=== PATIENT | female | born 1930 | race African-American/Black ===

== ENCOUNTER 2018-05-16 16:21 | Inpatient (IN) | payer OTHER ==
[2018-05-16] MEDS ORDERED: SODIUM CHLORIDE 0.9% 500 ML INFUS.BAG IV ONE (17:45)
--- NOTE | 2018-05-16 18:20 | PDOC ---
History of Present Illness - General History Source: Patient - History of Present Illness Initial Comments: 05/16/18 17:41 88YOF with h/o dementia, HTN, DM, back pain, and urinary retention with multiple prior UTI and hydronephrosis, who p/w worsening weakness (unable to walk and was previously able to), and multiple falls, all ongoing for months prior to presentation today. The patient herself is a poor historian and is accompanied by her daughter who provides some history but does not live with the patient. The daughter notes that the patient has not complained of any discomfort, but has smelled strongly of urine and had worsening confusion and malaise and poor appetite. The daughter also notes several falls recently, with the most recent about a week and a half ago. The patient herself states that she fell earlier today, but this is not corroborated by family. <Maral Ruvalcaba - Last Filed: 05/16/18 17:41> <Kecia Negron - Last Filed: 05/16/18 19:27> - General Chief Complaint: Weakness Stated Complaint: BOTH LEG WEAKNESS Time Seen by Provider: 05/16/18 17:23 Past History - Past Medical History Anemia: No Asthma: No Cancer: No Cardiac Disorders: No CVA: No COPD: No CHF: No Dementia: No Diabetes: Yes GI Disorders: No Disorders: No HTN: Yes Hypercholesterolemia: No Liver Disease: No Seizures: No Thyroid Disease: No - Surgical History Abdominal Surgery: No Appendectomy: No Cardiac Surgery: No Cholecystectomy: Yes Lung Surgery: No Neurologic Surgery: No Orthopedic Surgery: No - Suicide/Smoking/Psychosocial Hx Smoking Status: No Smoking History: Former smoker Have you smoked in the past 12 months: No Number of Cigarettes Smoked Daily: 0 If you are a former smoker, when did you quit?: 30 YRS AGO Information on smoking cessation initiated: No Hx Alcohol Use: No Drug/Substance Use Hx: No Substance Use Type: None Hx Substance Use Treatment: No <Maral Ruvalcaba - Last Filed: 05/16/18 17:41> <Kecia Negron - Last Filed: 05/16/18 19:27> - Past Medical History Allergies/Adverse Reactions: Allergies Allergy/AdvReac Type Severity Reaction Status Date / Time No Known Allergies Allergy Verified 05/16/18 16:29 Home Medications: Ambulatory Orders Sitagliptin Phos/Metformin HCl [Janumet 50-500 mg Tablet] 1 each PO DAILY Aspirin [ASA -] 81 mg PO DAILY 1 Days tab 12/23/11 Metoprolol Succinate [Toprol XL -] 50 mg PO BID #0 tablet 12/23/11 Amlodipine Bes/Olmesartan Med [Lisa 10-40 mg Tablet] 1 each PO DAILY 10/08/13 Review of Systems - Review of Systems Able to Perform ROS?: No (dementia) <Maral Ruvalcaba - Last Filed: 05/16/18 17:41> *Physical Exam - Vital Signs Last Vital Signs Temp Pulse Resp BP Pulse Ox 97.4 F L 75 14 100/51 L 94 L 05/16/18 16:26 05/16/18 16:26 05/16/18 16:26 05/16/18 16:26 05/16/18 16:26 - Physical Exam Comments: 05/16/18 18:41 GENERAL: pleasant elderly female in no distress, confused, calm, no distress, accompanied by daughter, smells strongly of urine HEENT: PERRLA, EOMI, moist mucous membranes NECK/BACK: no spinal stepoff or deformity, no hematoma, neck supple CARDIOVASCULAR: regular rate/rhythm, normal S1S2, no MGR, capillary refill <2 seconds, extremities wwp, no edema LUNGS/RESPIRATORY: nononlabored respirations, lungs CTAB GI/ABDOMEN: symmetric [id number], normoactive BS, soft, no midline pulsatile masses, no organomegaly : normal external appearance, no lesions, no swelling, non-malodorous EXTREMITIES: no muscle atrophy, no acute deformity, no edema SKIN: warm and dry, no pallor, no jaundice, no rash, no bruising, no skin breakdown, no cuts NEUROLOGICAL: Not alert or oriented, CN II-XII grossly intact, no obvious facial droop, CNII-XII intact, BUE with 5/5 strength proximally and distally, BLE with 3/5 strength, stance and gait not tested <Maral Ruvalcaba - Last Filed: 05/16/18 17:41> - Vital Signs Last Vital Signs Temp Pulse Resp BP Pulse Ox 97.4 F L 75 14 100/51 L 94 L 05/16/18 16:26 05/16/18 16:26 05/16/18 16:26 05/16/18 16:26 05/16/18 16:26 <Kecia Negron - Last Filed: 05/16/18 19:27> ED Treatment Course - LABORATORY CBC & Chemistry Diagram: 05/16/18 17:54 05/16/18 17:54 - ADDITIONAL ORDERS Additional order review: Laboratory Results 05/16/18 05/16/18 17:54 17:54 Sodium 137 Potassium 6.1 H* Chloride 108 H Carbon Dioxide 19 L Anion Gap 9 BUN 42 H Creatinine 1.5 H Creat Clearance w eGFR 32.70 Random Glucose 100 Calcium 12.4 H Phosphorus 3.2 Magnesium 2.4 Total Bilirubin 0.4 AST 31 ALT 21 Alkaline Phosphatase 76 Creatine Kinase 77 Troponin I < 0.02 Total Protein 7.5 Albumin 2.6 L Urine Color Dk yellow Urine Appearance Turbid Urine pH 8.5 H Ur Specific [place] 1.016 Urine Protein 3+ H Urine Glucose (UA) Negative Urine Ketones Negative Urine Blood Trace Urine Nitrite Negative Urine Bilirubin Negative Urine Urobilinogen 0.2 Ur Leukocyte Esterase 4+ H Urine WBC (Auto) 5,547.0 Urine RBC (Auto) 5.2 Urine Casts (Auto) None seen U Epithel Cells (Auto) 136.7 Urine Bacteria (Auto) 628.1 05/16/18 17:54 RBC 3.88 MCV 81.3 MCHC 32.4 RDW 14.6 MPV 7.6 D Neutrophils % 75.5 Lymphocytes % 12.5 Monocytes % 10.2 Eosinophils % 0.8 Basophils % 1.0 - Medications Given in the ED: ED Medications Discontinued Medications Generic Name Dose Route Start Last Admin Trade Name Freq PRN Reason Stop Dose Admin Sodium Chloride 500 ml 05/16/18 17:45 05/16/18 18:48 Normal Saline - IV 05/16/18 17:46 500 ml ONCE ONE Administration <Kecia Negron - Last Filed: 05/16/18 19:27> Medical Decision Making - Medical Decision Making 05/16/18 17:43 Pt p/w fatigue and generalized weakness. Initial Vital Signs Temp Pulse Resp BP Pulse Ox 97.4 F L 75 14 100/51 L 94 L 05/16/18 16:26 05/16/18 16:26 05/16/18 16:26 05/16/18 16:26 05/16/18 16:26 Exam: As noted in Physical Exam section. DDX IBNLT: anemia (e.g. from GIB, menorrhagia, other blood loss), endocrine ( hypothyroidism, hyperparathyroidism), Parkinsons disease, CVA, cancer ([place] DIRECT [employer]SE CONSULT[employer] neoplasm), medications/drugs (any sedative e.g. EtOH or withdrawal from a stimulant, methyldopa, clonidine, beta blockers, Haldol, prochlorperaine, metocloperamide, long-term steroid use, IFN-alpha), psychiatric (depression, dysthymia, bipolar disorder, adjustment disorder with depressed mood, premenstrual dysphoric disorder). W/U ordered: Labs as below EKG CXR TX ordered: IVF EKG: Reviewed; results as noted in ECG Review section. Labs: 05/16/18 18:46 <Maral Ruvalcaba - Last Filed: 05/16/18 17:41> *DC/Admit/Observation/Transfer <Maral Ruvalcaba - Last Filed: 05/16/18 17:41> - Discharge Dispostion Decision to Admit order: Yes <Kecia Negron - Last Filed: 05/16/18 19:27> Diagnosis at time of Disposition: Urinary tract infection, Hyperkalemia - Discharge Dispostion Condition at time of disposition: Guarded
[2018-05-16 18:28] LABS: EOS % 0.8 % (0-4.5); HEMATOCRIT 31.6 % (32.4-45.2); HEMOGLOBIN 10.3 GM/dL (10.7-15.3); LYMPH % 12.5 % (8-40); MCH 26.4 pg (25.7-33.7); MCHC 32.4 g/dl (32.0-36.0); MEAN CELL VOLUME 81.3 fl (80-96); MEAN PLT VOLUME 7.6 fl (7.5-11.1); MONO % 10.2 % (3.8-10.2); NEUT % 75.5 % (42.8-82.8); PLATELET COUNT 405 K/MM3 (134-434); RBC 3.88 M/mm3 (3.60-5.2); RDW 14.6 % (11.6-15.6)
--- NOTE | 2018-05-16 18:38 | PDOC ---
Attending Attestation - Resident Resident Name: Maral Ruvalcaba - ED Attending Attestation I have performed the following: I have examined & evaluated the patient, The case was reviewed & discussed with the resident, I agree w/resident's findings & plan - HPI HPI: 05/16/18 19:31 88YOF with a PMH of dementia, HTN, DM, back pain, prior UTIs and hydronephrosis who presents s/p unwitnessed fall today. As per daughter at bedside, patient has had multiple falls over the past week and a half. Daughter has also noticed increased confusion for the past month. Daughter notes the patient had melena yesterday. Patient has also had poor appetite, weakness, and has not been ambulating with her walker. The patient is complaining of mild abdominal pain and knee pain. Patient is unable to provide further history. An aid and nurse come to the patients home, and son her also lives with her. Allergies: NKA 05/16/18 21:57 - Physicial Exam PE: 05/16/18 19:03 NAD, alert and awake, mildly disoriented. PERRL, EOMI, dry membranes, nl conjunctiva, anicteric; neck supple. lungs clear, RRR, abdomen soft mildly diffuse abdominal tenderness, no cvat and no rebound/guarding. PHILIPPE x4, no focal neuro deficits. No peripheral edema. normal color for ethnicity, WWP. 05/16/18 21:57 - Medical Decision Making 05/16/18 18:39 I, Kecia Negron MD, attest that this document has been prepared under my direction and personally reviewed by me in its entirety. I further attest, that it accurately reflects all work, treatment, procedures and medical decision -making performed by me. See HPI for details Vital signs reviewed, wnl. SpO2 94%. no fever. Prior notes reviewed, including admissions, discharges and consultations. laboratory results and imaging reviewed, basic labs and lytes wnl, notable for mild leukocytosis of 14K. Cr 1.5, previous more normal and at the peak. K elevated, with some EKG changes, meds given and recheck +malodorous urine UA_+UTI, f/u cultures EKG normal sinus rhythm at 74 bpm, no interval abnormalities, narrow QRS, ST segments and morphology normal. Nonspecific T wave abnormalities with Tented T waves in precordials ED course: IV ceftriaxone for suspected clinical UTI hyper K treatment with calcium, dextrose, insulin, duonebs 10mg albuterol and IVF. Admit for AMS workup 2/2 acute UTI, hyperK . Discussed results and management plan with pt and family member at bedside, agree with impression and plan 05/16/18 21:58 Heart Score/ECG Review #1 ECG reviewed & interpreted by me at: 19:00 General ECG Interpretation: Sinus Rhythm, Normal Rate, Normal Intervals 05/16/18 19:08 EKG normal sinus rhythm at 74 bpm, no interval abnormalities, narrow QRS, ST segments and morphology normal. Nonspecific T wave abnormalities with Tented T waves in precordials
[2018-05-16] MEDS ORDERED: CEFTRIAXONE 1,000 MG in DEXTROSE 5%-WATER - 50 ML IVPB ONE (19:00)
[2018-05-16 19:04] LABS: ALBUMIN 2.6 g/dl (3.4-5.0); ALK PHOS 76 U/L (45-117); ANION GAP 9 MMOL/L (8-16); BILIRUBIN,TOTAL 0.4 mg/dL (0.2-1); BLOOD UREA NITROGEN 42 mg/dL (7-18); CALCIUM 12.4 mg/dL (8.5-10.1); CHLORIDE 108 mmol/L (98-107); CO2 19 mmol/L (21-32); CREATININE 1.5 mg/dL (0.55-1.3); GLUCOSE,RANDOM 100 mg/dL (74-106); MAGNESIUM 2.4 mg/dL (1.8-2.4); PHOSPHOROUS 3.2 mg/dL (2.5-4.9); SGOT/AST 31 U/L (15-37); SGPT/ALT 21 U/L (13-61); SODIUM 137 mmol/L (136-145); TOT PROT 7.5 g/dl (6.4-8.2)
[2018-05-16] MEDS ORDERED: CEFTRIAXONE 1 GM/50 ML BAG ONE (19:05)
[2018-05-16 19:06] LABS: POTASSIUM 6.1 mmol/L (3.5-5.1)
[2018-05-16 19:14] LABS: URINE APPEARANCE TURBID; URINE COLOR DK YELLOW
[2018-05-16 19:15] LABS: PH,URINE 8.5 (5.0-8.0); URINE BILIRUBIN NEGATIVE (NEGATIVE); URINE GLUCOSE (UA) NEGATIVE (NEGATIVE); URINE KETONE NEGATIVE (NEGATIVE)
[2018-05-16 19:16] LABS: URINE LEUK ESTERASE 4+ (NEGATIVE); URINE NITRITE NEGATIVE (NEGATIVE); URINE UROBILINOGEN 0.2 mg/dL (0.2-1.0)
[2018-05-16 19:22] LABS: URINE PROTEIN 3+ (NEGATIVE); URINE RBC 5.2 /hpf (0-4)
[2018-05-16 19:23] LABS: EPI CELLS 136.7 /HPF (0-5)
[2018-05-16 19:24] LABS: URINE BACTERIA 628.1 /hpf (NEGATIVE)
[2018-05-16 19:25] LABS: URINE CASTS NONE SEEN /hpf (0-8)
[2018-05-16] MEDS ORDERED: CALCIUM GLUCONATE 10% - 1,000 MG/10 ML VIAL IVPB ONE (19:25)
[2018-05-16] MEDS ORDERED: FUROSEMIDE 40 MG/4 ML INJECTABLE VIAL IVPUSH ONE (19:25)
[2018-05-16] MEDS ORDERED: INSULIN REGULAR HUMAN 100 UNITS/ML *VIAL IVPUSH ONE (19:26)
[2018-05-16] MEDS ORDERED: DEXTROSE 50%-WATER - 25 GM/50 ML VIAL IVPUSH ONE (19:26)
[2018-05-16] MEDS ORDERED: DEXTROSE 50%-WATER - 25 GM/50 ML VIAL ONE (19:33)
[2018-05-16] MEDS ORDERED: ALBUTEROL SO4 2.5/IPRATROPIUM 0.5 INH SOL 3 ML VIAL.NEB. NEB ONE (19:33)
[2018-05-16] MEDS ORDERED: CALCIUM GLUCONATE 10% - 1,000 MG/10 ML VIAL ONE (19:33)
[2018-05-16] MEDS ORDERED: FUROSEMIDE 40 MG/4 ML INJECTABLE VIAL ONE (19:34)
[2018-05-16] MEDS ORDERED: INSULIN REGULAR HUMAN 100 UNITS/ML *VIAL ONE (19:35)
[2018-05-16] MEDS: ALBUTEROL SO4 2.5/IPRATROPIUM 0.5 INH SOL 3 ML VIAL.NEB. NEB SCH ×4 (19:50→20:29)
--- NOTE | 2018-05-16 20:15 | PDOC ---
*Physical Exam - Vital Signs Last Vital Signs Temp Pulse Resp BP Pulse Ox 97.4 F L 75 14 100/51 L 94 L 05/16/18 16:26 05/16/18 16:26 05/16/18 16:26 05/16/18 16:26 05/16/18 16:26 ED Treatment Course - LABORATORY CBC & Chemistry Diagram: 05/16/18 17:54 05/16/18 17:54 - ADDITIONAL ORDERS Additional order review: Laboratory Results 05/16/18 05/16/18 05/16/18 19:05 17:54 17:54 Sodium 137 Potassium 6.1 H* Chloride 108 H Carbon Dioxide 19 L Anion Gap 9 BUN 42 H Creatinine 1.5 H Creat Clearance w eGFR 32.70 Random Glucose 100 Calcium 12.4 H Phosphorus 3.2 Magnesium 2.4 Total Bilirubin 0.4 AST 31 ALT 21 Alkaline Phosphatase 76 Creatine Kinase 77 Troponin I < 0.02 Total Protein 7.5 Albumin 2.6 L Urine Color Dk yellow Urine Appearance Turbid Urine pH 8.5 H Ur Specific [place] 1.016 Urine Protein 3+ H Urine Glucose (UA) Negative Urine Ketones Negative Urine Blood Trace Urine Nitrite Negative Urine Bilirubin Negative Urine Urobilinogen 0.2 Ur Leukocyte Esterase 4+ H Urine WBC (Auto) 5,547.0 Urine RBC (Auto) 5.2 Urine Casts (Auto) None seen U Epithel Cells (Auto) 136.7 Urine Bacteria (Auto) 628.1 Stool Occult Blood Negative 05/16/18 17:54 RBC 3.88 MCV 81.3 MCHC 32.4 RDW 14.6 MPV 7.6 D Neutrophils % 75.5 Lymphocytes % 12.5 Monocytes % 10.2 Eosinophils % 0.8 Basophils % 1.0 - Medications Given in the ED: ED Medications Discontinued Medications Generic Name Dose Route Start Last Admin Trade Name Freq PRN Reason Stop Dose Admin Calcium Gluconate 1,000 mg 05/16/18 19:25 05/16/18 19:57 Calcium Gluconate 10% - IVPB 05/16/18 19:26 1,000 mg ONCE ONE Administration Dextrose 25 gm 05/16/18 19:26 05/16/18 19:57 D50w (Vial) - IVPUSH 05/16/18 19:27 25 gm NOW ONE Administration Furosemide 40 mg 05/16/18 19:25 05/16/18 19:57 Lasix Injection - IVPUSH 05/16/18 19:26 40 mg ONCE ONE Administration Ceftriaxone Sodium 1,000 mg/ 50 mls @ 100 mls/hr 05/16/18 19:00 05/16/18 19: 07 Dextrose IVPB 05/16/18 19:29 100 mls/hr ONCE ONE Administration Insulin Human Regular 10 units 05/16/18 19:26 05/16/18 19:57 Novolin R Vial *For Ivpush Or Iv Drip Only* IVPUSH 05/16/18 19:27 10 units ONCE ONE Administration Sodium Chloride 500 ml 05/16/18 17:45 05/16/18 18:48 Normal Saline - IV 05/16/18 17:46 500 ml ONCE ONE Administration Medical Decision Making - Medical Decision Making 05/16/18 20:[address] Thompson for hyperkalemia, BRITT and UTI. *DC/Admit/Observation/Transfer Diagnosis at time of Disposition: Urinary tract infection, Hyperkalemia - Discharge Dispostion Condition at time of disposition: Guarded Decision to Admit order: Yes - Referrals - Patient Instructions - Post Discharge Activity
--- NOTE | 2018-05-16 20:24 | HP ---
Admitting History and Physical - Primary Care Physician PCP: Jose Thompson - Admission History of Present Illness: 88YOF with a PMH of dementia, HTN, DM, back pain, prior UTIs and hydronephrosis who presents s/p unwitnessed fall today. As per daughter at bedside, patient has had multiple falls over the past week and a half. Daughter has also noticed increased confusion for the past month. Daughter notes the patient had melena yesterday. Patient has also had poor appetite, weakness, and has not been ambulating with her walker. The patient is complaining of mild abdominal pain and knee pain. Patient is unable to provide further history. An aid and nurse come to the patients home, and son her also lives with her. - Past Medical History Cardiovascular: Yes: HTN Endocrine: Yes: Diabetes Mellitus - Smoking History Smoking history: Former smoker Have you smoked in the past 12 months: No Aproximately how many cigarettes per day: 0 If you are a former smoker, when did you quit?: 30 YRS AGO - Alcohol/Substance Use Hx Alcohol Use: No Home Medications - Allergies Allergies/Adverse Reactions: Allergies Allergy/AdvReac Type Severity Reaction Status Date / Time No Known Allergies Allergy Verified 05/16/18 16:29 - Home Medications Home Medications: Ambulatory Orders Sitagliptin Phos/Metformin HCl [Janumet 50-500 mg Tablet] 1 each PO DAILY Aspirin [ASA -] 81 mg PO DAILY 1 Days tab 12/23/11 Metoprolol Succinate [Toprol XL -] 50 mg PO BID #0 tablet 12/23/11 Amlodipine Bes/Olmesartan Med [Lisa 10-40 mg Tablet] 1 each PO DAILY 10/08/13 Physical Examination Vital Signs: Vital Signs Temperature 97.4 F L 05/16/18 16:26 Pulse Rate 75 05/16/18 16:26 Respiratory Rate 14 05/16/18 16:26 Blood Pressure 100/51 L 05/16/18 16:26 O2 Sat by Pulse Oximetry (%) 94 L 05/16/18 16:26 Constitutional: Yes: No Distress HENT: Yes: Atraumatic Neck: Yes: Supple Cardiovascular: Yes: Regular Rate and Rhythm Respiratory: Yes: CTA Bilaterally Gastrointestinal: Yes: Normal Bowel Sounds Extremities: Yes: WNL Edema: No Neurological: Yes: Alert, Oriented Labs: CBC, BMP 05/16/18 17:54 05/16/18 17:54 Imaging - Results X-ray: Report Reviewed Problem List - Problems (1) BRITT (acute kidney injury) Assessment/Plan: ON IVF MONITOR Code(s): N17.9 - ACUTE KIDNEY FAILURE, UNSPECIFIED (2) Hyperkalemia Assessment/Plan: RESOLVED Code(s): E87.5 - HYPERKALEMIA (3) Urinary tract infection Assessment/Plan: ON ABX PER ID CXS SENT Code(s): N39.0 - URINARY TRACT INFECTION, SITE NOT SPECIFIED (4) Dementia Code(s): F03.90 - UNSPECIFIED DEMENTIA WITHOUT BEHAVIORAL DISTURBANCE Qualifiers: Dementia type: unspecified type Dementia behavioral disturbance: without behavioral disturbance Qualified Code(s): F03.90 - Unspecified dementia without behavioral disturbance (5) Diabetes mellitus Assessment/Plan: ON PO MEDS BGMS Code(s): E11.9 - TYPE 2 DIABETES MELLITUS WITHOUT COMPLICATIONS Qualifiers: Diabetes mellitus type: type 2 Diabetes mellitus long-term insulin use: without water pump installer use (6) Fall Assessment/Plan: PT EVAL Code(s): W19.XXXA - UNSPECIFIED FALL, INITIAL ENCOUNTER Qualifiers: Encounter type: subsequent encounter Qualified Code(s): W19.XXXD - Unspecified fall, subsequent encounter (7) HTN (hypertension) Assessment/Plan: ON MEDS STABLE Code(s): I10 - ESSENTIAL (PRIMARY) HYPERTENSION Qualifiers: Hypertension type: essential hypertension Qualified Code(s): I10 - Essential (primary) hypertension Assessment/Plan Laboratory Tests 05/16/18 05/16/18 05/16/18 17:54 17:54 17:54 WBC 14.0 H RBC 3.88 Hgb 10.3 L Hct 31.6 L MCV 81.3 MCH 26.4 MCHC 32.4 RDW 14.6 Plt Count 405 D MPV 7.6 D Absolute Neuts (auto) 10.6 H Neutrophils % 75.5 Lymphocytes % 12.5 Monocytes % 10.2 Eosinophils % 0.8 Basophils % 1.0 Nucleated RBC % 0 Sodium 137 Potassium 6.1 H* Chloride 108 H Carbon Dioxide 19 L Anion Gap 9 BUN 42 H Creatinine 1.5 H Creat Clearance w eGFR 32.70 Random Glucose 100 Calcium 12.4 H Phosphorus 3.2 Magnesium 2.4 Total Bilirubin 0.4 AST 31 ALT 21 Alkaline Phosphatase 76 Creatine Kinase 77 Troponin I < 0.02 Total Protein 7.5 Albumin 2.6 L Urine Color Dk yellow Urine Appearance Turbid Urine pH 8.5 H Ur Specific [place] 1.016 Urine Protein 3+ H Urine Glucose (UA) Negative Urine Ketones Negative Urine Blood Trace Urine Nitrite Negative Urine Bilirubin Negative Urine Urobilinogen 0.2 Ur Leukocyte Esterase 4+ H Urine WBC (Auto) 5,547.0 Urine RBC (Auto) 5.2 Urine Casts (Auto) None seen U Epithel Cells (Auto) 136.7 Urine Bacteria (Auto) 628.1 Stool Occult Blood 05/16/18 19:05 WBC RBC Hgb Hct MCV MCH MCHC RDW Plt Count MPV Absolute Neuts (auto) Neutrophils % Lymphocytes % Monocytes % Eosinophils % Basophils % Nucleated RBC % Sodium Potassium Chloride Carbon Dioxide Anion Gap BUN Creatinine Creat Clearance w eGFR Random Glucose Calcium Phosphorus Magnesium Total Bilirubin AST ALT Alkaline Phosphatase Creatine Kinase Troponin I Total Protein Albumin Urine Color Urine Appearance Urine pH Ur Specific [place] Urine Protein Urine Glucose (UA) Urine Ketones Urine Blood Urine Nitrite Urine Bilirubin Urine Urobilinogen Ur Leukocyte Esterase Urine WBC (Auto) Urine RBC (Auto) Urine Casts (Auto) U Epithel Cells (Auto) Urine Bacteria (Auto) Stool Occult Blood Negative Laboratory Tests 05/16/18 05/16/18 05/16/18 17:54 17:54 17:54 WBC 14.0 H RBC 3.88 Hgb 10.3 L Hct 31.6 L MCV 81.3 MCH 26.4 MCHC 32.4 RDW 14.6 Plt Count 405 D MPV 7.6 D Absolute Neuts (auto) 10.6 H Neutrophils % 75.5 Lymphocytes % 12.5 Monocytes % 10.2 Eosinophils % 0.8 Basophils % 1.0 Nucleated RBC % 0 Sodium 137 Potassium 6.1 H* Chloride 108 H Carbon Dioxide 19 L Anion Gap 9 BUN 42 H Creatinine 1.5 H Creat Clearance w eGFR 32.70 POC Glucometer Random Glucose 100 Calcium 12.4 H Phosphorus 3.2 Magnesium 2.4 Total Bilirubin 0.4 AST 31 ALT 21 Alkaline Phosphatase 76 Creatine Kinase 77 Troponin I < 0.02 Total Protein 7.5 Albumin 2.6 L Prealbumin TSH Urine Color Dk yellow Urine Appearance Turbid Urine pH 8.5 H Ur Specific [place] 1.016 Urine Protein 3+ H Urine Glucose (UA) Negative Urine Ketones Negative Urine Blood Trace Urine Nitrite Negative Urine Bilirubin Negative Urine Urobilinogen 0.2 Ur Leukocyte Esterase 4+ H Urine WBC (Auto) 5,547.0 Urine RBC (Auto) 5.2 Urine Casts (Auto) None seen U Epithel Cells (Auto) 136.7 Urine Bacteria (Auto) 628.1 Ur Random Sodium Ur Random Potassium Ur Random Chloride Urine Creatinine Stool Occult Blood 05/16/18 05/16/18 05/17/18 19:05 21:20 04:48 WBC RBC Hgb Hct MCV MCH MCHC RDW Plt Count MPV Absolute Neuts (auto) Neutrophils % Lymphocytes % Monocytes % Eosinophils % Basophils % Nucleated RBC % Sodium 139 Potassium 4.1 Chloride 110 H Carbon Dioxide 18 L Anion Gap 11 BUN 41 H Creatinine 1.4 H Creat Clearance w eGFR 35.41 POC Glucometer 147 Random Glucose 132 H Calcium 12.9 H Phosphorus Magnesium Total Bilirubin 0.3 AST 26 ALT 19 Alkaline Phosphatase 73 Creatine Kinase 38 Troponin I < 0.02 Total Protein 6.9 Albumin 2.4 L Prealbumin TSH Urine Color Urine Appearance Urine pH Ur Specific [place] Urine Protein Urine Glucose (UA) Urine Ketones Urine Blood Urine Nitrite Urine Bilirubin Urine Urobilinogen Ur Leukocyte Esterase Urine WBC (Auto) Urine RBC (Auto) Urine Casts (Auto) U Epithel Cells (Auto) Urine Bacteria (Auto) Ur Random Sodium Ur Random Potassium Ur Random Chloride Urine Creatinine Stool Occult Blood Negative 05/17/18 05/18/18 05/18/18 15:00 05:30 05:30 WBC 12.8 H RBC 3.64 Hgb 9.6 L Hct 29.4 L MCV 80.9 MCH 26.5 MCHC 32.8 RDW 14.8 Plt Count 379 MPV 8.3 Absolute Neuts (auto) 9.4 H Neutrophils % 73.6 Lymphocytes % 13.7 Monocytes % 10.9 H Eosinophils % 1.1 Basophils % 0.7 Nucleated RBC % 0 Sodium 137 Potassium 4.8 Chloride 109 H Carbon Dioxide 22 Anion Gap 5 L BUN 43 H Creatinine 1.2 Creat Clearance w eGFR 42.30 POC Glucometer Random Glucose 103 Calcium 13.0 H Phosphorus 2.7 Magnesium 2.5 H Total Bilirubin 0.4 AST 23 ALT 21 Alkaline Phosphatase 72 Creatine Kinase 27 Troponin I < 0.02 Total Protein 7.1 Albumin 2.4 L Prealbumin 9.7 L TSH 0.24 L Urine Color Urine Appearance Urine pH Ur Specific [place] Urine Protein Urine Glucose (UA) Urine Ketones Urine Blood Urine Nitrite Urine Bilirubin Urine Urobilinogen Ur Leukocyte Esterase Urine WBC (Auto) Urine RBC (Auto) Urine Casts (Auto) U Epithel Cells (Auto) Urine Bacteria (Auto) Ur Random Sodium Ur Random Potassium Ur Random Chloride Urine Creatinine Stool Occult Blood 05/18/18 05/18/18 05/18/18 07:00 14:19 14:19 WBC RBC Hgb Hct MCV MCH MCHC RDW Plt Count MPV Absolute Neuts (auto) Neutrophils % Lymphocytes % Monocytes % Eosinophils % Basophils % Nucleated RBC % Sodium Potassium Chloride Carbon Dioxide Anion Gap BUN Creatinine Creat Clearance w eGFR POC Glucometer 102 Random Glucose Calcium Phosphorus Magnesium Total Bilirubin AST ALT Alkaline Phosphatase Creatine Kinase Troponin I Total Protein Albumin Prealbumin TSH Urine Color Urine Appearance Urine pH Ur Specific [place] Urine Protein Urine Glucose (UA) Urine Ketones Urine Blood Urine Nitrite Urine Bilirubin Urine Urobilinogen Ur Leukocyte Esterase Urine WBC (Auto) Urine RBC (Auto) Urine Casts (Auto) U Epithel Cells (Auto) Urine Bacteria (Auto) Ur Random Sodium Cancelled Ur Random Potassium Cancelled Ur Random Chloride Cancelled Urine Creatinine Cancelled Stool Occult Blood 05/18/18 14:19 WBC RBC Hgb Hct MCV MCH MCHC RDW Plt Count MPV Absolute Neuts (auto) Neutrophils % Lymphocytes % Monocytes % Eosinophils % Basophils % Nucleated RBC % Sodium Potassium Chloride Carbon Dioxide Anion Gap BUN Creatinine Creat Clearance w eGFR POC Glucometer Random Glucose Calcium Phosphorus Magnesium Total Bilirubin AST ALT Alkaline Phosphatase Creatine Kinase Troponin I Total Protein Albumin Prealbumin TSH Urine Color Urine Appearance Urine pH Ur Specific [place] Urine Protein Urine Glucose (UA) Urine Ketones Urine Blood Urine Nitrite Urine Bilirubin Urine Urobilinogen Ur Leukocyte Esterase Urine WBC (Auto) Urine RBC (Auto) Urine Casts (Auto) U Epithel Cells (Auto) Urine Bacteria (Auto) Ur Random Sodium 61 Ur Random Potassium Ur Random Chloride 84 L Urine Creatinine < 13.0 L Stool Occult Blood Active Medications Generic Name Dose Route Start Last Admin Trade Name Freq PRN Reason Stop Dose Admin Amlodipine Besylate 10 mg 05/17/18 10:00 05/18/18 10:16 Norvasc - PO 10 mg DAILY MARIAJOSE Administration Aspirin 81 mg 05/17/18 10:00 05/18/18 10:16 Asa - PO 81 mg DAILY MARIAJOSE Administration Furosemide 20 mg 05/18/18 20:00 Lasix - PO 05/18/18 20:01 ONCE ONE Heparin Sodium (Porcine) 5,000 unit 05/16/18 22:00 05/18/18 10:16 Heparin - SQ 5,000 unit BID MARIAJOSE Administration Sodium Chloride 1,000 mls @ 125 mls/hr 05/18/18 12:39 Normal Saline - IV ASDIR MARIAJOSE Ceftriaxone Sodium 1 gm/ 50 mls @ 100 mls/hr 05/18/18 14:15 Dextrose IVPB DAILY [facility] Protocol Metformin HCl 500 mg 05/17/18 07:00 05/18/18 07:01 Glucophage - PO 500 mg ACBK MARIAJOSE Administration Metoprolol Succinate 50 mg 05/16/18 22:00 05/18/18 10:16 Toprol Xl - PO 50 mg BID MARIAJOSE Administration Sitagliptin Phosphate 50 mg 05/17/18 07:00 05/18/18 07:01 Januvia - PO 50 mg DAILY@0700 MARIAJOSE Administration
[2018-05-16] MEDS ORDERED: ACETAMINOPHEN 1000 MG/100 ML VIAL (NON FORMULARY) IVPB ONE (21:12)
[2018-05-16] MEDS ORDERED: ACETAMINOPHEN INJECTION 100 ML IVPB ONE (21:20)
[2018-05-16 22:02] LABS: ALBUMIN 2.4 g/dl (3.4-5.0); ALK PHOS 73 U/L (45-117); ANION GAP 11 MMOL/L (8-16); BILIRUBIN,TOTAL 0.3 mg/dL (0.2-1); BLOOD UREA NITROGEN 41 mg/dL (7-18); CALCIUM 12.9 mg/dL (8.5-10.1); CHLORIDE 110 mmol/L (98-107); CO2 18 mmol/L (21-32); CREATININE 1.4 mg/dL (0.55-1.3); GLUCOSE,RANDOM 132 mg/dL (74-106); POTASSIUM 4.1 mmol/L (3.5-5.1); SGOT/AST 26 U/L (15-37); SGPT/ALT 19 U/L (13-61); SODIUM 139 mmol/L (136-145); TOT PROT 6.9 g/dl (6.4-8.2)
[2018-05-16] MEDS: HEPARIN NA (PORCINE) 5,000 UNITS/ML 1ML VIAL SQ SCH (22:41)
[2018-05-17] MEDS: sitaGLIPtin PHOSPHATE 50 MG TABLET PO SCH (06:43)
[2018-05-17] MEDS: metFORMIN HCL 500 MG TABLET (FP) PO SCH (06:43)
--- NOTE | 2018-05-17 09:20 | EKG ---
Test Reason : Blood Pressure : / mmHG Vent. Rate : 074 BPM Atrial Rate : 074 BPM P-R Int : 200 ms QRS Dur : 092 ms QT Int : 344 ms P-R-T Axes : 039 -32 005 degrees QTc Int : 381 ms NORMAL SINUS RHYTHM LEFT AXIS DEVIATION POSSIBLE ANTERIOR INFARCT (CITED ON OR BEFORE 13-OCT-2013) ABNORMAL ECG WHEN COMPARED WITH ECG OF 13-OCT-2013 14:27, T WAVE VARIATION Confirmed by TIFF OVALLE, LEONID ([id number]) on 05/17/2018 9:20:23 AM Referred By: Confirmed By:LEONID MATTHEW MD
[2018-05-17] MEDS: ASPIRIN 81 MG CHEWABLE TABLETS PO SCH (09:58)
[2018-05-17] MEDS: amLODIPine BESYLATE 10 MG TABLET (FP) PO SCH (09:59)
[2018-05-17] MEDS: VALSARTAN 160 MG TABLET (UD) PO SCH (09:59)
[2018-05-17] MEDS: HEPARIN NA (PORCINE) 5,000 UNITS/ML 1ML VIAL SQ SCH ×2 (09:59→22:23)
[2018-05-17] MEDS ORDERED: PATIENT'S OWN MEDICATION (NON-FORMULARY) (Amlodipine Bes/Olmesartan Med [Azor 10-40 Mg Tab PO SCH (10:00)
[2018-05-17] MEDS ORDERED: PATIENT'S OWN MEDICATION (NON-FORMULARY) (Sitagliptin Phos/Metformin Hcl [Janumet 50-500 M PO SCH (10:00)
--- NOTE | 2018-05-17 10:02 | CONSULT ---
Consultation: CONSULT REQUEST: Nephrology HISTORY OF PRESENT ILLNESS: Patient is an 88 yo F with a PMHx of Dementia, HTN, DM, urinary retention with multiple prior UTI and hydronephrosis, presented to the ED after an unwitnessed fall. Patient said she's been having worsening weakness over the past few weeks with multiple falls. She says her legs feel weak and she feels they give up on her when she walks. She usually walks with a walker but has not been ambulating much since her weakness began. She also reports decreased appetite with poor PO intake and confusion since she started falling a few weeks ago. She denies urinary symptoms, head trauma, LOC, nausea, vomiting, chills, sob, diarrhea, abdominal pain. In 2013, patient was admitted for a UTI and was found to have B/L hydronephrosis. She was found to have obstructive uropathy and responded well to catheterization based on resolution of most of the hydronephrosis. PMHx: Dementia, HTN, DM, back pain, prior UTIs and hydronephrosis PSx: n/a Allergies: none REVIEW OF SYSTEMS: CONSTITUTIONAL: malaise, loss of appetite, generalized weakness Absent: fever, chills, diaphoresis, weight change HEENT: Absent: ear pain, eye pain, visual changes CARDIOVASCULAR: Absent: chest pain, syncope, palpitations, irregular heart rate, lightheadedness , peripheral edema RESPIRATORY: Absent: cough, shortness of breath, dyspnea with exertion, orthopnea, wheezing, stridor, hemoptysis GASTROINTESTINAL: Absent: abdominal pain, abdominal distension, nausea, vomiting, diarrhea, constipation, melena, hematochezia GENITOURINARY: Absent: dysuria, frequency, urgency, hesitancy, hematuria, genital pain NEUROLOGIC: Absent: headache, focal weakness or paresthesias, dizziness, unsteady gait, seizure, mental status changes, bladder or bowel incontinence PHYSICAL EXAMINATION Vital Signs - 24 hr 05/16/18 05/16/18 05/16/18 16:26 20:24 21:00 Temperature 97.4 F L 98.1 F Pulse Rate 75 Pulse Rate [ 97 H 99 H Right Apical] Respiratory 14 20 20 Rate Blood Pressure 100/51 L Blood Pressure 163/49 L 138/61 [Left] O2 Sat by Pulse 94 L 88 L 93 L Oximetry (%) 03/05/17/18 05/17/18 22:42 06:59 09:59 Temperature 97.8 F 97.3 F L Pulse Rate Pulse Rate [ 100 H 73 88 Right Apical] Respiratory 20 16 Rate Blood Pressure Blood Pressure 131/63 135/64 146/67 [Left] O2 Sat by Pulse 94 L 93 L 98 Oximetry (%) GENERAL: a/o x 3, comfortable in bed HEAD: Normal with no signs of trauma. EYES: cataracts, , sclera anicteric, conjunctiva clear. EARS, NOSE, THROAT: oropharynx clear without exudates. dry mucous membranes NECK: supple without lymphadenopathy, JVD, or masses. LUNGS: Breath sounds equal, clear to auscultation bilaterally. No wheezes, and no crackles. HEART: RRR, no MGR appreciated ABDOMEN: Soft, non-distended, suprapubic tenderness. no CVA tenderness LOWER EXTREMITIES: 2+ pulses, No peripheral edema. NEUROLOGICAL: Cranial nerves II-XII intact. Normal speech. Laboratory Results - last 24 hr 05/16/18 05/16/18 05/16/18 17:54 17:54 17:54 WBC 14.0 H RBC 3.88 Hgb 10.3 L Hct 31.6 L MCV 81.3 MCH 26.4 MCHC 32.4 RDW 14.6 Plt Count 405 D MPV 7.6 D Absolute Neuts (auto) 10.6 H Neutrophils % 75.5 Lymphocytes % 12.5 Monocytes % 10.2 Eosinophils % 0.8 Basophils % 1.0 Nucleated RBC % 0 Sodium 137 Potassium 6.1 H* Chloride 108 H Carbon Dioxide 19 L Anion Gap 9 BUN 42 H Creatinine 1.5 H Creat Clearance w eGFR 32.70 POC Glucometer Random Glucose 100 Calcium 12.4 H Phosphorus 3.2 Magnesium 2.4 Total Bilirubin 0.4 AST 31 ALT 21 Alkaline Phosphatase 76 Creatine Kinase 77 Troponin I < 0.02 Total Protein 7.5 Albumin 2.6 L Urine Color Dk yellow Urine Appearance Turbid Urine pH 8.5 H Ur Specific [place] 1.016 Urine Protein 3+ H Urine Glucose (UA) Negative Urine Ketones Negative Urine Blood Trace Urine Nitrite Negative Urine Bilirubin Negative Urine Urobilinogen 0.2 Ur Leukocyte Esterase 4+ H Urine WBC (Auto) 5,547.0 Urine RBC (Auto) 5.2 Urine Casts (Auto) None seen U Epithel Cells (Auto) 136.7 Urine Bacteria (Auto) 628.1 Stool Occult Blood 05/16/18 05/16/18 05/17/18 19:05 21:20 04:48 WBC RBC Hgb Hct MCV MCH MCHC RDW Plt Count MPV Absolute Neuts (auto) Neutrophils % Lymphocytes % Monocytes % Eosinophils % Basophils % Nucleated RBC % Sodium 139 Potassium 4.1 Chloride 110 H Carbon Dioxide 18 L Anion Gap 11 BUN 41 H Creatinine 1.4 H Creat Clearance w eGFR 35.41 POC Glucometer 147 Random Glucose 132 H Calcium 12.9 H Phosphorus Magnesium Total Bilirubin 0.3 AST 26 ALT 19 Alkaline Phosphatase 73 Creatine Kinase 38 Troponin I < 0.02 Total Protein 6.9 Albumin 2.4 L Urine Color Urine Appearance Urine pH Ur Specific [place] Urine Protein Urine Glucose (UA) Urine Ketones Urine Blood Urine Nitrite Urine Bilirubin Urine Urobilinogen Ur Leukocyte Esterase Urine WBC (Auto) Urine RBC (Auto) Urine Casts (Auto) U Epithel Cells (Auto) Urine Bacteria (Auto) Stool Occult Blood Negative Active Medications Generic Name Dose Route Start Last Admin Trade Name Freq PRN Reason Stop Dose Admin Amlodipine Besylate 10 mg 05/17/18 10:00 05/17/18 09:59 Norvasc - PO 10 mg DAILY MARIAJOSE Administration Aspirin 81 mg 05/17/18 10:00 05/17/18 09:58 Asa - PO 81 mg DAILY MARIAJOSE Administration Heparin Sodium (Porcine) 5,000 unit 05/16/18 22:00 05/17/18 09:59 Heparin - SQ 5,000 unit BID MARIAJOSE Administration Metformin HCl 500 mg 05/17/18 07:00 05/17/18 06:43 Glucophage - PO 500 mg ACBK MARIAJOSE Administration Metoprolol Succinate 50 mg 05/16/18 22:00 05/17/18 09:59 Toprol Xl - PO 50 mg BID MARIAJOSE Administration Sitagliptin Phosphate 50 mg 05/17/18 07:00 05/17/18 06:43 Januvia - PO 50 mg DAILY@0700 MARIAJOSE Administration Valsartan 320 mg 05/17/18 10:00 05/17/18 09:59 Diovan - PO 320 mg DAILY MARIAJOSE Administration ASSESSMENT/PLAN: 88 yo F with a PMHx of Dementia, HTN, DM, urinary retention with multiple prior UTI and hydronephrosis, presented to the ED after an unwitnessed fall. #UTI #BRITT #Hyperkalemia #Leukocytosis #Hypercalcemia #HTN #DM #Dementia -IV abx -will order Renal U/S to rule out obstruction -Monitor BMP, follow calcium levels -Will order IV fluids NS @75 ml/hour for dehydration and elevated calcium levels. -PTH level ordered -Will check AM mag, phos -avoid nephrotoxins Dispo: We will continue to follow the patient. Thank you for this consultative opportunity. Visit type - Emergency Visit Emergency Visit: Yes ED Registration Date: 05/16/18 Care time: The patient presented to the Emergency Department on the above date and was hospitalized for further evaluation of their emergent condition. - New Patient This patient is new to me today: Yes Date on this admission: 05/17/18 - Critical Care Critical Care patient: No
--- NOTE | 2018-05-17 10:48 | CON.CARD ---
Consult Consult Specialty:: Cardiology Referred by:: Dr. Thompson Reason for Consultation:: Cardiac evaluation - History of Present Illness Chief Complaint: Fall History of Present Illness: Patient is an 88 year old female with underlying history of organic brain/ dementia, DM and history of UTIs and hydronephrosis who presents with unwitnessed fall. She has had multiple falls in the past. She has been having increased confusion and also reported melena. She has poor appetite, generalized weakness and difficulty with ambulation. Currently, she denies chest pain, SOB or palpitations. Denies paroxysmal nocturnal dyspnea or orthopnea. Sse complains of mild abdominal pain and knee pain. No fever or chills. Denies headache or lightheadedness. 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 Cardio/Vascular: Yes: HTN Endocrine: Yes: Diabetes Mellitus - Alcohol/Substance Use Hx Alcohol Use: No - Smoking History Smoking history: Former smoker Have you smoked in the past 12 months: No Aproximately how many cigarettes per day: 0 If you are a former smoker, when did you quit?: 30 YRS AGO Home Medications - Allergies Allergies/Adverse Reactions: Allergies Allergy/AdvReac Type Severity Reaction Status Date / Time No Known Allergies Allergy Verified 05/16/18 16:29 - Home Medications Home Medications: Ambulatory Orders Sitagliptin Phos/Metformin HCl [Janumet 50-500 mg Tablet] 1 each PO DAILY Aspirin [ASA -] 81 mg PO DAILY 1 Days tab 12/23/11 Metoprolol Succinate [Toprol XL -] 50 mg PO BID #0 tablet 12/23/11 Amlodipine Bes/Olmesartan Med [Lisa 10-40 mg Tablet] 1 each PO DAILY 10/08/13 Family Disease History - Family Disease History Family History: Unable to Obtain Review of Systems - Review of Systems Constitutional: denies: Chills, Fever Cardiovascular: denies: Chest Pain, Palpitations, Shortness of Breath Respiratory: denies: Cough, Hemoptysis, Orthopnea, PND, SOB, SOB on Exertion Gastrointestinal: reports: Melena. denies: Abdominal Pain, Constipation, Diarrhea, Nausea, Rectal Bleeding, Vomiting Musculoskeletal: reports: Joint Pain Neurological: denies: Dizziness, Headache, Seizure, Syncope Vital Signs: Vital Signs Temperature 97.3 F L 05/17/18 09:59 Pulse Rate 88 05/17/18 09:59 Respiratory Rate 16 05/17/18 09:59 Blood Pressure 146/67 05/17/18 09:59 O2 Sat by Pulse Oximetry (%) 98 05/17/18 09:59 Neck: Yes: Supple Respiratory: Yes: Diminished Gastrointestinal: Yes: Normal Bowel Sounds, Soft. No: Tenderness Cardiovascular: Yes: Regular Rate and Rhythm JVD: No PMI: Non-Displaced Heart Sounds: Yes: S1, S2. No: Gallop Murmur: Yes: Systolic Murmur, Grade 1 Edema: No - Other Data Labs, Other Data: CBC, BMP 05/16/18 17:54 05/16/18 21:20 Troponin, BNP 05/16/18 05/16/18 17:54 21:20 Troponin I < 0.02 < 0.02 Laboratory Results - last 24 hr 05/16/18 05/16/18 05/16/18 17:54 17:54 17:54 WBC 14.0 H RBC 3.88 Hgb 10.3 L Hct 31.6 L MCV 81.3 MCH 26.4 MCHC 32.4 RDW 14.6 Plt Count 405 D MPV 7.6 D Absolute Neuts (auto) 10.6 H Neutrophils % 75.5 Lymphocytes % 12.5 Monocytes % 10.2 Eosinophils % 0.8 Basophils % 1.0 Nucleated RBC % 0 Sodium 137 Potassium 6.1 H* Chloride 108 H Carbon Dioxide 19 L Anion Gap 9 BUN 42 H Creatinine 1.5 H Creat Clearance w eGFR 32.70 POC Glucometer Random Glucose 100 Calcium 12.4 H Phosphorus 3.2 Magnesium 2.4 Total Bilirubin 0.4 AST 31 ALT 21 Alkaline Phosphatase 76 Creatine Kinase 77 Troponin I < 0.02 Total Protein 7.5 Albumin 2.6 L Urine Color Dk yellow Urine Appearance Turbid Urine pH 8.5 H Ur Specific [place] 1.016 Urine Protein 3+ H Urine Glucose (UA) Negative Urine Ketones Negative Urine Blood Trace Urine Nitrite Negative Urine Bilirubin Negative Urine Urobilinogen 0.2 Ur Leukocyte Esterase 4+ H Urine WBC (Auto) 5,547.0 Urine RBC (Auto) 5.2 Urine Casts (Auto) None seen U Epithel Cells (Auto) 136.7 Urine Bacteria (Auto) 628.1 Stool Occult Blood 05/16/18 05/16/18 05/17/18 19:05 21:20 04:48 WBC RBC Hgb Hct MCV MCH MCHC RDW Plt Count MPV Absolute Neuts (auto) Neutrophils % Lymphocytes % Monocytes % Eosinophils % Basophils % Nucleated RBC % Sodium 139 Potassium 4.1 Chloride 110 H Carbon Dioxide 18 L Anion Gap 11 BUN 41 H Creatinine 1.4 H Creat Clearance w eGFR 35.41 POC Glucometer 147 Random Glucose 132 H Calcium 12.9 H Phosphorus Magnesium Total Bilirubin 0.3 AST 26 ALT 19 Alkaline Phosphatase 73 Creatine Kinase 38 Troponin I < 0.02 Total Protein 6.9 Albumin 2.4 L Urine Color Urine Appearance Urine pH Ur Specific [place] Urine Protein Urine Glucose (UA) Urine Ketones Urine Blood Urine Nitrite Urine Bilirubin Urine Urobilinogen Ur Leukocyte Esterase Urine WBC (Auto) Urine RBC (Auto) Urine Casts (Auto) U Epithel Cells (Auto) Urine Bacteria (Auto) Stool Occult Blood Negative NSR, possible anterior infarct Imaging - Results Chest X-ray: Report Reviewed (Atelectasis) EKG: Report Reviewed Problem List - Problems (1) Diabetes mellitus Code(s): E11.9 - TYPE 2 DIABETES MELLITUS WITHOUT COMPLICATIONS (2) HTN (hypertension) Code(s): I10 - ESSENTIAL (PRIMARY) HYPERTENSION Qualifiers: Hypertension type: essential hypertension Qualified Code(s): I10 - Essential (primary) hypertension (3) Hyperkalemia Code(s): E87.5 - HYPERKALEMIA (4) Urinary tract infection Code(s): N39.0 - URINARY TRACT INFECTION, SITE NOT SPECIFIED (5) Hydronephrosis Code(s): N13.30 - UNSPECIFIED HYDRONEPHROSIS Assessment/Plan 1. Post fall no LOC 2. Organic brain syndrome/dementia 3. HTN 4. DM 5. UTIs PLAN: 1. Continue Metoprolol ER 50 mg BID, Valsartan 320 mg QD and Amlodipine 10 mg QD 2. ASA 81 mg QD 3. DM management 4. Echocardiography to assess LV/RV and valvuar function 5. Fall precaution 6. DVT prophylaxis Further plans are to follow Perez Richey MD
[2018-05-17] MEDS: SODIUM CHLORIDE 1,000 ML IV SCH (12:20)
--- NOTE | 2018-05-17 13:22 | PN ---
Teaching Attending Note Name of Resident: Max Dewey (Nephrology) ATTENDING PHYSICIAN STATEMENT I saw and evaluated the patient. I reviewed the resident's note and discussed the case with the resident. I agree with the resident's findings and plan as documented. Nephrology Pt is an 88 year old female with pmhx of dementia, HTN, DM and urinary retention who presents to the ER with fall. She was found to be in acute renal failure and found to be hyperkalemic. She is unable to give much history. SHe is awake. She denies shortness of breath. pmhx Dementia, HTN, DM, urinary retention nkda family hx non contrib soc hx denies Current Medications Generic Name Dose Route Start Last Admin Trade Name Freq PRN Reason Stop Dose Admin Amlodipine Besylate 10 mg 05/17/18 10:00 05/17/18 09:59 Norvasc - PO 10 mg DAILY MARIAJOSE Administration Aspirin 81 mg 05/17/18 10:00 05/17/18 09:58 Asa - PO 81 mg DAILY MARIAJOSE Administration Heparin Sodium (Porcine) 5,000 unit 05/16/18 22:00 05/17/18 09:59 Heparin - SQ 5,000 unit BID MARIAJOSE Administration Sodium Chloride 1,000 mls @ 75 mls/hr 05/17/18 12:15 Normal Saline - IV ASDIR MARIAJOSE Metformin HCl 500 mg 05/17/18 07:00 05/17/18 06:43 Glucophage - PO 500 mg ACBK MARIAJOSE Administration Metoprolol Succinate 50 mg 05/16/18 22:00 05/17/18 09:59 Toprol Xl - PO 50 mg BID MARIAJOSE Administration Sitagliptin Phosphate 50 mg 05/17/18 07:00 05/17/18 06:43 Januvia - PO 50 mg DAILY@0700 MARIAJOSE Administration Valsartan 320 mg 05/17/18 10:00 05/17/18 09:59 Diovan - PO 320 mg DAILY MARIAJOSE Administration Laboratory Tests 05/16/18 05/16/18 05/16/18 17:54 17:54 21:20 Potassium 6.1 H* 4.1 Creatinine 1.5 H 1.4 H Calcium 12.4 H 12.9 H Albumin 2.6 L 2.4 L Urine Protein 3+ H Urine Blood Trace Ur Leukocyte Esterase 4+ H Last Vital Signs Temp Pulse Resp BP Pulse Ox 97.3 F L 88 16 146/67 98 03/26/19 09:59 05/17/18 09:59 05/17/18 09:59 05/17/18 09:59 05/17/18 09:59 Microbiology cxr reviewed report cardio s1s2 reg pulm clear GI soft ext neg edema neuro confusion Impression 1. BRITT 2. hyperkalemia 3. uti 4. dementia 5. htn 6. DM 7. hypercalcemia Plan - potassium improved with medical management - start fluids - check renal ultrasound - send urine lytes - abx for UTI - stop diovan until she has stable potassium - increase dose of metoprolol if bp is elevated - check pth level to assess hypercalcemia
--- NOTE | 2018-05-17 16:08 | CON.ID ---
Consult Consult Specialty:: infectious diseases Referred by:: Reason for Consultation:: sepsis,uti - History of Present Illness Chief Complaint: falls History of Present Illness: 88YOF with a PMH of dementia, HTN, DM, back pain, prior UTIs and hydronephrosis who presents s/p unwitnessed fall today. As per daughter at bedside, patient has had multiple falls over the past week and a half. Daughter has also noticed increased confusion for the past month. Daughter notes the patient had melena yesterday. Patient has also had poor appetite, weakness, and has not been ambulating with her walker. The patient is complaining of mild abdominal pain and knee pain. Patient is unable to provide further history. An aid and nurse come to the patients home, and son her also lives with her. 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 Cardio/Vascular: Yes: HTN Endocrine: Yes: Diabetes Mellitus - Alcohol/Substance Use Hx Alcohol Use: No - Smoking History Smoking history: Former smoker Have you smoked in the past 12 months: No Aproximately how many cigarettes per day: 0 If you are a former smoker, when did you quit?: 30 YRS AGO Home Medications - Allergies Allergies/Adverse Reactions: Allergies Allergy/AdvReac Type Severity Reaction Status Date / Time No Known Allergies Allergy Verified 05/16/18 16:29 - Home Medications Home Medications: Ambulatory Orders RX: Sitagliptin Phos/Metformin HCl [Janumet 50-500 mg Tablet] 1 each PO DAILY RX: Aspirin [ASA -] 81 mg PO DAILY 1 Days tab 12/23/11 RX: Metoprolol Succinate [Toprol XL -] 50 mg PO BID #0 tablet 12/23/11 RX: Amlodipine Besylate [Norvasc -] 10 mg PO DAILY #30 tablet 05/30/18 Review of Systems - Review of Systems Constitutional: reports: No Symptoms Eyes: reports: No Symptoms HENT: reports: No Symptoms Neck: reports: No Symptoms Cardiovascular: reports: No Symptoms Respiratory: reports: No Symptoms Gastrointestinal: reports: No Symptoms Genitourinary: reports: No Symptoms Musculoskeletal: reports: No Symptoms Integumentary: reports: No Symptoms Neurological: reports: No Symptoms Endocrine: reports: No Symptoms Hematology/Lymphatic: reports: No Symptoms Psychiatric: reports: No Symptoms Physical Exam Vital Signs: Vital Signs Temperature 97.3 F L 05/17/18 09:59 Pulse Rate 88 05/17/18 09:59 Respiratory Rate 16 05/17/18 09:59 Blood Pressure 146/67 05/17/18 09:59 O2 Sat by Pulse Oximetry (%) 98 05/17/18 09:59 Constitutional: Yes: No Distress, Calm Cardiovascular: Yes: Regular Rate and Rhythm Respiratory: Yes: Regular, CTA Bilaterally Gastrointestinal: Yes: Normal Bowel Sounds, Soft Musculoskeletal: Yes: WNL Extremities: Yes: WNL Neurological: Yes: Alert Psychiatric: Yes: Alert Labs: CBC, BMP 05/16/18 17:54 05/16/18 21:20 Imaging - Results Chest X-ray: Report Reviewed, Image Reviewed Cat Scan: Report Reviewed, Image Reviewed Assessment/Plan Problem List - Problems (1) BRITT (acute kidney injury) Code(s): N17.9 - ACUTE KIDNEY FAILURE, UNSPECIFIED (2) Dementia Code(s): F03.90 - UNSPECIFIED DEMENTIA WITHOUT BEHAVIORAL DISTURBANCE Qualifiers: Dementia type: unspecified type Dementia behavioral disturbance: without behavioral disturbance Qualified Code(s): F03.90 - Unspecified dementia without behavioral disturbance (3) Diabetes mellitus Code(s): E11.9 - TYPE 2 DIABETES MELLITUS WITHOUT COMPLICATIONS Qualifiers: Diabetes mellitus type: type 2 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 use (4) Fall Code(s): W19.XXXA - UNSPECIFIED FALL, INITIAL ENCOUNTER Qualifiers: Encounter type: subsequent encounter Qualified Code(s): W19.XXXD - Unspecified fall, subsequent encounter (5) HTN (hypertension) Code(s): I10 - ESSENTIAL (PRIMARY) HYPERTENSION Qualifiers: Hypertension type: essential hypertension Qualified Code(s): I10 - Essential (primary) hypertension (6) Hypercalcemia Code(s): E83.52 - HYPERCALCEMIA (7) Urinary tract infection Code(s): N39.0 - URINARY TRACT INFECTION, SITE NOT SPECIFIED (8) Acute urinary retention Code(s): R33.8 - OTHER RETENTION OF URINE (9) Hydronephrosis Code(s): N13.30 - UNSPECIFIED HYDRONEPHROSIS Assessment/Plan 1. BRITT 2. hyperkalemia 3. uti 4. dementia 5. htn 6. DM 7. hypercalcemia all cx reports noted urine dirty foleys in plan will start abx await for all cx onco on case and nephro rest as per the team
--- NOTE | 2018-05-17 16:23 | ECHO ---
Name: INOCENCIA MINOROTHY Exam:Adult Echocardiogram Study Date: 05/17/2018 01:26 PM Age: 88 yrs Reason For Study: HTN Height: 67 in Weight: 150 lb BSA: 1.8 m2 MMode/2D Measurements & Calculations IVSd: 0.88 cm Ao root diam: 3.0 cm LVIDd: 4.5 cm LA dimension: 3.8 cm LVIDs: 3.1 cm LVPWd: 0.91 cm EDV(Teich): 94.4 ml LVOT diam: 2.3 cm ESV(Teich): 39.3 ml TAPSE: 2.7 cm Doppler Measurements & Calculations MV E max terrance: 43.9 cm/sec Ao V2 max: 208.7 cm/sec MV A max terrance: 73.1 cm/sec Ao max P.4 mmHg MV E/A: 0.60 Ao V2 mean: 141.4 cm/sec MV dec time: 0.20 sec Ao mean P.2 mmHg Ao V2 VTI: 39.3 cm ALEXIA(I,D): 1.3 cm2 AI P1/2t: 503.6 msec ALEXIA(V,D): 1.5 cm2 AI max terrance: 303.4 cm/sec LV V1 max P.4 mmHg AI max P.8 mmHg LV V1 mean P.1 mmHg AI dec slope: 176.4 cm/sec2 LV V1 max: 76.8 cm/sec LV V1 mean: 47.2 cm/sec LV V1 VTI: 12.5 cm SV(LVOT): 52.2 ml TR max terrance: 307.4 cm/sec TR max P.0 mmHg Med Peak E' Terrance: 5.3 cm/sec Med E/e': 8.3 Lat Peak E' Terrance: 5.7 cm/sec Lat E/e': 7.7 Left Ventricle The left ventricular size, thickness and function are normal. Ejection Fraction = 65%. E/A reversal c onsistent with but not diagnostic of poor LV compliance. Right Ventricle The right ventricle is normal in size and function. Atria Borderline left atrial enlargement. Right atrial size is normal. Mitral Valve There is moderate mitral annular calcification. There is trace mitral regurgitation. Tricuspid Valve The tricuspid valve is not well visualized, but is grossly normal. There is mild tricuspid regurgitat ion. There is moderate pulmonary hypertension. Right ventricular systolic pressure is elevated at 54 mmhg. Assuming the RA pressure is 10 mmHg. Aortic Valve There is moderate aortic sclerosis.;. Moderate valvular aortic stenosis. The calculated aortic valve area using the continuity equation is 1.3 cm2. Peak gradient is 17.4 mmHg and mean gradient is 9.2 mmHg. M ild aortic regurgitation. Pulmonic Valve The pulmonic valve is not well visualized. Great Vessels The aortic root is normal size. Pericardium/Pleura There is no pericardial effusion. Interpretation Summary The left ventricular size, thickness and function are normal. Ejection Fraction = 65%. The right ventricle is normal in size and function. Borderline left atrial enlargement. Right atrial size is normal. There is moderate aortic sclerosis. Moderate valvular aortic stenosis. The calculated aortic valve ar ea using the continuity equation is 1.3 cm2. Peak gradient is 17.4 mmHg and mean gradient is 9.2 mmHg. Mild ao rtic regurgitation. There is moderate mitral annular calcification. There is trace mitral regurgitation. E/A reversal consistent with but not diagnostic of poor LV compliance There is moderate pulmonary hypertension. Right ventricular systolic pressure is elevated at 54 mmhg. Assuming the RA pressure is 10 mmHg MD Liliya Ramos 05/17/2018 04:23 PM
--- NOTE | 2018-05-17 18:32 | PN ---
Progress Note, Physician - Current Medication List Current Medications: Active Medications Amlodipine Besylate (Norvasc -) 10 mg PO DAILY [facility] Last Admin: 05/17/18 09:59 Dose: 10 mg Aspirin (Asa -) 81 mg PO DAILY [facility] Last Admin: 05/17/18 09:58 Dose: 81 mg Heparin Sodium (Porcine) (Heparin -) 5,000 unit SQ BID [facility] Last Admin: 05/17/18 09:59 Dose: 5,000 unit Sodium Chloride (Normal Saline -) 1,000 mls @ 75 mls/hr IV ASDIR [facility] Last Admin: 05/17/18 12:20 Dose: 75 mls/hr Piperacillin Sod/Tazobactam (Sod 2.25 gm/ Dextrose) 50 mls @ 100 mls/hr IVPB Q8H-IV [facility]; Protocol Metformin HCl (Glucophage -) 500 mg PO ACBK [facility] Last Admin: 05/17/18 06:43 Dose: 500 mg Metoprolol Succinate (Toprol Xl -) 50 mg PO BID [facility] Last Admin: 05/17/18 09:59 Dose: 50 mg Sitagliptin Phosphate (Januvia -) 50 mg PO DAILY@0700 [facility] Last Admin: 05/17/18 06:43 Dose: 50 mg Valsartan (Diovan -) 320 mg PO DAILY [facility] Last Admin: 05/17/18 09:59 Dose: 320 mg - Objective Vital Signs: Vital Signs Temperature 97.3 F L 05/17/18 09:59 Pulse Rate 88 05/17/18 09:59 Respiratory Rate 16 05/17/18 09:59 Blood Pressure 146/67 05/17/18 09:59 O2 Sat by Pulse Oximetry (%) 98 05/17/18 09:59 Constitutional: Yes: No Distress HENT: Yes: Atraumatic Neck: Yes: Supple Cardiovascular: Yes: Regular Rate and Rhythm Respiratory: Yes: CTA Bilaterally Gastrointestinal: Yes: Normal Bowel Sounds Extremities: Yes: WNL Edema: No Peripheral Pulses WNL: Yes Neurological: Yes: Alert, Oriented Labs: CBC, BMP 05/16/18 17:54 05/16/18 21:20 Problem List - Problems (1) BRITT (acute kidney injury) Assessment/Plan: ON IVF MONITOR Code(s): N17.9 - ACUTE KIDNEY FAILURE, UNSPECIFIED (2) Hyperkalemia Assessment/Plan: RESOLVED Code(s): E87.5 - HYPERKALEMIA (3) Urinary tract infection Assessment/Plan: ON ABX PER ID CXS SENT Code(s): N39.0 - URINARY TRACT INFECTION, SITE NOT SPECIFIED (4) Dementia Code(s): F03.90 - UNSPECIFIED DEMENTIA WITHOUT BEHAVIORAL DISTURBANCE Qualifiers: Dementia type: unspecified type Dementia behavioral disturbance: without behavioral disturbance Qualified Code(s): F03.90 - Unspecified dementia without behavioral disturbance (5) Diabetes mellitus Assessment/Plan: ON PO MEDS BGMS Code(s): E11.9 - TYPE 2 DIABETES MELLITUS WITHOUT COMPLICATIONS Qualifiers: Diabetes mellitus type: type 2 Diabetes mellitus snf insulin use: without snf use (6) HTN (hypertension) Assessment/Plan: ON MEDS STABLE Code(s): I10 - ESSENTIAL (PRIMARY) HYPERTENSION Qualifiers: Hypertension type: essential hypertension Qualified Code(s): I10 - Essential (primary) hypertension
[2018-05-17] MEDS ORDERED: PIPERACILLIN/TAZOB 2.25 GM 2.25 GM/50 ML BAG IVPB ONE (20:05)
[2018-05-17] MEDS: PIPERACILLIN/TAZOB 2.25 GM 2.25 GM in DEXTROSE 5%-WATER - 50 ML IVPB SCH (20:43)
[2018-05-17] MEDS ORDERED: HEPARIN NA (PORCINE) 5,000 UNITS/ML 1ML VIAL ONE (21:18)
[2018-05-18] MEDS ORDERED: INSULIN (NOVOLOG) ASPART 100 UNITS/ML 10ML VIAL ONE (00:43)
[2018-05-18 01:58] VITALS: BMI 24.3
[2018-05-18] MEDS ORDERED: PIPERACILLIN/TAZOBACTAM 2.25 GM VIAL IVPB ONE ×2 (02:32→10:17)
[2018-05-18] MEDS ORDERED: DEXTROSE 5%-WATER - 50 ML IVPB ONE ×3 (02:32→15:38)
[2018-05-18] MEDS: SODIUM CHLORIDE 1,000 ML IV SCH ×2 (02:48→17:45)
[2018-05-18] MEDS: PIPERACILLIN/TAZOB 2.25 GM 2.25 GM in DEXTROSE 5%-WATER - 50 ML IVPB SCH ×2 (02:51→10:18)
[2018-05-18 06:56] LABS: BASO % 0.7 % (0-2.0); EOS % 1.1 % (0-4.5); HEMATOCRIT 29.4 % (32.4-45.2); HEMOGLOBIN 9.6 GM/dL (10.7-15.3); LYMPH % 13.7 % (8-40); MCH 26.5 pg (25.7-33.7); MCHC 32.8 g/dl (32.0-36.0); MEAN CELL VOLUME 80.9 fl (80-96); MEAN PLT VOLUME 8.3 fl (7.5-11.1); MONO % 10.9 % (3.8-10.2); NEUT % 73.6 % (42.8-82.8); PLATELET COUNT 379 K/MM3 (134-434); RBC 3.64 M/mm3 (3.60-5.2); RDW 14.8 % (11.6-15.6); WHITE BLOOD COUNT 12.8 K/mm3 (4.0-10.0)
[2018-05-18] MEDS: metFORMIN HCL 500 MG TABLET (FP) PO SCH (07:01)
[2018-05-18] MEDS: sitaGLIPtin PHOSPHATE 50 MG TABLET PO SCH (07:01)
[2018-05-18 07:12] LABS: ALBUMIN 2.4 g/dl (3.4-5.0); ALK PHOS 72 U/L (45-117); ANION GAP 5 MMOL/L (8-16); BILIRUBIN,TOTAL 0.4 mg/dL (0.2-1); BLOOD UREA NITROGEN 43 mg/dL (7-18); CHLORIDE 109 mmol/L (98-107); CO2 22 mmol/L (21-32); CREATININE 1.2 mg/dL (0.55-1.3); GLUCOSE,RANDOM 103 mg/dL (74-106); MAGNESIUM 2.5 mg/dL (1.8-2.4); PHOSPHOROUS 2.7 mg/dL (2.5-4.9); POTASSIUM 4.8 mmol/L (3.5-5.1); SGOT/AST 23 U/L (15-37); SGPT/ALT 21 U/L (13-61); SODIUM 137 mmol/L (136-145); TOT PROT 7.1 g/dl (6.4-8.2)
--- NOTE | 2018-05-18 09:40 | PN ---
Progress Note, Physician History of Present Illness: No complaints, chronic dementia and poor historian. - Current Medication List Current Medications: Active Medications Amlodipine Besylate (Norvasc -) 10 mg PO DAILY [facility] Last Admin: 05/17/18 09:59 Dose: 10 mg Aspirin (Asa -) 81 mg PO DAILY [facility] Last Admin: 05/17/18 09:58 Dose: 81 mg Heparin Sodium (Porcine) (Heparin -) 5,000 unit SQ BID [facility] Last Admin: 05/17/18 22:23 Dose: 5,000 unit Sodium Chloride (Normal Saline -) 1,000 mls @ 75 mls/hr IV ASDIR [facility] Last Admin: 05/18/18 02:48 Dose: 75 mls/hr Piperacillin Sod/Tazobactam (Sod 2.25 gm/ Dextrose) 50 mls @ 100 mls/hr IVPB Q8H-IV [facility]; Protocol Last Admin: 05/18/18 02:51 Dose: 100 mls/hr Metformin HCl (Glucophage -) 500 mg PO ACBK [facility] Last Admin: 05/18/18 07:01 Dose: 500 mg Metoprolol Succinate (Toprol Xl -) 50 mg PO BID [facility] Last Admin: 05/17/18 22:23 Dose: 50 mg Sitagliptin Phosphate (Januvia -) 50 mg PO DAILY@0700 [facility] Last Admin: 05/18/18 07:01 Dose: 50 mg Valsartan (Diovan -) 320 mg PO DAILY [facility] Last Admin: 05/17/18 09:59 Dose: 320 mg - Objective Vital Signs: Vital Signs Temperature 97.9 F 05/18/18 07:00 Pulse Rate 69 05/18/18 07:00 Respiratory Rate 20 05/18/18 07:00 Blood Pressure 146/68 05/18/18 07:00 O2 Sat by Pulse Oximetry (%) 91 L 05/18/18 01:59 Constitutional: Yes: No Distress, Calm, Thin Neck: Yes: Supple Cardiovascular: Yes: Regular Rate and Rhythm Respiratory: Yes: Regular, CTA Bilaterally Gastrointestinal: Yes: Normal Bowel Sounds, Soft Edema: No Labs: CBC, BMP 05/18/18 05:30 05/18/18 05:30 - ....Imaging EKG: Report Reviewed (Tele: No sig pauses) Problem List - Problems (1) Fall Code(s): W19.XXXA - UNSPECIFIED FALL, INITIAL ENCOUNTER Qualifiers: Encounter type: subsequent encounter Qualified Code(s): W19.XXXD - Unspecified fall, subsequent encounter (2) BRITT (acute kidney injury) Code(s): N17.9 - ACUTE KIDNEY FAILURE, UNSPECIFIED (3) Diabetes mellitus Code(s): E11.9 - TYPE 2 DIABETES MELLITUS WITHOUT COMPLICATIONS Qualifiers: Diabetes mellitus type: type 2 Diabetes mellitus long term acute care registered nurse insulin use: without assisted use (4) HTN (hypertension) Code(s): I10 - ESSENTIAL (PRIMARY) HYPERTENSION Qualifiers: Hypertension type: essential hypertension Qualified Code(s): I10 - Essential (primary) hypertension (5) Hyperkalemia Code(s): E87.5 - HYPERKALEMIA (6) Urinary tract infection Code(s): N39.0 - URINARY TRACT INFECTION, SITE NOT SPECIFIED (7) Dementia Code(s): F03.90 - UNSPECIFIED DEMENTIA WITHOUT BEHAVIORAL DISTURBANCE Qualifiers: Dementia type: unspecified type Dementia behavioral disturbance: without behavioral disturbance Qualified Code(s): F03.90 - Unspecified dementia without behavioral disturbance Assessment/Plan 05/17/2018 Echo: Normal LV and RV size and fxn LVEF 65% borderline LAE, mild MG 9.2 mmHg, mod pulm HTN RVSP 54 mmHg 1. Post fall no LOC 2. Organic brain syndrome/dementia 3. HTN 4. DM 5. UTIs 6. BRITT with hyperkalemia resolving PLAN: 1. Continue Metoprolol ER 50 mg BID, Valsartan 320 mg QD, Amlodipine 10 mg QD, and ASA 81 mg QD 2. DM management 3. Fall precaution 4. DVT prophylaxis 5. D/c planning, complete empiric abx course
[2018-05-18] MEDS: HEPARIN NA (PORCINE) 5,000 UNITS/ML 1ML VIAL SQ SCH ×2 (10:16→22:11)
[2018-05-18] MEDS: amLODIPine BESYLATE 10 MG TABLET (FP) PO SCH (10:16)
[2018-05-18] MEDS: ASPIRIN 81 MG CHEWABLE TABLETS PO SCH (10:16)
[2018-05-18] MEDS: VALSARTAN 160 MG TABLET (UD) PO SCH (10:16)
--- NOTE | 2018-05-18 12:37 | PN ---
Progress Note, Physician History of Present Illness: Pt seen and examined at bedside. She is drowsy today. - Current Medication List Current Medications: Active Medications Amlodipine Besylate (Norvasc -) 10 mg PO DAILY [facility] Last Admin: 05/18/18 10:16 Dose: 10 mg Aspirin (Asa -) 81 mg PO DAILY [facility] Last Admin: 05/18/18 10:16 Dose: 81 mg Heparin Sodium (Porcine) (Heparin -) 5,000 unit SQ BID [facility] Last Admin: 05/18/18 10:16 Dose: 5,000 unit Sodium Chloride (Normal Saline -) 1,000 mls @ 75 mls/hr IV ASDIR [facility] Last Admin: 05/18/18 02:48 Dose: 75 mls/hr Piperacillin Sod/Tazobactam (Sod 2.25 gm/ Dextrose) 50 mls @ 100 mls/hr IVPB Q8H-IV [facility]; Protocol Last Admin: 05/18/18 10:18 Dose: 100 mls/hr Metformin HCl (Glucophage -) 500 mg PO ACBK [facility] Last Admin: 05/18/18 07:01 Dose: 500 mg Metoprolol Succinate (Toprol Xl -) 50 mg PO BID [facility] Last Admin: 05/18/18 10:16 Dose: 50 mg Sitagliptin Phosphate (Januvia -) 50 mg PO DAILY@0700 [facility] Last Admin: 05/18/18 07:01 Dose: 50 mg Valsartan (Diovan -) 320 mg PO DAILY [facility] Last Admin: 05/18/18 10:16 Dose: 320 mg - Objective Vital Signs: Vital Signs Temperature 98.3 F 05/18/18 10:14 Pulse Rate 65 05/18/18 10:14 Respiratory Rate 16 05/18/18 10:14 Blood Pressure 141/61 05/18/18 10:14 O2 Sat by Pulse Oximetry (%) 92 L 05/18/18 09:00 Constitutional: Yes: Calm Eyes: Yes: Conjunctiva Clear HENT: Yes: Atraumatic Cardiovascular: Yes: S1, S2 Respiratory: Yes: CTA Bilaterally Gastrointestinal: Yes: Soft Genitourinary: Yes: Incontinence Musculoskeletal: Yes: Muscle Weakness Edema: No Integumentary: Yes: WNL Neurological: Yes: Lethargy Labs: CBC, BMP 05/18/18 05:30 05/18/18 05:30 - ....Imaging Ultrasound: Report Reviewed Assessment/Plan Current Medications Generic Name Dose Route Start Last Admin Trade Name Alisha PRN Reason Stop Dose Admin Amlodipine Besylate 10 mg 05/17/18 10:00 05/18/18 10:16 Norvasc - PO 10 mg DAILY [facility] Administration Aspirin 81 mg 05/17/18 10:00 05/18/18 10:16 Asa - PO 81 mg DAILY [facility] Administration Heparin Sodium (Porcine) 5,000 unit 05/16/18 22:00 05/18/18 10:16 Heparin - SQ 5,000 unit BID [facility] Administration Sodium Chloride 1,000 mls @ 75 mls/hr 05/17/18 12:15 05/18/18 02:48 Normal Saline - IV 75 mls/hr ASDIR [facility] Administration Piperacillin Sod/Tazobactam 50 mls @ 100 mls/hr 05/17/18 18:00 05/18/18 10:18 Sod 2.25 gm/ Dextrose IVPB 100 mls/hr Q8H-IV [facility] Administration Protocol Metformin HCl 500 mg 05/17/18 07:00 05/18/18 07:01 Glucophage - PO 500 mg ACBK [facility] Administration Metoprolol Succinate 50 mg 05/16/18 22:00 05/18/18 10:16 Toprol Xl - PO 50 mg BID [facility] Administration Sitagliptin Phosphate 50 mg 05/17/18 07:00 05/18/18 07:01 Januvia - PO 50 mg DAILY@0700 [facility] Administration Valsartan 320 mg 05/17/18 10:00 05/18/18 10:16 Diovan - PO 320 mg DAILY [facility] Administration Impression 1. BRITT 2. hyperkalemia 3. uti 4. dementia 5. htn 6. DM 7. hypercalcemia 8. hydronephrosis left 9. bladder mass Plan - pace new - increase fluids - monitor calcium - will give calcitonin - lasix later today - urology and oncology evals - abx for UTI - stop diovan until she has stable potassium - increase dose of metoprolol if bp is elevated - check pth
[2018-05-18] MEDS ORDERED: SODIUM CHLORIDE 500 ML IV STA (12:42)
[2018-05-18] MEDS ORDERED: CALCITONIN - SALMON SYNTHETIC 400 UNIT/2 ML VIAL SQ ONE (12:45)
--- NOTE | 2018-05-18 13:43 | CONSULT ---
Consultation: HEMATOLOGY/ONCOLOGY CONSULTATION REQUESTING PROVIDER: Dr. Goff CONSULT REQUEST: We have been asked to medically evaluate this patient for hypercalcemia HISTORY OF PRESENT ILLNESS: 88 year old female with a hx of dementia, hypertension, diabetes mellitus, multiple UTIs and hydronephrosis was brought in for unwitnessed fall earlier today. Patient's daughter initially not able to be reached, and history was obtained from prior notes. Per record, patient had increasing confusion for 1 month, poor appetite, weakness, and not ambulating well. In the hospital patient is lethargic, nonverbal and unable to answer my questions. We are consulted for evaluation of hypercalcemia. Per patient's chart, on previous admission in 2013, calcium was listed as within normal range (9.8) with a low albumin (2.8), and a corrected calcium of 10.3. It is possible that patient's calcium level was high for several years before current presentation. Patient was treated for hyperkalemia, which resolved, and currently has a calcium of 13.0. Would like to speak to daughter to obtain the following information: Smoking history Occupational history and environmental exposures Cancer history Family history of cancer or bleeding Alcohol and Drug use Colonoscopy and mammogram history History of fractures REVIEW OF SYSTEMS: Unable to assess due to mental status PHYSICAL EXAMINATION Vital Signs - 24 hr 05/17/18 05/17/18 05/18/18 19:40 21:00 01:48 Temperature 97.7 F 97.9 F 98 F Pulse Rate 75 71 Pulse Rate [ 86 Right Apical] Respiratory 16 20 20 Rate Blood Pressure 119/60 144/66 Blood Pressure 120/63 [Left] O2 Sat by Pulse 98 92 L Oximetry (%) 05/18/18 05/18/18 05/18/18 01:59 07:00 09:00 Temperature 97.9 F Pulse Rate 69 Pulse Rate [ Right Apical] Respiratory 20 20 16 Rate Blood Pressure 146/68 Blood Pressure [Left] O2 Sat by Pulse 91 L 92 L Oximetry (%) 05/18/18 10:14 Temperature 98.3 F Pulse Rate 65 Pulse Rate [ Right Apical] Respiratory 16 Rate Blood Pressure 141/61 Blood Pressure [Left] O2 Sat by Pulse Oximetry (%) GENERAL: A&Ox0, no acute distress, small mass 1x1cm noted on left side of forehead EYES: PERRLA, Pupils large, ENT: Dry mucus membranes NECK: No JVD, no lymphadenopathy palpated LUNGS: CTA, no wheezes HEART: RRR, slight systolic murmur auscultated ABDOMEN: Soft, BS present MUSCULOSKELETAL: No CVA Tenderness EXTREMITIES: 2+ pulses, no edema. NEUROLOGICAL: Unable to assess due to mental status Laboratory Results - last 24 hr 05/17/18 05/18/18 05/18/18 15:00 05:30 05:30 WBC 12.8 H RBC 3.64 Hgb 9.6 L Hct 29.4 L MCV 80.9 MCH 26.5 MCHC 32.8 RDW 14.8 Plt Count 379 MPV 8.3 Absolute Neuts (auto) 9.4 H Neutrophils % 73.6 Lymphocytes % 13.7 Monocytes % 10.9 H Eosinophils % 1.1 Basophils % 0.7 Nucleated RBC % 0 Sodium 137 Potassium 4.8 Chloride 109 H Carbon Dioxide 22 Anion Gap 5 L BUN 43 H Creatinine 1.2 Creat Clearance w eGFR 42.30 POC Glucometer Random Glucose 103 Calcium 13.0 H Phosphorus 2.7 Magnesium 2.5 H Total Bilirubin 0.4 AST 23 ALT 21 Alkaline Phosphatase 72 Creatine Kinase 27 Troponin I < 0.02 Total Protein 7.1 Albumin 2.4 L 05/18/18 07:00 WBC RBC Hgb Hct MCV MCH MCHC RDW Plt Count MPV Absolute Neuts (auto) Neutrophils % Lymphocytes % Monocytes % Eosinophils % Basophils % Nucleated RBC % Sodium Potassium Chloride Carbon Dioxide Anion Gap BUN Creatinine Creat Clearance w eGFR POC Glucometer 102 Random Glucose Calcium Phosphorus Magnesium Total Bilirubin AST ALT Alkaline Phosphatase Creatine Kinase Troponin I Total Protein Albumin Active Medications Generic Name Dose Route Start Last Admin Trade Name Alisha PRN Reason Stop Dose Admin Amlodipine Besylate 10 mg 05/17/18 10:00 05/18/18 10:16 Norvasc - PO 10 mg DAILY [facility] Administration Aspirin 81 mg 05/17/18 10:00 05/18/18 10:16 Asa - PO 81 mg DAILY [facility] Administration Furosemide 20 mg 05/18/18 20:00 Lasix - PO 05/18/18 20:01 ONCE ONE Heparin Sodium (Porcine) 5,000 unit 05/16/18 22:00 05/18/18 10:16 Heparin - SQ 5,000 unit BID [facility] Administration Piperacillin Sod/Tazobactam 50 mls @ 100 mls/hr 05/17/18 18:00 05/18/18 10:18 Sod 2.25 gm/ Dextrose IVPB 100 mls/hr Q8H-IV [facility] Administration Protocol Sodium Chloride 1,000 mls @ 125 mls/hr 05/18/18 12:39 Normal Saline - IV ASDIR [facility] Metformin HCl 500 mg 05/17/18 07:00 05/18/18 07:01 Glucophage - PO 500 mg ACBK [facility] Administration Metoprolol Succinate 50 mg 05/16/18 22:00 05/18/18 10:16 Toprol Xl - PO 50 mg BID [facility] Administration Sitagliptin Phosphate 50 mg 05/17/18 07:00 05/18/18 07:01 Januvia - PO 50 mg DAILY@0700 [facility] Administration CBC WBC 12.8 K/mm3 (4.0-10.0) H 05/18/18 05:30 RBC 3.64 M/mm3 (3.60-5.2) 05/18/18 05:30 Hgb 9.6 GM/dL (10.7-15.3) L 05/18/18 05:30 Hct 29.4 % (32.4-45.2) L 05/18/18 05:30 MCV 80.9 fl (80-96) 05/18/18 05:30 MCH 26.5 pg (25.7-33.7) 05/18/18 05:30 MCHC 32.8 g/dl (32.0-36.0) 05/18/18 05:30 RDW 14.8 % (11.6-15.6) 05/18/18 05:30 Plt Count 379 K/MM3 (134-434) 05/18/18 05:30 MPV 8.3 fl (7.5-11.1) 05/18/18 05:30 Absolute Neuts (auto) 9.4 K/mm3 (1.5-8.0) H 05/18/18 05:30 Neutrophils % 73.6 % (42.8-82.8) 05/18/18 05:30 Lymphocytes % 13.7 % (8-40) 05/18/18 05:30 Monocytes % 10.9 % (3.8-10.2) H 05/18/18 05:30 Eosinophils % 1.1 % (0-4.5) 05/18/18 05:30 Basophils % 0.7 % (0-2.0) 05/18/18 05:30 Nucleated RBC % 0 % (0-0) 05/18/18 05:30 ASSESSMENT/PLAN: 88 year old female with a hx of dementia, hypertension, diabetes mellitus, multiple UTIs and hydronephrosis was brought in for unwitnessed fall earlier today and admitted for altered mental status with hyperkalemia and hypercalcemia #Hypercalcemia: appears as though patient was hypercalcemic in the past, with a corrected calcium of 10.3 back in 2013. calcium is currently 13.0 and 14.3 corrected. Patient has poor renal function. 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: hypercalemia, anemia, and renal impairment) with a mild reversal of albumin/total protein ratio -ordered TSH and prealbumin -may need to get PTHrp level and vitamin D as outpatient if PTH level is found to be low/normal in this patient -ordered CT abdomen/pelvis to assess lesions in kidney, bladder, and to look at bony abnormalities or lytic lesions -ordered CT chest to assess for any lung nodules/masses or bony lesions -will order calcitonin 400sq BID -will order zolendronic acid 3mg #Bladder wall thickening and L renal pelvis lesion: found on ultrasound -CT appears to have masses in abdomen/pelvis in kidneys and bladder and pulmonary nodules, will await official read #Normocytic, normochromic Anemia: could be related to iron deficiency, iron- restricted erythropoesis (chronic disease), renal dysfunction, myeloma, vitamin deficiencies -will get reticulocyte count, iron studies, vitamin studies, spep, upep #Altered Mental Status: could be a result of electrolyte abnormalities vs urinary tract infection -hyperkalemia resolved -continue to treat calcium and monitor levels -treat UTI with abx #Hyperkalemia: resolved #Urinary Tract Infection: on abx Dispo: We will continue to follow the patient. Thank you for this consultative opportunity. Juwan Couch, PGY2 Case Discussed with Dr. Robertson Visit type - Emergency Visit Emergency Visit: No - New Patient This patient is new to me today: Yes Date on this admission: 05/19/18 - Critical Care Critical Care patient: No
--- NOTE | 2018-05-18 14:02 | PN ---
Progress Note, Physician History of Present Illness: patient looks better in and out patient with confusion urine dirty - Current Medication List Current Medications: Active Medications Amlodipine Besylate (Norvasc -) 10 mg PO DAILY [facility] Last Admin: 05/18/18 10:16 Dose: 10 mg Aspirin (Asa -) 81 mg PO DAILY [facility] Last Admin: 05/18/18 10:16 Dose: 81 mg Furosemide (Lasix -) 20 mg PO ONCE ONE Stop: 05/18/18 20:01 Heparin Sodium (Porcine) (Heparin -) 5,000 unit SQ BID [facility] Last Admin: 05/18/18 10:16 Dose: 5,000 unit Piperacillin Sod/Tazobactam (Sod 2.25 gm/ Dextrose) 50 mls @ 100 mls/hr IVPB Q8H-IV [facility]; Protocol Last Admin: 05/18/18 10:18 Dose: 100 mls/hr Sodium Chloride (Normal Saline -) 1,000 mls @ 125 mls/hr IV ASDIR [facility] Metformin HCl (Glucophage -) 500 mg PO ACBK [facility] Last Admin: 05/18/18 07:01 Dose: 500 mg Metoprolol Succinate (Toprol Xl -) 50 mg PO BID [facility] Last Admin: 05/18/18 10:16 Dose: 50 mg Sitagliptin Phosphate (Januvia -) 50 mg PO DAILY@0700 [facility] Last Admin: 05/18/18 07:01 Dose: 50 mg - Objective Vital Signs: Vital Signs Temperature 98.3 F 05/18/18 10:14 Pulse Rate 65 05/18/18 10:14 Respiratory Rate 16 05/18/18 10:14 Blood Pressure 141/61 05/18/18 10:14 O2 Sat by Pulse Oximetry (%) 92 L 05/18/18 09:00 Constitutional: Yes: No Distress, Calm Neck: Yes: Supple Cardiovascular: Yes: S1, S2 Respiratory: Yes: Regular, CTA Bilaterally Gastrointestinal: Yes: Normal Bowel Sounds, Soft Genitourinary: Yes: Kaur Present Musculoskeletal: Yes: WNL Extremities: Yes: WNL Neurological: Yes: Alert, Other Psychiatric: Yes: Other Labs: CBC, BMP 05/18/18 05:30 05/18/18 05:30 Assessment/Plan 1. BRITT 2. hyperkalemia 3. uti 4. dementia 5. htn 6. DM 7. hypercalcemia all cx reports noted urine dirty foleys in plan will continue abx for now will change to ceftriaxone onco on case and nephro rest as per the team
[2018-05-18 14:39] LABS: PREALBUMIN 9.7 mg/dl (20-40)
[2018-05-18 14:58] LABS: URINE CREATININE < 13.0 mg/dL (20-275)
[2018-05-18] MEDS ORDERED: cefTRIAXone SODIUM 1 GM VIAL ONE (15:38)
--- NOTE | 2018-05-18 15:43 | PN ---
Progress Note, Physician History of Present Illness: doing well - Current Medication List Current Medications: Active Medications Amlodipine Besylate (Norvasc -) 10 mg PO DAILY [facility] Last Admin: 05/18/18 10:16 Dose: 10 mg Aspirin (Asa -) 81 mg PO DAILY [facility] Last Admin: 05/18/18 10:16 Dose: 81 mg Furosemide (Lasix -) 20 mg PO ONCE ONE Stop: 05/18/18 20:01 Heparin Sodium (Porcine) (Heparin -) 5,000 unit SQ BID [facility] Last Admin: 05/18/18 10:16 Dose: 5,000 unit Sodium Chloride (Normal Saline -) 1,000 mls @ 125 mls/hr IV [facility]IR [facility] Ceftriaxone Sodium 1 gm/ (Dextrose) 50 mls @ 100 mls/hr IVPB DAILY [facility]; Protocol Metformin HCl (Glucophage -) 500 mg PO ACBK [facility] Last Admin: 05/18/18 07:01 Dose: 500 mg Metoprolol Succinate (Toprol Xl -) 50 mg PO BID [facility] Last Admin: 05/18/18 10:16 Dose: 50 mg Sitagliptin Phosphate (Januvia -) 50 mg PO DAILY@0700 [facility] Last Admin: 05/18/18 07:01 Dose: 50 mg - Objective Vital Signs: Vital Signs Temperature 97.3 F L 05/18/18 14:00 Pulse Rate 64 05/18/18 14:00 Respiratory Rate 20 05/18/18 14:00 Blood Pressure 124/55 L 05/18/18 14:00 O2 Sat by Pulse Oximetry (%) 92 L 05/18/18 09:00 Constitutional: Yes: No Distress HENT: Yes: Atraumatic Neck: Yes: Supple Cardiovascular: Yes: Regular Rate and Rhythm Respiratory: Yes: CTA Bilaterally Gastrointestinal: Yes: Normal Bowel Sounds Edema: No Peripheral Pulses WNL: Yes Neurological: Yes: Alert Labs: CBC, BMP 05/18/18 05:30 05/18/18 05:30 Problem List - Problems (1) BRITT (acute kidney injury) Assessment/Plan: wnl today on ivf...dc? Code(s): N17.9 - ACUTE KIDNEY FAILURE, UNSPECIFIED (2) Hyperkalemia Assessment/Plan: RESOLVED Code(s): E87.5 - HYPERKALEMIA (3) Urinary tract infection Assessment/Plan: ON ABX PER ID CXS noted Code(s): N39.0 - URINARY TRACT INFECTION, SITE NOT SPECIFIED (4) Dementia Code(s): F03.90 - UNSPECIFIED DEMENTIA WITHOUT BEHAVIORAL DISTURBANCE Qualifiers: Dementia type: unspecified type Dementia behavioral disturbance: without behavioral disturbance Qualified Code(s): F03.90 - Unspecified dementia without behavioral disturbance (5) Diabetes mellitus Assessment/Plan: ON PO MEDS BGMS Code(s): E11.9 - TYPE 2 DIABETES MELLITUS WITHOUT COMPLICATIONS Qualifiers: Diabetes mellitus type: type 2 Diabetes mellitus custodial insulin use: without termite treater use (6) Fall Assessment/Plan: PT EVAL Code(s): W19.XXXA - UNSPECIFIED FALL, INITIAL ENCOUNTER Qualifiers: Encounter type: subsequent encounter Qualified Code(s): W19.XXXD - Unspecified fall, subsequent encounter (7) HTN (hypertension) Assessment/Plan: ON MEDS STABLE Code(s): I10 - ESSENTIAL (PRIMARY) HYPERTENSION Qualifiers: Hypertension type: essential hypertension Qualified Code(s): I10 - Essential (primary) hypertension
[2018-05-18] MEDS: CEFTRIAXONE 1 GM in DEXTROSE 5%-WATER - 50 ML IVPB SCH (17:39)
[2018-05-18] MEDS ORDERED: ZOLEDRONIC ACID 3 MG in SODIUM CHLORIDE 100 ML IVPB ONE (19:15)
--- NOTE | 2018-05-18 19:33 | PN ---
Teaching Attending Note Name of Resident: Juwan Couch ATTENDING PHYSICIAN STATEMENT I saw and evaluated the patient. I reviewed the resident's note and discussed the case with the resident. I agree with the resident's findings and plan as documented. SUBJECTIVE: Patient seen and examined 88 year old presents with hyperkalemia and hypercalcemia with corrected calcium greater than 14. Low dose fluids at 125 cc /hr in view of age. Begun on calcitonin and ordered bisphosphonate. Has reverseA/G ratio and will screen for dysproteinemia in setting of renal disease, anemia, and hypercalcemia. Has abnormal CT which was present in 2013 with right supra renal mass, left renal pelvic mass and thickened wall bladder. This does raise spectre of malignancy as possible etiologic. Will await official radiology assessment, await improvement of calcium with zolendronic acid . Based upon review will decide upon further work up. Calcitonin has been ordered for next 48 hrs until zometa effect . Has UTI which will require Rx as well. Abnormal Lab Results 05/18/18 05/18/18 05/18/18 05:30 05:30 14:19 WBC 12.8 H Hgb 9.6 L Hct 29.4 L Absolute Neuts (auto) 9.4 H Monocytes % 10.9 H Chloride 109 H Anion Gap 5 L BUN 43 H Calcium 13.0 H Magnesium 2.5 H Albumin 2.4 L Prealbumin 9.7 L TSH 0.24 L Ur Random Chloride 84 L Urine Creatinine < 13.0 L Current Medications Generic Name Dose Route Start Last Admin Trade Name Freq PRN Reason Stop Dose Admin Amlodipine Besylate 10 mg 05/17/18 10:00 05/18/18 10:16 Norvasc - PO 10 mg DAILY MARIAJOSE Administration Aspirin 81 mg 05/17/18 10:00 05/18/18 10:16 Asa - PO 81 mg DAILY MARIAJOSE Administration Calcitonin 400 unit 05/18/18 22:00 Miacalcin Injection - SQ BID MARIAJOSE Furosemide 20 mg 05/18/18 20:00 Lasix - PO 05/18/18 20:01 ONCE ONE Heparin Sodium (Porcine) 5,000 unit 05/16/18 22:00 05/18/18 10:16 Heparin - SQ 5,000 unit BID MARIAJOSE Administration Sodium Chloride 1,000 mls @ 125 mls/hr 05/18/18 12:39 05/18/18 17:45 Normal Saline - IV 125 mls/hr ASDIR MARIAJOSE Administration Ceftriaxone Sodium 1 gm/ 50 mls @ 100 mls/hr 05/18/18 14:15 05/18/18 17:39 Dextrose IVPB 100 mls/hr DAILY MARIAJOSE Administration Protocol Zoledronic Acid 3 mg/ Sodium 103.75 mls @ 207.5 mls/hr 05/18/18 19:15 Chloride IVPB 05/18/18 19:44 ONCE ONE Metformin HCl 500 mg 05/17/18 07:00 05/18/18 07:01 Glucophage - PO 500 mg ACBK MARIAJOSE Administration Metoprolol Succinate 50 mg 05/16/18 22:00 05/18/18 10:16 Toprol Xl - PO 50 mg BID MARIAJOSE Administration Sitagliptin Phosphate 50 mg 05/17/18 07:00 05/18/18 07:01 Januvia - PO 50 mg DAILY@0700 MARIAJOSE Administration Last Vital Signs Temp Pulse Resp BP Pulse Ox 97.3 F L 64 20 124/55 L 92 L 05/18/18 14:00 05/18/18 14:00 05/18/18 14:00 05/18/18 14:00 05/18/18 09:00 HEENT: JAIRO, EOM Intact Oropharynx: No thrush, No mucositis Neck: Supple Nodes: Without adenopathy Breasts: Without masses Cor: RSR, No murmurs, No gallops Lungs: Clear to P&A Abd: Soft, Normal bowel sounds, No organomegaly Ext:No significant edema Skin: No rashes, Integument intact CBC, BMP 05/18/18 05:30 05/18/18 05:30 Impression: Hypercalcemia Hyperkalemia Anemia BRITT Right supra renal mass Left renal pevic mass Thickened bladder wall. Plan: Calcitonin, fluids, zometa. Monitor Ca++, Phos, Mg++ Rx UTI Review imaging and decide re management for tissue Urine for FISH and Cytology. OBJECTIVE: ASSESSMENT AND PLAN:
[2018-05-18] MEDS ORDERED: FUROSEMIDE 20 MG TABLET (FP) PO ONE (20:00)
[2018-05-18] MEDS: ACETAMINOPHEN 325 MG TABLET (FP) PO PRN (22:11)
[2018-05-18] MEDS: CALCITONIN - SALMON SYNTHETIC 400 UNIT/2 ML VIAL SQ SCH (22:11)
[2018-05-19 07:29] LABS: ALBUMIN 2.1 g/dl (3.4-5.0); ALK PHOS 65 U/L (45-117); ANION GAP 5 MMOL/L (8-16); BILIRUBIN,TOTAL 0.3 mg/dL (0.2-1); BLOOD UREA NITROGEN 31 mg/dL (7-18); CALCIUM 11.2 mg/dL (8.5-10.1); CHLORIDE 114 mmol/L (98-107); CO2 20 mmol/L (21-32); CREATININE 0.9 mg/dL (0.55-1.3); GLUCOSE,RANDOM 97 mg/dL (74-106); POTASSIUM 4.4 mmol/L (3.5-5.1); SGOT/AST 13 U/L (15-37); SGPT/ALT 17 U/L (13-61); SODIUM 140 mmol/L (136-145); TOT PROT 6.4 g/dl (6.4-8.2)
[2018-05-19 07:34] LABS: MAGNESIUM 1.8 mg/dL (1.8-2.4); PHOSPHOROUS 2.4 mg/dL (2.5-4.9)
[2018-05-19] MEDS ORDERED: DEXTROSE 5%-WATER - 50 ML IVPB ONE (08:05)
[2018-05-19] MEDS ORDERED: cefTRIAXone SODIUM 1 GM VIAL ONE (08:05)
[2018-05-19] MEDS: CEFTRIAXONE 1 GM in DEXTROSE 5%-WATER - 50 ML IVPB SCH (10:22)
[2018-05-19] MEDS: metFORMIN HCL 500 MG TABLET (FP) PO SCH (10:22)
[2018-05-19] MEDS: ASPIRIN 81 MG CHEWABLE TABLETS PO SCH (10:22)
[2018-05-19] MEDS: sitaGLIPtin PHOSPHATE 50 MG TABLET PO SCH (10:22)
[2018-05-19] MEDS: amLODIPine BESYLATE 10 MG TABLET (FP) PO SCH (10:22)
--- NOTE | 2018-05-19 10:25 | PN ---
Physical Exam: SUBJECTIVE: Patient seen and examined at bedside. Patient is awake and oriented and is now able to answer questions. OBJECTIVE: Vital Signs Period Temp Pulse Resp BP Sys/Swift Pulse Ox Last 24 Hr 97.3 F-98.3 F 63-70 20-20 118-126/45-58 96-96 GENERAL: A&Ox3, no acute distress EYES: PERRLA, within no ENT: Dry mucus membranes NECK: No JVD, no lymphadenopathy palpated LUNGS: CTA, no wheezes HEART: RRR, slight systolic murmur auscultated ABDOMEN: Soft, BS present MUSCULOSKELETAL: No CVA Tenderness EXTREMITIES: 2+ pulses, no edema. Laboratory Results - last 24 hr 05/18/18 05/18/18 05/18/18 05:30 12:00 14:19 Retic Count Sodium 137 Potassium 4.8 Chloride 109 H Carbon Dioxide 22 Anion Gap 5 L BUN 43 H Creatinine 1.2 Creat Clearance w eGFR 42.30 POC Glucometer Random Glucose 103 Calcium 13.0 H Phosphorus 2.7 Magnesium 2.5 H Ferritin Total Bilirubin 0.4 AST 23 ALT 21 Alkaline Phosphatase 72 Total Protein 7.1 Albumin 2.4 L Prealbumin 9.7 L Vitamin B12 Serum Folate TSH 0.24 L Free T4 1.24 Ur Random Sodium Cancelled Ur Random Potassium Cancelled Ur Random Chloride Cancelled Urine Creatinine 05/18/18 05/18/18 05/19/18 14:19 14:19 05:30 Retic Count Sodium 140 Potassium 4.4 Chloride 114 H Carbon Dioxide 20 L Anion Gap 5 L BUN 31 H Creatinine 0.9 Creat Clearance w eGFR 58.95 POC Glucometer Random Glucose 97 Calcium 11.2 H Phosphorus Magnesium Ferritin Total Bilirubin 0.3 AST 13 L ALT 17 Alkaline Phosphatase 65 Total Protein 6.4 Albumin 2.1 L Prealbumin Vitamin B12 Serum Folate 7 TSH Free T4 Ur Random Sodium 61 Ur Random Potassium 27.8 Ur Random Chloride 84 L Urine Creatinine Cancelled < 13.0 L 05/19/18 05/19/18 05/19/18 05:30 05:30 06:43 Retic Count 1.52 H Sodium Potassium Chloride Carbon Dioxide Anion Gap BUN Creatinine Creat Clearance w eGFR POC Glucometer 103 Random Glucose Calcium Phosphorus 2.4 L Magnesium 1.8 Ferritin 267.8 Total Bilirubin AST ALT Alkaline Phosphatase Total Protein Albumin Prealbumin Vitamin B12 433 Serum Folate TSH Free T4 Ur Random Sodium Ur Random Potassium Ur Random Chloride Urine Creatinine Active Medications Generic Name Dose Route Start Last Admin Trade Name Freq PRN Reason Stop Dose Admin Acetaminophen 650 mg 05/18/18 21:50 05/18/18 22:11 Tylenol - PO 650 mg Q6H PRN Administration PAIN SCALE 1-5 Amlodipine Besylate 10 mg 05/17/18 10:00 05/18/18 10:16 Norvasc - PO 10 mg DAILY MARIAJOSE Administration Aspirin 81 mg 05/17/18 10:00 05/18/18 10:16 Asa - PO 81 mg DAILY MARIAJOSE Administration Calcitonin 400 unit 05/18/18 22:00 05/18/18 22:11 Miacalcin Injection - SQ 05/20/18 21:59 400 unit BID MARIAJOSE Administration Heparin Sodium (Porcine) 5,000 unit 05/16/18 22:00 05/18/18 22:11 Heparin - SQ 5,000 unit BID MARIAJOSE Administration Sodium Chloride 1,000 mls @ 125 mls/hr 05/18/18 12:39 05/18/18 17:45 Normal Saline - IV 125 mls/hr ASDIR MARIAJSOE Administration Ceftriaxone Sodium 1 gm/ 50 mls @ 100 mls/hr 05/18/18 14:15 05/18/18 17:39 Dextrose IVPB 100 mls/hr DAILY MARIAJOSE Administration Protocol Metformin HCl 500 mg 05/17/18 07:00 05/18/18 07:01 Glucophage - PO 500 mg ACBK MARIAJOSE Administration Metoprolol Succinate 50 mg 05/16/18 22:00 05/18/18 22:11 Toprol Xl - PO 50 mg BID MARIAJOSE Administration Sitagliptin Phosphate 50 mg 05/17/18 07:00 05/18/18 07:01 Januvia - PO 50 mg DAILY@[address] Chest/ABD/PELVIS: Bibasal atelectatic changes and minimal bilateral pleural effusions suggestive of. Multiple pleural -based and intraparenchymal nodular densities measuring up to 1 cm. Correlate clinically to rule out a neoplastic process. Small to moderate pericardial effusion. No gross enlarged mediastinal or hilar lymph nodes are identified. Dense consolidation of the coronary arteries are present. Status post cholecystectomy. Mild dilatation of the central intrahepatic bile ducts without gross dilatation of the common bile duct. Likely right renal cyst. Moderate to marked left renal hydronephrosis and dilatation of the left ureter down to the ureterovesical junction level without gross evidence of an obstructing stone. Further evaluation with renal ultrasound is needed. There is a complex masslike density in the left adnexa measuring 4.8 x 3.3 cm that is inseparable from the left lateral urinary bladder wall that appears to be significantly thickened and there is mild stranding of the surrounding mesentery. Correlation with pelvis ultrasound or MRI of the pelvis is needed to evaluate for a pelvic mass. Kaur catheter within a partially distended urinary bladder with suggestion of diffuse thickening of its wall, in particular, there is significant thickening of its left lateral wall. Intraluminal air, likely iatrogenic. Hyperdensities are present within its lumen that may represent prior contrast administration. Prominent vessels versus borderline left lateral pelvic lymph nodes are present , evaluation of which is limited due to lack of intravenous contrast administration. ASSESSMENT/PLAN: 88 year old female with a hx of dementia, hypertension, diabetes mellitus, multiple UTIs and hydronephrosis was brought in for unwitnessed fall earlier today and admitted for altered mental status with hyperkalemia and hypercalcemia #Hypercalcemia: improved today -f/u PTH level -f/u SPEP/UPEP for assessment of myeloma -may need to get PTHrp level and vitamin D as outpatient if PTH level is found to be low/normal in this patient -decreased calcitonin dose -CT noted as above, will likely need tissue biopsy #Bladder wall thickening and L renal pelvis lesion: found on ultrasound -CT appears to have masses in abdomen/pelvis in kidneys and bladder and pulmonary nodules #Normocytic, normochromic Anemia: could be related to iron deficiency, iron- restricted erythropoesis (chronic disease), renal dysfunction, myeloma, vitamin deficiencies -will get reticulocyte count, iron studies, vitamin studies, spep, upep #Altered Mental Status: could be a result of electrolyte abnormalities vs urinary tract infection -hyperkalemia resolved -continue to treat calcium and monitor levels -treat UTI with abx #Hyperkalemia: resolved #Urinary Tract Infection: on abx Dispo: We will continue to follow the patient. Thank you for this consultative opportunity. Juwan Couch, PGY2 Case Discussed with Dr. Robertson Visit type - Emergency Visit Emergency Visit: No - New Patient This patient is new to me today: No - Critical Care Critical Care patient: No
[2018-05-19] MEDS: HEPARIN NA (PORCINE) 5,000 UNITS/ML 1ML VIAL SQ SCH ×2 (10:29→22:31)
--- NOTE | 2018-05-19 10:30 | PN ---
Progress Note, Physician History of Present Illness: No complaints, chronic dementia and poor historian. - Current Medication List Current Medications: Active Medications Acetaminophen (Tylenol -) 650 mg PO Q6H PRN PRN Reason: PAIN SCALE 1-5 Last Admin: 05/18/18 22:11 Dose: 650 mg Amlodipine Besylate (Norvasc -) 10 mg PO DAILY [facility] Last Admin: 05/19/18 10:22 Dose: 10 mg Aspirin (Asa -) 81 mg PO DAILY [facility] Last Admin: 05/19/18 10:22 Dose: 81 mg Calcitonin (Miacalcin Injection -) 400 unit SQ BID [facility] Stop: 05/20/18 21:59 Last Admin: 05/18/18 22:11 Dose: 400 unit Heparin Sodium (Porcine) (Heparin -) 5,000 unit SQ BID [facility] Last Admin: 05/19/18 10:29 Dose: 5,000 unit Sodium Chloride (Normal Saline -) 1,000 mls @ 125 mls/hr IV ASDIR [facility] Last Admin: 05/18/18 17:45 Dose: 125 mls/hr Ceftriaxone Sodium 1 gm/ (Dextrose) 50 mls @ 100 mls/hr IVPB DAILY [facility]; Protocol Last Admin: 05/19/18 10:22 Dose: 100 mls/hr Metformin HCl (Glucophage -) 500 mg PO ACBK [facility] Last Admin: 05/19/18 10:22 Dose: 500 mg Metoprolol Succinate (Toprol Xl -) 50 mg PO BID [facility] Last Admin: 05/19/18 10:22 Dose: 50 mg Sitagliptin Phosphate (Januvia -) 50 mg PO DAILY@0700 [facility] Last Admin: 05/19/18 10:22 Dose: 50 mg - Objective Vital Signs: Vital Signs Temperature 98.3 F 05/19/18 09:00 Pulse Rate 69 05/19/18 09:00 Respiratory Rate 20 05/19/18 09:00 Blood Pressure 126/58 L 05/19/18 09:00 O2 Sat by Pulse Oximetry (%) 96 05/19/18 09:00 Constitutional: Yes: No Distress, Calm, Thin Neck: Yes: Supple Cardiovascular: Yes: Regular Rate and Rhythm Respiratory: Yes: Regular, Diminished, On Nasal O2 Gastrointestinal: Yes: Normal Bowel Sounds, Soft Edema: No Labs: CBC, BMP 05/18/18 05:30 05/19/18 05:30 - ....Imaging EKG: Report Reviewed (Tele: NSR occ PVC) Problem List - Problems (1) Fall Code(s): W19.XXXA - UNSPECIFIED FALL, INITIAL ENCOUNTER Qualifiers: Encounter type: subsequent encounter Qualified Code(s): W19.XXXD - Unspecified fall, subsequent encounter (2) BRITT (acute kidney injury) Code(s): N17.9 - ACUTE KIDNEY FAILURE, UNSPECIFIED (3) Diabetes mellitus Code(s): E11.9 - TYPE 2 DIABETES MELLITUS WITHOUT COMPLICATIONS Qualifiers: Diabetes mellitus type: type 2 Diabetes mellitus [employer] 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 (4) HTN (hypertension) Code(s): I10 - ESSENTIAL (PRIMARY) HYPERTENSION Qualifiers: Hypertension type: essential hypertension Qualified Code(s): I10 - Essential (primary) hypertension (5) Hyperkalemia Code(s): E87.5 - HYPERKALEMIA (6) Urinary tract infection Code(s): N39.0 - URINARY TRACT INFECTION, SITE NOT SPECIFIED (7) Dementia Code(s): F03.90 - UNSPECIFIED DEMENTIA WITHOUT BEHAVIORAL DISTURBANCE Qualifiers: Dementia type: unspecified type Dementia behavioral disturbance: without behavioral disturbance Qualified Code(s): F03.90 - Unspecified dementia without behavioral disturbance (8) Hypercalcemia Code(s): E83.52 - HYPERCALCEMIA Assessment/Plan 05/17/2018 Echo: Normal LV and RV size and fxn LVEF 65% borderline LAE, mild MG 9.2 mmHg, mod pulm HTN RVSP 54 mmHg 1. Post fall no LOC 2. Organic brain syndrome/dementia 3. HTN 4. DM 5. UTI 6. BRITT with hyperkalemia resolving 7. Hypercalcemia 8. Anemia 9. Left renal pelvic masses, bladder mass PLAN: 1. Continue Metoprolol ER 50 mg BID, Amlodipine 10 mg QD, and ASA 81 mg QD. Valsartan held for hyperkalemia 2. DM management 3. Fall precaution 4. DVT prophylaxis 5. Calcitonin, fluids and Lasix, zometa with monitor calcium, complete empiric abx course for UTI 6. F/u abd and pelvic and chest CT results
[2018-05-19] MEDS: CALCITONIN - SALMON SYNTHETIC 400 UNIT/2 ML VIAL SQ SCH ×3 (12:07→22:32)
[2018-05-19] MEDS: SODIUM CHLORIDE 1,000 ML IV SCH (12:08)
--- NOTE | 2018-05-19 14:22 | PN ---
Progress Note, Physician History of Present Illness: Pt seen and examined at bedside. She is much more awake and alert today. - Current Medication List Current Medications: Active Medications Acetaminophen (Tylenol -) 650 mg PO Q6H PRN PRN Reason: PAIN SCALE 1-5 Last Admin: 05/18/18 22:11 Dose: 650 mg Amlodipine Besylate (Norvasc -) 10 mg PO DAILY [facility] Last Admin: 05/19/18 10:22 Dose: 10 mg Aspirin (Asa -) 81 mg PO DAILY [facility] Last Admin: 05/19/18 10:22 Dose: 81 mg Calcitonin (Miacalcin Injection -) 280 unit SQ BID [facility] Stop: 05/20/18 21:59 Heparin Sodium (Porcine) (Heparin -) 5,000 unit SQ BID [facility] Last Admin: 05/19/18 10:29 Dose: 5,000 unit Sodium Chloride (Normal Saline -) 1,000 mls @ 125 mls/hr IV ASDIR [facility] Last Admin: 05/19/18 12:08 Dose: Not Given Ceftriaxone Sodium 1 gm/ (Dextrose) 50 mls @ 100 mls/hr IVPB DAILY [facility]; Protocol Last Admin: 05/19/18 10:22 Dose: 100 mls/hr Metformin HCl (Glucophage -) 500 mg PO ACBK [facility] Last Admin: 05/19/18 10:22 Dose: 500 mg Metoprolol Succinate (Toprol Xl -) 50 mg PO BID [facility] Last Admin: 05/19/18 10:22 Dose: 50 mg Sitagliptin Phosphate (Januvia -) 50 mg PO DAILY@0700 [facility] Last Admin: 05/19/18 10:22 Dose: 50 mg - Objective Vital Signs: Vital Signs Temperature 98.3 F 05/19/18 09:00 Pulse Rate 69 05/19/18 09:00 Respiratory Rate 20 05/19/18 09:00 Blood Pressure 126/58 L 05/19/18 09:00 O2 Sat by Pulse Oximetry (%) 96 05/19/18 09:00 Constitutional: Yes: Calm Eyes: Yes: Conjunctiva Clear HENT: Yes: Atraumatic Cardiovascular: Yes: S1, S2 Respiratory: Yes: CTA Bilaterally Gastrointestinal: Yes: Soft Genitourinary: Yes: WNL Musculoskeletal: Yes: WNL Edema: No Neurological: Yes: Oriented Psychiatric: Yes: Oriented Labs: CBC, BMP 05/18/18 05:30 05/19/18 05:30 Assessment/Plan Current Medications Generic Name Dose Route Start Last Admin Trade Name Alisha PRN Reason Stop Dose Admin Acetaminophen 650 mg 05/18/18 21:50 05/18/18 22:11 Tylenol - PO 650 mg Q6H PRN Administration PAIN SCALE 1-5 Amlodipine Besylate 10 mg 05/17/18 10:00 05/19/18 10:22 Norvasc - PO 10 mg DAILY MARIAJOSE Administration Aspirin 81 mg 05/17/18 10:00 05/19/18 10:22 Asa - PO 81 mg DAILY MARIAJOSE Administration Calcitonin 280 unit 05/19/18 12:54 Miacalcin Injection - SQ 05/20/18 21:59 BID [facility] Heparin Sodium (Porcine) 5,000 unit 05/16/18 22:00 05/19/18 10:29 Heparin - SQ 5,000 unit BID MARIAJOSE Administration Sodium Chloride 1,000 mls @ 125 mls/hr 05/18/18 12:39 05/19/18 12:08 Normal Saline - IV Not Given ASDIR [facility] Ceftriaxone Sodium 1 gm/ 50 mls @ 100 mls/hr 05/18/18 14:15 05/19/18 10:22 Dextrose IVPB 100 mls/hr DAILY MARIAJOSE Administration Protocol Metformin HCl 500 mg 05/17/18 07:00 05/19/18 10:22 Glucophage - PO 500 mg ACBK MARIAJOSE Administration Metoprolol Succinate 50 mg 05/16/18 22:00 05/19/18 10:22 Toprol Xl - PO 50 mg BID MARIAJOSE Administration Sitagliptin Phosphate 50 mg 05/17/18 07:00 05/19/18 10:22 Januvia - PO 50 mg DAILY@0700 MARIAJOSE Administration Impression 1. BRITT 2. hyperkalemia 3. uti 4. dementia 5. htn 6. DM 7. hypercalcemia 8. hydronephrosis left 9. bladder mass Plan - renal function improving - calcium improving - cont saline - will give a dose of lasix - monitor volume status - urology eval - abx for UTI - check pth
[2018-05-19] MEDS ORDERED: FUROSEMIDE 20 MG TABLET (FP) PO ONE (14:24)
--- NOTE | 2018-05-19 16:17 | PN ---
Progress Note, Physician History of Present Illness: awake and alert says she is better - Current Medication List Current Medications: Active Medications Acetaminophen (Tylenol -) 650 mg PO Q6H PRN PRN Reason: PAIN SCALE 1-5 Last Admin: 05/18/18 22:11 Dose: 650 mg Amlodipine Besylate (Norvasc -) 10 mg PO DAILY [facility] Last Admin: 05/19/18 10:22 Dose: 10 mg Aspirin (Asa -) 81 mg PO DAILY [facility] Last Admin: 05/19/18 10:22 Dose: 81 mg Calcitonin (Miacalcin Injection -) 280 unit SQ BID [facility] Stop: 05/20/18 10:01 Last Admin: 05/19/18 14:52 Dose: Not Given Heparin Sodium (Porcine) (Heparin -) 5,000 unit SQ BID [facility] Last Admin: 05/19/18 10:29 Dose: 5,000 unit Sodium Chloride (Normal Saline -) 1,000 mls @ 125 mls/hr IV ASDIR [facility] Last Admin: 05/19/18 12:08 Dose: Not Given Ceftriaxone Sodium 1 gm/ (Dextrose) 50 mls @ 100 mls/hr IVPB DAILY [facility]; Protocol Last Admin: 05/19/18 10:22 Dose: 100 mls/hr Metformin HCl (Glucophage -) 500 mg PO ACBK [facility] Last Admin: 05/19/18 10:22 Dose: 500 mg Metoprolol Succinate (Toprol Xl -) 50 mg PO BID [facility] Last Admin: 05/19/18 10:22 Dose: 50 mg Sitagliptin Phosphate (Januvia -) 50 mg PO DAILY@0700 [facility] Last Admin: 05/19/18 10:22 Dose: 50 mg - Objective Vital Signs: Vital Signs Temperature 98.7 F 05/19/18 14:00 Pulse Rate 73 05/19/18 14:00 Respiratory Rate 20 05/19/18 14:00 Blood Pressure 141/63 05/19/18 14:00 O2 Sat by Pulse Oximetry (%) 96 05/19/18 09:00 Constitutional: Yes: No Distress, Calm Cardiovascular: Yes: Regular Rate and Rhythm Respiratory: Yes: Regular, CTA Bilaterally Gastrointestinal: Yes: Normal Bowel Sounds, Soft Musculoskeletal: Yes: WNL Extremities: Yes: WNL Neurological: Yes: Alert Labs: CBC, BMP 05/18/18 05:30 03/28/19 05:30 Assessment/Plan 1. BRITT 2. hyperkalemia 3. uti 4. dementia 5. htn 6. DM 7. hypercalcemia plan continue abx rest as per the team
--- NOTE | 2018-05-19 17:07 | PN ---
Progress Note, Physician History of Present Illness: doing well - Current Medication List Current Medications: Active Medications Acetaminophen (Tylenol -) 650 mg PO Q6H PRN PRN Reason: PAIN SCALE 1-5 Last Admin: 05/18/18 22:11 Dose: 650 mg Amlodipine Besylate (Norvasc -) 10 mg PO DAILY [facility] Last Admin: 05/19/18 10:22 Dose: 10 mg Aspirin (Asa -) 81 mg PO DAILY [facility] Last Admin: 05/19/18 10:22 Dose: 81 mg Calcitonin (Miacalcin Injection -) 280 unit SQ BID [facility] Stop: 05/20/18 10:01 Last Admin: 05/19/18 14:52 Dose: Not Given Heparin Sodium (Porcine) (Heparin -) 5,000 unit SQ BID [facility] Last Admin: 05/19/18 10:29 Dose: 5,000 unit Sodium Chloride (Normal Saline -) 1,000 mls @ 125 mls/hr IV ASDIR [facility] Last Admin: 05/19/18 12:08 Dose: Not Given Ceftriaxone Sodium 1 gm/ (Dextrose) 50 mls @ 100 mls/hr IVPB DAILY [facility]; Protocol Last Admin: 05/19/18 10:22 Dose: 100 mls/hr Metformin HCl (Glucophage -) 500 mg PO ACBK [facility] Last Admin: 05/19/18 10:22 Dose: 500 mg Metoprolol Succinate (Toprol Xl -) 50 mg PO BID [facility] Last Admin: 05/19/18 10:22 Dose: 50 mg Sitagliptin Phosphate (Januvia -) 50 mg PO DAILY@0700 [facility] Last Admin: 05/19/18 10:22 Dose: 50 mg - Objective Vital Signs: Vital Signs Temperature 98.7 F 05/19/18 14:00 Pulse Rate 73 05/19/18 14:00 Respiratory Rate 20 05/19/18 14:00 Blood Pressure 141/63 05/19/18 14:00 O2 Sat by Pulse Oximetry (%) 96 05/19/18 09:00 HENT: Yes: WNL Neck: Yes: Supple Respiratory: Yes: CTA Bilaterally Gastrointestinal: Yes: Normal Bowel Sounds Extremities: Yes: WNL Edema: No Peripheral Pulses WNL: Yes Neurological: Yes: Alert, Oriented Labs: CBC, BMP 05/18/18 05:30 05/19/18 05:30 Problem List - Problems (1) BRITT (acute kidney injury) Assessment/Plan: wnl today on ivf...dc? Code(s): N17.9 - ACUTE KIDNEY FAILURE, UNSPECIFIED (2) Hyperkalemia Assessment/Plan: RESOLVED Code(s): E87.5 - HYPERKALEMIA (3) Urinary tract infection Assessment/Plan: ON ABX PER ID CXS noted Code(s): N39.0 - URINARY TRACT INFECTION, SITE NOT SPECIFIED (4) Dementia Code(s): F03.90 - UNSPECIFIED DEMENTIA WITHOUT BEHAVIORAL DISTURBANCE Qualifiers: Dementia type: unspecified type Dementia behavioral disturbance: without behavioral disturbance Qualified Code(s): F03.90 - Unspecified dementia without behavioral disturbance (5) Diabetes mellitus Assessment/Plan: ON PO MEDS BGMS Code(s): E11.9 - TYPE 2 DIABETES MELLITUS WITHOUT COMPLICATIONS Qualifiers: Diabetes mellitus type: type 2 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
--- NOTE | 2018-05-19 17:10 | DS ---
Physical Examination Vital Signs: Vital Signs Temperature 98.7 F 05/19/18 14:00 Pulse Rate 73 05/19/18 14:00 Respiratory Rate 20 05/19/18 14:00 Blood Pressure 141/63 05/19/18 14:00 O2 Sat by Pulse Oximetry (%) 96 05/19/18 09:00 Labs: CBC, BMP 05/18/18 05:30 05/19/18 05:30 Discharge Summary Reason For Visit: UTI/HYDRONEPHROSIS/HYPERKALEMIA Current Active Problems BRITT (acute kidney injury) (Acute) Dementia (Acute) Diabetes mellitus (Acute) Fall (Acute) HTN (hypertension) (Acute) Hypercalcemia (Acute) Hyperkalemia (Acute) Urinary tract infection (Acute) Condition: Guarded - Instructions Referrals: Jose Thompson MD [Staff Physician] - Chong Hernandez MD [Staff Physician] - - Home Medications Comprehensive Discharge Medication List: Ambulatory Orders Sitagliptin Phos/Metformin HCl [Janumet 50-500 mg Tablet] 1 each PO DAILY Aspirin [ASA -] 81 mg PO DAILY 1 Days tab 12/23/11 Metoprolol Succinate [Toprol XL -] 50 mg PO BID #0 tablet 12/23/11 Amlodipine Bes/Olmesartan Med [Lisa 10-40 mg Tablet] 1 each PO DAILY 10/08/13 ma home completed abx course
[2018-05-19] MEDS ORDERED: PT OWN MED DRAWER 7, Y5N ONE (21:28)
[2018-05-19] MEDS: ACETAMINOPHEN 325 MG TABLET (FP) PO PRN (22:32)
--- NOTE | 2018-05-19 23:40 | PN ---
Progress Note (short form) - Note Progress Note: Patient seen and examined Feels Ok AFVSS Cor: RSR, No murmurs, No gallops Lungs: Clear to P&A Abd: Soft, Normal bowel sounds, No organomegaly Ext:No significant edema Labs/Meds reviewed A/P 88 year old presents with hyperkalemia and hypercalcemia with corrected calcium greater than 14. Low dose fluids at 125 cc /hr in view of age. s/p bisphosphonates Has abnormal CT with right supra renal mass, left renal pelvic mass and thickened wall bladder. will need discussion with family about ? invasiveness of w/u ? CT guided biopsy will request palliative care consult
[2018-05-20 04:15] LABS: SERUM IRON SATURATION 15 % (15-55); TOTAL IRON BINDING CAPACITY 156 ug/dL (250-450); UIBC 133 ug/dL (118-369)
[2018-05-20 06:28] LABS: HEMOGLOBIN 8.6 GM/dL (10.7-15.3); MCH 25.5 pg (25.7-33.7); MCHC 31.7 g/dl (32.0-36.0); MEAN CELL VOLUME 80.3 fl (80-96); MEAN PLT VOLUME 7.9 fl (7.5-11.1); PLATELET COUNT 274 K/MM3 (134-434); RBC 3.36 M/mm3 (3.60-5.2); RDW 14.7 % (11.6-15.6); WHITE BLOOD COUNT 7.7 K/mm3 (4.0-10.0)
[2018-05-20] MEDS: sitaGLIPtin PHOSPHATE 50 MG TABLET PO SCH (06:29)
[2018-05-20] MEDS: metFORMIN HCL 500 MG TABLET (FP) PO SCH (06:29)
[2018-05-20 06:53] LABS: INR 1.21 (0.83-1.09); PROTHROMBIN TIME (PATIENT) 14.3 SEC (9.7-13.0)
[2018-05-20 06:56] LABS: ACTIVATED PTT 27.2 SECONDS (25.2-36.5)
[2018-05-20 06:58] LABS: ALK PHOS 61 U/L (45-117); BILIRUBIN,TOTAL 0.4 mg/dL (0.2-1); SGOT/AST 15 U/L (15-37); SGPT/ALT 14 U/L (13-61); TOT PROT 6.2 g/dl (6.4-8.2)
[2018-05-20 09:13] LABS: ANION GAP 7 MMOL/L (8-16); BLOOD UREA NITROGEN 17 mg/dL (7-18); CALCIUM 10.2 mg/dL (8.5-10.1); CHLORIDE 111 mmol/L (98-107); CO2 21 mmol/L (21-32); CREATININE 0.7 mg/dL (0.55-1.3); GLUCOSE,RANDOM 110 mg/dL (74-106); POTASSIUM 3.9 mmol/L (3.5-5.1); SODIUM 139 mmol/L (136-145)
--- NOTE | 2018-05-20 10:06 | PN ---
Progress Note, Physician History of Present Illness: No complaints, chronic dementia and poor historian, resting. - Current Medication List Current Medications: Active Medications Acetaminophen (Tylenol -) 650 mg PO Q6H PRN PRN Reason: PAIN SCALE 1-5 Last Admin: 05/19/18 22:32 Dose: 650 mg Amlodipine Besylate (Norvasc -) 10 mg PO DAILY [facility] Last Admin: 05/19/18 10:22 Dose: 10 mg Aspirin (Asa -) 81 mg PO DAILY [facility] Last Admin: 05/19/18 10:22 Dose: 81 mg Heparin Sodium (Porcine) (Heparin -) 5,000 unit SQ BID [facility] Last Admin: 05/19/18 22:31 Dose: 5,000 unit Sodium Chloride (Normal Saline -) 1,000 mls @ 125 mls/hr IV ASDIR [facility] Last Admin: 05/19/18 12:08 Dose: Not Given Ceftriaxone Sodium 1 gm/ (Dextrose) 50 mls @ 100 mls/hr IVPB DAILY [facility]; Protocol Last Admin: 05/19/18 10:22 Dose: 100 mls/hr Metformin HCl (Glucophage -) 500 mg PO ACBK [facility] Last Admin: 05/20/18 06:29 Dose: 500 mg Metoprolol Succinate (Toprol Xl -) 50 mg PO BID [facility] Last Admin: 05/19/18 22:32 Dose: 50 mg Potassium Phos/Sodium Phos (Phos-Nak Packet -) 1 packet PO BID [facility] Stop: 05/22/18 22:01 Sitagliptin Phosphate (Januvia -) 50 mg PO DAILY@0700 [facility] Last Admin: 05/20/18 06:29 Dose: 50 mg - Objective Vital Signs: Vital Signs Temperature 98.2 F 05/20/18 09:00 Pulse Rate 68 05/20/18 09:00 Respiratory Rate 20 05/20/18 09:00 Blood Pressure 142/77 05/20/18 09:00 O2 Sat by Pulse Oximetry (%) 94 L 05/20/18 09:00 Constitutional: Yes: No Distress, Calm, Thin Neck: Yes: Supple Cardiovascular: Yes: Regular Rate and Rhythm Respiratory: Yes: Regular, Diminished Gastrointestinal: Yes: Soft, Hypoactive Bowel Sounds Edema: No Labs: CBC, BMP 05/20/18 05:30 05/20/18 05:30 INR, PTT INR 1.21 (0.83-1.09) H 05/20/18 05:30 - ....Imaging EKG: Report Reviewed (Tele: NSR occ PVC) Problem List - Problems (1) Fall Code(s): W19.XXXA - UNSPECIFIED FALL, INITIAL ENCOUNTER Qualifiers: Encounter type: subsequent encounter Qualified Code(s): W19.XXXD - Unspecified fall, subsequent encounter (2) BRITT (acute kidney injury) Code(s): N17.9 - ACUTE KIDNEY FAILURE, UNSPECIFIED (3) Diabetes mellitus Code(s): E11.9 - TYPE 2 DIABETES MELLITUS WITHOUT COMPLICATIONS Qualifiers: Diabetes mellitus type: type 2 Diabetes mellitus termite treater insulin use: without termite treater use (4) HTN (hypertension) Code(s): I10 - ESSENTIAL (PRIMARY) HYPERTENSION Qualifiers: Hypertension type: essential hypertension Qualified Code(s): I10 - Essential (primary) hypertension (5) Hyperkalemia Code(s): E87.5 - HYPERKALEMIA (6) Urinary tract infection Code(s): N39.0 - URINARY TRACT INFECTION, SITE NOT SPECIFIED (7) Dementia Code(s): F03.90 - UNSPECIFIED DEMENTIA WITHOUT BEHAVIORAL DISTURBANCE Qualifiers: Dementia type: unspecified type Dementia behavioral disturbance: without behavioral disturbance Qualified Code(s): F03.90 - Unspecified dementia without behavioral disturbance (8) Hypercalcemia Code(s): E83.52 - HYPERCALCEMIA Assessment/Plan 05/17/2018 Echo: Normal LV and RV size and fxn LVEF 65% borderline LAE, mild MG 9.2 mmHg, mod pulm HTN RVSP 54 mmHg 1. Post fall no LOC 2. Organic brain syndrome/dementia 3. HTN 4. DM 5. UTI 6. BRITT with hyperkalemia resolving 7. Hypercalcemia 8. Anemia 9. Left adnexal mass, bladder mass PLAN: 1. Continue Metoprolol ER 50 mg BID, Amlodipine 10 mg QD, and ASA 81 mg QD. Valsartan held for hyperkalemia 2. DM management 3. Fall precaution 4. DVT prophylaxis 5. Calcitonin, fluids and Lasix, zometa with monitor calcium, complete empiric abx course for UTI 6. Abd and pelvic and chest CT shows left adnexal masses and pleural based masses suggestive of mets->GOC to be addressed 7. D/c telemetry
[2018-05-20] MEDS ORDERED: cefTRIAXone SODIUM 1 GM VIAL ONE (10:14)
[2018-05-20] MEDS ORDERED: DEXTROSE 5%-WATER - 50 ML IVPB ONE (10:15)
[2018-05-20] MEDS: CEFTRIAXONE 1 GM in DEXTROSE 5%-WATER - 50 ML IVPB SCH (11:03)
[2018-05-20] MEDS: ASPIRIN 81 MG CHEWABLE TABLETS PO SCH (11:03)
[2018-05-20] MEDS: amLODIPine BESYLATE 10 MG TABLET (FP) PO SCH (11:03)
[2018-05-20] MEDS: NAPH,MB-DB/K PH,MBDB POWDER PACKET PO SCH ×2 (11:03→22:15)
[2018-05-20] MEDS: HEPARIN NA (PORCINE) 5,000 UNITS/ML 1ML VIAL SQ SCH ×2 (11:04→22:15)
[2018-05-20 11:22] LABS: ANISOCYTOSIS 1+; MACROCYTOSIS 0; OVALOCYTE 1+; PLATELET ESTIMATE NORMAL
--- NOTE | 2018-05-20 13:22 | PN ---
Progress Note, Physician History of Present Illness: patient spiked fever last night currently stable weak - Current Medication List Current Medications: Active Medications Acetaminophen (Tylenol -) 650 mg PO Q6H PRN PRN Reason: PAIN SCALE 1-5 Last Admin: 05/19/18 22:32 Dose: 650 mg Amlodipine Besylate (Norvasc -) 10 mg PO DAILY [facility] Last Admin: 05/20/18 11:03 Dose: 10 mg Aspirin (Asa -) 81 mg PO DAILY [facility] Last Admin: 05/20/18 11:03 Dose: 81 mg Heparin Sodium (Porcine) (Heparin -) 5,000 unit SQ BID [facility] Last Admin: 05/20/18 11:04 Dose: 5,000 unit Sodium Chloride (Normal Saline -) 1,000 mls @ 125 mls/hr IV ASDIR [facility] Last Admin: 05/19/18 12:08 Dose: Not Given Ceftriaxone Sodium 1 gm/ (Dextrose) 50 mls @ 100 mls/hr IVPB DAILY [facility]; Protocol Last Admin: 05/20/18 11:03 Dose: 100 mls/hr Metformin HCl (Glucophage -) 500 mg PO ACBK [facility] Last Admin: 05/20/18 06:29 Dose: 500 mg Metoprolol Succinate (Toprol Xl -) 50 mg PO BID [facility] Last Admin: 05/20/18 11:03 Dose: 50 mg Potassium Phos/Sodium Phos (Phos-Nak Packet -) 1 packet PO BID [facility] Stop: 05/22/18 22:01 Last Admin: 05/20/18 11:03 Dose: 1 packet Sitagliptin Phosphate (Januvia -) 50 mg PO DAILY@0700 [facility] Last Admin: 05/20/18 06:29 Dose: 50 mg - Objective Vital Signs: Vital Signs Temperature 98.2 F 05/20/18 09:00 Pulse Rate 68 05/20/18 09:00 Respiratory Rate 20 05/20/18 09:00 Blood Pressure 142/77 05/20/18 09:00 O2 Sat by Pulse Oximetry (%) 94 L 05/20/18 09:00 Constitutional: Yes: No Distress, Calm Cardiovascular: Yes: Regular Rate and Rhythm Respiratory: Yes: Regular, CTA Bilaterally Gastrointestinal: Yes: Normal Bowel Sounds, Soft Musculoskeletal: Yes: WNL Extremities: Yes: WNL Neurological: Yes: Alert, Other Labs: CBC, BMP 05/20/18 05:30 05/20/18 05:30 INR, PTT INR 1.21 (0.83-1.09) H 05/20/18 05:30 Assessment/Plan 1. BRITT 2. hyperkalemia 3. uti 4. dementia 5. htn 6. DM 7. hypercalcemia plan continue abx for now if afebrile for 24 hours can stop the abx watch for fevers rest as per the team
[2018-05-20] MEDS: SODIUM CHLORIDE 1,000 ML IV SCH (14:01)
[2018-05-20] MEDS: CALCITONIN - SALMON SYNTHETIC 400 UNIT/2 ML VIAL SQ SCH (14:01)
--- NOTE | 2018-05-20 14:42 | PN ---
Physical Exam: SUBJECTIVE: Patient seen and examined at bedside. No change from yesterday. Denies any acute complaints. OBJECTIVE: Vital Signs Period Temp Pulse Resp BP Sys/Siwft Pulse Ox Last 24 Hr 98.0 F-101.2 F 68-82 20-20 135-142/56-87 94-94 GENERAL: A&Ox3, no acute distress EYES: PERRLA, within no ENT: Dry mucus membranes NECK: No JVD, no lymphadenopathy palpated LUNGS: CTA, no wheezes HEART: RRR, slight systolic murmur auscultated ABDOMEN: Soft, BS present MUSCULOSKELETAL: No CVA Tenderness EXTREMITIES: 2+ pulses, no edema. Laboratory Results - last 24 hr 05/18/18 05/19/18 05/19/18 05:30 05:30 17:37 WBC RBC Hgb Hct MCV MCH MCHC RDW Plt Count MPV Absolute Neuts (auto) Neutrophils % Neutrophils % (Manual) Band Neutrophils % Lymphocytes % Lymphocytes % (Manual) Monocytes % (Manual) Eosinophils % (Manual) Basophils % (Manual) Myelocytes % (Man) Promyelocytes % (Man) Blast Cells % (Manual) Nucleated RBC % Metamyelocytes Hypochromia Platelet Estimate Polychromasia Poikilocytosis Anisocytosis Microcytosis Macrocytosis Ovalocytes Schistocytes PT with INR INR PTT (Actin FS) Sodium Potassium Chloride Carbon Dioxide Anion Gap BUN Creatinine Creat Clearance w eGFR POC Glucometer 100 Random Glucose Calcium Iron 23 L TIBC 156 L Iron Saturation 15 Total Bilirubin AST ALT Alkaline Phosphatase Total Protein Albumin PTH Intact 40 05/20/18 05/20/18 05/20/18 05:30 05:30 05:30 WBC 7.7 RBC 3.36 L Hgb 8.6 L Hct 27.0 L MCV 80.3 MCH 25.5 L MCHC 31.7 L RDW 14.7 Plt Count 274 D MPV 7.9 Absolute Neuts (auto) 4.0 Neutrophils % No Result Required. Neutrophils % (Manual) 85.1 H Band Neutrophils % 1.0 Lymphocytes % No Result Required. Lymphocytes % (Manual) 5.0 L Monocytes % (Manual) 9 Eosinophils % (Manual) 0.0 Basophils % (Manual) 0.0 Myelocytes % (Man) 0 Promyelocytes % (Man) 0 Blast Cells % (Manual) 0 Nucleated RBC % 0 Metamyelocytes 0 Hypochromia 0 Platelet Estimate Normal Polychromasia 0 Poikilocytosis 1+ Anisocytosis 1+ Microcytosis 1+ Macrocytosis 0 Ovalocytes 1+ Schistocytes 1+ PT with INR 14.30 H INR 1.21 H PTT (Actin FS) 27.2 Sodium 139 Potassium 3.9 Chloride 111 H Carbon Dioxide 21 Anion Gap 7 L BUN 17 Creatinine 0.7 Creat Clearance w eGFR 78.79 POC Glucometer Random Glucose 110 H Calcium 10.2 H Iron TIBC Iron Saturation Total Bilirubin 0.4 AST 15 ALT 14 Alkaline Phosphatase 61 Total Protein 6.2 L Albumin 2.0 L PTH Intact 05/20/18 06:26 WBC RBC Hgb Hct MCV MCH MCHC RDW Plt Count MPV Absolute Neuts (auto) Neutrophils % Neutrophils % (Manual) Band Neutrophils % Lymphocytes % Lymphocytes % (Manual) Monocytes % (Manual) Eosinophils % (Manual) Basophils % (Manual) Myelocytes % (Man) Promyelocytes % (Man) Blast Cells % (Manual) Nucleated RBC % Metamyelocytes Hypochromia Platelet Estimate Polychromasia Poikilocytosis Anisocytosis Microcytosis Macrocytosis Ovalocytes Schistocytes PT with INR INR PTT (Actin FS) Sodium Potassium Chloride Carbon Dioxide Anion Gap BUN Creatinine Creat Clearance w eGFR POC Glucometer 111 Random Glucose Calcium Iron TIBC Iron Saturation Total Bilirubin AST ALT Alkaline Phosphatase Total Protein Albumin PTH Intact Active Medications Generic Name Dose Route Start Last Admin Trade Name Freq PRN Reason Stop Dose Admin Acetaminophen 650 mg 05/18/18 21:50 05/19/18 22:32 Tylenol - PO 650 mg Q6H PRN Administration PAIN SCALE 1-5 Amlodipine Besylate 10 mg 05/17/18 10:00 05/20/18 11:03 Norvasc - PO 10 mg DAILY [facility] Administration Aspirin 81 mg 05/17/18 10:00 05/20/18 11:03 Asa - PO 81 mg DAILY [facility] Administration Heparin Sodium (Porcine) 5,000 unit 05/16/18 22:00 05/20/18 11:04 Heparin - SQ 5,000 unit BID [facility] Administration Sodium Chloride 1,000 mls @ 125 mls/hr 05/18/18 12:39 05/20/18 14:01 Normal Saline - IV 125 mls/hr ASDIR [facility] Administration Ceftriaxone Sodium 1 gm/ 50 mls @ 100 mls/hr 05/18/18 14:15 05/20/18 11:03 Dextrose IVPB 100 mls/hr DAILY [facility] Administration Protocol Metformin HCl 500 mg 05/17/18 07:00 05/20/18 06:29 Glucophage - PO 500 mg ACBK [facility] Administration Metoprolol Succinate 50 mg 05/16/18 22:00 05/20/18 11:03 Toprol Xl - PO 50 mg BID [facility] Administration Potassium Phos/Sodium Phos 1 packet 05/20/18 10:30 05/20/18 11:03 Phos-Nak Packet - PO 05/22/18 22:01 1 packet BID [facility] Administration Sitagliptin Phosphate 50 mg 05/17/18 07:00 05/20/18 06:29 Januvia - PO 50 mg DAILY@[address] [facility] [address] Chest/ABD/PELVIS: Bibasal atelectatic changes and minimal bilateral pleural effusions suggestive of. Multiple pleural -based and intraparenchymal nodular densities measuring up to 1 cm. Correlate clinically to rule out a neoplastic process. Small to moderate pericardial effusion. No gross enlarged mediastinal or hilar lymph nodes are identified. Dense consolidation of the coronary arteries are present. Status post cholecystectomy. Mild dilatation of the central intrahepatic bile ducts without gross dilatation of the common bile duct. Likely right renal cyst. Moderate to marked left renal hydronephrosis and dilatation of the left ureter down to the ureterovesical junction level without gross evidence of an obstructing stone. Further evaluation with renal ultrasound is needed. There is a complex masslike density in the left adnexa measuring 4.8 x 3.3 cm that is inseparable from the left lateral urinary bladder wall that appears to be significantly thickened and there is mild stranding of the surrounding mesentery. Correlation with pelvis ultrasound or MRI of the pelvis is needed to evaluate for a pelvic mass. Kaur catheter within a partially distended urinary bladder with suggestion of diffuse thickening of its wall, in particular, there is significant thickening of its left lateral wall. Intraluminal air, likely iatrogenic. Hyperdensities are present within its lumen that may represent prior contrast administration. Prominent vessels versus borderline left lateral pelvic lymph nodes are present , evaluation of which is limited due to lack of intravenous contrast administration. ASSESSMENT/PLAN: 88 year old female with a hx of dementia, hypertension, diabetes mellitus, multiple UTIs and hydronephrosis was brought in for unwitnessed fall earlier today and admitted for altered mental status with hyperkalemia and hypercalcemia #Hypercalcemia: improved more today ~10 -f/u PTH level -f/u SPEP/UPEP for assessment of myeloma -CT noted as above, will likely need tissue biopsy, urology consulted #Bladder wall thickening and L renal pelvis lesion: found on ultrasound and CT -CT appears to have masses in abdomen/pelvis in kidneys and bladder and pulmonary nodules -Urology consulted #Normocytic, normochromic Anemia: could be related to iron deficiency, iron- restricted erythropoesis (chronic disease), renal dysfunction, myeloma, vitamin deficiencies #Hyperkalemia: resolved Dispo: We will continue to follow the patient. Thank you for this consultative opportunity. Juwan Couch, PGY2 Case Discussed with Dr. Holley Visit type - Emergency Visit Emergency Visit: No - New Patient This patient is new to me today: No - Critical Care Critical Care patient: No
[2018-05-20] MEDS ORDERED: FUROSEMIDE 40 MG TABLET (FP) PO ONE (15:04)
--- NOTE | 2018-05-20 15:04 | PN ---
Progress Note, Physician History of Present Illness: Pt seen and examined at bedside. She is awake and appears comfortable. She denies shortness of breath. - Current Medication List Current Medications: Active Medications Acetaminophen (Tylenol -) 650 mg PO Q6H PRN PRN Reason: PAIN SCALE 1-5 Last Admin: 05/19/18 22:32 Dose: 650 mg Amlodipine Besylate (Norvasc -) 10 mg PO DAILY [facility] Last Admin: 05/20/18 11:03 Dose: 10 mg Aspirin (Asa -) 81 mg PO DAILY [facility] Last Admin: 05/20/18 11:03 Dose: 81 mg Heparin Sodium (Porcine) (Heparin -) 5,000 unit SQ BID [facility] Last Admin: 05/20/18 11:04 Dose: 5,000 unit Sodium Chloride (Normal Saline -) 1,000 mls @ 125 mls/hr IV ASDIR [facility] Last Admin: 05/20/18 14:01 Dose: 125 mls/hr Ceftriaxone Sodium 1 gm/ (Dextrose) 50 mls @ 100 mls/hr IVPB DAILY [facility]; Protocol Last Admin: 05/20/18 11:03 Dose: 100 mls/hr Metformin HCl (Glucophage -) 500 mg PO ACBK [facility] Last Admin: 05/20/18 06:29 Dose: 500 mg Metoprolol Succinate (Toprol Xl -) 50 mg PO BID [facility] Last Admin: 05/20/18 11:03 Dose: 50 mg Potassium Phos/Sodium Phos (Phos-Nak Packet -) 1 packet PO BID [facility] Stop: 05/22/18 22:01 Last Admin: 05/20/18 11:03 Dose: 1 packet Sitagliptin Phosphate (Januvia -) 50 mg PO DAILY@0700 [facility] Last Admin: 05/20/18 06:29 Dose: 50 mg - Objective Vital Signs: Vital Signs Temperature 98.2 F 05/20/18 09:00 Pulse Rate 68 05/20/18 09:00 Respiratory Rate 20 05/20/18 09:00 Blood Pressure 142/77 05/20/18 09:00 O2 Sat by Pulse Oximetry (%) 94 L 05/20/18 09:00 Constitutional: Yes: Calm Eyes: Yes: Conjunctiva Clear Cardiovascular: Yes: S1, S2 Respiratory: Yes: CTA Bilaterally Gastrointestinal: Yes: Soft Genitourinary: Yes: WNL Musculoskeletal: Yes: WNL Edema: No Neurological: Yes: Confusion Labs: CBC, BMP 05/20/18 05:30 05/20/18 05:30 INR, PTT INR 1.21 (0.83-1.09) H 05/20/18 05:30 Assessment/Plan Current Medications Generic Name Dose Route Start Last Admin Trade Name Freq PRN Reason Stop Dose Admin Acetaminophen 650 mg 05/18/18 21:50 05/19/18 22:32 Tylenol - PO 650 mg Q6H PRN Administration PAIN SCALE 1-5 Amlodipine Besylate 10 mg 05/17/18 10:00 05/20/18 11:03 Norvasc - PO 10 mg DAILY [facility] Administration Aspirin 81 mg 05/17/18 10:00 05/20/18 11:03 Asa - PO 81 mg DAILY [facility] Administration Heparin Sodium (Porcine) 5,000 unit 05/16/18 22:00 05/20/18 11:04 Heparin - SQ 5,000 unit BID [facility] Administration Sodium Chloride 1,000 mls @ 125 mls/hr 05/18/18 12:39 05/20/18 14:01 Normal Saline - IV 125 mls/hr ASDIR [facility] Administration Ceftriaxone Sodium 1 gm/ 50 mls @ 100 mls/hr 05/18/18 14:15 05/20/18 11:03 Dextrose IVPB 100 mls/hr DAILY [facility] Administration Protocol Metformin HCl 500 mg 05/17/18 07:00 05/20/18 06:29 Glucophage - PO 500 mg ACBK [facility] Administration Metoprolol Succinate 50 mg 05/16/18 22:00 05/20/18 11:03 Toprol Xl - PO 50 mg BID [facility] Administration Potassium Phos/Sodium Phos 1 packet 05/20/18 10:30 05/20/18 11:03 Phos-Nak Packet - PO 05/22/18 22:01 1 packet BID [facility] Administration Sitagliptin Phosphate 50 mg 05/17/18 07:00 05/20/18 06:29 Januvia - PO 50 mg DAILY@0700 [facility] Administration Laboratory Tests 05/18/18 05:30 PTH Intact 40 Impression 1. BRITT 2. hyperkalemia 3. uti 4. dementia 5. htn 6. DM 7. hypercalcemia 8. hydronephrosis left 9. bladder mass Plan - calcium improving - cont fluids - cont lasix - workup in progress - urology eval - abx for UTI
--- NOTE | 2018-05-20 19:34 | PN ---
Progress Note, Physician History of Present Illness: doing well - Current Medication List Current Medications: Active Medications Acetaminophen (Tylenol -) 650 mg PO Q6H PRN PRN Reason: PAIN SCALE 1-5 Last Admin: 05/19/18 22:32 Dose: 650 mg Amlodipine Besylate (Norvasc -) 10 mg PO DAILY [facility] Last Admin: 05/20/18 11:03 Dose: 10 mg Aspirin (Asa -) 81 mg PO DAILY [facility] Last Admin: 05/20/18 11:03 Dose: 81 mg Heparin Sodium (Porcine) (Heparin -) 5,000 unit SQ BID [facility] Last Admin: 05/20/18 11:04 Dose: 5,000 unit Sodium Chloride (Normal Saline -) 1,000 mls @ 125 mls/hr IV ASDIR [facility] Last Admin: 05/20/18 14:01 Dose: 125 mls/hr Ceftriaxone Sodium 1 gm/ (Dextrose) 50 mls @ 100 mls/hr IVPB DAILY [facility]; Protocol Last Admin: 05/20/18 11:03 Dose: 100 mls/hr Metformin HCl (Glucophage -) 500 mg PO ACBK [facility] Last Admin: 05/20/18 06:29 Dose: 500 mg Metoprolol Succinate (Toprol Xl -) 50 mg PO BID [facility] Last Admin: 05/20/18 11:03 Dose: 50 mg Potassium Phos/Sodium Phos (Phos-Nak Packet -) 1 packet PO BID [facility] Stop: 05/22/18 22:01 Last Admin: 05/20/18 11:03 Dose: 1 packet Sitagliptin Phosphate (Januvia -) 50 mg PO DAILY@0700 [facility] Last Admin: 05/20/18 06:29 Dose: 50 mg - Objective Vital Signs: Vital Signs Temperature 97.7 F 05/20/18 18:30 Pulse Rate 63 05/20/18 18:30 Respiratory Rate 20 05/20/18 18:30 Blood Pressure 131/62 05/20/18 18:30 O2 Sat by Pulse Oximetry (%) 92 L 05/20/18 18:30 Constitutional: Yes: Calm HENT: Yes: Atraumatic Neck: Yes: Supple Cardiovascular: Yes: Regular Rate and Rhythm Respiratory: Yes: CTA Bilaterally Gastrointestinal: Yes: Normal Bowel Sounds Extremities: Yes: WNL Edema: No Peripheral Pulses WNL: Yes Neurological: Yes: Alert Labs: CBC, BMP 05/20/18 05:30 05/20/18 05:30 INR, PTT INR 1.21 (0.83-1.09) H 05/20/18 05:30 Problem List - Problems (1) BRITT (acute kidney injury) Assessment/Plan: wnl today on ivf...dc? Code(s): N17.9 - ACUTE KIDNEY FAILURE, UNSPECIFIED (2) Hyperkalemia Assessment/Plan: RESOLVED Code(s): E87.5 - HYPERKALEMIA (3) Urinary tract infection Assessment/Plan: ON ABX PER ID CXS noted Code(s): N39.0 - URINARY TRACT INFECTION, SITE NOT SPECIFIED (4) Dementia Assessment/Plan: stable Code(s): F03.90 - UNSPECIFIED DEMENTIA WITHOUT BEHAVIORAL DISTURBANCE Qualifiers: Dementia type: unspecified type Dementia behavioral disturbance: without behavioral disturbance Qualified Code(s): F03.90 - Unspecified dementia without behavioral disturbance (5) Diabetes mellitus Code(s): E11.9 - TYPE 2 DIABETES MELLITUS WITHOUT COMPLICATIONS Qualifiers: Diabetes mellitus type: type 2 Diabetes mellitus terminal carman insulin use: without senior care use (6) Fall Code(s): W19.XXXA - UNSPECIFIED FALL, INITIAL ENCOUNTER Qualifiers: Encounter type: subsequent encounter Qualified Code(s): W19.XXXD - Unspecified fall, subsequent encounter (7) HTN (hypertension) Code(s): I10 - ESSENTIAL (PRIMARY) HYPERTENSION Qualifiers: Hypertension type: essential hypertension Qualified Code(s): I10 - Essential (primary) hypertension Assessment/Plan d/w dr mars about ct findings she will call a family meeting
--- NOTE | 2018-05-20 19:44 | PN ---
Progress Note (short form) - Note Progress Note: Patient seen and examined oriented in person/place AFVSS Cor: RSR, No murmurs, No gallops Lungs: Clear to P&A Abd: Soft, Normal bowel sounds, No organomegaly Ext:No significant edema Labs/Meds reviewed A/P 88 year old presents with hyperkalemia and hypercalcemia with corrected calcium greater than 14. Low dose fluids at 125 cc /hr in view of age. s/p bisphosphonates Has abnormal CT with right supra renal mass, left renal pelvic mass and thickened wall bladder. will need discussion with family about ? invasiveness of w/u ? CT guided biopsy will request palliative care consult
[2018-05-20] MEDS ORDERED: PT OWN MED DRAWER 7, Y5N ONE (21:13)
[2018-05-21] MEDS: metFORMIN HCL 500 MG TABLET (FP) PO SCH (06:06)
[2018-05-21] MEDS: sitaGLIPtin PHOSPHATE 50 MG TABLET PO SCH (06:06)
[2018-05-21 08:13] LABS: ALK PHOS 58 U/L (45-117); ANION GAP 6 MMOL/L (8-16); BILIRUBIN,TOTAL 0.2 mg/dL (0.2-1); BLOOD UREA NITROGEN 15 mg/dL (7-18); CALCIUM 9.5 mg/dL (8.5-10.1); CHLORIDE 112 mmol/L (98-107); CO2 21 mmol/L (21-32); CREATININE 0.7 mg/dL (0.55-1.3); GLUCOSE,RANDOM 103 mg/dL (74-106); POTASSIUM 4.1 mmol/L (3.5-5.1); SGOT/AST 14 U/L (15-37); SGPT/ALT 14 U/L (13-61); SODIUM 139 mmol/L (136-145)
[2018-05-21] MEDS ORDERED: cefTRIAXone SODIUM 1 GM VIAL ONE (09:15)
[2018-05-21] MEDS ORDERED: DEXTROSE 5%-WATER - 50 ML IVPB ONE (09:15)
[2018-05-21] MEDS: NAPH,MB-DB/K PH,MBDB POWDER PACKET PO SCH ×2 (09:21→21:31)
[2018-05-21] MEDS: amLODIPine BESYLATE 10 MG TABLET (FP) PO SCH (09:21)
[2018-05-21] MEDS: HEPARIN NA (PORCINE) 5,000 UNITS/ML 1ML VIAL SQ SCH ×2 (09:21→21:31)
[2018-05-21] MEDS: ASPIRIN 81 MG CHEWABLE TABLETS PO SCH (09:21)
[2018-05-21] MEDS: CEFTRIAXONE 1 GM in DEXTROSE 5%-WATER - 50 ML IVPB SCH (09:21)
[2018-05-21] MEDS: ACETAMINOPHEN 325 MG TABLET (FP) PO PRN ×2 (11:49→19:45)
--- NOTE | 2018-05-21 14:31 | PN ---
Progress Note, Physician History of Present Illness: No complaints, chronic dementia and poor historian, resting. - Current Medication List Current Medications: Active Medications Acetaminophen (Tylenol -) 650 mg PO Q6H PRN PRN Reason: PAIN SCALE 1-5 Last Admin: 05/21/18 11:49 Dose: 650 mg Amlodipine Besylate (Norvasc -) 10 mg PO DAILY [facility] Last Admin: 05/21/18 09:21 Dose: 10 mg Aspirin (Asa -) 81 mg PO DAILY [facility] Last Admin: 05/21/18 09:21 Dose: 81 mg Heparin Sodium (Porcine) (Heparin -) 5,000 unit SQ BID [facility] Last Admin: 05/21/18 09:21 Dose: 5,000 unit Ceftriaxone Sodium 1 gm/ (Dextrose) 50 mls @ 100 mls/hr IVPB DAILY [facility]; Protocol Last Admin: 05/21/18 09:21 Dose: 100 mls/hr Metformin HCl (Glucophage -) 500 mg PO ACBK [facility] Last Admin: 05/21/18 06:06 Dose: 500 mg Metoprolol Succinate (Toprol Xl -) 50 mg PO BID [facility] Last Admin: 05/21/18 09:21 Dose: 50 mg Potassium Phos/Sodium Phos (Phos-Nak Packet -) 1 packet PO BID [facility] Stop: 05/22/18 22:01 Last Admin: 05/21/18 09:21 Dose: 1 packet Sitagliptin Phosphate (Januvia -) 50 mg PO DAILY@0700 [facility] Last Admin: 05/21/18 06:06 Dose: 50 mg - Objective Vital Signs: Vital Signs Temperature 98.2 F 05/21/18 09:19 Pulse Rate 63 05/21/18 09:19 Respiratory Rate 20 05/21/18 09:19 Blood Pressure 134/58 L 05/21/18 09:19 O2 Sat by Pulse Oximetry (%) 97 05/20/18 21:00 Constitutional: Yes: No Distress, Calm Neck: Yes: Supple Cardiovascular: Yes: Regular Rate and Rhythm Respiratory: Yes: Regular, Diminished Gastrointestinal: Yes: Normal Bowel Sounds, Soft Edema: No Labs: CBC, BMP 05/20/18 05:30 05/21/18 07:00 INR, PTT INR 1.21 (0.83-1.09) H 05/20/18 05:30 Problem List - Problems (1) Diabetes mellitus Code(s): E11.9 - TYPE 2 DIABETES MELLITUS WITHOUT COMPLICATIONS Qualifiers: Diabetes mellitus type: type 2 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: without shelter use (2) HTN (hypertension) Code(s): I10 - ESSENTIAL (PRIMARY) HYPERTENSION Qualifiers: Hypertension type: essential hypertension Qualified Code(s): I10 - Essential (primary) hypertension (3) Urinary tract infection Code(s): N39.0 - URINARY TRACT INFECTION, SITE NOT SPECIFIED (4) Dementia Code(s): F03.90 - UNSPECIFIED DEMENTIA WITHOUT BEHAVIORAL DISTURBANCE Qualifiers: Dementia type: unspecified type Dementia behavioral disturbance: without behavioral disturbance Qualified Code(s): F03.90 - Unspecified dementia without behavioral disturbance (5) Hypercalcemia Code(s): E83.52 - HYPERCALCEMIA Assessment/Plan 05/17/2018 Echo: Normal LV and RV size and fxn LVEF 65% borderline LAE, mild MG 9.2 mmHg, mod pulm HTN RVSP 54 mmHg 1. Post fall no LOC 2. Organic brain syndrome/dementia 3. HTN 4. DM 5. UTI 6. BRITT with hyperkalemia and left hydro resolving 7. Hypercalcemia 8. Anemia 9. Left adnexal mass, bladder mass PLAN: 1. Continue Metoprolol ER 50 mg BID, Amlodipine 10 mg QD, and ASA 81 mg QD. Valsartan held for hyperkalemia 2. DM management 3. Fall precaution 4. DVT prophylaxis 5. Calcitonin, fluids and Lasix, zometa with monitor calcium, complete empiric abx course for UTI 6. Abd and pelvic and chest CT shows left adnexal masses and pleural based masses suggestive of mets->GOC to be addressed
--- NOTE | 2018-05-21 17:55 | PN ---
Progress Note, Physician History of Present Illness: Pt seen and examined. Notes/imaging/lab results reviewed. Pt with recent fevers restarted on antibiotics, today 99F. Pt comfortable. Does have some suprapubic discomfort, new catheter in place. No other specific complaints. - Current Medication List Current Medications: Active Medications Acetaminophen (Tylenol -) 650 mg PO Q6H PRN PRN Reason: PAIN SCALE 1-5 Last Admin: 05/21/18 11:49 Dose: 650 mg Amlodipine Besylate (Norvasc -) 10 mg PO DAILY [facility] Last Admin: 05/21/18 09:21 Dose: 10 mg Aspirin (Asa -) 81 mg PO DAILY [facility] Last Admin: 05/21/18 09:21 Dose: 81 mg Heparin Sodium (Porcine) (Heparin -) 5,000 unit SQ BID [facility] Last Admin: 05/21/18 09:21 Dose: 5,000 unit Ceftriaxone Sodium 1 gm/ (Dextrose) 50 mls @ 100 mls/hr IVPB DAILY [facility]; Protocol Last Admin: 05/21/18 09:21 Dose: 100 mls/hr Metformin HCl (Glucophage -) 500 mg PO ACBK [facility] Last Admin: 05/21/18 06:06 Dose: 500 mg Metoprolol Succinate (Toprol Xl -) 50 mg PO BID [facility] Last Admin: 05/21/18 09:21 Dose: 50 mg Potassium Phos/Sodium Phos (Phos-Nak Packet -) 1 packet PO BID [facility] Stop: 05/22/18 22:01 Last Admin: 05/21/18 09:21 Dose: 1 packet Sitagliptin Phosphate (Januvia -) 50 mg PO DAILY@0700 [facility] Last Admin: 05/21/18 06:06 Dose: 50 mg - Objective Vital Signs: Vital Signs Temperature 98.2 F 05/21/18 09:19 Pulse Rate 63 05/21/18 09:19 Respiratory Rate 20 05/21/18 09:19 Blood Pressure 134/58 L 05/21/18 09:19 O2 Sat by Pulse Oximetry (%) 95 05/21/18 10:00 Constitutional: Yes: No Distress, Calm Cardiovascular: Yes: Regular Rate and Rhythm Gastrointestinal: Yes: Normal Bowel Sounds, Soft Genitourinary: Yes: New Present Extremities: Yes: WNL Integumentary: Yes: WNL Neurological: Yes: Alert Labs: CBC, BMP 05/20/18 05:30 05/21/18 07:00 INR, PTT INR 1.21 (0.83-1.09) H 05/20/18 05:30 Microbiology 05/16/18 17:54 Urine - Urine - Catheterized Urine Culture - Final Streptococcus Viridans - ....Imaging Cat Scan: Report Reviewed Problem List - Problems (1) BRITT (acute kidney injury) Code(s): N17.9 - ACUTE KIDNEY FAILURE, UNSPECIFIED (2) Dementia Code(s): F03.90 - UNSPECIFIED DEMENTIA WITHOUT BEHAVIORAL DISTURBANCE Qualifiers: Dementia type: unspecified type Dementia behavioral disturbance: without behavioral disturbance Qualified Code(s): F03.90 - Unspecified dementia without behavioral disturbance (3) Diabetes mellitus Code(s): E11.9 - TYPE 2 DIABETES MELLITUS WITHOUT COMPLICATIONS Qualifiers: Diabetes mellitus type: type 2 Diabetes mellitus usp insulin use: without emt intermediate use (4) Fall Code(s): W19.XXXA - UNSPECIFIED FALL, INITIAL ENCOUNTER Qualifiers: Encounter type: subsequent encounter Qualified Code(s): W19.XXXD - Unspecified fall, subsequent encounter (5) HTN (hypertension) Code(s): I10 - ESSENTIAL (PRIMARY) HYPERTENSION Qualifiers: Hypertension type: essential hypertension Qualified Code(s): I10 - Essential (primary) hypertension (6) Hypercalcemia Code(s): E83.52 - HYPERCALCEMIA (7) Urinary tract infection Code(s): N39.0 - URINARY TRACT INFECTION, SITE NOT SPECIFIED (8) Acute urinary retention Code(s): R33.8 - OTHER RETENTION OF URINE (9) Hydronephrosis Code(s): N13.30 - UNSPECIFIED HYDRONEPHROSIS Assessment/Plan Fever UTI Lt hydronephrosis s/p new dementia DM hypercalcemia Renal pelvic mass/supra renal mass -- continue Ceftriaxone -- monitor temp trend, wbc now normal -- Oncology following Pt currently alert, without distress
[2018-05-21] MEDS ORDERED: PT OWN MED DRAWER 7, Y5N ONE (21:19)
--- NOTE | 2018-05-21 21:55 | PN ---
Progress Note, Physician History of Present Illness: No new complaints - Current Medication List Current Medications: Active Medications Acetaminophen (Tylenol -) 650 mg PO Q6H PRN PRN Reason: PAIN SCALE 1-5 Last Admin: 05/21/18 19:45 Dose: 650 mg Amlodipine Besylate (Norvasc -) 10 mg PO DAILY [facility] Last Admin: 05/21/18 09:21 Dose: 10 mg Aspirin (Asa -) 81 mg PO DAILY [facility] Last Admin: 05/21/18 09:21 Dose: 81 mg Heparin Sodium (Porcine) (Heparin -) 5,000 unit SQ BID [facility] Last Admin: 05/21/18 21:31 Dose: 5,000 unit Ceftriaxone Sodium 1 gm/ (Dextrose) 50 mls @ 100 mls/hr IVPB DAILY [facility]; Protocol Last Admin: 05/21/18 09:21 Dose: 100 mls/hr Metformin HCl (Glucophage -) 500 mg PO ACBK [facility] Last Admin: 05/21/18 06:06 Dose: 500 mg Metoprolol Succinate (Toprol Xl -) 50 mg PO BID [facility] Last Admin: 05/21/18 21:31 Dose: 50 mg Potassium Phos/Sodium Phos (Phos-Nak Packet -) 1 packet PO BID [facility] Stop: 05/22/18 22:01 Last Admin: 05/21/18 21:31 Dose: 1 packet Sitagliptin Phosphate (Januvia -) 50 mg PO DAILY@0700 [facility] Last Admin: 05/21/18 06:06 Dose: 50 mg - Objective Vital Signs: Vital Signs Temperature 97.7 F 05/21/18 18:00 Pulse Rate 60 05/21/18 18:00 Respiratory Rate 20 05/21/18 18:00 Blood Pressure 130/57 L 05/21/18 18:00 O2 Sat by Pulse Oximetry (%) 95 05/21/18 10:00 Neck: Yes: WNL, Supple Cardiovascular: Yes: WNL, Regular Rate and Rhythm Respiratory: Yes: WNL, Regular, CTA Bilaterally Gastrointestinal: Yes: WNL, Normal Bowel Sounds, Soft Labs: CBC, BMP 05/20/18 05:30 05/21/18 07:00 INR, PTT INR 1.21 (0.83-1.09) H 05/20/18 05:30 Problem List - Problems (1) Urinary tract infection Assessment/Plan: Cont IV ceftriaxone Urine culture (+) for strept viridans Code(s): N39.0 - URINARY TRACT INFECTION, SITE NOT SPECIFIED (2) BRITT (acute kidney injury) Assessment/Plan: Pt w/ hydronephrosis Uro consult Creatinine is normal Code(s): N17.9 - ACUTE KIDNEY FAILURE, UNSPECIFIED (3) Dementia Code(s): F03.90 - UNSPECIFIED DEMENTIA WITHOUT BEHAVIORAL DISTURBANCE Qualifiers: Dementia type: unspecified type Dementia behavioral disturbance: without behavioral disturbance Qualified Code(s): F03.90 - Unspecified dementia without behavioral disturbance (4) Diabetes mellitus Assessment/Plan: Cont metformin/januvia Code(s): E11.9 - TYPE 2 DIABETES MELLITUS WITHOUT COMPLICATIONS Qualifiers: Diabetes mellitus type: type 2 Diabetes mellitus senior living insulin use: without terminal clerk use (5) HTN (hypertension) Assessment/Plan: BP stable Cont norvasc/metoprolol/asa Code(s): I10 - ESSENTIAL (PRIMARY) HYPERTENSION Qualifiers: Hypertension type: essential hypertension Qualified Code(s): I10 - Essential (primary) hypertension
[2018-05-22] MEDS: sitaGLIPtin PHOSPHATE 50 MG TABLET PO SCH (06:41)
[2018-05-22] MEDS: metFORMIN HCL 500 MG TABLET (FP) PO SCH (06:41)
[2018-05-22] MEDS: ACETAMINOPHEN 325 MG TABLET (FP) PO PRN ×3 (07:57→21:51)
[2018-05-22] MEDS ORDERED: cefTRIAXone SODIUM 1 GM VIAL ONE (10:12)
[2018-05-22] MEDS ORDERED: DEXTROSE 5%-WATER - 50 ML IVPB ONE (10:13)
[2018-05-22] MEDS: amLODIPine BESYLATE 10 MG TABLET (FP) PO SCH (10:14)
[2018-05-22] MEDS: ASPIRIN 81 MG CHEWABLE TABLETS PO SCH (10:14)
[2018-05-22] MEDS: NAPH,MB-DB/K PH,MBDB POWDER PACKET PO SCH ×2 (10:15→21:51)
[2018-05-22] MEDS: CEFTRIAXONE 1 GM in DEXTROSE 5%-WATER - 50 ML IVPB SCH ×3 (10:15→14:23)
[2018-05-22] MEDS: HEPARIN NA (PORCINE) 5,000 UNITS/ML 1ML VIAL SQ SCH ×2 (10:15→21:51)
--- NOTE | 2018-05-22 10:21 | PN ---
Progress Note (short form) - Note Progress Note: RENAL pt is awake and alert has been having urine output despite absence of new has pain in left knee Last Vital Signs Temp Pulse Resp BP Pulse Ox 98.2 F 62 20 139/52 L 95 05/22/18 07:06 05/22/18 10:08 05/22/18 10:08 05/22/18 10:08 05/21/18 21:00 lungs clear cvs s1s2 rr abd soft ext no edema neuro a+ox3 CBC, BMP 05/20/18 05:30 05/21/18 07:00 Current Medications Generic Name Dose Route Start Last Admin Trade Name Freq PRN Reason Stop Dose Admin Acetaminophen 650 mg 05/18/18 21:50 05/22/18 07:57 Tylenol - PO 650 mg Q6H PRN Administration PAIN SCALE 1-5 Amlodipine Besylate 10 mg 05/17/18 10:00 05/22/18 10:14 Norvasc - PO 10 mg DAILY [facility] Administration Aspirin 81 mg 05/17/18 10:00 05/22/18 10:14 Asa - PO 81 mg DAILY [facility]JOSE Administration Heparin Sodium (Porcine) 5,000 unit 05/16/18 22:00 05/22/18 10:15 Heparin - SQ 5,000 unit BID [facility]JOSE Administration Ceftriaxone Sodium 1 gm/ 50 mls @ 100 mls/hr 05/18/18 14:15 05/22/18 10:15 Dextrose IVPB 100 mls/hr DAILY [facility]JOSE Administration Protocol Metformin HCl 500 mg 05/17/18 07:00 05/22/18 06:41 Glucophage - PO 500 mg ACBK [facility] Administration Metoprolol Succinate 50 mg 05/16/18 22:00 05/22/18 10:14 Toprol Xl - PO 50 mg BID [facility] Administration Potassium Phos/Sodium Phos 1 packet 05/20/18 10:30 05/22/18 10:15 Phos-Nak Packet - PO 05/22/18 22:01 1 packet BID [facility] Administration Sitagliptin Phosphate 50 mg 05/17/18 07:00 05/22/18 06:41 Januvia - PO 50 mg DAILY@0700 [facility] Administration Impression 1. BRITT 2. hyperkalemia 3. uti 4. dementia 5. htn 6. DM 7. hypercalcemia 8. hydronephrosis left 9. bladder mass Plan would keep on fluids urology eval bone scan to eval for mets doubt need for new now since she is making urine since yesterday despite not having new MV
--- NOTE | 2018-05-22 14:36 | PN ---
Progress Note, Physician History of Present Illness: Pt is now afebrile. Denies any new complaints. Urinating without new catheter. - Current Medication List Current Medications: Active Medications Acetaminophen (Tylenol -) 650 mg PO Q6H PRN PRN Reason: PAIN SCALE 1-5 Last Admin: 05/22/18 07:57 Dose: 650 mg Amlodipine Besylate (Norvasc -) 10 mg PO DAILY [facility] Last Admin: 05/22/18 10:14 Dose: 10 mg Aspirin (Asa -) 81 mg PO DAILY [facility] Last Admin: 05/22/18 10:14 Dose: 81 mg Heparin Sodium (Porcine) (Heparin -) 5,000 unit SQ BID [facility] Last Admin: 05/22/18 10:15 Dose: 5,000 unit Ceftriaxone Sodium 1 gm/ (Dextrose) 50 mls @ 100 mls/hr IVPB DAILY [facility]; Protocol Last Admin: 05/22/18 14:23 Dose: 100 mls/hr Metformin HCl (Glucophage -) 500 mg PO ACBK [facility] Last Admin: 05/22/18 06:41 Dose: 500 mg Metoprolol Succinate (Toprol Xl -) 50 mg PO BID [facility] Last Admin: 05/22/18 10:14 Dose: 50 mg Potassium Phos/Sodium Phos (Phos-Nak Packet -) 1 packet PO BID [facility] Stop: 05/22/18 22:01 Last Admin: 05/22/18 10:15 Dose: 1 packet Sitagliptin Phosphate (Januvia -) 50 mg PO DAILY@0700 [facility] Last Admin: 05/22/18 06:41 Dose: 50 mg - Objective Vital Signs: Vital Signs Temperature 98.2 F 05/22/18 11:04 Pulse Rate 62 05/22/18 10:08 Respiratory Rate 20 05/22/18 10:08 Blood Pressure 139/52 L 05/22/18 10:08 O2 Sat by Pulse Oximetry (%) 95 05/21/18 21:00 Constitutional: Yes: No Distress, Calm Cardiovascular: Yes: Regular Rate and Rhythm Respiratory: Yes: Regular Gastrointestinal: Yes: Normal Bowel Sounds, Soft Genitourinary: Yes: WNL Extremities: Yes: WNL Integumentary: Yes: WNL Neurological: Yes: Alert Labs: CBC, BMP 05/20/18 05:30 05/21/18 07:00 INR, PTT INR 1.21 (0.83-1.09) H 05/20/18 05:30 Problem List - Problems (1) BRITT (acute kidney injury) Code(s): N17.9 - ACUTE KIDNEY FAILURE, UNSPECIFIED (2) Dementia Code(s): F03.90 - UNSPECIFIED DEMENTIA WITHOUT BEHAVIORAL DISTURBANCE Qualifiers: Dementia type: unspecified type Dementia behavioral disturbance: without behavioral disturbance Qualified Code(s): F03.90 - Unspecified dementia without behavioral disturbance (3) Diabetes mellitus Code(s): E11.9 - TYPE 2 DIABETES MELLITUS WITHOUT COMPLICATIONS Qualifiers: Diabetes mellitus type: type 2 Diabetes mellitus long term care administrator insulin use: without long term care administrator use (4) Fall Code(s): W19.XXXA - UNSPECIFIED FALL, INITIAL ENCOUNTER Qualifiers: Encounter type: subsequent encounter Qualified Code(s): W19.XXXD - Unspecified fall, subsequent encounter (5) HTN (hypertension) Code(s): I10 - ESSENTIAL (PRIMARY) HYPERTENSION Qualifiers: Hypertension type: essential hypertension Qualified Code(s): I10 - Essential (primary) hypertension (6) Hypercalcemia Code(s): E83.52 - HYPERCALCEMIA (7) Urinary tract infection Code(s): N39.0 - URINARY TRACT INFECTION, SITE NOT SPECIFIED (8) Acute urinary retention Code(s): R33.8 - OTHER RETENTION OF URINE (9) Hydronephrosis Code(s): N13.30 - UNSPECIFIED HYDRONEPHROSIS Assessment/Plan Fever UTI Lt hydronephrosis s/p new dementia DM hypercalcemia Renal pelvic mass/supra renal mass -- continue Ceftriaxone -- afebrile today, vitals stable -- Urology evaluation pending -- Oncology following
--- NOTE | 2018-05-22 22:43 | PN ---
Progress Note, Physician History of Present Illness: No new complaints - Current Medication List Current Medications: Active Medications Acetaminophen (Tylenol -) 650 mg PO Q6H PRN PRN Reason: PAIN SCALE 1-5 Last Admin: 05/22/18 21:51 Dose: 650 mg Amlodipine Besylate (Norvasc -) 10 mg PO DAILY [facility] Last Admin: 05/22/18 10:14 Dose: 10 mg Aspirin (Asa -) 81 mg PO DAILY [facility] Last Admin: 05/22/18 10:14 Dose: 81 mg Heparin Sodium (Porcine) (Heparin -) 5,000 unit SQ BID [facility] Last Admin: 05/22/18 21:51 Dose: 5,000 unit Ceftriaxone Sodium 1 gm/ (Dextrose) 50 mls @ 100 mls/hr IVPB DAILY [facility]; Protocol Last Admin: 05/22/18 14:23 Dose: 100 mls/hr Metformin HCl (Glucophage -) 500 mg PO ACBK [facility] Last Admin: 05/22/18 06:41 Dose: 500 mg Metoprolol Succinate (Toprol Xl -) 50 mg PO BID [facility] Last Admin: 05/22/18 21:51 Dose: 50 mg Sitagliptin Phosphate (Januvia -) 50 mg PO DAILY@0700 [facility] Last Admin: 05/22/18 06:41 Dose: 50 mg - Objective Vital Signs: Vital Signs Temperature 97.0 F L 05/22/18 18:00 Pulse Rate 61 05/22/18 18:00 Respiratory Rate 20 05/22/18 18:00 Blood Pressure 138/58 L 05/22/18 18:00 O2 Sat by Pulse Oximetry (%) 96 05/22/18 10:00 HENT: Yes: WNL Neck: Yes: WNL, Supple Cardiovascular: Yes: WNL, Regular Rate and Rhythm Respiratory: Yes: WNL, Regular, CTA Bilaterally Gastrointestinal: Yes: WNL, Normal Bowel Sounds, Soft Labs: CBC, BMP 05/20/18 05:30 05/21/18 07:00 INR, PTT INR 1.21 (0.83-1.09) H 05/20/18 05:30 Problem List - Problems (1) Urinary tract infection Assessment/Plan: Cont IV ceftriaxone Urine culture (+) for strept viridans Code(s): N39.0 - URINARY TRACT INFECTION, SITE NOT SPECIFIED (2) BRITT (acute kidney injury) Assessment/Plan: Kaur cath removed Will need to monitor urine output Pt w/ hydronephrosis Uro consult Creatinine is normal Code(s): N17.9 - ACUTE KIDNEY FAILURE, UNSPECIFIED (3) Diabetes mellitus Assessment/Plan: Cont metformin/januvia Code(s): E11.9 - TYPE 2 DIABETES MELLITUS WITHOUT COMPLICATIONS Qualifiers: Diabetes mellitus type: type 2 Diabetes mellitus nursing home insulin use: without nursing home use (4) HTN (hypertension) Assessment/Plan: BP stable Cont norvasc/metoprolol/asa Code(s): I10 - ESSENTIAL (PRIMARY) HYPERTENSION Qualifiers: Hypertension type: essential hypertension Qualified Code(s): I10 - Essential (primary) hypertension (5) Dementia Code(s): F03.90 - UNSPECIFIED DEMENTIA WITHOUT BEHAVIORAL DISTURBANCE Qualifiers: Dementia type: unspecified type Dementia behavioral disturbance: without behavioral disturbance Qualified Code(s): F03.90 - Unspecified dementia without behavioral disturbance
[2018-05-23] MEDS: ACETAMINOPHEN 325 MG TABLET (FP) PO PRN ×2 (06:12→14:05)
[2018-05-23] MEDS: metFORMIN HCL 500 MG TABLET (FP) PO SCH (06:13)
[2018-05-23] MEDS: sitaGLIPtin PHOSPHATE 50 MG TABLET PO SCH (06:13)
[2018-05-23] MEDS ORDERED: DEXTROSE 5%-WATER - 50 ML IVPB ONE (10:11)
[2018-05-23] MEDS ORDERED: cefTRIAXone SODIUM 1 GM VIAL ONE (10:11)
[2018-05-23] MEDS: amLODIPine BESYLATE 10 MG TABLET (FP) PO SCH (10:16)
[2018-05-23] MEDS: ASPIRIN 81 MG CHEWABLE TABLETS PO SCH (10:16)
[2018-05-23] MEDS: CEFTRIAXONE 1 GM in DEXTROSE 5%-WATER - 50 ML IVPB SCH (10:17)
[2018-05-23] MEDS: HEPARIN NA (PORCINE) 5,000 UNITS/ML 1ML VIAL SQ SCH (10:17)
--- NOTE | 2018-05-23 11:40 | PN ---
Progress Note, Physician History of Present Illness: No complaints, chronic dementia and poor historian, resting. - Current Medication List Current Medications: Active Medications Acetaminophen (Tylenol -) 650 mg PO Q6H PRN PRN Reason: PAIN SCALE 1-5 Last Admin: 05/23/18 06:12 Dose: 650 mg Amlodipine Besylate (Norvasc -) 10 mg PO DAILY [facility] Last Admin: 05/23/18 10:16 Dose: 10 mg Aspirin (Asa -) 81 mg PO DAILY [facility] Last Admin: 05/23/18 10:16 Dose: 81 mg Heparin Sodium (Porcine) (Heparin -) 5,000 unit SQ BID [facility] Last Admin: 05/23/18 10:17 Dose: 5,000 unit Ceftriaxone Sodium 1 gm/ (Dextrose) 50 mls @ 100 mls/hr IVPB DAILY [facility]; Protocol Last Admin: 05/23/18 10:17 Dose: 100 mls/hr Metformin HCl (Glucophage -) 500 mg PO ACBK [facility] Last Admin: 05/23/18 06:13 Dose: 500 mg Metoprolol Succinate (Toprol Xl -) 50 mg PO BID [facility] Last Admin: 05/23/18 10:16 Dose: 50 mg Sitagliptin Phosphate (Januvia -) 50 mg PO DAILY@0700 [facility] Last Admin: 05/23/18 06:13 Dose: 50 mg - Objective Vital Signs: Vital Signs Temperature 98.0 F 05/23/18 09:00 Pulse Rate 65 05/23/18 09:00 Respiratory Rate 18 05/23/18 09:00 Blood Pressure 126/57 L 05/23/18 09:00 O2 Sat by Pulse Oximetry (%) 94 L 05/22/18 21:00 Constitutional: Yes: No Distress, Calm, Thin Neck: Yes: Supple Cardiovascular: Yes: Regular Rate and Rhythm Respiratory: Yes: Regular, Diminished Gastrointestinal: Yes: Normal Bowel Sounds, Soft Edema: No Labs: CBC, BMP 05/20/18 05:30 05/21/18 07:00 INR, PTT INR 1.21 (0.83-1.09) H 05/20/18 05:30 Problem List - Problems (1) Diabetes mellitus Code(s): E11.9 - TYPE 2 DIABETES MELLITUS WITHOUT COMPLICATIONS Qualifiers: Diabetes mellitus type: type 2 Diabetes mellitus senior living insulin use: without senior living use (2) HTN (hypertension) Code(s): I10 - ESSENTIAL (PRIMARY) HYPERTENSION Qualifiers: Hypertension type: essential hypertension Qualified Code(s): I10 - Essential (primary) hypertension (3) Urinary tract infection Code(s): N39.0 - URINARY TRACT INFECTION, SITE NOT SPECIFIED (4) Dementia Code(s): F03.90 - UNSPECIFIED DEMENTIA WITHOUT BEHAVIORAL DISTURBANCE Qualifiers: Dementia type: unspecified type Dementia behavioral disturbance: without behavioral disturbance Qualified Code(s): F03.90 - Unspecified dementia without behavioral disturbance (5) Hypercalcemia Code(s): E83.52 - HYPERCALCEMIA Assessment/Plan 05/17/2018 Echo: Normal LV and RV size and fxn LVEF 65% borderline LAE, mild MG 9.2 mmHg, mod pulm HTN RVSP 54 mmHg 1. Post fall no LOC 2. Organic brain syndrome/dementia 3. HTN 4. DM 5. UTI 6. BRITT with hyperkalemia and left hydro resolving 7. Hypercalcemia 8. Anemia 9. Left adnexal mass, bladder mass PLAN: 1. Continue Metoprolol ER 50 mg BID, Amlodipine 10 mg QD, and ASA 81 mg QD. Valsartan held for hyperkalemia 2. DM management 3. Fall precaution 4. DVT prophylaxis 5. Calcitonin, fluids and Lasix, zometa with monitor calcium, complete empiric abx course for UTI 6. Abd and pelvic and chest CT shows left adnexal masses and pleural based masses suggestive of mets->GOC to be addressed 7. Bone scan to eval for mets
--- NOTE | 2018-05-23 13:36 | PN ---
Progress Note, Physician History of Present Illness: Pt seen and examined at bedside. She is awake and appears comfortable. She denies shortness of breath. - Current Medication List Current Medications: Active Medications Acetaminophen (Tylenol -) 650 mg PO Q6H PRN PRN Reason: PAIN SCALE 1-5 Last Admin: 05/23/18 06:12 Dose: 650 mg Amlodipine Besylate (Norvasc -) 10 mg PO DAILY [facility] Last Admin: 05/23/18 10:16 Dose: 10 mg Aspirin (Asa -) 81 mg PO DAILY [facility] Last Admin: 05/23/18 10:16 Dose: 81 mg Heparin Sodium (Porcine) (Heparin -) 5,000 unit SQ BID [facility] Last Admin: 05/23/18 10:17 Dose: 5,000 unit Ceftriaxone Sodium 1 gm/ (Dextrose) 50 mls @ 100 mls/hr IVPB DAILY [facility]; Protocol Last Admin: 05/23/18 10:17 Dose: 100 mls/hr Metformin HCl (Glucophage -) 500 mg PO ACBK [facility] Last Admin: 05/23/18 06:13 Dose: 500 mg Metoprolol Succinate (Toprol Xl -) 50 mg PO BID [facility] Last Admin: 05/23/18 10:16 Dose: 50 mg Sitagliptin Phosphate (Januvia -) 50 mg PO DAILY@0700 [facility] Last Admin: 05/23/18 06:13 Dose: 50 mg - Objective Vital Signs: Vital Signs Temperature 98.0 F 05/23/18 09:00 Pulse Rate 65 05/23/18 09:00 Respiratory Rate 18 05/23/18 09:00 Blood Pressure 126/57 L 05/23/18 09:00 O2 Sat by Pulse Oximetry (%) 94 L 05/22/18 21:00 Constitutional: Yes: Calm Eyes: Yes: Conjunctiva Clear HENT: Yes: Atraumatic Cardiovascular: Yes: S1, S2 Respiratory: Yes: CTA Bilaterally Gastrointestinal: Yes: Soft Musculoskeletal: Yes: WNL Extremities: Yes: WNL Edema: No Neurological: Yes: Confusion Psychiatric: Yes: Oriented Labs: CBC, BMP 05/20/18 05:30 05/21/18 07:00 INR, PTT INR 1.21 (0.83-1.09) H 05/20/18 05:30 Problem List - Problems (1) BRITT (acute kidney injury) Code(s): N17.9 - ACUTE KIDNEY FAILURE, UNSPECIFIED (2) Hypercalcemia Code(s): E83.52 - HYPERCALCEMIA Assessment/Plan Current Medications Generic Name Dose Route Start Last Admin Trade Name Alisha PRN Reason Stop Dose Admin Acetaminophen 650 mg 05/18/18 21:50 05/23/18 06:12 Tylenol - PO 650 mg Q6H PRN Administration PAIN SCALE 1-5 Amlodipine Besylate 10 mg 05/17/18 10:00 05/23/18 10:16 Norvasc - PO 10 mg DAILY [facility] Administration Aspirin 81 mg 05/17/18 10:00 05/23/18 10:16 Asa - PO 81 mg DAILY [facility] Administration Heparin Sodium (Porcine) 5,000 unit 05/16/18 22:00 05/23/18 10:17 Heparin - SQ 5,000 unit BID [facility] Administration Ceftriaxone Sodium 1 gm/ 50 mls @ 100 mls/hr 05/18/18 14:15 05/23/18 10:17 Dextrose IVPB 100 mls/hr DAILY [facility] Administration Protocol Metformin HCl 500 mg 05/17/18 07:00 05/23/18 06:13 Glucophage - PO 500 mg ACBK [facility] Administration Metoprolol Succinate 50 mg 05/16/18 22:00 05/23/18 10:16 Toprol Xl - PO 50 mg BID [facility] Administration Sitagliptin Phosphate 50 mg 05/17/18 07:00 05/23/18 06:13 Januvia - PO 50 mg DAILY@0700 [facility] Administration Impression 1. BRITT 2. hyperkalemia 3. uti 4. dementia 5. htn 6. DM 7. hypercalcemia 8. hydronephrosis left 9. bladder mass Plan - renal function stable - calcium improving - oncology eval appreciated - family meeting for GOC - workup in progress - urology eval - abx for UTI
--- NOTE | 2018-05-23 13:45 | PN ---
Progress Note, Physician History of Present Illness: stable no new issues looks much better - Current Medication List Current Medications: Active Medications Acetaminophen (Tylenol -) 650 mg PO Q6H PRN PRN Reason: PAIN SCALE 1-5 Last Admin: 05/23/18 06:12 Dose: 650 mg Amlodipine Besylate (Norvasc -) 10 mg PO DAILY [facility] Last Admin: 05/23/18 10:16 Dose: 10 mg Aspirin (Asa -) 81 mg PO DAILY [facility] Last Admin: 05/23/18 10:16 Dose: 81 mg Heparin Sodium (Porcine) (Heparin -) 5,000 unit SQ BID [facility] Last Admin: 05/23/18 10:17 Dose: 5,000 unit Metformin HCl (Glucophage -) 500 mg PO ACBK [facility] Last Admin: 05/23/18 06:13 Dose: 500 mg Metoprolol Succinate (Toprol Xl -) 50 mg PO BID [facility] Last Admin: 05/23/18 10:16 Dose: 50 mg Sitagliptin Phosphate (Januvia -) 50 mg PO DAILY@0700 [facility] Last Admin: 05/23/18 06:13 Dose: 50 mg - Objective Vital Signs: Vital Signs Temperature 98.0 F 05/23/18 09:00 Pulse Rate 65 05/23/18 09:00 Respiratory Rate 18 05/23/18 09:00 Blood Pressure 126/57 L 05/23/18 09:00 O2 Sat by Pulse Oximetry (%) 94 L 05/22/18 21:00 Constitutional: Yes: No Distress, Calm Cardiovascular: Yes: Regular Rate and Rhythm Respiratory: Yes: Regular, CTA Bilaterally Gastrointestinal: Yes: Normal Bowel Sounds, Soft Musculoskeletal: Yes: WNL Extremities: Yes: Other Neurological: Yes: Alert, Oriented Psychiatric: Yes: Alert, Oriented Labs: CBC, BMP 05/20/18 05:30 05/21/18 07:00 INR, PTT INR 1.21 (0.83-1.09) H 05/20/18 05:30 Assessment/Plan Problem List - Problems (1) BRITT (acute kidney injury) Code(s): N17.9 - ACUTE KIDNEY FAILURE, UNSPECIFIED (2) Dementia Code(s): F03.90 - UNSPECIFIED DEMENTIA WITHOUT BEHAVIORAL DISTURBANCE Qualifiers: Dementia type: unspecified type Dementia behavioral disturbance: without behavioral disturbance Qualified Code(s): F03.90 - Unspecified dementia without behavioral disturbance (3) Diabetes mellitus Code(s): E11.9 - TYPE 2 DIABETES MELLITUS WITHOUT COMPLICATIONS Qualifiers: Diabetes mellitus type: type 2 Diabetes mellitus signal apprentice insulin use: without signal apprentice use (4) Fall Code(s): W19.XXXA - UNSPECIFIED FALL, INITIAL ENCOUNTER Qualifiers: Encounter type: subsequent encounter Qualified Code(s): W19.XXXD - Unspecified fall, subsequent encounter (5) HTN (hypertension) Code(s): I10 - ESSENTIAL (PRIMARY) HYPERTENSION Qualifiers: Hypertension type: essential hypertension Qualified Code(s): I10 - Essential (primary) hypertension (6) Hypercalcemia Code(s): E83.52 - HYPERCALCEMIA (7) Urinary tract infection Code(s): N39.0 - URINARY TRACT INFECTION, SITE NOT SPECIFIED (8) Acute urinary retention Code(s): R33.8 - OTHER RETENTION OF URINE (9) Hydronephrosis Code(s): N13.30 - UNSPECIFIED HYDRONEPHROSIS Assessment/Plan Fever UTI Lt hydronephrosis s/p new dementia DM hypercalcemia Renal pelvic mass/supra renal mass will stop abx monitor without abx urology eval rest as per the team
--- NOTE | 2018-05-23 16:27 | PN ---
Physical Exam: SUBJECTIVE: Patient seen and examined at bedside. No acute distress, no change from yesterday. Spoke to family, they wish to pursue the tumor in bladder aggressively. OBJECTIVE: Vital Signs Period Temp Pulse Resp BP Sys/Swift Pulse Ox Last 24 Hr 97.0 F-98.2 F 60-66 18-20 126-150/57-64 94 GENERAL: A&Ox3, no acute distress EYES: PERRLA, within no ENT: Dry mucus membranes NECK: No JVD, no lymphadenopathy palpated LUNGS: CTA, no wheezes HEART: RRR, slight systolic murmur auscultated ABDOMEN: Soft, BS present MUSCULOSKELETAL: No CVA Tenderness EXTREMITIES: 2+ pulses, no edema. Laboratory Results - last 24 hr 05/19/18 05/22/18 05/23/18 05:30 17:33 05:44 POC Glucometer 92 102 IgG No Result Required. IgA No Result Required. IgM No Result Required. Active Medications Generic Name Dose Route Start Last Admin Trade Name Freq PRN Reason Stop Dose Admin Acetaminophen 650 mg 05/18/18 21:50 05/23/18 14:05 Tylenol - PO 650 mg Q6H PRN Administration PAIN SCALE 1-5 Amlodipine Besylate 10 mg 05/17/18 10:00 05/23/18 10:16 Norvasc - PO 10 mg DAILY [facility] Administration Aspirin 81 mg 05/17/18 10:00 05/23/18 10:16 Asa - PO 81 mg DAILY [facility] Administration Heparin Sodium (Porcine) 5,000 unit 05/16/18 22:00 05/23/18 10:17 Heparin - SQ 5,000 unit BID [facility] Administration Metformin HCl 500 mg 05/17/18 07:00 05/23/18 06:13 Glucophage - PO 500 mg ACBK [facility] Administration Metoprolol Succinate 50 mg 05/16/18 22:00 05/23/18 10:16 Toprol Xl - PO 50 mg BID [facility] Administration Sitagliptin Phosphate 50 mg 05/17/18 07:00 05/23/18 06:13 Januvia - PO 50 mg DAILY@[address] Chest/ABD/PELVIS: Bibasal atelectatic changes and minimal bilateral pleural effusions suggestive of. Multiple pleural -based and intraparenchymal nodular densities measuring up to 1 cm. Correlate clinically to rule out a neoplastic process. Small to moderate pericardial effusion. No gross enlarged mediastinal or hilar lymph nodes are identified. Dense consolidation of the coronary arteries are present. Status post cholecystectomy. Mild dilatation of the central intrahepatic bile ducts without gross dilatation of the common bile duct. Likely right renal cyst. Moderate to marked left renal hydronephrosis and dilatation of the left ureter down to the ureterovesical junction level without gross evidence of an obstructing stone. Further evaluation with renal ultrasound is needed. There is a complex masslike density in the left adnexa measuring 4.8 x 3.3 cm that is inseparable from the left lateral urinary bladder wall that appears to be significantly thickened and there is mild stranding of the surrounding mesentery. Correlation with pelvis ultrasound or MRI of the pelvis is needed to evaluate for a pelvic mass. Kaur catheter within a partially distended urinary bladder with suggestion of diffuse thickening of its wall, in particular, there is significant thickening of its left lateral wall. Intraluminal air, likely iatrogenic. Hyperdensities are present within its lumen that may represent prior contrast administration. Prominent vessels versus borderline left lateral pelvic lymph nodes are present , evaluation of which is limited due to lack of intravenous contrast administration. ASSESSMENT/PLAN: 88 year old female with a hx of dementia, hypertension, diabetes mellitus, multiple UTIs and hydronephrosis was brought in for unwitnessed fall earlier today and admitted for altered mental status with hyperkalemia and hypercalcemia #Hypercalcemia: improved #Bladder wall thickening and L renal pelvis lesion: found on ultrasound and CT -CT appears to have masses in abdomen/pelvis in kidneys and bladder and pulmonary nodules -Urology consulted, d/w Dr. Mckeon, will come evaluate patient #Normocytic, normochromic Anemia: could be related to iron deficiency, iron- restricted erythropoesis (chronic disease), renal dysfunction, myeloma, vitamin deficiencies #Hyperkalemia: resolved Dispo: We will continue to follow the patient. Thank you for this consultative opportunity. Juwan Couch, PGY2 Case Discussed with Dr. Holley Visit type - Emergency Visit Emergency Visit: No - New Patient This patient is new to me today: No - Critical Care Critical Care patient: No
--- NOTE | 2018-05-23 18:40 | CONS ---
DATE OF CONSULTATION: 05/23/2018 I was called earlier today to see this 88-year-old who presented with hypercalcemia. During the course of her workup, she was noted to have on CAT scan a dilated left renal pelvis as well as a dilated left ureter to the level of the ureterovesical junction. The bladder itself was described as being thick walled on the left side, although there is no discrete mass noted. In addition, the CAT scan reported a cystic-like structure adjacent to the bladder on the left side. Upon reviewing the CT, it is difficult to say whether or not we are looking at a diverticulum, possibly a hutch diverticulum with the ureter entering into the hutch diverticulum or whether or not there is in fact a true bladder mass present. The patient denies any hematuria. Denies difficulty voiding in the past and denies any problems with her bladder in the past. On examination, patient is obese. There is a right upper quadrant scar from a prior gallbladder surgery. There were no palpable masses present in the abdomen. No CVA tenderness was elicited. Overall to rule out any definitive mass, patient will require cystoscopy and possibly placement of a left ureteral stent, if possible. I tried contacting the daughters, neither of which was home or available to answer the phone and I will try again tomorrow. I will make the patient n.p.o. in hopes of getting her on the schedule tomorrow and proceed from there. MD MORRO FRANCOIS/[id number]
--- NOTE | 2018-05-23 19:15 | PN ---
Progress Note, Physician History of Present Illness: doing well - Current Medication List Current Medications: Active Medications Acetaminophen (Tylenol -) 650 mg PO Q6H PRN PRN Reason: PAIN SCALE 1-5 Last Admin: 05/23/18 14:05 Dose: 650 mg Amlodipine Besylate (Norvasc -) 10 mg PO DAILY [facility] Last Admin: 05/23/18 10:16 Dose: 10 mg Aspirin (Asa -) 81 mg PO DAILY [facility] Last Admin: 05/23/18 10:16 Dose: 81 mg Heparin Sodium (Porcine) (Heparin -) 5,000 unit SQ BID [facility] Stop: 05/24/18 04:00 Last Admin: 05/23/18 10:17 Dose: 5,000 unit Metformin HCl (Glucophage -) 500 mg PO ACBK [facility] Last Admin: 05/23/18 06:13 Dose: 500 mg Metoprolol Succinate (Toprol Xl -) 50 mg PO BID [facility] Last Admin: 05/23/18 10:16 Dose: 50 mg Sitagliptin Phosphate (Januvia -) 50 mg PO DAILY@0700 [facility] Last Admin: 05/23/18 06:13 Dose: 50 mg - Objective Vital Signs: Vital Signs Temperature 97.6 F 05/23/18 15:10 Pulse Rate 66 05/23/18 15:10 Respiratory Rate 18 05/23/18 15:10 Blood Pressure 145/63 05/23/18 15:10 O2 Sat by Pulse Oximetry (%) 94 L 05/23/18 09:00 Constitutional: Yes: No Distress HENT: Yes: Atraumatic Neck: Yes: Supple Cardiovascular: Yes: Regular Rate and Rhythm Respiratory: Yes: CTA Bilaterally Gastrointestinal: Yes: Normal Bowel Sounds Extremities: Yes: WNL Edema: No Peripheral Pulses WNL: Yes Neurological: Yes: Alert, Oriented Labs: CBC, BMP 05/20/18 05:30 05/21/18 07:00 INR, PTT INR 1.21 (0.83-1.09) H 05/20/18 05:30 Problem List - Problems (1) BRITT (acute kidney injury) Assessment/Plan: wnl renal on board Code(s): N17.9 - ACUTE KIDNEY FAILURE, UNSPECIFIED (2) Hyperkalemia Assessment/Plan: RESOLVED Code(s): E87.5 - HYPERKALEMIA (3) Urinary tract infection Assessment/Plan: off of abx now Code(s): N39.0 - URINARY TRACT INFECTION, SITE NOT SPECIFIED (4) Dementia Assessment/Plan: stable Code(s): F03.90 - UNSPECIFIED DEMENTIA WITHOUT BEHAVIORAL DISTURBANCE Qualifiers: Dementia type: unspecified type Dementia behavioral disturbance: without behavioral disturbance Qualified Code(s): F03.90 - Unspecified dementia without behavioral disturbance (5) Diabetes mellitus Assessment/Plan: ON PO MEDS BGMS Code(s): E11.9 - TYPE 2 DIABETES MELLITUS WITHOUT COMPLICATIONS Qualifiers: Diabetes mellitus type: type 2 Diabetes mellitus jail insulin use: without jail use (6) Fall Code(s): W19.XXXA - UNSPECIFIED FALL, INITIAL ENCOUNTER Qualifiers: Encounter type: subsequent encounter Qualified Code(s): W19.XXXD - Unspecified fall, subsequent encounter (7) HTN (hypertension) Assessment/Plan: ON MEDS STABLE Code(s): I10 - ESSENTIAL (PRIMARY) HYPERTENSION Qualifiers: Hypertension type: essential hypertension Qualified Code(s): I10 - Essential (primary) hypertension (8) Hypercalcemia Assessment/Plan: ca normal now Code(s): E83.52 - HYPERCALCEMIA (9) Acute urinary retention Code(s): R33.8 - OTHER RETENTION OF URINE (10) Hydronephrosis Code(s): N13.30 - UNSPECIFIED HYDRONEPHROSIS Assessment/Plan d/w dr mars she will talk to urology for biopsy of renal pelvis mass
--- NOTE | 2018-05-23 23:01 | PN ---
Progress Note (short form) - Note Progress Note: Patient seen and examined oriented in person/place Last Vital Signs Temp Pulse Resp BP Pulse Ox 98.3 F 65 18 137/61 94 L 05/23/18 18:05 05/23/18 18:05 05/23/18 18:05 05/23/18 18:05 05/23/18 09:00 Cor: RSR, No murmurs, No gallops Lungs: Clear to P&A Abd: Soft, Normal bowel sounds, No organomegaly Ext:No significant edema Labs/Meds reviewed A/P 88 year old presents with hyperkalemia and hypercalcemia with corrected calcium greater than 14. s/p bisphosphonates Has abnormal CT with right supra renal mass, left renal pelvic mass and thickened wall bladder. mental status/hypercalcemia much improved discussed with patient and daughter. urology consult discussed with ir will need prophylactic antibiotics prior to urologic procedures --strp. viridans uti / discussed with id team
[2018-05-24] MEDS: sitaGLIPtin PHOSPHATE 50 MG TABLET PO SCH (06:42)
[2018-05-24] MEDS: metFORMIN HCL 500 MG TABLET (FP) PO SCH ×2 (06:42→17:42)
[2018-05-24 07:45] LABS: HEMATOCRIT 27.7 % (32.4-45.2); HEMOGLOBIN 8.9 GM/dL (10.7-15.3); MCH 25.9 pg (25.7-33.7); MCHC 32.2 g/dl (32.0-36.0); MEAN CELL VOLUME 80.4 fl (80-96); MEAN PLT VOLUME 8.4 fl (7.5-11.1); PLATELET COUNT 295 K/MM3 (134-434); RBC 3.45 M/mm3 (3.60-5.2); RDW 14.9 % (11.6-15.6); WHITE BLOOD COUNT 7.8 K/mm3 (4.0-10.0)
[2018-05-24 08:02] LABS: INR 1.06 (0.83-1.09); PROTHROMBIN TIME (PATIENT) 12.5 SEC (9.7-13.0)
[2018-05-24 08:04] LABS: ACTIVATED PTT 25.7 SECONDS (25.2-36.5)
[2018-05-24] MEDS ORDERED: cefTRIAXone SODIUM 1 GM VIAL ONE (10:22)
[2018-05-24] MEDS ORDERED: DEXTROSE 5%-WATER - 50 ML IVPB ONE (10:22)
[2018-05-24] MEDS: CEFTRIAXONE 1 GM in DEXTROSE 5%-WATER - 50 ML IVPB SCH (10:29)
[2018-05-24] MEDS: ASPIRIN 81 MG CHEWABLE TABLETS PO SCH ×2 (10:30→15:40)
[2018-05-24] MEDS: ACETAMINOPHEN 325 MG TABLET (FP) PO PRN (10:30)
[2018-05-24] MEDS: amLODIPine BESYLATE 10 MG TABLET (FP) PO SCH (10:32)
--- NOTE | 2018-05-24 12:53 | PN ---
Progress Note, Physician History of Present Illness: stable patient doing well awaiting for surgery - Current Medication List Current Medications: Active Medications Acetaminophen (Tylenol -) 650 mg PO Q6H PRN PRN Reason: PAIN SCALE 1-5 Last Admin: 05/24/18 10:30 Dose: 650 mg Amlodipine Besylate (Norvasc -) 10 mg PO DAILY [facility] Last Admin: 05/24/18 10:32 Dose: 10 mg Aspirin (Asa -) 81 mg PO DAILY [facility] Last Admin: 05/24/18 10:30 Dose: Not Given Ceftriaxone Sodium 1 gm/ (Dextrose) 50 mls @ 100 mls/hr IVPB DAILY [facility]; Protocol Last Admin: 05/24/18 10:29 Dose: 100 mls/hr Metformin HCl (Glucophage -) 500 mg PO ACBK [facility] Last Admin: 05/24/18 06:42 Dose: Not Given Metoprolol Succinate (Toprol Xl -) 50 mg PO BID [facility] Last Admin: 05/24/18 10:33 Dose: 50 mg Sitagliptin Phosphate (Januvia -) 50 mg PO DAILY@0700 [facility] Last Admin: 05/24/18 06:42 Dose: Not Given - Objective Vital Signs: Vital Signs Temperature 98.6 F 05/24/18 06:00 Pulse Rate 63 05/24/18 10:25 Respiratory Rate 18 05/24/18 10:25 Blood Pressure 154/74 05/24/18 10:25 O2 Sat by Pulse Oximetry (%) 95 05/23/18 21:00 Constitutional: Yes: No Distress, Calm Cardiovascular: Yes: Regular Rate and Rhythm Respiratory: Yes: Regular, CTA Bilaterally Gastrointestinal: Yes: Normal Bowel Sounds, Soft Musculoskeletal: Yes: WNL Extremities: Yes: WNL Neurological: Yes: Alert, Oriented Psychiatric: Yes: Alert, Oriented Labs: CBC, BMP 05/24/18 06:30 05/21/18 07:00 INR, PTT INR 1.06 (0.83-1.09) 05/24/18 06:30 Assessment/Plan Problem List - Problems (1) BRITT (acute kidney injury) Code(s): N17.9 - ACUTE KIDNEY FAILURE, UNSPECIFIED (2) Dementia Code(s): F03.90 - UNSPECIFIED DEMENTIA WITHOUT BEHAVIORAL DISTURBANCE Qualifiers: Dementia type: unspecified type Dementia behavioral disturbance: without behavioral disturbance Qualified Code(s): F03.90 - Unspecified dementia without behavioral disturbance (3) Diabetes mellitus Code(s): E11.9 - TYPE 2 DIABETES MELLITUS WITHOUT COMPLICATIONS Qualifiers: Diabetes mellitus type: type 2 Diabetes mellitus middle or intermediate school principal insulin use: without middle or intermediate school principal use (4) Fall Code(s): W19.XXXA - UNSPECIFIED FALL, INITIAL ENCOUNTER Qualifiers: Encounter type: subsequent encounter Qualified Code(s): W19.XXXD - Unspecified fall, subsequent encounter (5) HTN (hypertension) Code(s): I10 - ESSENTIAL (PRIMARY) HYPERTENSION Qualifiers: Hypertension type: essential hypertension Qualified Code(s): I10 - Essential (primary) hypertension (6) Hypercalcemia Code(s): E83.52 - HYPERCALCEMIA (7) Urinary tract infection Code(s): N39.0 - URINARY TRACT INFECTION, SITE NOT SPECIFIED (8) Acute urinary retention Code(s): R33.8 - OTHER RETENTION OF URINE (9) Hydronephrosis Code(s): N13.30 - UNSPECIFIED HYDRONEPHROSIS Assessment/Plan Fever UTI Lt hydronephrosis s/p new dementia DM hypercalcemia Renal pelvic mass/supra renal mass continue abx post procedure can stop abx rest as per the team stable
--- NOTE | 2018-05-24 13:45 | PN ---
Progress Note, Physician History of Present Illness: Pt seen and examined at bedside. She is awake and appears comfortable. She is oriented to person and place. - Current Medication List Current Medications: Active Medications Acetaminophen (Tylenol -) 650 mg PO Q6H PRN PRN Reason: PAIN SCALE 1-5 Last Admin: 05/24/18 10:30 Dose: 650 mg Amlodipine Besylate (Norvasc -) 10 mg PO DAILY [facility] Last Admin: 05/24/18 10:32 Dose: 10 mg Aspirin (Asa -) 81 mg PO DAILY [facility] Last Admin: 05/24/18 10:30 Dose: Not Given Ceftriaxone Sodium 1 gm/ (Dextrose) 50 mls @ 100 mls/hr IVPB DAILY [facility]; Protocol Last Admin: 05/24/18 10:29 Dose: 100 mls/hr Metformin HCl (Glucophage -) 500 mg PO ACBK [facility] Last Admin: 05/24/18 06:42 Dose: Not Given Metoprolol Succinate (Toprol Xl -) 50 mg PO BID [facility] Last Admin: 05/24/18 10:33 Dose: 50 mg Sitagliptin Phosphate (Januvia -) 50 mg PO DAILY@0700 [facility] Last Admin: 05/24/18 06:42 Dose: Not Given - Objective Vital Signs: Vital Signs Temperature 98.6 F 05/24/18 06:00 Pulse Rate 63 05/24/18 10:25 Respiratory Rate 18 05/24/18 10:25 Blood Pressure 154/74 05/24/18 10:25 O2 Sat by Pulse Oximetry (%) 95 05/23/18 21:00 Constitutional: Yes: Calm Eyes: Yes: Conjunctiva Clear HENT: Yes: Atraumatic Neck: Yes: Supple Cardiovascular: Yes: S1, S2 Respiratory: Yes: CTA Bilaterally Gastrointestinal: Yes: Soft Genitourinary: Yes: WNL Musculoskeletal: Yes: WNL Edema: No Neurological: Yes: Alert Labs: CBC, BMP 05/24/18 06:30 05/21/18 07:00 INR, PTT INR 1.06 (0.83-1.09) 05/24/18 06:30 Problem List - Problems (1) BRITT (acute kidney injury) Code(s): N17.9 - ACUTE KIDNEY FAILURE, UNSPECIFIED (2) Hypercalcemia Code(s): E83.52 - HYPERCALCEMIA Assessment/Plan Current Medications Generic Name Dose Route Start Last Admin Trade Name Alisha PRN Reason Stop Dose Admin Acetaminophen 650 mg 05/18/18 21:50 05/24/18 10:30 Tylenol - PO 650 mg Q6H PRN Administration PAIN SCALE 1-5 Amlodipine Besylate 10 mg 05/17/18 10:00 05/24/18 10:32 Norvasc - PO 10 mg DAILY [facility] Administration Aspirin 81 mg 05/17/18 10:00 05/24/18 10:30 Asa - PO Not Given DAILY [facility] Ceftriaxone Sodium 1 gm/ 50 mls @ 100 mls/hr 05/24/18 10:00 05/24/18 10:29 Dextrose IVPB 100 mls/hr DAILY [facility] Administration Protocol Metformin HCl 500 mg 05/17/18 07:00 05/24/18 06:42 Glucophage - PO Not Given ACBK [facility] Metoprolol Succinate 50 mg 05/16/18 22:00 05/24/18 10:33 Toprol Xl - PO 50 mg BID [facility] Administration Sitagliptin Phosphate 50 mg 05/17/18 07:00 05/24/18 06:42 Januvia - PO Not Given DAILY@0700 [facility] Impression 1. BRITT 2. hyperkalemia 3. uti 4. dementia 5. htn 6. DM 7. hypercalcemia 8. hydronephrosis left 9. bladder mass Plan - check cmp - renal function has stabilized - urology eval - oncology input appreciated - monitor calcium - workup in progress - abx for UTI
--- NOTE | 2018-05-24 14:08 | PN ---
Physical Exam: SUBJECTIVE: Patient seen and examined at bedside. no change from yesterday. Denies chest pain, SOB, nausea, vomiting, diarrhea, fevers, chills. OBJECTIVE: Vital Signs Period Temp Pulse Resp BP Sys/Swift Pulse Ox Last 24 Hr 97.6 F-98.6 F 58-66 18-20 137-154/60-74 95 GENERAL: A&Ox3, no acute distress EYES: PERRLA, within no ENT: Dry mucus membranes NECK: No JVD, no lymphadenopathy palpated LUNGS: CTA, no wheezes HEART: RRR, slight systolic murmur auscultated ABDOMEN: Soft, BS present MUSCULOSKELETAL: No CVA Tenderness EXTREMITIES: 2+ pulses, no edema. Laboratory Results - last 24 hr 05/23/18 05/24/18 05/24/18 17:38 06:30 06:30 WBC 7.8 RBC 3.45 L Hgb 8.9 L Hct 27.7 L MCV 80.4 MCH 25.9 MCHC 32.2 RDW 14.9 Plt Count 295 MPV 8.4 PT with INR 12.50 INR 1.06 PTT (Actin FS) 25.7 POC Glucometer 114 05/24/18 06:42 WBC RBC Hgb Hct MCV MCH MCHC RDW Plt Count MPV PT with INR INR PTT (Actin FS) POC Glucometer 106 Active Medications Generic Name Dose Route Start Last Admin Trade Name Freq PRN Reason Stop Dose Admin Acetaminophen 650 mg 05/18/18 21:50 05/24/18 10:30 Tylenol - PO 650 mg Q6H PRN Administration PAIN SCALE 1-5 Amlodipine Besylate 10 mg 05/17/18 10:00 05/24/18 10:32 Norvasc - PO 10 mg DAILY MARIAJOSE Administration Aspirin 81 mg 05/17/18 10:00 05/24/18 10:30 Asa - PO Not Given DAILY [facility] Heparin Sodium (Porcine) 5,000 unit 05/24/18 22:00 Heparin - SQ 05/25/18 04:00 BID [facility] Ceftriaxone Sodium 1 gm/ 50 mls @ 100 mls/hr 05/24/18 10:00 05/24/18 10:29 Dextrose IVPB 100 mls/hr DAILY MARIAJOSE Administration Protocol Metformin HCl 500 mg 05/17/18 07:00 05/24/18 06:42 Glucophage - PO Not Given ACBK [facility] Metoprolol Succinate 50 mg 05/16/18 22:00 05/24/18 10:33 Toprol Xl - PO 50 mg BID [facility] Administration Sitagliptin Phosphate 50 mg 05/17/18 07:00 05/24/18 06:42 Januvia - PO Not Given DAILY@0700 [facility] CT Chest/ABD/PELVIS: Bibasal atelectatic changes and minimal bilateral pleural effusions suggestive of. Multiple pleural -based and intraparenchymal nodular densities measuring up to 1 cm. Correlate clinically to rule out a neoplastic process. Small to moderate pericardial effusion. No gross enlarged mediastinal or hilar lymph nodes are identified. Dense consolidation of the coronary arteries are present. Status post cholecystectomy. Mild dilatation of the central intrahepatic bile ducts without gross dilatation of the common bile duct. Likely right renal cyst. Moderate to marked left renal hydronephrosis and dilatation of the left ureter down to the ureterovesical junction level without gross evidence of an obstructing stone. Further evaluation with renal ultrasound is needed. There is a complex masslike density in the left adnexa measuring 4.8 x 3.3 cm that is inseparable from the left lateral urinary bladder wall that appears to be significantly thickened and there is mild stranding of the surrounding mesentery. Correlation with pelvis ultrasound or MRI of the pelvis is needed to evaluate for a pelvic mass. Kaur catheter within a partially distended urinary bladder with suggestion of diffuse thickening of its wall, in particular, there is significant thickening of its left lateral wall. Intraluminal air, likely iatrogenic. Hyperdensities are present within its lumen that may represent prior contrast administration. Prominent vessels versus borderline left lateral pelvic lymph nodes are present , evaluation of which is limited due to lack of intravenous contrast administration. ASSESSMENT/PLAN: 88 year old female with a hx of dementia, hypertension, diabetes mellitus, multiple UTIs and hydronephrosis was brought in for unwitnessed fall earlier today and admitted for altered mental status with hyperkalemia and hypercalcemia #Bladder wall thickening and Bladder lesion: found on ultrasound and CT -CT appears to have masses in abdomen/pelvis in kidneys and bladder and pulmonary nodules -Urology consulted, d/w Dr. Mckeon, scheduled for surgery today 4pm -renal scan with diuretic -NPO -hold heparin in AM Informed by Dr. Mckeon that patient refused procedure and family did not want to supercede the patient, therefore patient will not be getting procedure at this time #Hypercalcemia: improved #Normocytic, normochromic Anemia: could be related to iron deficiency, iron- restricted erythropoesis (chronic disease), renal dysfunction, myeloma, vitamin deficiencies #Hyperkalemia: resolved Dispo: We will continue to follow the patient. Thank you for this consultative opportunity. Juwan Couch, PGY2 Case Discussed with Dr. Robertson Visit type - Emergency Visit Emergency Visit: No - New Patient This patient is new to me today: No - Critical Care Critical Care patient: No
[2018-05-24 15:03] LABS: ALBUMIN 2.3 g/dl (3.4-5.0); ALK PHOS 65 U/L (45-117); ANION GAP 7 MMOL/L (8-16); BILIRUBIN,TOTAL 0.7 mg/dL (0.2-1); BLOOD UREA NITROGEN 9 mg/dL (7-18); CHLORIDE 111 mmol/L (98-107); CO2 23 mmol/L (21-32); CREATININE 0.6 mg/dL (0.55-1.3); GLUCOSE,RANDOM 100 mg/dL (74-106); POTASSIUM 4.1 mmol/L (3.5-5.1); SGOT/AST 16 U/L (15-37); SGPT/ALT 11 U/L (13-61); SODIUM 141 mmol/L (136-145); TOT PROT 6.4 g/dl (6.4-8.2)
--- NOTE | 2018-05-24 18:34 | PN ---
Progress Note, Physician History of Present Illness: doing well - Current Medication List Current Medications: Active Medications Acetaminophen (Tylenol -) 650 mg PO Q6H PRN PRN Reason: PAIN SCALE 1-5 Last Admin: 05/24/18 10:30 Dose: 650 mg Amlodipine Besylate (Norvasc -) 10 mg PO DAILY [facility] Last Admin: 05/24/18 10:32 Dose: 10 mg Aspirin (Asa -) 81 mg PO DAILY [facility] Last Admin: 05/24/18 15:40 Dose: 81 mg Heparin Sodium (Porcine) (Heparin -) 5,000 unit SQ BID [facility] Stop: 05/25/18 04:00 Ceftriaxone Sodium 1 gm/ (Dextrose) 50 mls @ 100 mls/hr IVPB DAILY [facility]; Protocol Last Admin: 05/24/18 10:29 Dose: 100 mls/hr Metformin HCl (Glucophage -) 500 mg PO ACBK [facility] Last Admin: 05/24/18 17:42 Dose: 500 mg Metoprolol Succinate (Toprol Xl -) 50 mg PO BID [facility] Last Admin: 05/24/18 10:33 Dose: 50 mg Sitagliptin Phosphate (Januvia -) 50 mg PO DAILY@0700 [facility] Last Admin: 05/24/18 06:42 Dose: Not Given - Objective Vital Signs: Vital Signs Temperature 98.6 F 05/24/18 17:39 Pulse Rate 69 05/24/18 17:39 Respiratory Rate 20 05/24/18 17:39 Blood Pressure 138/61 05/24/18 17:39 O2 Sat by Pulse Oximetry (%) 95 05/23/18 21:00 Constitutional: Yes: No Distress HENT: Yes: Atraumatic Neck: Yes: Supple Cardiovascular: Yes: Regular Rate and Rhythm Respiratory: Yes: CTA Bilaterally Gastrointestinal: Yes: Normal Bowel Sounds Extremities: Yes: WNL Edema: No Peripheral Pulses WNL: Yes Neurological: Yes: Alert, Oriented Labs: CBC, BMP 05/24/18 06:30 05/24/18 14:15 INR, PTT INR 1.06 (0.83-1.09) 05/24/18 06:30 Problem List - Problems (1) BRITT (acute kidney injury) Assessment/Plan: wnl renal on board Code(s): N17.9 - ACUTE KIDNEY FAILURE, UNSPECIFIED (2) Hyperkalemia Assessment/Plan: RESOLVED Code(s): E87.5 - HYPERKALEMIA (3) Urinary tract infection Assessment/Plan: on abx now Code(s): N39.0 - URINARY TRACT INFECTION, SITE NOT SPECIFIED (4) Dementia Assessment/Plan: stable Code(s): F03.90 - UNSPECIFIED DEMENTIA WITHOUT BEHAVIORAL DISTURBANCE Qualifiers: Dementia type: unspecified type Dementia behavioral disturbance: without behavioral disturbance Qualified Code(s): F03.90 - Unspecified dementia without behavioral disturbance (5) Diabetes mellitus Code(s): E11.9 - TYPE 2 DIABETES MELLITUS WITHOUT COMPLICATIONS Qualifiers: Diabetes mellitus type: type 2 Diabetes mellitus senior care insulin use: without intermodal customer service use (6) Fall Code(s): W19.XXXA - UNSPECIFIED FALL, INITIAL ENCOUNTER Qualifiers: Encounter type: subsequent encounter Qualified Code(s): W19.XXXD - Unspecified fall, subsequent encounter (7) HTN (hypertension) Assessment/Plan: ON MEDS STABLE Code(s): I10 - ESSENTIAL (PRIMARY) HYPERTENSION Qualifiers: Hypertension type: essential hypertension Qualified Code(s): I10 - Essential (primary) hypertension (8) Hypercalcemia Assessment/Plan: ca normal now Code(s): E83.52 - HYPERCALCEMIA (9) Acute urinary retention Code(s): R33.8 - OTHER RETENTION OF URINE (10) Hydronephrosis Code(s): N13.30 - UNSPECIFIED HYDRONEPHROSIS Assessment/Plan d/w dr mars she will talk to urology for biopsy of renal pelvis mass
[2018-05-24] MEDS ORDERED: HEPARIN NA (PORCINE) 5,000 UNITS/ML 1ML VIAL SQ SCH (22:00)
[2018-05-25] MEDS: metFORMIN HCL 500 MG TABLET (FP) PO SCH (06:43)
[2018-05-25] MEDS: sitaGLIPtin PHOSPHATE 50 MG TABLET PO SCH (06:43)
[2018-05-25 07:56] LABS: ALBUMIN 2.2 g/dl (3.4-5.0); ALK PHOS 63 U/L (45-117); ANION GAP 8 MMOL/L (8-16); BILIRUBIN,TOTAL 0.3 mg/dL (0.2-1); BLOOD UREA NITROGEN 13 mg/dL (7-18); CALCIUM 8.9 mg/dL (8.5-10.1); CHLORIDE 111 mmol/L (98-107); CO2 22 mmol/L (21-32); CREATININE 0.8 mg/dL (0.55-1.3); GLUCOSE,RANDOM 111 mg/dL (74-106); POTASSIUM 4.2 mmol/L (3.5-5.1); SGOT/AST 15 U/L (15-37); SGPT/ALT 11 U/L (13-61); SODIUM 141 mmol/L (136-145); TOT PROT 6.1 g/dl (6.4-8.2)
[2018-05-25] MEDS ORDERED: cefTRIAXone SODIUM 1 GM VIAL ONE ×2 (10:45→10:46)
[2018-05-25] MEDS ORDERED: DEXTROSE 5%-WATER - 50 ML IVPB ONE (10:45)
[2018-05-25] MEDS: ASPIRIN 81 MG CHEWABLE TABLETS PO SCH (10:48)
[2018-05-25] MEDS: amLODIPine BESYLATE 10 MG TABLET (FP) PO SCH (10:49)
[2018-05-25] MEDS: CEFTRIAXONE 1 GM in DEXTROSE 5%-WATER - 50 ML IVPB SCH (10:49)
[2018-05-25] MEDS: ACETAMINOPHEN 325 MG TABLET (FP) PO PRN (10:50)
--- NOTE | 2018-05-25 11:18 | PN ---
Progress Note, Physician History of Present Illness: stable no new issues - Current Medication List Current Medications: Active Medications Acetaminophen (Tylenol -) 650 mg PO Q6H PRN PRN Reason: PAIN SCALE 1-5 Last Admin: 05/25/18 10:50 Dose: 650 mg Amlodipine Besylate (Norvasc -) 10 mg PO DAILY [facility] Last Admin: 05/25/18 10:49 Dose: 10 mg Aspirin (Asa -) 81 mg PO DAILY [facility] Last Admin: 05/25/18 10:48 Dose: Not Given Ceftriaxone Sodium 1 gm/ (Dextrose) 50 mls @ 100 mls/hr IVPB DAILY [facility]; Protocol Last Admin: 05/25/18 10:49 Dose: 100 mls/hr Metformin HCl (Glucophage -) 500 mg PO ACBK [facility] Last Admin: 05/25/18 06:43 Dose: Not Given Metoprolol Succinate (Toprol Xl -) 50 mg PO BID [facility] Last Admin: 05/25/18 10:49 Dose: 50 mg Sitagliptin Phosphate (Januvia -) 50 mg PO DAILY@0700 [facility] Last Admin: 05/25/18 06:43 Dose: Not Given - Objective Vital Signs: Vital Signs Temperature 98.8 F 05/25/18 10:40 Pulse Rate 67 05/25/18 10:40 Respiratory Rate 20 05/25/18 10:40 Blood Pressure 151/66 05/25/18 10:40 O2 Sat by Pulse Oximetry (%) 95 05/24/18 21:00 Constitutional: Yes: No Distress, Calm Cardiovascular: Yes: Regular Rate and Rhythm Respiratory: Yes: Regular, CTA Bilaterally Gastrointestinal: Yes: Normal Bowel Sounds, Soft Musculoskeletal: Yes: WNL Extremities: Yes: WNL Neurological: Yes: Alert, Oriented Psychiatric: Yes: Alert, Oriented Labs: CBC, BMP 05/24/18 06:30 05/25/18 06:35 INR, PTT INR 1.06 (0.83-1.09) 05/24/18 06:30 Assessment/Plan Problem List - Problems (1) BRITT (acute kidney injury) Code(s): N17.9 - ACUTE KIDNEY FAILURE, UNSPECIFIED (2) Dementia Code(s): F03.90 - UNSPECIFIED DEMENTIA WITHOUT BEHAVIORAL DISTURBANCE Qualifiers: Dementia type: unspecified type Dementia behavioral disturbance: without behavioral disturbance Qualified Code(s): F03.90 - Unspecified dementia without behavioral disturbance (3) Diabetes mellitus Code(s): E11.9 - TYPE 2 DIABETES MELLITUS WITHOUT COMPLICATIONS Qualifiers: Diabetes mellitus type: type 2 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: without oil heaterman use (4) Fall Code(s): W19.XXXA - UNSPECIFIED FALL, INITIAL ENCOUNTER Qualifiers: Encounter type: subsequent encounter Qualified Code(s): W19.XXXD - Unspecified fall, subsequent encounter (5) HTN (hypertension) Code(s): I10 - ESSENTIAL (PRIMARY) HYPERTENSION Qualifiers: Hypertension type: essential hypertension Qualified Code(s): I10 - Essential (primary) hypertension (6) Hypercalcemia Code(s): E83.52 - HYPERCALCEMIA (7) Urinary tract infection Code(s): N39.0 - URINARY TRACT INFECTION, SITE NOT SPECIFIED (8) Acute urinary retention Code(s): R33.8 - OTHER RETENTION OF URINE (9) Hydronephrosis Code(s): N13.30 - UNSPECIFIED HYDRONEPHROSIS Assessment/Plan Fever UTI Lt hydronephrosis s/p new dementia DM hypercalcemia Renal pelvic mass/supra renal mass continue abx final plan needs to be made
--- NOTE | 2018-05-25 13:28 | PN ---
Progress Note, Physician History of Present Illness: Pt seen and examined at bedside. She is awake and alert. She denies shortness of breath. - Current Medication List Current Medications: Active Medications Acetaminophen (Tylenol -) 650 mg PO Q6H PRN PRN Reason: PAIN SCALE 1-5 Last Admin: 05/25/18 10:50 Dose: 650 mg Amlodipine Besylate (Norvasc -) 10 mg PO DAILY [facility] Last Admin: 05/25/18 10:49 Dose: 10 mg Aspirin (Asa -) 81 mg PO DAILY [facility] Last Admin: 05/25/18 10:48 Dose: Not Given Ceftriaxone Sodium 1 gm/ (Dextrose) 50 mls @ 100 mls/hr IVPB DAILY [facility]; Protocol Last Admin: 05/25/18 10:49 Dose: 100 mls/hr Metformin HCl (Glucophage -) 500 mg PO ACBK [facility] Last Admin: 05/25/18 06:43 Dose: Not Given Metoprolol Succinate (Toprol Xl -) 50 mg PO BID [facility] Last Admin: 05/25/18 10:49 Dose: 50 mg Sitagliptin Phosphate (Januvia -) 50 mg PO DAILY@0700 [facility] Last Admin: 05/25/18 06:43 Dose: Not Given - Objective Vital Signs: Vital Signs Temperature 98.8 F 05/25/18 10:40 Pulse Rate 67 05/25/18 10:40 Respiratory Rate 20 05/25/18 10:40 Blood Pressure 151/66 05/25/18 10:40 O2 Sat by Pulse Oximetry (%) 95 05/24/18 21:00 Constitutional: Yes: Calm Eyes: Yes: Conjunctiva Clear HENT: Yes: Atraumatic Cardiovascular: Yes: S1, S2 Respiratory: Yes: CTA Bilaterally Gastrointestinal: Yes: Soft Genitourinary: Yes: WNL Musculoskeletal: Yes: WNL Edema: No Integumentary: Yes: WNL Neurological: Yes: Confusion Psychiatric: Yes: Oriented Labs: CBC, BMP 05/24/18 06:30 05/25/18 06:35 INR, PTT INR 1.06 (0.83-1.09) 05/24/18 06:30 Problem List - Problems (1) BRITT (acute kidney injury) Code(s): N17.9 - ACUTE KIDNEY FAILURE, UNSPECIFIED (2) Hypercalcemia Code(s): E83.52 - HYPERCALCEMIA Assessment/Plan Current Medications Generic Name Dose Route Start Last Admin Trade Name Alisha PRN Reason Stop Dose Admin Acetaminophen 650 mg 05/18/18 21:50 05/25/18 10:50 Tylenol - PO 650 mg Q6H PRN Administration PAIN SCALE 1-5 Amlodipine Besylate 10 mg 05/17/18 10:00 05/25/18 10:49 Norvasc - PO 10 mg DAILY MARIAJOSE Administration Aspirin 81 mg 05/17/18 10:00 05/25/18 10:48 Asa - PO Not Given DAILY [facility] Ceftriaxone Sodium 1 gm/ 50 mls @ 100 mls/hr 05/24/18 10:00 05/25/18 10:49 Dextrose IVPB 100 mls/hr DAILY [facility] Administration Protocol Metformin HCl 500 mg 05/17/18 07:00 05/25/18 06:43 Glucophage - PO Not Given ACBK [facility] Metoprolol Succinate 50 mg 05/16/18 22:00 05/25/18 10:49 Toprol Xl - PO 50 mg BID [facility] Administration Sitagliptin Phosphate 50 mg 05/17/18 07:00 05/25/18 06:43 Januvia - PO Not Given DAILY@0700 [facility] Impression 1. BRITT 2. hyperkalemia 3. uti 4. dementia 5. htn 6. DM 7. hypercalcemia 8. hydronephrosis left 9. bladder mass Plan - follow up renal scan results - urology follow up - monitor calcium levels - oncology input appreciated - workup in progress - abx for UTI
--- NOTE | 2018-05-25 16:40 | PN ---
Progress Note, Physician History of Present Illness: No complaints, chronic dementia and poor historian, resting. Biopsy declined - Current Medication List Current Medications: Active Medications Acetaminophen (Tylenol -) 650 mg PO Q6H PRN PRN Reason: PAIN SCALE 1-5 Last Admin: 05/25/18 10:50 Dose: 650 mg Amlodipine Besylate (Norvasc -) 10 mg PO DAILY [facility] Last Admin: 05/25/18 10:49 Dose: 10 mg Aspirin (Asa -) 81 mg PO DAILY [facility] Last Admin: 05/25/18 10:48 Dose: Not Given Ceftriaxone Sodium 1 gm/ (Dextrose) 50 mls @ 100 mls/hr IVPB DAILY [facility]; Protocol Last Admin: 05/25/18 10:49 Dose: 100 mls/hr Metformin HCl (Glucophage -) 500 mg PO ACBK [facility] Last Admin: 05/25/18 06:43 Dose: Not Given Metoprolol Succinate (Toprol Xl -) 50 mg PO BID [facility] Last Admin: 05/25/18 10:49 Dose: 50 mg Sitagliptin Phosphate (Januvia -) 50 mg PO DAILY@0700 [facility] Last Admin: 05/25/18 06:43 Dose: Not Given - Objective Vital Signs: Vital Signs Temperature 98.6 F 05/25/18 14:32 Pulse Rate 62 05/25/18 14:32 Respiratory Rate 20 05/25/18 14:32 Blood Pressure 139/55 L 05/25/18 14:32 O2 Sat by Pulse Oximetry (%) 95 05/24/18 21:00 Constitutional: Yes: No Distress, Calm, Thin Neck: Yes: Supple Cardiovascular: Yes: Regular Rate and Rhythm Respiratory: Yes: Regular, Diminished Gastrointestinal: Yes: Normal Bowel Sounds, Soft Edema: No Labs: CBC, BMP 05/24/18 06:30 05/25/18 06:35 INR, PTT INR 1.06 (0.83-1.09) 05/24/18 06:30 - ....Imaging Chest X-ray: Report Reviewed (NAD) Ultrasound: Report Reviewed (Bilateral renal outlet obstruction) Problem List - Problems (1) Diabetes mellitus Code(s): E11.9 - TYPE 2 DIABETES MELLITUS WITHOUT COMPLICATIONS Qualifiers: Diabetes mellitus type: type 2 Diabetes mellitus alf insulin use: without rat exterminator use (2) HTN (hypertension) Code(s): I10 - ESSENTIAL (PRIMARY) HYPERTENSION Qualifiers: Hypertension type: essential hypertension Qualified Code(s): I10 - Essential (primary) hypertension (3) Urinary tract infection Code(s): N39.0 - URINARY TRACT INFECTION, SITE NOT SPECIFIED (4) Dementia Code(s): F03.90 - UNSPECIFIED DEMENTIA WITHOUT BEHAVIORAL DISTURBANCE Qualifiers: Dementia type: unspecified type Dementia behavioral disturbance: without behavioral disturbance Qualified Code(s): F03.90 - Unspecified dementia without behavioral disturbance (5) Hypercalcemia Code(s): E83.52 - HYPERCALCEMIA (6) Adnexal mass Code(s): N94.9 - UNSP COND ASSOC W FEMALE GENITAL ORGANS AND MENSTRUAL CYCLE (7) Hydronephrosis Code(s): N13.30 - UNSPECIFIED HYDRONEPHROSIS Assessment/Plan 05/17/2018 Echo: Normal LV and RV size and fxn LVEF 65% borderline LAE, mild MG 9.2 mmHg, mod pulm HTN RVSP 54 mmHg 1. Post fall no LOC 2. Organic brain syndrome/dementia 3. HTN 4. DM 5. UTI 6. BRITT with hyperkalemia and left hydro resolving 7. Hypercalcemia 8. Anemia 9. Left adnexal mass, bladder mass PLAN: 1. Continue Metoprolol ER 50 mg BID, Amlodipine 10 mg QD, and ASA 81 mg QD. Valsartan held for hyperkalemia 2. DM management 3. Fall precaution 4. DVT prophylaxis 5. Calcitonin, fluids and Lasix, zometa with monitor calcium, complete empiric abx course for UTI 6. Abd and pelvic and chest CT shows left adnexal masses and pleural based masses suggestive of mets->GOC to be addressed 7. Bone scan to eval for mets
--- NOTE | 2018-05-25 17:24 | PN ---
Progress Note, Physician History of Present Illness: doing well - Current Medication List Current Medications: Active Medications Acetaminophen (Tylenol -) 650 mg PO Q6H PRN PRN Reason: PAIN SCALE 1-5 Last Admin: 05/25/18 10:50 Dose: 650 mg Amlodipine Besylate (Norvasc -) 10 mg PO DAILY [facility] Last Admin: 05/25/18 10:49 Dose: 10 mg Aspirin (Asa -) 81 mg PO DAILY [facility] Last Admin: 05/25/18 10:48 Dose: Not Given Ceftriaxone Sodium 1 gm/ (Dextrose) 50 mls @ 100 mls/hr IVPB DAILY [facility]; Protocol Last Admin: 05/25/18 10:49 Dose: 100 mls/hr Metformin HCl (Glucophage -) 500 mg PO ACBK [facility] Last Admin: 05/25/18 06:43 Dose: Not Given Metoprolol Succinate (Toprol Xl -) 50 mg PO BID [facility] Last Admin: 05/25/18 10:49 Dose: 50 mg Sitagliptin Phosphate (Januvia -) 50 mg PO DAILY@0700 [facility] Last Admin: 05/25/18 06:43 Dose: Not Given - Objective Vital Signs: Vital Signs Temperature 98.6 F 05/25/18 14:32 Pulse Rate 62 05/25/18 14:32 Respiratory Rate 20 05/25/18 14:32 Blood Pressure 139/55 L 05/25/18 14:32 O2 Sat by Pulse Oximetry (%) 95 05/24/18 21:00 Constitutional: Yes: No Distress HENT: Yes: Atraumatic Neck: Yes: Supple Cardiovascular: Yes: Regular Rate and Rhythm Respiratory: Yes: CTA Bilaterally Extremities: Yes: WNL Edema: No Peripheral Pulses WNL: Yes Neurological: Yes: Alert, Oriented Labs: CBC, BMP 05/24/18 06:30 05/25/18 06:35 INR, PTT INR 1.06 (0.83-1.09) 05/24/18 06:30 Problem List - Problems (1) BRITT (acute kidney injury) Assessment/Plan: wnl monitor Code(s): N17.9 - ACUTE KIDNEY FAILURE, UNSPECIFIED (2) Hyperkalemia Assessment/Plan: RESOLVED Code(s): E87.5 - HYPERKALEMIA (3) Urinary tract infection Assessment/Plan: ON ABX PER ID CXS noted Code(s): N39.0 - URINARY TRACT INFECTION, SITE NOT SPECIFIED (4) Dementia Assessment/Plan: stable Code(s): F03.90 - UNSPECIFIED DEMENTIA WITHOUT BEHAVIORAL DISTURBANCE Qualifiers: Dementia type: unspecified type Dementia behavioral disturbance: without behavioral disturbance Qualified Code(s): F03.90 - Unspecified dementia without behavioral disturbance (5) Diabetes mellitus Assessment/Plan: ON PO MEDS BGMS Code(s): E11.9 - TYPE 2 DIABETES MELLITUS WITHOUT COMPLICATIONS Qualifiers: Diabetes mellitus type: type 2 Diabetes mellitus skilled nursing insulin use: without skilled nursing use (6) Fall Code(s): W19.XXXA - UNSPECIFIED FALL, INITIAL ENCOUNTER Qualifiers: Encounter type: subsequent encounter Qualified Code(s): W19.XXXD - Unspecified fall, subsequent encounter (7) HTN (hypertension) Code(s): I10 - ESSENTIAL (PRIMARY) HYPERTENSION Qualifiers: Hypertension type: essential hypertension Qualified Code(s): I10 - Essential (primary) hypertension Assessment/Plan called daughter Kylah she requested to call rusty...rusty did not shredder picker phone
[2018-05-26] MEDS: sitaGLIPtin PHOSPHATE 50 MG TABLET PO SCH (06:44)
[2018-05-26] MEDS: metFORMIN HCL 500 MG TABLET (FP) PO SCH (06:44)
[2018-05-26 07:16] LABS: BASO % 0.9 % (0-2.0); HEMATOCRIT 27.3 % (32.4-45.2); HEMOGLOBIN 8.7 GM/dL (10.7-15.3); MCH 25.6 pg (25.7-33.7); MCHC 31.7 g/dl (32.0-36.0); MEAN CELL VOLUME 80.8 fl (80-96); MEAN PLT VOLUME 8.4 fl (7.5-11.1); MONO % 11.7 % (3.8-10.2); NEUT % 67.4 % (42.8-82.8); PLATELET COUNT 284 K/MM3 (134-434); RBC 3.38 M/mm3 (3.60-5.2); RDW 15.2 % (11.6-15.6); WHITE BLOOD COUNT 10.4 K/mm3 (4.0-10.0)
[2018-05-26] MEDS ORDERED: DEXTROSE 5%-WATER - 50 ML IVPB ONE (10:49)
[2018-05-26] MEDS ORDERED: cefTRIAXone SODIUM 1 GM VIAL ONE (10:49)
[2018-05-26] MEDS: ACETAMINOPHEN 325 MG TABLET (FP) PO PRN ×2 (10:58→17:55)
[2018-05-26] MEDS: ASPIRIN 81 MG CHEWABLE TABLETS PO SCH (10:58)
[2018-05-26] MEDS: amLODIPine BESYLATE 10 MG TABLET (FP) PO SCH (10:58)
[2018-05-26] MEDS: CEFTRIAXONE 1 GM in DEXTROSE 5%-WATER - 50 ML IVPB SCH (11:08)
--- NOTE | 2018-05-26 14:06 | PN ---
Progress Note, Physician History of Present Illness: No complaints, chronic dementia and poor historian, resting. Requests urology consult with Dr. Johansen, previous urologist had recommended cystoscopy and left ureteral stent. - Current Medication List Current Medications: Active Medications Acetaminophen (Tylenol -) 650 mg PO Q6H PRN PRN Reason: PAIN SCALE 1-5 Last Admin: 05/26/18 10:58 Dose: 650 mg Amlodipine Besylate (Norvasc -) 10 mg PO DAILY [facility] Last Admin: 05/26/18 10:58 Dose: 10 mg Aspirin (Asa -) 81 mg PO DAILY [facility] Last Admin: 05/26/18 10:58 Dose: 81 mg Ceftriaxone Sodium 1 gm/ (Dextrose) 50 mls @ 100 mls/hr IVPB DAILY [facility]; Protocol Last Admin: 05/26/18 11:08 Dose: Not Given Metformin HCl (Glucophage -) 500 mg PO ACBK [facility] Last Admin: 05/26/18 06:44 Dose: 500 mg Metoprolol Succinate (Toprol Xl -) 50 mg PO BID [facility] Last Admin: 05/26/18 10:58 Dose: 50 mg Sitagliptin Phosphate (Januvia -) 50 mg PO DAILY@0700 [facility] Last Admin: 05/26/18 06:44 Dose: 50 mg - Objective Vital Signs: Vital Signs Temperature 98.4 F 05/26/18 06:00 Pulse Rate 70 05/26/18 10:53 Respiratory Rate 20 05/26/18 10:53 Blood Pressure 151/67 05/26/18 10:53 O2 Sat by Pulse Oximetry (%) 95 05/25/18 21:00 Constitutional: Yes: No Distress, Calm, Thin Neck: Yes: Supple Cardiovascular: Yes: Regular Rate and Rhythm Respiratory: Yes: Regular, Diminished Gastrointestinal: Yes: Normal Bowel Sounds, Soft Edema: No Labs: CBC, BMP 05/26/18 06:30 05/25/18 06:35 INR, PTT INR 1.06 (0.83-1.09) 05/24/18 06:30 Problem List - Problems (1) Diabetes mellitus Code(s): E11.9 - TYPE 2 DIABETES MELLITUS WITHOUT COMPLICATIONS Qualifiers: Diabetes mellitus type: type 2 Diabetes mellitus vial gauger insulin use: without vial gauger use (2) HTN (hypertension) Code(s): I10 - ESSENTIAL (PRIMARY) HYPERTENSION Qualifiers: Hypertension type: essential hypertension Qualified Code(s): I10 - Essential (primary) hypertension (3) Urinary tract infection Code(s): N39.0 - URINARY TRACT INFECTION, SITE NOT SPECIFIED (4) Dementia Code(s): F03.90 - UNSPECIFIED DEMENTIA WITHOUT BEHAVIORAL DISTURBANCE Qualifiers: Dementia type: unspecified type Dementia behavioral disturbance: without behavioral disturbance Qualified Code(s): F03.90 - Unspecified dementia without behavioral disturbance (5) Hypercalcemia Code(s): E83.52 - HYPERCALCEMIA (6) Adnexal mass Code(s): N94.9 - UNSP COND ASSOC W FEMALE GENITAL ORGANS AND MENSTRUAL CYCLE (7) Hydronephrosis Code(s): N13.30 - UNSPECIFIED HYDRONEPHROSIS Assessment/Plan 05/17/2018 Echo: Normal LV and RV size and fxn LVEF 65% borderline LAE, mild MG 9.2 mmHg, mod pulm HTN RVSP 54 mmHg 1. Post fall no LOC 2. Organic brain syndrome/dementia 3. HTN 4. DM 5. UTI 6. BRITT with hyperkalemia and left hydro resolving 7. Hypercalcemia 8. Anemia 9. Left adnexal mass, bladder mass PLAN: 1. Continue Metoprolol ER 50 mg BID, Amlodipine 10 mg QD, and ASA 81 mg QD. Valsartan held for hyperkalemia 2. DM management 3. Fall precaution 4. DVT prophylaxis 5. Calcitonin, fluids and Lasix, zometa with monitor calcium, complete empiric abx course for UTI 6. Abd and pelvic and chest CT shows left adnexal masses and pleural based masses suggestive of mets->GOC to be addressed 7. Urology input
--- NOTE | 2018-05-26 14:25 | PN ---
Progress Note, Physician History of Present Illness: Pt seen and examined at bedside. She is awake and appears comfortable. Her family are at bedside and request that Dr Emeterio Hill see her. - Current Medication List Current Medications: Active Medications Acetaminophen (Tylenol -) 650 mg PO Q6H PRN PRN Reason: PAIN SCALE 1-5 Last Admin: 05/26/18 10:58 Dose: 650 mg Amlodipine Besylate (Norvasc -) 10 mg PO DAILY [facility] Last Admin: 05/26/18 10:58 Dose: 10 mg Aspirin (Asa -) 81 mg PO DAILY [facility] Last Admin: 05/26/18 10:58 Dose: 81 mg Ceftriaxone Sodium 1 gm/ (Dextrose) 50 mls @ 100 mls/hr IVPB DAILY [facility]; Protocol Last Admin: 05/26/18 11:08 Dose: Not Given Metformin HCl (Glucophage -) 500 mg PO ACBK [facility] Last Admin: 05/26/18 06:44 Dose: 500 mg Metoprolol Succinate (Toprol Xl -) 50 mg PO BID [facility] Last Admin: 05/26/18 10:58 Dose: 50 mg Sitagliptin Phosphate (Januvia -) 50 mg PO DAILY@0700 [facility] Last Admin: 05/26/18 06:44 Dose: 50 mg - Objective Vital Signs: Vital Signs Temperature 98.4 F 05/26/18 06:00 Pulse Rate 70 05/26/18 10:53 Respiratory Rate 20 05/26/18 10:53 Blood Pressure 151/67 05/26/18 10:53 O2 Sat by Pulse Oximetry (%) 95 05/25/18 21:00 Constitutional: Yes: Calm Eyes: Yes: Conjunctiva Clear HENT: Yes: Atraumatic Neck: Yes: Supple Cardiovascular: Yes: S1, S2 Respiratory: Yes: CTA Bilaterally Gastrointestinal: Yes: Soft Genitourinary: Yes: WNL Musculoskeletal: Yes: WNL Edema: No Integumentary: Yes: WNL Neurological: Yes: Confusion Labs: CBC, BMP 05/26/18 06:30 05/25/18 06:35 INR, PTT INR 1.06 (0.83-1.09) 05/24/18 06:30 - ....Imaging Other: Report Reviewed Problem List - Problems (1) BRITT (acute kidney injury) Code(s): N17.9 - ACUTE KIDNEY FAILURE, UNSPECIFIED (2) Hypercalcemia Code(s): E83.52 - HYPERCALCEMIA Assessment/Plan Current Medications Generic Name Dose Route Start Last Admin Trade Name Freq PRN Reason Stop Dose Admin Acetaminophen 650 mg 05/18/18 21:50 05/26/18 10:58 Tylenol - PO 650 mg Q6H PRN Administration PAIN SCALE 1-5 Amlodipine Besylate 10 mg 05/17/18 10:00 05/26/18 10:58 Norvasc - PO 10 mg DAILY MARIAJOSE Administration Aspirin 81 mg 05/17/18 10:00 05/26/18 10:58 Asa - PO 81 mg DAILY [facility]IAJOSE Administration Ceftriaxone Sodium 1 gm/ 50 mls @ 100 mls/hr 05/24/18 10:00 05/26/18 11:08 Dextrose IVPB Not Given DAILY [facility] Protocol Metformin HCl 500 mg 05/17/18 07:00 05/26/18 06:44 Glucophage - PO 500 mg ACBK [facility]IAJOSE Administration Metoprolol Succinate 50 mg 05/16/18 22:00 05/26/18 10:58 Toprol Xl - PO 50 mg BID [facility]JOSE Administration Sitagliptin Phosphate 50 mg 05/17/18 07:00 05/26/18 06:44 Januvia - PO 50 mg DAILY@0700 [facility]JOSE Administration Impression 1. BRITT 2. hyperkalemia 3. uti 4. dementia 5. htn 6. DM 7. hypercalcemia 8. hydronephrosis left 9. 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 Plan - renal scan reviewed, urology follow up - family request Dr Emeterio Hill - check bmp - will hold off fluids for now - abx for UTI
--- NOTE | 2018-05-26 15:08 | PN ---
Progress Note, Physician History of Present Illness: doing well no new issues family yesterday did not want the procedure - Current Medication List Current Medications: Active Medications Acetaminophen (Tylenol -) 650 mg PO Q6H PRN PRN Reason: PAIN SCALE 1-5 Last Admin: 05/26/18 10:58 Dose: 650 mg Amlodipine Besylate (Norvasc -) 10 mg PO DAILY [facility] Last Admin: 05/26/18 10:58 Dose: 10 mg Aspirin (Asa -) 81 mg PO DAILY [facility] Last Admin: 05/26/18 10:58 Dose: 81 mg Ceftriaxone Sodium 1 gm/ (Dextrose) 50 mls @ 100 mls/hr IVPB DAILY [facility]; Protocol Last Admin: 05/26/18 11:08 Dose: Not Given Metformin HCl (Glucophage -) 500 mg PO ACBK [facility] Last Admin: 05/26/18 06:44 Dose: 500 mg Metoprolol Succinate (Toprol Xl -) 50 mg PO BID [facility] Last Admin: 05/26/18 10:58 Dose: 50 mg Sitagliptin Phosphate (Januvia -) 50 mg PO DAILY@0700 [facility] Last Admin: 05/26/18 06:44 Dose: 50 mg - Objective Vital Signs: Vital Signs Temperature 97.3 F L 05/26/18 14:24 Pulse Rate 71 05/26/18 14:24 Respiratory Rate 18 05/26/18 14:24 Blood Pressure 118/50 L 05/26/18 14:24 O2 Sat by Pulse Oximetry (%) 95 05/25/18 21:00 Constitutional: Yes: No Distress, Calm Cardiovascular: Yes: S1, S2 Respiratory: Yes: Regular, CTA Bilaterally Gastrointestinal: Yes: Normal Bowel Sounds, Soft Musculoskeletal: Yes: WNL Extremities: Yes: WNL Neurological: Yes: Alert, Oriented Psychiatric: Yes: Alert, Oriented Labs: CBC, BMP 05/26/18 06:30 05/25/18 06:35 INR, PTT INR 1.06 (0.83-1.09) 05/24/18 06:30 Assessment/Plan Problem List - Problems (1) BRITT (acute kidney injury) Code(s): N17.9 - ACUTE KIDNEY FAILURE, UNSPECIFIED (2) Dementia Code(s): F03.90 - UNSPECIFIED DEMENTIA WITHOUT BEHAVIORAL DISTURBANCE Qualifiers: Dementia type: unspecified type Dementia behavioral disturbance: without behavioral disturbance Qualified Code(s): F03.90 - Unspecified dementia without behavioral disturbance (3) Diabetes mellitus Code(s): E11.9 - TYPE 2 DIABETES MELLITUS WITHOUT COMPLICATIONS Qualifiers: Diabetes mellitus type: type 2 Diabetes mellitus termite inspector insulin use: without fdc use (4) Fall Code(s): W19.XXXA - UNSPECIFIED FALL, INITIAL ENCOUNTER Qualifiers: Encounter type: subsequent encounter Qualified Code(s): W19.XXXD - Unspecified fall, subsequent encounter (5) HTN (hypertension) Code(s): I10 - ESSENTIAL (PRIMARY) HYPERTENSION Qualifiers: Hypertension type: essential hypertension Qualified Code(s): I10 - Essential (primary) hypertension (6) Hypercalcemia Code(s): E83.52 - HYPERCALCEMIA (7) Urinary tract infection Code(s): N39.0 - URINARY TRACT INFECTION, SITE NOT SPECIFIED (8) Acute urinary retention Code(s): R33.8 - OTHER RETENTION OF URINE (9) Hydronephrosis Code(s): N13.30 - UNSPECIFIED HYDRONEPHROSIS Assessment/Plan Fever UTI Lt hydronephrosis s/p new dementia DM hypercalcemia Renal pelvic mass/supra renal mass will stop all abx rest continue current mgmt
--- NOTE | 2018-05-26 16:53 | PN ---
Progress Note, Physician History of Present Illness: doing well - Current Medication List Current Medications: Active Medications Acetaminophen (Tylenol -) 650 mg PO Q6H PRN PRN Reason: PAIN SCALE 1-5 Last Admin: 05/26/18 10:58 Dose: 650 mg Amlodipine Besylate (Norvasc -) 10 mg PO DAILY [facility] Last Admin: 05/26/18 10:58 Dose: 10 mg Aspirin (Asa -) 81 mg PO DAILY [facility] Last Admin: 05/26/18 10:58 Dose: 81 mg Metformin HCl (Glucophage -) 500 mg PO ACBK [facility] Last Admin: 05/26/18 06:44 Dose: 500 mg Metoprolol Succinate (Toprol Xl -) 50 mg PO BID [facility] Last Admin: 05/26/18 10:58 Dose: 50 mg Sitagliptin Phosphate (Januvia -) 50 mg PO DAILY@0700 [facility] Last Admin: 05/26/18 06:44 Dose: 50 mg - Objective Vital Signs: Vital Signs Temperature 97.3 F L 05/26/18 14:24 Pulse Rate 71 05/26/18 14:24 Respiratory Rate 18 05/26/18 14:24 Blood Pressure 118/50 L 05/26/18 14:24 O2 Sat by Pulse Oximetry (%) 95 05/25/18 21:00 Constitutional: Yes: No Distress HENT: Yes: Atraumatic Neck: Yes: Supple Cardiovascular: Yes: Regular Rate and Rhythm Respiratory: Yes: CTA Bilaterally Extremities: Yes: WNL Edema: No Peripheral Pulses WNL: Yes Neurological: Yes: Alert Labs: CBC, BMP 05/26/18 06:30 05/25/18 06:35 INR, PTT INR 1.06 (0.83-1.09) 05/24/18 06:30 Problem List - Problems (1) BRITT (acute kidney injury) Assessment/Plan: wnl today on ivf...dc? Code(s): N17.9 - ACUTE KIDNEY FAILURE, UNSPECIFIED (2) Hyperkalemia Assessment/Plan: RESOLVED Code(s): E87.5 - HYPERKALEMIA (3) Urinary tract infection Assessment/Plan: ON ABX PER ID CXS noted Code(s): N39.0 - URINARY TRACT INFECTION, SITE NOT SPECIFIED (4) Dementia Assessment/Plan: stable Code(s): F03.90 - UNSPECIFIED DEMENTIA WITHOUT BEHAVIORAL DISTURBANCE Qualifiers: Dementia type: unspecified type Dementia behavioral disturbance: without behavioral disturbance Qualified Code(s): F03.90 - Unspecified dementia without behavioral disturbance (5) Diabetes mellitus Code(s): E11.9 - TYPE 2 DIABETES MELLITUS WITHOUT COMPLICATIONS Qualifiers: Diabetes mellitus type: type 2 Diabetes mellitus chcf insulin use: without chcf use (6) Fall Code(s): W19.XXXA - UNSPECIFIED FALL, INITIAL ENCOUNTER Qualifiers: Encounter type: subsequent encounter Qualified Code(s): W19.XXXD - Unspecified fall, subsequent encounter (7) HTN (hypertension) Code(s): I10 - ESSENTIAL (PRIMARY) HYPERTENSION Qualifiers: Hypertension type: essential hypertension Qualified Code(s): I10 - Essential (primary) hypertension Assessment/Plan awaiting opinion from other urologist
--- NOTE | 2018-05-26 20:35 | PN ---
Progress Note (short form) - Note Progress Note: Patient seen and examined oriented in person/place AFVSS Cor: RSR, No murmurs, No gallops Lungs: Clear to P&A Abd: Soft, Normal bowel sounds, No organomegaly Ext:No significant edema Labs/Meds reviewed A/P 88 year old presents with hyperkalemia and hypercalcemia with corrected calcium greater than 14. s/p bisphosphonates Has abnormal CT with right supra renal mass, left renal pelvic mass and thickened wall bladder. mental status/hypercalcemia much improved discussed with patient and daughter. urology consult -- 2nd opinion discussed with ir will need prophylactic antibiotics prior to urologic procedures --strp. viridans uti
[2018-05-27] MEDS: metFORMIN HCL 500 MG TABLET (FP) PO SCH (06:03)
[2018-05-27] MEDS: sitaGLIPtin PHOSPHATE 50 MG TABLET PO SCH (06:04)
[2018-05-27 07:57] LABS: ALBUMIN 2.3 g/dl (3.4-5.0); ALK PHOS 61 U/L (45-117); BILIRUBIN,TOTAL 0.3 mg/dL (0.2-1); BLOOD UREA NITROGEN 15 mg/dL (7-18); CALCIUM 9.2 mg/dL (8.5-10.1); CHLORIDE 108 mmol/L (98-107); CO2 25 mmol/L (21-32); CREATININE 0.8 mg/dL (0.55-1.3); GLUCOSE,RANDOM 132 mg/dL (74-106); POTASSIUM 4.4 mmol/L (3.5-5.1); SGOT/AST 13 U/L (15-37); SGPT/ALT 10 U/L (13-61); SODIUM 140 mmol/L (136-145); TOT PROT 6.3 g/dl (6.4-8.2)
[2018-05-27 07:58] LABS: ANION GAP 6 MMOL/L (8-16)
--- NOTE | 2018-05-27 08:38 | CON.GU ---
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 Studies suggest a possible neoplastic process in the bladder. The patient is comfortable and denies nausea, vomiting , fever, chills, or gross hematuria. The patient is off of antibiotics and her white blood count is rising. 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 Cardio/Vascular: Yes: HTN Endocrine: Yes: Diabetes Mellitus - Alcohol/Substance Use Hx Alcohol Use: No - Smoking History Smoking history: Former smoker Have you smoked in the past 12 months: No Aproximately how many cigarettes per day: 0 If you are a former smoker, when did you quit?: 30 YRS AGO Home Medications - Allergies Allergies/Adverse Reactions: Allergies Allergy/AdvReac Type Severity Reaction Status Date / Time No Known Allergies Allergy Verified 05/16/18 16:29 - Home Medications Home Medications: Ambulatory Orders Sitagliptin Phos/Metformin HCl [Janumet 50-500 mg Tablet] 1 each PO DAILY Aspirin [ASA -] 81 mg PO DAILY 1 Days tab 12/23/11 Metoprolol Succinate [Toprol XL -] 50 mg PO BID #0 tablet 12/23/11 Amlodipine Bes/Olmesartan Med [Lisa 10-40 mg Tablet] 1 each PO DAILY 10/08/13 Physical Exam- Vital Signs: Vital Signs Temperature 98.8 F 05/27/18 06:00 Pulse Rate 70 05/27/18 06:00 Respiratory Rate 22 H 05/27/18 06:00 Blood Pressure 135/52 L 05/27/18 06:00 O2 Sat by Pulse Oximetry (%) 96 05/26/18 21:00 Constitutional: Yes: No Distress, Calm Eyes: Yes: WNL, Conjunctiva Clear, EOM Intact HENT: Yes: WNL, Atraumatic, Normocephalic Neck: Yes: WNL, Supple, Trachea Midline Cardiovascular: Yes: WNL, Regular Rate and Rhythm Respiratory: Yes: WNL, Regular Gastrointestinal: Yes: WNL, Normal Bowel Sounds, Soft Renal/: Yes: WNL Kidneys: Yes: WNL Pelvis: Yes: WNL Labs: CBC, BMP 05/26/18 06:30 05/27/18 06:30 Imaging - Results Cat Scan: Report Reviewed Ultrasound: Report Reviewed Assessment/Plan impression s/p uti with left hydronephrosis neoplasm of bladder plan will discuss with Dr. Thompson and patient's family Discussed with Dr. Goff would suggest cystoscopy and retrograde pyelogram with possible stent Patient will need to halt ASA before any procedure involving resection of bladder tumor if this is found 25 minutes devote to case
[2018-05-27] MEDS: ACETAMINOPHEN 325 MG TABLET (FP) PO PRN ×2 (09:27→18:57)
[2018-05-27] MEDS: ASPIRIN 81 MG CHEWABLE TABLETS PO SCH (09:27)
[2018-05-27] MEDS: amLODIPine BESYLATE 10 MG TABLET (FP) PO SCH (09:27)
--- NOTE | 2018-05-27 11:39 | PN ---
Progress Note, Physician History of Present Illness: No complaints, chronic dementia and poor historian, resting. Requests urology consult with Dr. Johansen, previous urologist had recommended cystoscopy and left ureteral stent. - Current Medication List Current Medications: Active Medications Acetaminophen (Tylenol -) 650 mg PO Q6H PRN PRN Reason: PAIN SCALE 1-5 Last Admin: 05/27/18 09:27 Dose: 650 mg Amlodipine Besylate (Norvasc -) 10 mg PO DAILY [facility] Last Admin: 05/27/18 09:27 Dose: 10 mg Aspirin (Asa -) 81 mg PO DAILY [facility] Last Admin: 05/27/18 09:27 Dose: 81 mg Metformin HCl (Glucophage -) 500 mg PO ACBK [facility] Last Admin: 05/27/18 06:03 Dose: 500 mg Metoprolol Succinate (Toprol Xl -) 50 mg PO BID [facility] Last Admin: 05/27/18 09:27 Dose: 50 mg Sitagliptin Phosphate (Januvia -) 50 mg PO DAILY@0700 [facility] Last Admin: 05/27/18 06:04 Dose: 50 mg - Objective Vital Signs: Vital Signs Temperature 98.8 F 05/27/18 06:00 Pulse Rate 70 05/27/18 06:00 Respiratory Rate 22 H 05/27/18 06:00 Blood Pressure 135/52 L 05/27/18 06:00 O2 Sat by Pulse Oximetry (%) 96 05/26/18 21:00 Constitutional: Yes: No Distress, Calm Neck: Yes: Supple Cardiovascular: Yes: Regular Rate and Rhythm Respiratory: Yes: Regular, Diminished, On Nasal O2 Gastrointestinal: Yes: Normal Bowel Sounds, Soft Edema: No Labs: CBC, BMP 05/26/18 06:30 05/27/18 06:30 INR, PTT INR 1.06 (0.83-1.09) 05/24/18 06:30 Problem List - Problems (1) Diabetes mellitus Code(s): E11.9 - TYPE 2 DIABETES MELLITUS WITHOUT COMPLICATIONS Qualifiers: Diabetes mellitus type: type 2 Diabetes mellitus lobsterman insulin use: without fdc use (2) HTN (hypertension) Code(s): I10 - ESSENTIAL (PRIMARY) HYPERTENSION Qualifiers: Hypertension type: essential hypertension Qualified Code(s): I10 - Essential (primary) hypertension (3) Urinary tract infection Code(s): N39.0 - URINARY TRACT INFECTION, SITE NOT SPECIFIED (4) Dementia Code(s): F03.90 - UNSPECIFIED DEMENTIA WITHOUT BEHAVIORAL DISTURBANCE Qualifiers: Dementia type: unspecified type Dementia behavioral disturbance: without behavioral disturbance Qualified Code(s): F03.90 - Unspecified dementia without behavioral disturbance (5) Hypercalcemia Code(s): E83.52 - HYPERCALCEMIA (6) Adnexal mass Code(s): N94.9 - UNSP COND ASSOC W FEMALE GENITAL ORGANS AND MENSTRUAL CYCLE (7) Hydronephrosis Code(s): N13.30 - UNSPECIFIED HYDRONEPHROSIS Assessment/Plan 05/17/2018 Echo: Normal LV and RV size and fxn LVEF 65% borderline LAE, mild MG 9.2 mmHg, mod pulm HTN RVSP 54 mmHg 1. Post fall no LOC 2. Organic brain syndrome/dementia 3. HTN 4. DM 5. UTI 6. BRITT with hyperkalemia and left hydro resolving 7. Hypercalcemia 8. Anemia 9. Left adnexal mass, bladder mass PLAN: 1. Continue Metoprolol ER 50 mg BID, Amlodipine 10 mg QD, and hold ASA 81 mg QD prior to procedure. Valsartan held for hyperkalemia 2. DM management 3. Fall precaution 4. DVT prophylaxis 5. Calcitonin, fluids and Lasix, zometa with monitor calcium, complete empiric abx course for UTI 6. Abd and pelvic and chest CT shows left adnexal masses and pleural based masses suggestive of mets->GOC to be addressed 7. Urology input recommends cystoscopy and retrograde pyelogram with possible stent
--- NOTE | 2018-05-27 12:49 | PN ---
Progress Note, Physician History of Present Illness: doing well - Current Medication List Current Medications: Active Medications Acetaminophen (Tylenol -) 650 mg PO Q6H PRN PRN Reason: PAIN SCALE 1-5 Last Admin: 05/27/18 09:27 Dose: 650 mg Amlodipine Besylate (Norvasc -) 10 mg PO DAILY [facility] Last Admin: 05/27/18 09:27 Dose: 10 mg Metformin HCl (Glucophage -) 500 mg PO ACBK [facility] Last Admin: 05/27/18 06:03 Dose: 500 mg Metoprolol Succinate (Toprol Xl -) 50 mg PO BID [facility] Last Admin: 05/27/18 09:27 Dose: 50 mg Sitagliptin Phosphate (Januvia -) 50 mg PO DAILY@0700 [facility] Last Admin: 05/27/18 06:04 Dose: 50 mg - Objective Vital Signs: Vital Signs Temperature 98.8 F 05/27/18 06:00 Pulse Rate 70 05/27/18 06:00 Respiratory Rate 22 H 05/27/18 06:00 Blood Pressure 135/52 L 05/27/18 06:00 O2 Sat by Pulse Oximetry (%) 96 05/26/18 21:00 Constitutional: Yes: No Distress HENT: Yes: Atraumatic Neck: Yes: Supple Cardiovascular: Yes: Regular Rate and Rhythm Respiratory: Yes: CTA Bilaterally Gastrointestinal: Yes: Normal Bowel Sounds Extremities: Yes: WNL Edema: No Neurological: Yes: Alert, Oriented Labs: CBC, BMP 05/26/18 06:30 05/27/18 06:30 INR, PTT INR 1.06 (0.83-1.09) 05/24/18 06:30 Problem List - Problems (1) BRITT (acute kidney injury) Assessment/Plan: wnl Code(s): N17.9 - ACUTE KIDNEY FAILURE, UNSPECIFIED (2) Hyperkalemia Assessment/Plan: RESOLVED Code(s): E87.5 - HYPERKALEMIA (3) Urinary tract infection Assessment/Plan: ON ABX PER ID CXS noted Code(s): N39.0 - URINARY TRACT INFECTION, SITE NOT SPECIFIED (4) Dementia Assessment/Plan: stable Code(s): F03.90 - UNSPECIFIED DEMENTIA WITHOUT BEHAVIORAL DISTURBANCE Qualifiers: Dementia type: unspecified type Dementia behavioral disturbance: without behavioral disturbance Qualified Code(s): F03.90 - Unspecified dementia without behavioral disturbance (5) Diabetes mellitus Code(s): E11.9 - TYPE 2 DIABETES MELLITUS WITHOUT COMPLICATIONS Qualifiers: Diabetes mellitus type: type 2 Diabetes mellitus 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
--- NOTE | 2018-05-27 14:38 | PN ---
Progress Note, Physician History of Present Illness: stable no new issues - Current Medication List Current Medications: Active Medications Acetaminophen (Tylenol -) 650 mg PO Q6H PRN PRN Reason: PAIN SCALE 1-5 Last Admin: 05/27/18 09:27 Dose: 650 mg Amlodipine Besylate (Norvasc -) 10 mg PO DAILY [facility] Last Admin: 05/27/18 09:27 Dose: 10 mg Metformin HCl (Glucophage -) 500 mg PO ACBK [facility] Last Admin: 05/27/18 06:03 Dose: 500 mg Metoprolol Succinate (Toprol Xl -) 50 mg PO BID [facility] Last Admin: 05/27/18 09:27 Dose: 50 mg Sitagliptin Phosphate (Januvia -) 50 mg PO DAILY@0700 [facility] Last Admin: 05/27/18 06:04 Dose: 50 mg - Objective Vital Signs: Vital Signs Temperature 98.8 F 05/27/18 06:00 Pulse Rate 70 05/27/18 06:00 Respiratory Rate 22 H 05/27/18 06:00 Blood Pressure 135/52 L 05/27/18 06:00 O2 Sat by Pulse Oximetry (%) 96 05/26/18 21:00 Constitutional: Yes: No Distress, Calm Cardiovascular: Yes: Regular Rate and Rhythm Respiratory: Yes: Regular, CTA Bilaterally Gastrointestinal: Yes: Normal Bowel Sounds, Soft Musculoskeletal: Yes: WNL Extremities: Yes: WNL Neurological: Yes: Alert, Oriented Psychiatric: Yes: Alert, Oriented Labs: CBC, BMP 05/26/18 06:30 05/27/18 06:30 INR, PTT INR 1.06 (0.83-1.09) 05/24/18 06:30 Assessment/Plan Problem List - Problems (1) BRITT (acute kidney injury) Code(s): N17.9 - ACUTE KIDNEY FAILURE, UNSPECIFIED (2) Dementia Code(s): F03.90 - UNSPECIFIED DEMENTIA WITHOUT BEHAVIORAL DISTURBANCE Qualifiers: Dementia type: unspecified type Dementia behavioral disturbance: without behavioral disturbance Qualified Code(s): F03.90 - Unspecified dementia without behavioral disturbance (3) Diabetes mellitus Code(s): E11.9 - TYPE 2 DIABETES MELLITUS WITHOUT COMPLICATIONS Qualifiers: Diabetes mellitus type: type 2 Diabetes mellitus data security consultant insulin use: without half-way use (4) Fall Code(s): W19.XXXA - UNSPECIFIED FALL, INITIAL ENCOUNTER Qualifiers: Encounter type: subsequent encounter Qualified Code(s): W19.XXXD - Unspecified fall, subsequent encounter (5) HTN (hypertension) Code(s): I10 - ESSENTIAL (PRIMARY) HYPERTENSION Qualifiers: Hypertension type: essential hypertension Qualified Code(s): I10 - Essential (primary) hypertension (6) Hypercalcemia Code(s): E83.52 - HYPERCALCEMIA (7) Urinary tract infection Code(s): N39.0 - URINARY TRACT INFECTION, SITE NOT SPECIFIED (8) Acute urinary retention Code(s): R33.8 - OTHER RETENTION OF URINE (9) Hydronephrosis Code(s): N13.30 - UNSPECIFIED HYDRONEPHROSIS Assessment/Plan Fever UTI Lt hydronephrosis s/p new dementia DM hypercalcemia Renal pelvic mass/supra renal mass stable off of abx continue current mgmt await for final plan plan is for cystoscopy nwhen not known
[2018-05-27] MEDS ORDERED: PT OWN MED DRAWER 7, Y5N ONE (18:00)
--- NOTE | 2018-05-27 18:56 | PN ---
Progress Note (short form) - Note Progress Note: covering dr hickey Problems 1. BRITT 2. hyperkalemia 3. uti 4. dementia 5. htn 6. DM 7. hypercalcemia 8. hydronephrosis left 9. 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 Current Medications Acetaminophen (Tylenol -) 650 mg PO Q6H PRN PRN Reason: PAIN SCALE 1-5 Last Admin: 05/27/18 09:27 Dose: 650 mg Amlodipine Besylate (Norvasc -) 10 mg PO DAILY [facility] Last Admin: 05/27/18 09:27 Dose: 10 mg Metformin HCl (Glucophage -) 500 mg PO ACBK [facility] Last Admin: 05/27/18 06:03 Dose: 500 mg Metoprolol Succinate (Toprol Xl -) 50 mg PO BID [facility] Last Admin: 05/27/18 09:27 Dose: 50 mg Sitagliptin Phosphate (Januvia -) 50 mg PO DAILY@0700 [facility] Last Admin: 05/27/18 06:04 Dose: 50 mg Last Vital Signs Temp Pulse Resp BP Pulse Ox 98.4 F 69 0 L 129/51 L 96 05/27/18 18:27 05/27/18 18:27 05/27/18 18:27 05/27/18 18:27 05/26/18 21:00 CBC, BMP 05/26/18 06:30 05/27/18 06:30 IMP BRITT resolved hypercalcemia- resolved obstructive uropathy Plan- continue to monitor labs
[2018-05-28] MEDS: sitaGLIPtin PHOSPHATE 50 MG TABLET PO SCH (06:59)
[2018-05-28] MEDS: metFORMIN HCL 500 MG TABLET (FP) PO SCH (06:59)
[2018-05-28 08:01] LABS: ALBUMIN 2.2 g/dl (3.4-5.0); ALK PHOS 58 U/L (45-117); ANION GAP 6 MMOL/L (8-16); BILIRUBIN,TOTAL 0.3 mg/dL (0.2-1); BLOOD UREA NITROGEN 14 mg/dL (7-18); CALCIUM 9.3 mg/dL (8.5-10.1); CHLORIDE 107 mmol/L (98-107); CO2 24 mmol/L (21-32); CREATININE 0.8 mg/dL (0.55-1.3); GLUCOSE,RANDOM 136 mg/dL (74-106); POTASSIUM 4.5 mmol/L (3.5-5.1); SGOT/AST 13 U/L (15-37); SGPT/ALT 10 U/L (13-61); SODIUM 137 mmol/L (136-145); TOT PROT 6.1 g/dl (6.4-8.2)
[2018-05-28] MEDS: amLODIPine BESYLATE 10 MG TABLET (FP) PO SCH (10:32)
--- NOTE | 2018-05-28 11:28 | PN ---
Progress Note, Physician Chief Complaint: Renal F/u Pt in no distress and without any complaints - Current Medication List Current Medications: Active Medications Acetaminophen (Tylenol -) 650 mg PO Q6H PRN PRN Reason: PAIN SCALE 1-5 Last Admin: 05/27/18 18:57 Dose: 650 mg Amlodipine Besylate (Norvasc -) 10 mg PO DAILY [facility] Last Admin: 05/28/18 10:32 Dose: 10 mg Metformin HCl (Glucophage -) 500 mg PO ACBK [facility] Last Admin: 05/28/18 06:59 Dose: 500 mg Metoprolol Succinate (Toprol Xl -) 50 mg PO BID [facility] Last Admin: 05/28/18 10:32 Dose: 50 mg Sitagliptin Phosphate (Januvia -) 50 mg PO DAILY@0700 [facility] Last Admin: 05/28/18 06:59 Dose: 50 mg - Objective Vital Signs: Vital Signs Temperature 99.4 F 05/28/18 06:00 Pulse Rate 75 05/28/18 06:00 Respiratory Rate 20 05/28/18 06:00 Blood Pressure 121/49 L 05/28/18 06:00 O2 Sat by Pulse Oximetry (%) 93 L 05/27/18 21:00 Constitutional: Yes: No Distress Cardiovascular: Yes: S1, S2 Respiratory: Yes: CTA Bilaterally Gastrointestinal: Yes: Normal Bowel Sounds, Soft. No: Tenderness, Rebound Edema: No Labs: CBC, BMP 05/26/18 06:30 05/28/18 06:30 INR, PTT INR 1.06 (0.83-1.09) 05/24/18 06:30 Assessment/Plan Impression 1. S/P BRITT and hyperkalemia 2. Obstructive uropathy with bladder mass [place] and UTI 3. Dementia 4. Htn 5. DM 6. hypercalcemia Plan - Aspirin held - For cystoscopy Dr Miller
[2018-05-28] MEDS: ACETAMINOPHEN 325 MG TABLET (FP) PO PRN ×2 (12:16→18:27)
--- NOTE | 2018-05-28 12:35 | PN ---
Progress Note, Physician History of Present Illness: doing well - Current Medication List Current Medications: Active Medications Acetaminophen (Tylenol -) 650 mg PO Q6H PRN PRN Reason: PAIN SCALE 1-5 Last Admin: 05/28/18 12:16 Dose: 650 mg Amlodipine Besylate (Norvasc -) 10 mg PO DAILY [facility] Last Admin: 05/28/18 10:32 Dose: 10 mg Metformin HCl (Glucophage -) 500 mg PO ACBK [facility] Last Admin: 05/28/18 06:59 Dose: 500 mg Metoprolol Succinate (Toprol Xl -) 50 mg PO BID [facility] Last Admin: 05/28/18 10:32 Dose: 50 mg Sitagliptin Phosphate (Januvia -) 50 mg PO DAILY@0700 [facility] Last Admin: 05/28/18 06:59 Dose: 50 mg - Objective Vital Signs: Vital Signs Temperature 99.4 F 05/28/18 06:00 Pulse Rate 68 05/28/18 10:00 Respiratory Rate 18 05/28/18 10:00 Blood Pressure 132/60 05/28/18 10:00 O2 Sat by Pulse Oximetry (%) 94 L 05/28/18 09:00 Constitutional: Yes: No Distress HENT: Yes: Atraumatic Neck: Yes: Supple Cardiovascular: Yes: Regular Rate and Rhythm Respiratory: Yes: CTA Bilaterally Gastrointestinal: Yes: Normal Bowel Sounds Extremities: Yes: WNL Edema: No Peripheral Pulses WNL: Yes Neurological: Yes: Alert, Oriented Labs: CBC, BMP 05/26/18 06:30 05/28/18 06:30 INR, PTT INR 1.06 (0.83-1.09) 05/24/18 06:30 Problem List - Problems (1) BRITT (acute kidney injury) Assessment/Plan: wnl Code(s): N17.9 - ACUTE KIDNEY FAILURE, UNSPECIFIED (2) Hyperkalemia Assessment/Plan: RESOLVED Code(s): E87.5 - HYPERKALEMIA (3) Urinary tract infection Assessment/Plan: ON ABX PER ID CXS noted Code(s): N39.0 - URINARY TRACT INFECTION, SITE NOT SPECIFIED (4) Dementia Assessment/Plan: stable Code(s): F03.90 - UNSPECIFIED DEMENTIA WITHOUT BEHAVIORAL DISTURBANCE Qualifiers: Dementia type: unspecified type Dementia behavioral disturbance: without behavioral disturbance Qualified Code(s): F03.90 - Unspecified dementia without behavioral disturbance (5) Diabetes mellitus Code(s): E11.9 - TYPE 2 DIABETES MELLITUS WITHOUT COMPLICATIONS Qualifiers: Diabetes mellitus type: type 2 Diabetes mellitus skilled nursing insulin use: without skilled nursing use (6) Fall Code(s): W19.XXXA - UNSPECIFIED FALL, INITIAL ENCOUNTER Qualifiers: Encounter type: subsequent encounter Qualified Code(s): W19.XXXD - Unspecified fall, subsequent encounter (7) HTN (hypertension) Assessment/Plan: ON MEDS STABLE Code(s): I10 - ESSENTIAL (PRIMARY) HYPERTENSION Qualifiers: Hypertension type: essential hypertension Qualified Code(s): I10 - Essential (primary) hypertension Assessment/Plan awaiting family decision
--- NOTE | 2018-05-28 13:14 | DS ---
Physical Examination Vital Signs: Vital Signs Temperature 99.4 F 05/28/18 06:00 Pulse Rate 68 05/28/18 10:00 Respiratory Rate 18 05/28/18 10:00 Blood Pressure 132/60 05/28/18 10:00 O2 Sat by Pulse Oximetry (%) 94 L 05/28/18 09:00 Labs: CBC, BMP 05/26/18 06:30 05/28/18 06:30 Discharge Summary Reason For Visit: UTI/HYDRONEPHROSIS/HYPERKALEMIA Current Active Problems BRITT (acute kidney injury) (Acute) Adnexal mass (Acute) Dementia (Acute) Diabetes mellitus (Acute) Fall (Acute) HTN (hypertension) (Acute) Hypercalcemia (Acute) Hyperkalemia (Acute) Urinary tract infection (Acute) Condition: Guarded - Instructions Referrals: Chong Hernandez MD [Staff Physician] - Jose Thompson MD [Staff Physician] - - Home Medications Comprehensive Discharge Medication List: Ambulatory Orders Sitagliptin Phos/Metformin HCl [Janumet 50-500 mg Tablet] 1 each PO DAILY Aspirin [ASA -] 81 mg PO DAILY 1 Days tab 12/23/11 Metoprolol Succinate [Toprol XL -] 50 mg PO BID #0 tablet 12/23/11 Amlodipine Bes/Olmesartan Med [Lisa 10-40 mg Tablet] 1 each PO DAILY 10/08/13
--- NOTE | 2018-05-28 13:38 | PN ---
Progress Note, Physician History of Present Illness: stable no new issues - Current Medication List Current Medications: Active Medications Acetaminophen (Tylenol -) 650 mg PO Q6H PRN PRN Reason: PAIN SCALE 1-5 Last Admin: 05/28/18 12:16 Dose: 650 mg Amlodipine Besylate (Norvasc -) 10 mg PO DAILY [facility] Last Admin: 05/28/18 10:32 Dose: 10 mg Metformin HCl (Glucophage -) 500 mg PO ACBK [facility] Last Admin: 05/28/18 06:59 Dose: 500 mg Metoprolol Succinate (Toprol Xl -) 50 mg PO BID [facility] Last Admin: 05/28/18 10:32 Dose: 50 mg Sitagliptin Phosphate (Januvia -) 50 mg PO DAILY@0700 [facility] Last Admin: 05/28/18 06:59 Dose: 50 mg - Objective Vital Signs: Vital Signs Temperature 99.4 F 05/28/18 06:00 Pulse Rate 68 05/28/18 10:00 Respiratory Rate 18 05/28/18 10:00 Blood Pressure 132/60 05/28/18 10:00 O2 Sat by Pulse Oximetry (%) 94 L 05/28/18 09:00 Constitutional: Yes: No Distress, Calm Cardiovascular: Yes: Regular Rate and Rhythm Respiratory: Yes: Regular, CTA Bilaterally Gastrointestinal: Yes: Normal Bowel Sounds, Soft Musculoskeletal: Yes: WNL Extremities: Yes: WNL Neurological: Yes: Alert, Oriented Psychiatric: Yes: Alert, Oriented Labs: CBC, BMP 05/26/18 06:30 05/28/18 06:30 INR, PTT INR 1.06 (0.83-1.09) 05/24/18 06:30 Assessment/Plan Problem List - Problems (1) BRITT (acute kidney injury) Code(s): N17.9 - ACUTE KIDNEY FAILURE, UNSPECIFIED (2) Dementia Code(s): F03.90 - UNSPECIFIED DEMENTIA WITHOUT BEHAVIORAL DISTURBANCE Qualifiers: Dementia type: unspecified type Dementia behavioral disturbance: without behavioral disturbance Qualified Code(s): F03.90 - Unspecified dementia without behavioral disturbance (3) Diabetes mellitus Code(s): E11.9 - TYPE 2 DIABETES MELLITUS WITHOUT COMPLICATIONS Qualifiers: Diabetes mellitus type: type 2 Diabetes mellitus retirement insulin use: without retirement use (4) Fall Code(s): W19.XXXA - UNSPECIFIED FALL, INITIAL ENCOUNTER Qualifiers: Encounter type: subsequent encounter Qualified Code(s): W19.XXXD - Unspecified fall, subsequent encounter (5) HTN (hypertension) Code(s): I10 - ESSENTIAL (PRIMARY) HYPERTENSION Qualifiers: Hypertension type: essential hypertension Qualified Code(s): I10 - Essential (primary) hypertension (6) Hypercalcemia Code(s): E83.52 - HYPERCALCEMIA (7) Urinary tract infection Code(s): N39.0 - URINARY TRACT INFECTION, SITE NOT SPECIFIED (8) Acute urinary retention Code(s): R33.8 - OTHER RETENTION OF URINE (9) Hydronephrosis Code(s): N13.30 - UNSPECIFIED HYDRONEPHROSIS Assessment/Plan Fever UTI Lt hydronephrosis s/p new dementia DM hypercalcemia Renal pelvic mass/supra renal mass stable off of abx continue current mgmt await for final plan plan is for cystoscopy when not known
[2018-05-29] MEDS: sitaGLIPtin PHOSPHATE 50 MG TABLET PO SCH (06:28)
[2018-05-29] MEDS: metFORMIN HCL 500 MG TABLET (FP) PO SCH (06:28)
[2018-05-29] MEDS ORDERED: INSULIN (LEVEMIR) 100 UNITS/ML UNITS SQ ONE (07:12)
[2018-05-29] MEDS ORDERED: INSULIN (NOVOLOG) ASPART 100 UNITS/ML 10ML VIAL ONE (07:12)
--- NOTE | 2018-05-29 09:20 | PN ---
Progress Note, Physician Chief Complaint: Renal F/u Pt remains in no distress and without any complaints - Current Medication List Current Medications: Active Medications Acetaminophen (Tylenol -) 650 mg PO Q6H PRN PRN Reason: PAIN SCALE 1-5 Last Admin: 05/28/18 18:27 Dose: 650 mg Amlodipine Besylate (Norvasc -) 10 mg PO DAILY [facility] Last Admin: 05/28/18 10:32 Dose: 10 mg Metformin HCl (Glucophage -) 500 mg PO ACBK [facility] Last Admin: 05/29/18 06:28 Dose: 500 mg Metoprolol Succinate (Toprol Xl -) 50 mg PO BID [facility] Last Admin: 05/28/18 21:33 Dose: 50 mg Sitagliptin Phosphate (Januvia -) 50 mg PO DAILY@0700 [facility] Last Admin: 05/29/18 06:28 Dose: 50 mg - Objective Vital Signs: Vital Signs Temperature 99.4 F 05/29/18 06:00 Pulse Rate 69 05/29/18 06:00 Respiratory Rate 20 05/29/18 06:00 Blood Pressure 144/62 05/29/18 06:00 O2 Sat by Pulse Oximetry (%) 95 05/28/18 21:00 Constitutional: Yes: No Distress Cardiovascular: Yes: S1, S2 Respiratory: Yes: Other (Occasional rhonchus) Gastrointestinal: Yes: Soft. No: Tenderness, Rebound Genitourinary: No: Bladder Distention Edema: No Labs: CBC, BMP 05/26/18 06:30 05/28/18 06:30 INR, PTT INR 1.06 (0.83-1.09) 05/24/18 06:30 Assessment/Plan Impression 1. S/P BRITT and hyperkalemia 2. Obstructive uropathy with bladder mass [place] and UTI 3. Dementia 4. Htn 5. DM 6. hypercalcemia- Corrected Ca high 7. Anemia Plan - Aspirin held - For cystoscopy tomorrow - No changes made - Rpt labs in am Dr Miller
[2018-05-29] MEDS: amLODIPine BESYLATE 10 MG TABLET (FP) PO SCH (11:24)
--- NOTE | 2018-05-29 13:03 | PN ---
Progress Note, Physician History of Present Illness: patient stable awaiting for cystoscopy - Current Medication List Current Medications: Active Medications Acetaminophen (Tylenol -) 650 mg PO Q6H PRN PRN Reason: PAIN SCALE 1-5 Last Admin: 05/28/18 18:27 Dose: 650 mg Amlodipine Besylate (Norvasc -) 10 mg PO DAILY [facility] Last Admin: 05/29/18 11:24 Dose: 10 mg Metformin HCl (Glucophage -) 500 mg PO ACBK [facility] Last Admin: 05/29/18 06:28 Dose: 500 mg Metoprolol Succinate (Toprol Xl -) 50 mg PO BID [facility] Last Admin: 05/29/18 11:24 Dose: 50 mg Sitagliptin Phosphate (Januvia -) 50 mg PO DAILY@0700 [facility] Last Admin: 05/29/18 06:28 Dose: 50 mg - Objective Vital Signs: Vital Signs Temperature 99.4 F 05/29/18 06:00 Pulse Rate 69 05/29/18 06:00 Respiratory Rate 20 05/29/18 06:00 Blood Pressure 144/62 05/29/18 06:00 O2 Sat by Pulse Oximetry (%) 95 05/28/18 21:00 Constitutional: Yes: No Distress, Calm Cardiovascular: Yes: Regular Rate and Rhythm Respiratory: Yes: Regular, CTA Bilaterally Gastrointestinal: Yes: Normal Bowel Sounds, Soft Musculoskeletal: Yes: WNL Extremities: Yes: WNL Neurological: Yes: Alert, Oriented Psychiatric: Yes: Alert, Oriented Labs: CBC, BMP 05/26/18 06:30 05/28/18 06:30 INR, PTT INR 1.06 (0.83-1.09) 05/24/18 06:30 Assessment/Plan Problem List - Problems (1) BRITT (acute kidney injury) Code(s): N17.9 - ACUTE KIDNEY FAILURE, UNSPECIFIED (2) Dementia Code(s): F03.90 - UNSPECIFIED DEMENTIA WITHOUT BEHAVIORAL DISTURBANCE Qualifiers: Dementia type: unspecified type Dementia behavioral disturbance: without behavioral disturbance Qualified Code(s): F03.90 - Unspecified dementia without behavioral disturbance (3) Diabetes mellitus Code(s): E11.9 - TYPE 2 DIABETES MELLITUS WITHOUT COMPLICATIONS Qualifiers: Diabetes mellitus type: type 2 Diabetes 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 surgeon insulin use: without alf use (4) Fall Code(s): W19.XXXA - UNSPECIFIED FALL, INITIAL ENCOUNTER Qualifiers: Encounter type: subsequent encounter Qualified Code(s): W19.XXXD - Unspecified fall, subsequent encounter (5) HTN (hypertension) Code(s): I10 - ESSENTIAL (PRIMARY) HYPERTENSION Qualifiers: Hypertension type: essential hypertension Qualified Code(s): I10 - Essential (primary) hypertension (6) Hypercalcemia Code(s): E83.52 - HYPERCALCEMIA (7) Urinary tract infection Code(s): N39.0 - URINARY TRACT INFECTION, SITE NOT SPECIFIED (8) Acute urinary retention Code(s): R33.8 - OTHER RETENTION OF URINE (9) Hydronephrosis Code(s): N13.30 - UNSPECIFIED HYDRONEPHROSIS Assessment/Plan Fever UTI Lt hydronephrosis s/p new dementia DM hypercalcemia Renal pelvic mass/supra renal mass stable off of abx continue current mgmt await for final plan plan is for cystoscopy when not known
--- NOTE | 2018-05-29 14:07 | PN ---
Progress Note, Physician History of Present Illness: doing well - Current Medication List Current Medications: Active Medications Acetaminophen (Tylenol -) 650 mg PO Q6H PRN PRN Reason: PAIN SCALE 1-5 Last Admin: 05/28/18 18:27 Dose: 650 mg Amlodipine Besylate (Norvasc -) 10 mg PO DAILY [facility] Last Admin: 05/29/18 11:24 Dose: 10 mg Metformin HCl (Glucophage -) 500 mg PO ACBK [facility] Last Admin: 05/29/18 06:28 Dose: 500 mg Metoprolol Succinate (Toprol Xl -) 50 mg PO BID [facility] Last Admin: 05/29/18 11:24 Dose: 50 mg Sitagliptin Phosphate (Januvia -) 50 mg PO DAILY@0700 [facility] Last Admin: 05/29/18 06:28 Dose: 50 mg - Objective Vital Signs: Vital Signs Temperature 99.4 F 05/29/18 06:00 Pulse Rate 69 05/29/18 06:00 Respiratory Rate 20 05/29/18 06:00 Blood Pressure 144/62 05/29/18 06:00 O2 Sat by Pulse Oximetry (%) 95 05/28/18 21:00 Constitutional: Yes: No Distress HENT: Yes: Atraumatic Neck: Yes: Supple Cardiovascular: Yes: Regular Rate and Rhythm Respiratory: Yes: CTA Bilaterally Gastrointestinal: Yes: Normal Bowel Sounds Extremities: Yes: WNL Edema: No Peripheral Pulses WNL: Yes Neurological: Yes: Alert, Oriented Labs: CBC, BMP 05/26/18 06:30 05/28/18 06:30 INR, PTT INR 1.06 (0.83-1.09) 05/24/18 06:30 Problem List - Problems (1) BRITT (acute kidney injury) Assessment/Plan: wnl Code(s): N17.9 - ACUTE KIDNEY FAILURE, UNSPECIFIED (2) Hyperkalemia Assessment/Plan: RESOLVED Code(s): E87.5 - HYPERKALEMIA (3) Urinary tract infection Assessment/Plan: ON ABX PER ID CXS noted Code(s): N39.0 - URINARY TRACT INFECTION, SITE NOT SPECIFIED (4) Dementia Assessment/Plan: stable Code(s): F03.90 - UNSPECIFIED DEMENTIA WITHOUT BEHAVIORAL DISTURBANCE Qualifiers: Dementia type: unspecified type Dementia behavioral disturbance: without behavioral disturbance Qualified Code(s): F03.90 - Unspecified dementia without behavioral disturbance (5) Diabetes mellitus Assessment/Plan: ON PO MEDS BGMS Code(s): E11.9 - TYPE 2 DIABETES MELLITUS WITHOUT COMPLICATIONS Qualifiers: Diabetes mellitus type: type 2 Diabetes mellitus longterm insulin use: without intermediate accountant use (6) Fall Code(s): W19.XXXA - UNSPECIFIED FALL, INITIAL ENCOUNTER Qualifiers: Encounter type: subsequent encounter Qualified Code(s): W19.XXXD - Unspecified fall, subsequent encounter (7) HTN (hypertension) Code(s): I10 - ESSENTIAL (PRIMARY) HYPERTENSION Qualifiers: Hypertension type: essential hypertension Qualified Code(s): I10 - Essential (primary) hypertension Assessment/Plan awaiting family decision
[2018-05-29] MEDS: ACETAMINOPHEN 325 MG TABLET (FP) PO PRN (14:18)
[2018-05-30] MEDS: metFORMIN HCL 500 MG TABLET (FP) PO SCH (07:56)
[2018-05-30] MEDS: sitaGLIPtin PHOSPHATE 50 MG TABLET PO SCH (07:56)
[2018-05-30 08:05] LABS: BASO % 0.6 % (0-2.0); EOS % 2.6 % (0-4.5); HEMATOCRIT 24.3 % (32.4-45.2); HEMOGLOBIN 7.9 GM/dL (10.7-15.3); LYMPH % 14.5 % (8-40); MCH 26.2 pg (25.7-33.7); MCHC 32.4 g/dl (32.0-36.0); MEAN CELL VOLUME 81.1 fl (80-96); MEAN PLT VOLUME 8.7 fl (7.5-11.1); NEUT % 69.3 % (42.8-82.8); PLATELET COUNT 273 K/MM3 (134-434); RDW 16.5 % (11.6-15.6); WHITE BLOOD COUNT 10.6 K/mm3 (4.0-10.0)
[2018-05-30 08:25] LABS: ANION GAP 5 MMOL/L (8-16); BLOOD UREA NITROGEN 13 mg/dL (7-18); CALCIUM 9.2 mg/dL (8.5-10.1); CHLORIDE 105 mmol/L (98-107); CO2 25 mmol/L (21-32); CREATININE 0.7 mg/dL (0.55-1.3); GLUCOSE,RANDOM 106 mg/dL (74-106); POTASSIUM 4.9 mmol/L (3.5-5.1); SODIUM 136 mmol/L (136-145)
[2018-05-30] MEDS: amLODIPine BESYLATE 10 MG TABLET (FP) PO SCH (09:20)
--- NOTE | 2018-05-30 13:12 | PN ---
Progress Note, Physician History of Present Illness: Pt seen and examined at bedside. She is awake and appears comfortable. She denies shortness of breath. - Current Medication List Current Medications: Active Medications Acetaminophen (Tylenol -) 650 mg PO Q6H PRN PRN Reason: PAIN SCALE 1-5 Last Admin: 05/29/18 14:18 Dose: 650 mg Amlodipine Besylate (Norvasc -) 10 mg PO DAILY [facility] Last Admin: 05/30/18 09:20 Dose: 10 mg Metformin HCl (Glucophage -) 500 mg PO ACBK [facility] Last Admin: 05/30/18 07:56 Dose: Not Given Metoprolol Succinate (Toprol Xl -) 50 mg PO BID [facility] Last Admin: 05/30/18 09:20 Dose: 50 mg Sitagliptin Phosphate (Januvia -) 50 mg PO DAILY@0700 [facility] Last Admin: 05/30/18 07:56 Dose: Not Given - Objective Vital Signs: Vital Signs Temperature 99.6 F 05/30/18 06:00 Pulse Rate 72 05/30/18 10:00 Respiratory Rate 18 05/30/18 10:00 Blood Pressure 136/50 L 05/30/18 10:00 O2 Sat by Pulse Oximetry (%) 95 05/29/18 21:00 Constitutional: Yes: Calm Eyes: Yes: Conjunctiva Clear HENT: Yes: Atraumatic Neck: Yes: Supple Cardiovascular: Yes: S1, S2 Respiratory: Yes: CTA Bilaterally Gastrointestinal: Yes: Soft Genitourinary: Yes: WNL Musculoskeletal: Yes: WNL Edema: No Neurological: Yes: Confusion Psychiatric: Yes: Oriented Labs: CBC, BMP 05/30/18 05:58 05/30/18 05:58 INR, PTT INR 1.06 (0.83-1.09) 05/24/18 06:30 Problem List - Problems (1) BRITT (acute kidney injury) Code(s): N17.9 - ACUTE KIDNEY FAILURE, UNSPECIFIED (2) Hypercalcemia Code(s): E83.52 - HYPERCALCEMIA Assessment/Plan Current Medications Generic Name Dose Route Start Last Admin Trade Name Freq PRN Reason Stop Dose Admin Acetaminophen 650 mg 05/18/18 21:50 05/29/18 14:18 Tylenol - PO 650 mg Q6H PRN Administration PAIN SCALE 1-5 Amlodipine Besylate 10 mg 05/17/18 10:00 05/30/18 09:20 Norvasc - PO 10 mg DAILY [facility] Administration Metformin HCl 500 mg 05/17/18 07:00 05/30/18 07:56 Glucophage - PO Not Given ACBK [facility] Metoprolol Succinate 50 mg 05/16/18 22:00 05/30/18 09:20 Toprol Xl - PO 50 mg BID [facility] Administration Sitagliptin Phosphate 50 mg 05/17/18 07:00 05/30/18 07:56 Januvia - PO Not Given DAILY@0700 [facility] Impression 1. BRITT 2. hyperkalemia 3. uti 4. dementia 5. htn 6. DM 7. hypercalcemia 8. hydronephrosis left 9. 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 Plan - renal function stable - monitor calcium - urology follow up, possible cysto today - pt was treated with abx for UTI
--- NOTE | 2018-05-30 13:23 | PN ---
Progress Note, Physician History of Present Illness: patient stable going for cystoscopy - Current Medication List Current Medications: Active Medications Acetaminophen (Tylenol -) 650 mg PO Q6H PRN PRN Reason: PAIN SCALE 1-5 Last Admin: 05/29/18 14:18 Dose: 650 mg Amlodipine Besylate (Norvasc -) 10 mg PO DAILY [facility] Last Admin: 05/30/18 09:20 Dose: 10 mg Metformin HCl (Glucophage -) 500 mg PO ACBK [facility] Last Admin: 05/30/18 07:56 Dose: Not Given Metoprolol Succinate (Toprol Xl -) 50 mg PO BID [facility] Last Admin: 05/30/18 09:20 Dose: 50 mg Sitagliptin Phosphate (Januvia -) 50 mg PO DAILY@0700 [facility] Last Admin: 05/30/18 07:56 Dose: Not Given - Objective Vital Signs: Vital Signs Temperature 99.6 F 05/30/18 06:00 Pulse Rate 72 05/30/18 10:00 Respiratory Rate 18 05/30/18 10:00 Blood Pressure 136/50 L 05/30/18 10:00 O2 Sat by Pulse Oximetry (%) 95 05/30/18 09:00 Constitutional: Yes: No Distress, Calm Cardiovascular: Yes: S1, S2 Respiratory: Yes: Regular, CTA Bilaterally Gastrointestinal: Yes: Normal Bowel Sounds, Soft Musculoskeletal: Yes: WNL Extremities: Yes: WNL Neurological: Yes: Alert, Oriented Psychiatric: Yes: Alert, Oriented Labs: CBC, BMP 05/30/18 05:58 05/30/18 05:58 INR, PTT INR 1.06 (0.83-1.09) 05/24/18 06:30 Assessment/Plan Problem List - Problems (1) BRITT (acute kidney injury) Code(s): N17.9 - ACUTE KIDNEY FAILURE, UNSPECIFIED (2) Dementia Code(s): F03.90 - UNSPECIFIED DEMENTIA WITHOUT BEHAVIORAL DISTURBANCE Qualifiers: Dementia type: unspecified type Dementia behavioral disturbance: without behavioral disturbance Qualified Code(s): F03.90 - Unspecified dementia without behavioral disturbance (3) Diabetes mellitus Code(s): E11.9 - TYPE 2 DIABETES MELLITUS WITHOUT COMPLICATIONS Qualifiers: Diabetes mellitus type: type 2 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: without prison use (4) Fall Code(s): W19.XXXA - UNSPECIFIED FALL, INITIAL ENCOUNTER Qualifiers: Encounter type: subsequent encounter Qualified Code(s): W19.XXXD - Unspecified fall, subsequent encounter (5) HTN (hypertension) Code(s): I10 - ESSENTIAL (PRIMARY) HYPERTENSION Qualifiers: Hypertension type: essential hypertension Qualified Code(s): I10 - Essential (primary) hypertension (6) Hypercalcemia Code(s): E83.52 - HYPERCALCEMIA (7) Urinary tract infection Code(s): N39.0 - URINARY TRACT INFECTION, SITE NOT SPECIFIED (8) Acute urinary retention Code(s): R33.8 - OTHER RETENTION OF URINE (9) Hydronephrosis Code(s): N13.30 - UNSPECIFIED HYDRONEPHROSIS Assessment/Plan Fever UTI Lt hydronephrosis s/p new dementia DM hypercalcemia Renal pelvic mass/supra renal mass plan continue current mgmt await for cystoscopy findings rest continue current mgmt patient stable
--- NOTE | 2018-05-30 13:27 | PN ---
Progress Note, Physician History of Present Illness: No complaints, chronic dementia and poor historian, resting. Requests urology consult with Dr. Johansen, previous urologist had recommended cystoscopy and left ureteral stent. - Current Medication List Current Medications: Active Medications Acetaminophen (Tylenol -) 650 mg PO Q6H PRN PRN Reason: PAIN SCALE 1-5 Last Admin: 05/29/18 14:18 Dose: 650 mg Amlodipine Besylate (Norvasc -) 10 mg PO DAILY [facility] Last Admin: 05/30/18 09:20 Dose: 10 mg Metformin HCl (Glucophage -) 500 mg PO ACBK [facility] Last Admin: 05/30/18 07:56 Dose: Not Given Metoprolol Succinate (Toprol Xl -) 50 mg PO BID [facility] Last Admin: 05/30/18 09:20 Dose: 50 mg Sitagliptin Phosphate (Januvia -) 50 mg PO DAILY@0700 [facility] Last Admin: 05/30/18 07:56 Dose: Not Given - Objective Vital Signs: Vital Signs Temperature 99.6 F 05/30/18 06:00 Pulse Rate 72 05/30/18 10:00 Respiratory Rate 18 05/30/18 10:00 Blood Pressure 136/50 L 05/30/18 10:00 O2 Sat by Pulse Oximetry (%) 95 05/30/18 09:00 Labs: CBC, BMP 05/30/18 05:58 05/30/18 05:58 INR, PTT INR 1.06 (0.83-1.09) 05/24/18 06:30 Problem List - Problems (1) Diabetes mellitus Code(s): E11.9 - TYPE 2 DIABETES MELLITUS WITHOUT COMPLICATIONS Qualifiers: Diabetes mellitus type: type 2 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: without oil heaterman use (2) HTN (hypertension) Code(s): I10 - ESSENTIAL (PRIMARY) HYPERTENSION Qualifiers: Hypertension type: essential hypertension Qualified Code(s): I10 - Essential (primary) hypertension (3) Urinary tract infection Code(s): N39.0 - URINARY TRACT INFECTION, SITE NOT SPECIFIED (4) Dementia Code(s): F03.90 - UNSPECIFIED DEMENTIA WITHOUT BEHAVIORAL DISTURBANCE Qualifiers: Dementia type: unspecified type Dementia behavioral disturbance: without behavioral disturbance Qualified Code(s): F03.90 - Unspecified dementia without behavioral disturbance (5) Hypercalcemia Code(s): E83.52 - HYPERCALCEMIA (6) Adnexal mass Code(s): N94.9 - UNSP COND ASSOC W FEMALE GENITAL ORGANS AND MENSTRUAL CYCLE (7) Hydronephrosis Code(s): N13.30 - UNSPECIFIED HYDRONEPHROSIS Assessment/Plan 05/17/2018 Echo: Normal LV and RV size and fxn LVEF 65% borderline LAE, mild MG 9.2 mmHg, mod pulm HTN RVSP 54 mmHg 1. Post fall no LOC 2. Organic brain syndrome/dementia 3. HTN 4. DM 5. UTI 6. BRITT with hyperkalemia and left hydro resolving 7. Hypercalcemia 8. Anemia 9. Left adnexal mass, bladder mass PLAN: 1. Continue Metoprolol ER 50 mg BID, Amlodipine 10 mg QD, and hold ASA 81 mg QD prior to procedure. Valsartan held for hyperkalemia 2. DM management 3. Fall precaution 4. DVT prophylaxis 5. Calcitonin, fluids and Lasix, zometa with monitor calcium, complete empiric abx course for UTI 6. Abd and pelvic and chest CT shows left adnexal masses and pleural based masses suggestive of mets->GOC to be addressed 7. Urology input recommends cystoscopy and retrograde pyelogram with possible stent
--- NOTE | 2018-05-30 15:03 | PN ---
Progress Note, Physician History of Present Illness: doing well - Current Medication List Current Medications: Active Medications Acetaminophen (Tylenol -) 650 mg PO Q6H PRN PRN Reason: PAIN SCALE 1-5 Last Admin: 05/29/18 14:18 Dose: 650 mg Amlodipine Besylate (Norvasc -) 10 mg PO DAILY [facility] Last Admin: 05/30/18 09:20 Dose: 10 mg Metformin HCl (Glucophage -) 500 mg PO ACBK [facility] Last Admin: 05/30/18 07:56 Dose: Not Given Metoprolol Succinate (Toprol Xl -) 50 mg PO BID [facility] Last Admin: 05/30/18 09:20 Dose: 50 mg Sitagliptin Phosphate (Januvia -) 50 mg PO DAILY@0700 [facility] Last Admin: 05/30/18 07:56 Dose: Not Given - Objective Vital Signs: Vital Signs Temperature 99.6 F 05/30/18 06:00 Pulse Rate 72 05/30/18 10:00 Respiratory Rate 18 05/30/18 10:00 Blood Pressure 136/50 L 05/30/18 10:00 O2 Sat by Pulse Oximetry (%) 95 05/30/18 09:00 Constitutional: Yes: No Distress HENT: Yes: Atraumatic Neck: Yes: Supple Cardiovascular: Yes: Regular Rate and Rhythm Respiratory: Yes: CTA Bilaterally Extremities: Yes: WNL Neurological: Yes: Alert, Oriented Labs: CBC, BMP 05/30/18 05:58 05/30/18 05:58 INR, PTT INR 1.06 (0.83-1.09) 05/24/18 06:30 Problem List - Problems (1) BRITT (acute kidney injury) Assessment/Plan: wnl Code(s): N17.9 - ACUTE KIDNEY FAILURE, UNSPECIFIED (2) Hyperkalemia Assessment/Plan: RESOLVED Code(s): E87.5 - HYPERKALEMIA (3) Urinary tract infection Assessment/Plan: ON ABX PER ID CXS noted Code(s): N39.0 - URINARY TRACT INFECTION, SITE NOT SPECIFIED (4) Dementia Assessment/Plan: stable Code(s): F03.90 - UNSPECIFIED DEMENTIA WITHOUT BEHAVIORAL DISTURBANCE Qualifiers: Dementia type: unspecified type Dementia behavioral disturbance: without behavioral disturbance Qualified Code(s): F03.90 - Unspecified dementia without behavioral disturbance (5) Diabetes mellitus Assessment/Plan: ON PO MEDS BGMS Code(s): E11.9 - TYPE 2 DIABETES MELLITUS WITHOUT COMPLICATIONS Qualifiers: Diabetes mellitus type: type 2 Diabetes mellitus detention insulin use: without truck terminal manager use (6) Fall Assessment/Plan: PT EVAL Code(s): W19.XXXA - UNSPECIFIED FALL, INITIAL ENCOUNTER Qualifiers: Encounter type: subsequent encounter Qualified Code(s): W19.XXXD - Unspecified fall, subsequent encounter (7) HTN (hypertension) Assessment/Plan: ON MEDS STABLE Code(s): I10 - ESSENTIAL (PRIMARY) HYPERTENSION Qualifiers: Hypertension type: essential hypertension Qualified Code(s): I10 - Essential (primary) hypertension (8) Adnexal mass Assessment/Plan: for cystoscopy today Code(s): N94.9 - UNSP COND ASSOC W FEMALE GENITAL ORGANS AND MENSTRUAL CYCLE (9) Hypercalcemia Code(s): E83.52 - HYPERCALCEMIA
[2018-05-30] MEDS ORDERED: MIDAZOLAM HCL 2 MG/2 ML SINGLE DOSE VIAL ONE (15:04)
[2018-05-30] MEDS ORDERED: PROPOFOL 20 ML ONE (15:05)
[2018-05-30] MEDS ORDERED: LIDOCAINE HCL/PF 2% SDV 5ML VIAL ONE (15:05)
[2018-05-30] MEDS ORDERED: KETOROLAC TROMETHAMINE 30 MG/1 ML VIAL ONE (15:06)
[2018-05-30] MEDS ORDERED: DEXAMETHASONE SOD PHOSPHATE 4 MG/1 ML VIAL ONE (15:06)
[2018-05-30] MEDS ORDERED: ROCURONIUM BROMIDE 50 MG/5 ML VIAL ONE (15:12)
[2018-05-30] MEDS ORDERED: IOHEXOL 300 MG/ML INFUS..BTL IV ONE ×2 (15:41)
--- NOTE | 2018-05-30 16:12 | OP ---
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
[2018-05-30] MEDS ORDERED: ONDANSETRON 4 MG/2 ML VIAL IVPUSH PRN ×2 (16:13→16:52)
[2018-05-30] MEDS ORDERED: LACTATED RINGERS SOLUTION 1,000 ML IV SCH (16:15)
[2018-05-30] MEDS ORDERED: ACETAMINOPHEN 325 MG TABLET (FP) PO PRN (16:52)
[2018-05-30] MEDS: LACTATED RINGERS SOLUTION 1,000 ML IV SCH (17:00)
--- NOTE | 2018-05-30 19:26 | DS ---
Physical Examination Vital Signs: Vital Signs Temperature 98.2 F 05/30/18 17:05 Pulse Rate 60 05/30/18 17:15 Respiratory Rate 20 05/30/18 17:15 Blood Pressure 140/62 05/30/18 17:15 O2 Sat by Pulse Oximetry (%) 97 05/30/18 17:15 Labs: CBC, BMP 05/30/18 05:58 05/30/18 05:58 Discharge Summary Reason For Visit: UTI/HYDRONEPHROSIS/HYPERKALEMIA Current Active Problems BRITT (acute kidney injury) (Acute) Adnexal mass (Acute) Dementia (Acute) Diabetes mellitus (Acute) Fall (Acute) HTN (hypertension) (Acute) Hypercalcemia (Acute) Hyperkalemia (Acute) Urinary tract infection (Acute) Condition: Guarded - Instructions Referrals: Chong Hernandez MD [Staff Physician] - Jose Thompson MD [Staff Physician] - - Home Medications Comprehensive Discharge Medication List: Ambulatory Orders Sitagliptin Phos/Metformin HCl [Janumet 50-500 mg Tablet] 1 each PO DAILY Aspirin [ASA -] 81 mg PO DAILY 1 Days tab 12/23/11 Metoprolol Succinate [Toprol XL -] 50 mg PO BID #0 tablet 12/23/11 Amlodipine Besylate [Norvasc -] 10 mg PO DAILY #30 tablet 05/30/18
--- NOTE | 2018-05-30 23:13 | PN ---
Progress Note (short form) - Note Progress Note: Patient seen and examined oriented in person/place AFVSS Cor: RSR, No murmurs, No gallops Lungs: Clear to P&A Abd: Soft, Normal bowel sounds, No organomegaly Ext:No significant edema Labs/Meds reviewed A/P 88 year old presents with hyperkalemia and hypercalcemia with corrected calcium greater than 14. s/p bisphosphonates Has abnormal CT with right supra renal mass, left renal pelvic mass and thickened wall bladder. mental status/hypercalcemia much improved Left hydronephrosis s/p cystoscopy/ureteroscopy necrotic masses noted in the bladder Transfuse PRBCs prior to d/c for Hgb <8.5 Patient still deciding on supportive care vs hospice
[2018-05-31] MEDS ORDERED: metFORMIN HCL 500 MG TABLET (FP) PO SCH (07:00)
[2018-05-31] MEDS ORDERED: sitaGLIPtin PHOSPHATE 50 MG TABLET PO SCH (07:00)
--- NOTE | 2018-05-31 08:40 | OP ---
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 PROCEDURE: Cystoscopy and bilateral ureteroscopy. ATTENDING: Dylan Miguel MD ANESTHESIA: General. OPERATION: The patient has a history of a urinary tract infection with bilateral hydronephrosis, left greater than right. The patient has an area on CT scan which is suspicious for a neoplastic process, mostly involving the left hemitrigone. The patient has been treated with IV antibiotics for a urinary tract infection. The patient is brought in the operating room and placed in supine position on the operating room table. Preoperative antibiotics are administered as well as general anesthesia. The patient is then prepped and draped in the usual sterile manner and placed in the dorsal lithotomy position. Cystoscopy is performed. There is a tremendous amount of debris within the bladder. Necrotic tissue is evacuated from the bladder. Multiple bladder masses involving multiple areas of the bladder, however, the largest being on the left lateral wall. The tissue is evacuated and the trigone is finally visualized. 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 Necrotic tissue involving the bladder mucosa, involving over 80% of the mucosa. Attempts at passing a wire through the cystoscope are not successful in trying to identify the ureteral orifices. At this point, ureteroscopy is performed. Both ureteral orifices are ultimately identified; however, they are encased in tumor and do not allow for passage of multiple wires which were utilized into the proximal ureter. It was decided to avoid further manipulation in order to avoid causing any injury to the bladder or ureters. The approach that would be most likely to be successful is the percutaneous nephrostomy-type approach. The patient tolerated the procedure very well. DISPOSITION: To recovery room. The patient's family and medical doctor were consulted and advised of the situation. DYLAN MIGUEL M.D. /[id number]
[2018-05-31] MEDS ORDERED: amLODIPine BESYLATE 10 MG TABLET (FP) PO SCH (10:00)
[2018-05-31] MEDS ORDERED: PT OWN MED DRAWER 7, Y5N ONE (10:25)
--- NOTE | 2018-05-31 11:42 | PN ---
Progress Note (short form) - Note Progress Note: Anesthesia POD#1 S/P Cystoscopy under GA VSS,no pain,no N/V Doing well Kathy Monge MD.
--- NOTE | 2018-05-31 13:26 | PN ---
Progress Note, Physician Chief Complaint: Events noted Not in distress History of Present Illness: Patient was seen and examined. Awake and alert. Chart was reviewed Denies chest pain, SOB or palpitations - Current Medication List Current Medications: Active Medications Acetaminophen (Tylenol -) 650 mg PO Q6H PRN PRN Reason: PAIN SCALE 1-5 Last Admin: 05/31/18 10:27 Dose: 650 mg Amlodipine Besylate (Norvasc -) 10 mg PO DAILY [facility] Last Admin: 05/31/18 10:27 Dose: 10 mg Lactated Ringer's (Lactated Ringers Solution) 1,000 mls @ 75 mls/hr IV ASDIR [facility] Last Admin: 05/30/18 17:00 Dose: 0 mls Metformin HCl (Glucophage -) 500 mg PO ACBK [facility] Last Admin: 05/31/18 06:38 Dose: 500 mg Metoprolol Succinate (Toprol Xl -) 50 mg PO BID [facility] Last Admin: 05/31/18 10:27 Dose: 50 mg Sitagliptin Phosphate (Januvia -) 50 mg PO DAILY@0700 [facility] Last Admin: 05/31/18 06:38 Dose: 50 mg - Objective Vital Signs: Vital Signs Temperature 97.5 F L 05/31/18 10:32 Pulse Rate 63 05/31/18 10:32 Respiratory Rate 19 05/31/18 10:32 Blood Pressure 132/63 05/31/18 10:32 O2 Sat by Pulse Oximetry (%) 97 05/30/18 21:00 Eyes: Yes: PERRL HENT: Yes: Atraumatic Neck: Yes: Supple Cardiovascular: Yes: Regular Rate and Rhythm, S1, S2 Respiratory: Yes: CTA Bilaterally Gastrointestinal: Yes: Normal Bowel Sounds, Soft. No: Tenderness Edema: No Labs: CBC, BMP 05/30/18 05:58 05/30/18 05:58 Problem List - Problems (1) Diabetes mellitus Code(s): E11.9 - TYPE 2 DIABETES MELLITUS WITHOUT COMPLICATIONS Qualifiers: Diabetes mellitus type: type 2 Diabetes mellitus nursing home insulin use: without nursing home use (2) HTN (hypertension) Code(s): I10 - ESSENTIAL (PRIMARY) HYPERTENSION Qualifiers: Hypertension type: essential hypertension Qualified Code(s): I10 - Essential (primary) hypertension (3) Hyperkalemia Code(s): E87.5 - HYPERKALEMIA (4) Urinary tract infection Code(s): N39.0 - URINARY TRACT INFECTION, SITE NOT SPECIFIED (5) Hydronephrosis Code(s): N13.30 - UNSPECIFIED HYDRONEPHROSIS Assessment/Plan 1. Post fall no LOC 2. Organic brain syndrome/dementia 3. HTN 4. DM 5. UTI 6. BRITT with hyperkalemia 7. Hypercalcemia 8. Anemia 9. Left adnexal mass and bladder mass PLAN: 1. Continue Metoprolol ER 50 mg BID, Amlodipine 10 mg QD. Valsartan held for hyperkalemia. Consider restarting ASA 81 mg QD 2. DM management 3. Fall precaution 4. DVT prophylaxis 5. Further evaluation of left adnexal mass 6. Post intervention. follow up Perez Richey MD
--- NOTE | 2018-05-31 14:13 | PN ---
Progress Note, Physician History of Present Illness: stable no new issues - Current Medication List Current Medications: Active Medications Acetaminophen (Tylenol -) 650 mg PO Q6H PRN PRN Reason: PAIN SCALE 1-5 Last Admin: 05/31/18 10:27 Dose: 650 mg Amlodipine Besylate (Norvasc -) 10 mg PO DAILY [facility] Last Admin: 05/31/18 10:27 Dose: 10 mg Lactated Ringer's (Lactated Ringers Solution) 1,000 mls @ 75 mls/hr IV ASDIR [facility] Last Admin: 05/30/18 17:00 Dose: 0 mls Metformin HCl (Glucophage -) 500 mg PO ACBK [facility] Last Admin: 05/31/18 06:38 Dose: 500 mg Metoprolol Succinate (Toprol Xl -) 50 mg PO BID [facility] Last Admin: 05/31/18 10:27 Dose: 50 mg Sitagliptin Phosphate (Januvia -) 50 mg PO DAILY@0700 [facility] Last Admin: 05/31/18 06:38 Dose: 50 mg - Objective Vital Signs: Vital Signs Temperature 97.5 F L 05/31/18 10:32 Pulse Rate 63 05/31/18 10:32 Respiratory Rate 19 05/31/18 10:32 Blood Pressure 132/63 05/31/18 10:32 O2 Sat by Pulse Oximetry (%) 97 05/30/18 21:00 Constitutional: Yes: No Distress, Calm Respiratory: Yes: Regular, CTA Bilaterally Gastrointestinal: Yes: Normal Bowel Sounds, Soft Musculoskeletal: Yes: WNL Extremities: Yes: WNL Neurological: Yes: Alert, Oriented Psychiatric: Yes: Alert, Oriented Labs: CBC, BMP 05/30/18 05:58 05/30/18 05:58 INR, PTT INR 1.06 (0.83-1.09) 05/24/18 06:30 Assessment/Plan Problem List - Problems (1) BRITT (acute kidney injury) Code(s): N17.9 - ACUTE KIDNEY FAILURE, UNSPECIFIED (2) Dementia Code(s): F03.90 - UNSPECIFIED DEMENTIA WITHOUT BEHAVIORAL DISTURBANCE Qualifiers: Dementia type: unspecified type Dementia behavioral disturbance: without behavioral disturbance Qualified Code(s): F03.90 - Unspecified dementia without behavioral disturbance (3) Diabetes mellitus Code(s): E11.9 - TYPE 2 DIABETES MELLITUS WITHOUT COMPLICATIONS Qualifiers: Diabetes mellitus type: type 2 Diabetes mellitus [facility] insulin use: without oxygen therapy technician use (4) Fall Code(s): W19.XXXA - UNSPECIFIED FALL, INITIAL ENCOUNTER Qualifiers: Encounter type: subsequent encounter Qualified Code(s): W19.XXXD - Unspecified fall, subsequent encounter (5) HTN (hypertension) Code(s): I10 - ESSENTIAL (PRIMARY) HYPERTENSION Qualifiers: Hypertension type: essential hypertension Qualified Code(s): I10 - Essential (primary) hypertension (6) Hypercalcemia Code(s): E83.52 - HYPERCALCEMIA (7) Urinary tract infection Code(s): N39.0 - URINARY TRACT INFECTION, SITE NOT SPECIFIED (8) Acute urinary retention Code(s): R33.8 - OTHER RETENTION OF URINE (9) Hydronephrosis Code(s): N13.30 - UNSPECIFIED HYDRONEPHROSIS Assessment/Plan Fever UTI Lt hydronephrosis s/p new dementia DM hypercalcemia Renal pelvic mass/supra renal mass plan continue current mgmt rest as per the team
--- NOTE | 2018-05-31 14:45 | PN ---
Progress Note, Physician History of Present Illness: Pt seen and examined at bedside. She is awake and appears comfortable. She had the cystoscopy yesterday. - Current Medication List Current Medications: Active Medications Acetaminophen (Tylenol -) 650 mg PO Q6H PRN PRN Reason: PAIN SCALE 1-5 Last Admin: 05/31/18 10:27 Dose: 650 mg Amlodipine Besylate (Norvasc -) 10 mg PO DAILY [facility] Last Admin: 05/31/18 10:27 Dose: 10 mg Lactated Ringer's (Lactated Ringers Solution) 1,000 mls @ 75 mls/hr IV ASDIR [facility] Last Admin: 05/30/18 17:00 Dose: 0 mls Metformin HCl (Glucophage -) 500 mg PO ACBK [facility] Last Admin: 05/31/18 06:38 Dose: 500 mg Metoprolol Succinate (Toprol Xl -) 50 mg PO BID [facility] Last Admin: 05/31/18 10:27 Dose: 50 mg Sitagliptin Phosphate (Januvia -) 50 mg PO DAILY@0700 [facility] Last Admin: 05/31/18 06:38 Dose: 50 mg - Objective Vital Signs: Vital Signs Temperature 97.5 F L 05/31/18 10:32 Pulse Rate 63 05/31/18 10:32 Respiratory Rate 19 05/31/18 10:32 Blood Pressure 132/63 05/31/18 10:32 O2 Sat by Pulse Oximetry (%) 97 05/30/18 21:00 Constitutional: Yes: Calm Eyes: Yes: Conjunctiva Clear HENT: Yes: Atraumatic Neck: Yes: Supple Cardiovascular: Yes: S1, S2 Respiratory: Yes: CTA Bilaterally Gastrointestinal: Yes: WNL Genitourinary: Yes: WNL Musculoskeletal: Yes: WNL Edema: No Neurological: Yes: Confusion Psychiatric: Yes: Oriented Labs: CBC, BMP 05/30/18 05:58 05/30/18 05:58 INR, PTT INR 1.06 (0.83-1.09) 05/24/18 06:30 Problem List - Problems (1) BRITT (acute kidney injury) Code(s): N17.9 - ACUTE KIDNEY FAILURE, UNSPECIFIED (2) Hypercalcemia Code(s): E83.52 - HYPERCALCEMIA Assessment/Plan Current Medications Generic Name Dose Route Start Last Admin Trade Name Freq PRN Reason Stop Dose Admin Acetaminophen 650 mg 05/30/18 16:52 05/31/18 10:27 Tylenol - PO 650 mg Q6H PRN Administration PAIN SCALE 1-5 Amlodipine Besylate 10 mg 05/31/18 10:00 05/31/18 10:27 Norvasc - PO 10 mg DAILY [facility] Administration Lactated Ringer's 1,000 mls @ 75 mls/hr 05/30/18 16:52 05/30/18 17:00 Lactated Ringers Solution IV 0 mls ASDIR [facility] Administration Metformin HCl 500 mg 05/31/18 07:00 05/31/18 06:38 Glucophage - PO 500 mg ACBK [facility] Administration Metoprolol Succinate 50 mg 05/30/18 22:00 05/31/18 10:27 Toprol Xl - PO 50 mg BID [facility] Administration Sitagliptin Phosphate 50 mg 05/31/18 07:00 05/31/18 06:38 Januvia - PO 50 mg DAILY@0700 [facility] Administration Impression 1. BRITT 2. hyperkalemia 3. uti 4. dementia 5. htn 6. DM 7. hypercalcemia 8. hydronephrosis left 9. 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 Plan - can d/c fluids once tolerating diet - pt s/p cysto with mass in the bladder - family to discuss GOC - monitor calcium
--- NOTE | 2018-05-31 17:43 | DS ---
Physical Examination Vital Signs: Vital Signs Temperature 97.6 F 05/31/18 14:27 Pulse Rate 63 05/31/18 14:27 Respiratory Rate 20 05/31/18 14:27 Blood Pressure 132/61 05/31/18 14:27 O2 Sat by Pulse Oximetry (%) 97 05/31/18 09:00 Constitutional: Yes: No Distress HENT: Yes: Atraumatic Neck: Yes: Supple Cardiovascular: Yes: Regular Rate and Rhythm Respiratory: Yes: CTA Bilaterally Gastrointestinal: Yes: Normal Bowel Sounds Extremities: Yes: WNL Edema: No Peripheral Pulses WNL: Yes Neurological: Yes: Alert Labs: CBC, BMP 05/30/18 05:58 05/30/18 05:58 Discharge Summary Reason For Visit: UTI/HYDRONEPHROSIS/HYPERKALEMIA Current Active Problems BRITT (acute kidney injury) (Acute) Adnexal mass (Acute) Dementia (Acute) Diabetes mellitus (Acute) Fall (Acute) HTN (hypertension) (Acute) Hypercalcemia (Acute) Hyperkalemia (Acute) Urinary tract infection (Acute) Condition: Guarded - Instructions Referrals: Chong Hernandez MD [Staff Physician] - Jose Thompson MD [Staff Physician] - - Home Medications Comprehensive Discharge Medication List: Ambulatory Orders Sitagliptin Phos/Metformin HCl [Janumet 50-500 mg Tablet] 1 each PO DAILY Aspirin [ASA -] 81 mg PO DAILY 1 Days tab 12/23/11 Metoprolol Succinate [Toprol XL -] 50 mg PO BID #0 tablet 12/23/11 Amlodipine Besylate [Norvasc -] 10 mg PO DAILY #30 tablet 05/30/18 out patient fu with oncology family to discuss goal of care
[2018-05-31 19:03] VITALS: BP 137/64; PULSE 77; TEMP 98.5
[2018-05-31] MEDS: LACTATED RINGERS SOLUTION 1,000 ML IV SCH (19:29)
== END 2018-05-31 20:40 | DRG 668 ==
LOC: JER 16:21 → JERBED 20:15 → J4W 05-18 01:00 → J5S 05-20 17:49
PROVIDERS: ADMIT Internal Medicine; ATTEND Internal Medicine
PROC: 0T5B8ZZ Destruction of Bladder, Via Natural or Artificial Opening Endoscopic (ICD-10-PCS; 2018-05-30)
PROC: 0TJ98ZZ Inspection of Ureter, Via Natural or Artificial Opening Endoscopic (ICD-10-PCS; 2018-05-30)
PROC: 0TCB8ZZ Extirpation of Matter from Bladder, Via Natural or Artificial Opening Endoscopic (ICD-10-PCS; 2018-05-30)
PROC: 0TJB8ZZ Inspection of Bladder, Via Natural or Artificial Opening Endoscopic (ICD-10-PCS; principal; 2018-05-30 13:00)
DX: N17.9 Acute kidney failure, unspecified (principal); G93.41 Metabolic encephalopathy; J98.11 Atelectasis; D49.4 Neoplasm of unspecified behavior of bladder; F03.90 Unspecified dementia, unspecified severity, without behavioral disturbance, psychotic disturbance, mood disturbance, and anxiety; N13.6 Pyonephrosis; R33.9 Retention of urine, unspecified; M54.9 Dorsalgia, unspecified; I10 Essential (primary) hypertension; E11.9 Type 2 diabetes mellitus without complications; E03.9 Hypothyroidism, unspecified; E87.5 Hyperkalemia; N94.9 Unspecified condition associated with female genital organs and menstrual cycle; E83.52 Hypercalcemia; N32.9 Bladder disorder, unspecified; R41.82 Altered mental status, unspecified; W19.XXXA Unspecified fall, initial encounter; L89.312 Pressure ulcer of right buttock, stage 2; N28.89 Other specified disorders of kidney and ureter; R19.00 Intra-abdominal and pelvic swelling, mass and lump, unspecified site; D64.9 Anemia, unspecified; F09 Unspecified mental disorder due to known physiological condition; Z87.891 Personal history of nicotine dependence
CPT/HCPCS: 36415; 71045-TC-FY; 71046-TC-FY; 71250-TC; 73560-TC-LT-FY; 74176-TC; 76775-TC; 76856-TC; 78708-TC; 80048; 80053; 81003; 82272; 82436; 82550; 82570; 82607; 82728; 82746; 82784; 82962; 83540; 83550; 83735; 83970; 84100; 84133; 84134; 84155; 84156; 84157; 84165; 84300; 84439; 84443; 84484; 85025; 85027; 85044; 85610; 85730; 86850; 86900; 86901; 86922; 87077; 87086; 87186; 93005; 93010; 93306-TC; 94760; 97116-GP; 97162-GP; 99285-25; A9562; J0131; J1644; J3489; J7030; Q9967

== ENCOUNTER 2018-07-04 13:14 | Inpatient (IN) | payer OTHER ==
[2018-07-04] MEDS ORDERED: PIPERACILLIN/TAZOB 3.375 GM 3.375 GM in DEXTROSE 5%-WATER - 50 ML IVPB ONE (13:48)
[2018-07-04] MEDS ORDERED: VANCOMYCIN 1,000 MG in DEXTROSE 5%-WATER - 250 ML IVPB ONE (13:48)
[2018-07-04] MEDS ORDERED: RAPID SEQUENCE INTUBATION KIT NR ONE (13:58)
[2018-07-04 14:17] LABS: BASO % 0.2 % (0-2.0); HEMATOCRIT 27.4 % (32.4-45.2); HEMOGLOBIN 8.2 GM/dL (10.7-15.3); LYMPH % 2.9 % (8-40); MCH 24.3 pg (25.7-33.7); MCHC 29.9 g/dl (32.0-36.0); MEAN CELL VOLUME 81.2 fl (80-96); MEAN PLT VOLUME 7.4 fl (7.5-11.1); MONO % 7.3 % (3.8-10.2); NEUT % 89.6 % (42.8-82.8); PLATELET COUNT 537 K/MM3 (134-434); RBC 3.37 M/mm3 (3.60-5.2); RDW 17.8 % (11.6-15.6); WHITE BLOOD COUNT 23.4 K/mm3 (4.0-10.0)
[2018-07-04 14:21] LABS: VENOUS PC02 71.1 mmHg (41-51); VENOUS PH 7.09 (7.31-7.41)
[2018-07-04 14:32] LABS: INR 1.19 (0.83-1.09); PROTHROMBIN TIME (PATIENT) 14.1 SEC (9.7-13.0)
[2018-07-04 14:35] LABS: ACTIVATED PTT 26.4 SECONDS (25.2-36.5)
[2018-07-04] MEDS ORDERED: fentaNYL CITRATE 250 MCG/5 ML VIAL ONE (14:40)
[2018-07-04] MEDS ORDERED: ROCURONIUM BROMIDE 50 MG/5 ML VIAL IV ONE (14:48)
[2018-07-04] MEDS ORDERED: ETOMIDATE 20 MG/10 ML AMPUL IVPUSH ONE (14:48)
[2018-07-04] MEDS ORDERED: FENTANYL INJECTION 500 MCG in DEXTROSE 5%-WATER - 90 ML IVPB SCH (15:00)
[2018-07-04 15:06] LABS: ANISOCYTOSIS 0; MACROCYTOSIS 0; PLATELET ESTIMATE INCREASED
[2018-07-04] MEDS ORDERED: VANCOMYCIN 1 GRAM (PRE-DOCKED) 1,000 MG/250 ML BAG IVPB ONE (15:11)
[2018-07-04] MEDS ORDERED: PIPERACILLIN/TAZOB 3.375 GM 3.375 GM/50 ML BAG IVPB ONE (15:12)
[2018-07-04 15:21] LABS: ALBUMIN 2.2 g/dl (3.4-5.0); BILIRUBIN,TOTAL 0.2 mg/dL (0.2-1); CALCIUM 10.8 mg/dL (8.5-10.1); TOT PROT 6.6 g/dl (6.4-8.2)
--- NOTE | 2018-07-04 15:28 | PDOC ---
History of Present Illness - General Chief Complaint: SIRS, Suspected/Possible Stated Complaint: R/O SEPSIS Time Seen by Provider: 07/04/18 13:39 - History of Present Illness Initial Comments: Brook Echeverria is an 88yo woman with a PMH of dementia, HTN, DM, recurrent UTI and hydronephrosis, recently diagnosed with bladder CA one month ago who presented from her SNF with report of respiratory distress and worsening AMS for two days. Per information provided by EMS, staff at the shelter reported that Ms Day is generally verbally responsive at baseline but has become increasingly less responsive. The nurse caring for her at the SNF believed that she felt warm to touch but temperature may not have been taken; the nurse also felt that she likely had a UTI as her urine was malodorous. On arrival to the ED, Ms Day was found to be initially hypoxic to the mid 80's on non-rebreather with a respiratory rate between 35-40. She was hypotensive to 90/51. She opened her eyes to sternal rub without any other meaningful response. Past History - Past Medical History Allergies/Adverse Reactions: Allergies Allergy/AdvReac Type Severity Reaction Status Date / Time No Known Allergies Allergy Verified 07/04/18 13:43 Home Medications: Ambulatory Orders Sitagliptin Phos/Metformin HCl [Janumet 50-500 mg Tablet] 1 each PO DAILY Aspirin [ASA -] 81 mg PO DAILY 1 Days tab 12/23/11 Metoprolol Succinate [Toprol XL -] 50 mg PO BID #0 tablet 12/23/11 Amlodipine Besylate [Norvasc -] 10 mg PO DAILY #30 tablet 05/30/18 Ciprofloxacin [Cipro (Restricted To Id)] 250 mg PO BID 07/04/18 Guaifenesin [Expectorant] 5 ml PO PRN PRN 07/04/18 Tuberculin Ppd 5 Tu/0.1ML [TUBERSOL (PARK CARE ONLY) 5mL VIAL] 5 unit ONCE 07/04 Anemia: No Asthma: No Cancer: No Cardiac Disorders: No CVA: No COPD: No CHF: No Dementia: No Diabetes: Yes GI Disorders: No Disorders: No HTN: Yes Hypercholesterolemia: No Liver Disease: No Seizures: No Thyroid Disease: No - Surgical History Abdominal Surgery: No Appendectomy: No Cardiac Surgery: No Cholecystectomy: Yes Lung Surgery: No Neurologic Surgery: No Orthopedic Surgery: No - Suicide/Smoking/Psychosocial Hx Smoking Status: No Smoking History: Unknown if ever smoked Have you smoked in the past 12 months: No Number of Cigarettes Smoked Daily: 0 If you are a former smoker, when did you quit?: 30 YRS AGO Information on smoking cessation initiated: No Hx Alcohol Use: No Drug/Substance Use Hx: No Substance Use Type: None Hx Substance Use Treatment: No Review of Systems - Review of Systems Comments:: Could not obtain *Physical Exam - Vital Signs Last Vital Signs Temp Pulse Resp BP Pulse Ox 98.1 F 85 15 112/63 93 L 07/04/18 14:56 07/04/18 15:14 07/04/18 15:14 07/04/18 15:14 07/04/18 15:14 - Physical Exam Comments: General: Moderate distress HEENT: PERRL, EOMI, MMM, voice normal, normal neck ROM, no LAD Cards: RRR, no murmur appreciated Pulm: Tachypnic, non-rebreather in place clear to auscultation bilaterally Abd: Soft, nontender, nondistended : Diapered. Foul-smelling urine Rectal: External hemorroid, no active bleeding Ext: Atraumatic. No LE edema. Skin: Normal color, no rashes or lesions Neuro: Opens eyes to sternal rub, no response to questions, CN grossly intact Procedures - Central Line Central Line Lumen: triple Central Line Position: femoral (L) Anesthesia: 1% Lidocaine Amount of anesthesia (ccs): 1 Complications: none Post Central Line Insertion: sutured, good blood return, position confirmed w/ CXR Progress: Central Line Placement: Consent was obtained verbally via phone from Brook Day's health care proxy, her daughter. Ultrasound was used to evaluate the femoral veins, and it was determined that the left femoral vein would allow for best placement of a triple lumen catheter. The area was prepped with chlorhexadine and draped using sterile technique. Seldinger technique was used for placement of the catheter, and placement was confirmed using ultrasound. Blood return was visualized in all 3 ports. The catheter was sutured in place, dressed with a biopatch and tegaderm. Ms Day tolerated the procedure well, and no complications were appreciated. - Intubation Intubation Method: orotracheal Blade used: Mac Tube Size (Fr): 7.0 Medications: Etomidate (20mg), Rocuronium (100mg) Tube position @ lip (cm): 22 Tube position confirmed by: Direct visualization, CO2 detector, Chest x-ray, Breath sounds Breath Sounds after Intubation: equal Intubation Complications: no complications Post Intubation Xray: Yes ED Treatment Course - LABORATORY CBC & Chemistry Diagram: 07/04/18 13:57 07/04/18 18:26 - ADDITIONAL ORDERS Additional order review: Laboratory Results 07/04/18 07/04/18 07/04/18 13:57 13:57 13:57 PT with INR 14.10 H INR 1.19 H PTT (Actin FS) 26.4 VBG pH 7.09 L* POC VBG pCO2 71.1 H* POC VBG pO2 165 H VBG HCO3 20.3 L VBG O2 Sat (Neda) 97.5 H VBG Base Excess -9.2 L Sodium 134 L Chloride 108 H Carbon Dioxide 23 Anion Gap 4 L BUN 79 H Creatinine 2.0 H Est GFR (CKD-EPI)AfAm 25.02 Est GFR (CKD-EPI)NonAf 21.59 Random Glucose 193 H Calcium 10.8 H Total Bilirubin 0.2 AST 22 ALT 13 Alkaline Phosphatase 63 Troponin I 0.16 H Total Protein 6.6 Albumin 2.2 L 07/04/18 13:57 RBC 3.37 L MCV 81.2 MCHC 29.9 L RDW 17.8 H MPV 7.4 L D Neutrophils % 89.6 H D Lymphocytes % 2.9 L D Monocytes % 7.3 Eosinophils % 0.0 D Basophils % 0.2 - Medications Given in the ED: ED Medications Discontinued Medications Generic Name Dose Route Start Last Admin Trade Name Freq PRN Reason Stop Dose Admin Piperacillin Sod/Tazobactam 50 mls @ 100 mls/hr 07/04/18 13:48 07/04/18 15:13 Sod 3.375 gm/ Dextrose IVPB 07/04/18 14:17 100 mls/hr ONCE ONE Administration Protocol Medical Decision Making - Medical Decision Making 07/04/18 16:19 Brook Echeverria is an 88yo woman with a PMH of dementia, HTN, DM, recurrent UTI and hydronephrosis, recently diagnosed with bladder CA one month ago who presented from her SNF with report of respiratory distress and worsening AMS for two days. Per information provided by EMS, staff at the shelter reported that Ms Day is generally verbally responsive at baseline but has become increasingly less responsive. The nurse caring for her at the SNF believed that she felt warm to touch but temperature may not have been taken; the nurse also felt that she likely had a UTI as her urine was malodorous. On arrival to the ED, Ms Day was found to be initially hypoxic to the mid 80's on non-rebreather with a respiratory rate between 35-40. She was hypotensive to 90/51. She opened her eyes to sternal rub without any other meaningful response. - Intubation planned urgently; RR of near 40 unlikely to be sustained half-way - Sepsis order set was initiated on arrival. Suspect sepsis secondary to UTI given h/o frequent infections and recent procedure - Family was contacted by Dr Short. The health care proxy gave verbal consent for both intubation and central line placement. - Kaur catheter placed - Ms Day was intubated with the supervision of Dr Short. Etomidate and rocuronium were used for rapid sequence intubation. A 7.0 ETT was placed (22cm at the teeth) using direct laryngoscopy. CO2 detector showed color change, and the tube is to be confirmed with xray. - An US guided left femoral triple lumen catheter was also placed with the supervision of Dr Short. - Labs reviewed. Notable for multiple abnormalities included WBC 23.4, potassium 6.7, lactate 2.6. ABG w/ pH 7/14, CO2 57, bicarb 18.7, BE -9.5 - Vanc/zosyn ordered by Dr Short. 2L IVF for elevated lactate - Calcium gluconate, sodium barcarb for hyperkalemia - ICU called by Dr Short. Completed evaluation, will accept to ICU. To be admitted to Dr Stroud. 07/04/18 19:35 - Waiting for ICU bed - Signed out to Dr Samuel for any remaining ED management. Seen with Dr Short. Marissa Torres PGY1 *DC/Admit/Observation/Transfer Diagnosis at time of Disposition: Severe sepsis, Urinary tract infection - Discharge Dispostion Decision to Admit order: Yes - Referrals - Patient Instructions - Post Discharge Activity
[2018-07-04 15:29] LABS: POTASSIUM 6.7 mmol/L (3.5-5.1)
[2018-07-04 15:37] LABS: ARTERIAL BLD GAS O2 SATURATION 92.5 % (95-98); ARTERIAL BLOOD GAS BASE EXCESS -9.5 meq/l (-2-2); ARTERIAL BLOOD GAS PCO2 57.5 mmHg (35-45); ARTERIAL BLOOD GAS PO2 87.9 mmHg (80-105); CARBOXYHEMOGLOBIN 0.8 % (0-2)
[2018-07-04 15:41] LABS: ARTERIAL BLOOD GAS pH 7.14 (7.35-7.45)
[2018-07-04] MEDS ORDERED: SODIUM CHLORIDE 1,000 ML IV STA ×2 (16:00→21:49)
[2018-07-04] MEDS ORDERED: SODIUM BICARBONATE 8.4% 50 MEQ/50 ML DISP.SYRIN IVPUSH ONE ×3 (16:07→23:55)
[2018-07-04] MEDS ORDERED: SODIUM CHLORIDE 0.9% 500 ML INFUS.BAG IV ONE (16:07)
--- NOTE | 2018-07-04 16:09 | CONSULT ---
Consult Consult Specialty:: Pulm/CCM Referred by:: Dr. Short Reason for Consultation:: septic shock - History of Present Illness History of Present Illness: 88 yo F h/o dementia, HTN, DM, back pain, recurrent UTI, hydronephrosis, renal and bladder neoplastic mass s/p cystoscopy BIBEMS from [place] for acute respiratory distress x 2 days. Per ED and [facility] document, patient was febrile and AMS with worsening shortness of breath. Patient has h/o bladder outlet obstruction and hydronephrosis. After patient was brought in the ED, she desaturated while NRB and subsequently intubated. Triple lumen was placed for hypotension. Broad spectrum abx vanc and zosyn were given. First liter of fluid gave in the ED. 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 [employer]: Yes: Dementia Cardio/Vascular: Yes: HTN Endocrine: Yes: Diabetes Mellitus - Alcohol/Substance Use Hx Alcohol Use: No - Smoking History Smoking history: Unknown if ever smoked Have you smoked in the past 12 months: No Aproximately how many cigarettes per day: 0 If you are a former smoker, when did you quit?: 30 YRS AGO Home Medications - Allergies Allergies/Adverse Reactions: Allergies Allergy/AdvReac Type Severity Reaction Status Date / Time No Known Allergies Allergy Verified 07/04/18 13:43 - Home Medications Home Medications: Ambulatory Orders Sitagliptin Phos/Metformin HCl [Janumet 50-500 mg Tablet] 1 each PO DAILY Aspirin [ASA -] 81 mg PO DAILY 1 Days tab 12/23/11 Metoprolol Succinate [Toprol XL -] 50 mg PO BID #0 tablet 12/23/11 Amlodipine Besylate [Norvasc -] 10 mg PO DAILY #30 tablet 05/30/18 Review of Systems Unable to obtain ROS, reason: intubated Physical Exam Vital Signs: Vital Signs Temperature 98.0 F 07/04/18 15:41 Pulse Rate 87 07/04/18 15:41 Respiratory Rate 15 07/04/18 15:41 Blood Pressure 90/51 L 07/04/18 15:41 O2 Sat by Pulse Oximetry (%) 95 07/04/18 15:41 Eyes: Yes: Other (blown pupils, non-reactive) Cardiovascular: Yes: Regular Rate and Rhythm, S1, S2. No: Murmur Respiratory: Yes: Mechanically Ventilated Gastrointestinal: Yes: Normal Bowel Sounds, Soft, Abdomen, Obese Renal/: Yes: Other (foamy and malodorous urine) Extremities: Yes: Cold Edema: No Peripheral Pulses WNL: Yes Labs: CBC, BMP 07/04/18 13:57 07/04/18 13:57 Imaging - Results X-ray: Image Reviewed Ultrasound: Report Reviewed Assessment/Plan 88 yo F h/o dementia, HTN, DM, back pain, recurrent UTI, hydronephrosis, 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 ID: septic shock 2/2 complicated UTI possibly pyelonephritis - foamy looking urine grossly - prior urine culture grew strep viridan - cont. broad spectrum abx - cont. aggress fluid resusitation (30ML/KG) - hart culture - trend lactate - monitor cvp, maintain MAP > 65 - ID consult for abx approval Renal: BRITT 2/2 septic shock, hyperkalemia, hypercalcemia - prerenal with normal Cr - avoid nephrotoxic agents and cont. hydration - trend Cr - calcium gluconate 1g, d50 w/ 10 units of insulin, kayexalate thru retention enema - Nephro consult Pulm: intubated - mixed metabolic and respiratory acidosis - maintain O2 sat > 90% - daily ABG CV: HTN - hold bp meds - cont. cardiac monitoring - pressor support PRN : complicated UTI, cannot r/o pyelo, h/o bladder and renal masses - renal U/S - maintain new Endo: DM - glycemic control with sliding scal FEN - NS boluses 2L then maintainence - correct hyperkalemia and hypercalcemia - NPO Prophylaxis - DVT: lovenox - GI: not indicated now Dispo: Full code per family members. ICU monitoring. Jalen Jerez MD ICU resident Visit type - Emergency Visit Emergency Visit: Yes Care time: The patient presented to the Emergency Department on the above date and was hospitalized for further evaluation of their emergent condition. - New Patient This patient is new to me today: Yes Date on this admission: 07/04/18 - Critical Care Critical Care patient: Yes Total Critical Care Time (in minutes): 35 Critical Care Statement: The care of this patient involved high complexity decision making to prevent further life threatening deterioration of the patient 's condition and/or to evaluate & treat vital organ system(s) failure or risk of failure.
[2018-07-04] MEDS ORDERED: CALCIUM GLUCONATE 10% - 1,000 MG/10 ML VIAL IVPB ONE (16:11)
[2018-07-04] MEDS ORDERED: SODIUM BICARBONATE 8.4% - 50 ML ONE ×2 (16:17→23:43)
[2018-07-04] MEDS ORDERED: CALCIUM GLUCONATE 10% - 1,000 MG/10 ML VIAL ONE (16:17)
--- NOTE | 2018-07-04 16:23 | HP ---
Admitting History and Physical - Admission Chief Complaint: sent in from [facility] fever and change in mental status History of Present Illness: Patient is an 88 year old female with a significant past medical history of dementia, HTN, DM, back pain, prior UTIs and hydronephrosis who presents to the ED with complaints of respiratory distress that began x2 days ago. As per EMS patient has been experiencing difficulty breathing that began x2 days ago. As per [facility] they believed patient be experiencing slight elevated fever as well as associated altered mental status, stating she is usually alert and conversive but states she has not been acting herself recently, prompting [facility] staff to send her into the ED for further evaluation. Denies chest pain, sob. Denies nausea, vomiting. Denies fevers, chills. Denies contact with sick individuals, out of state travelling. Denies dysuria, hematuria. Denies constipation, diarrhea. Denies any other symptoms. 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 Cardiovascular: Yes: HTN Endocrine: Yes: Diabetes Mellitus - Smoking History Smoking history: Unknown if ever smoked Have you smoked in the past 12 months: No Aproximately how many cigarettes per day: 0 If you are a former smoker, when did you quit?: 30 YRS AGO - Alcohol/Substance Use Hx Alcohol Use: No Home Medications - Allergies Allergies/Adverse Reactions: Allergies Allergy/AdvReac Type Severity Reaction Status Date / Time No Known Allergies Allergy Verified 07/04/18 13:43 - Home Medications Home Medications: Ambulatory Orders Sitagliptin Phos/Metformin HCl [Janumet 50-500 mg Tablet] 1 each PO DAILY Aspirin [ASA -] 81 mg PO DAILY 1 Days tab 12/23/11 Metoprolol Succinate [Toprol XL -] 50 mg PO BID #0 tablet 12/23/11 Amlodipine Besylate [Norvasc -] 10 mg PO DAILY #30 tablet 05/30/18 Review of Systems Unable to obtain ROS, reason: intubated sedated Physical Examination Vital Signs: Vital Signs Temperature 98.0 F 07/04/18 15:41 Pulse Rate 87 07/04/18 15:41 Respiratory Rate 15 07/04/18 15:41 Blood Pressure 90/51 L 07/04/18 15:41 O2 Sat by Pulse Oximetry (%) 95 07/04/18 15:41 Constitutional: Yes: Calm Cardiovascular: Yes: Regular Rate and Rhythm, S1, S2 Respiratory: Yes: CTA Bilaterally Gastrointestinal: Yes: Normal Bowel Sounds, Soft Edema: No Labs: CBC, BMP 07/04/18 13:57 07/04/18 13:57 Problem List - Problems (1) Sepsis Assessment/Plan: change in mental status secondary to urosepsis intubated sedated AC mode ivf recheck bmp broad spectrum iv abx zosyn got vancomycin- will give meropenem icu monitoring urine and blood cultures pressors to maintain MAP > 65 lactic acidosis secondary to uti avoid all anti htn medications dvt ppx metabolic acidosis on ABG with increase lactic acid- repeat ABG\ cultures pending Code(s): A41.9 - SEPSIS, UNSPECIFIED ORGANISM (2) BRITT (acute kidney injury) Assessment/Plan: ivf renal sono renal eval Code(s): N17.9 - ACUTE KIDNEY FAILURE, UNSPECIFIED (3) Hyperkalemia Assessment/Plan: ivf calcium and sodiumbicarbonate and insulin Code(s): E87.5 - HYPERKALEMIA (4) Diabetes mellitus Assessment/Plan: hgba1c bgm sliding scale Code(s): E11.9 - TYPE 2 DIABETES MELLITUS WITHOUT COMPLICATIONS Qualifiers: Diabetes mellitus type: type 2 Diabetes mellitus alf insulin use: without alf use
--- NOTE | 2018-07-04 16:26 | PDOC ---
Documentation entered by Conner Paul SCRIBE, acting as scribe for Evan Short MD. Evan Short MD: This documentation has been prepared by the Beverly sharpe Matthew, SCRIBE, under my direction and personally reviewed by me in its entirety. I confirm that the documentation accurately reflects all work, treatment, procedures, and medical decision making performed by me. Attending Attestation - Resident Resident Name: Marissa Torres - ED Attending Attestation I have performed the following: I have examined & evaluated the patient, The case was reviewed & discussed with the resident, I agree w/resident's findings & plan, Exceptions are as noted - HPI HPI: 07/04/18 14:48 Patient is an 88 year old female with a significant past medical history of dementia, HTN, DM, bladder cancer, back pain, prior UTIs and hydronephrosis who presents to the ED with complaints of respiratory distress that began x2 days ago. As per EMS patient has been experiencing difficulty breathing that began x2 days ago. As per NH they believed patient be experiencing slight elevated fever as well as associated altered mental status, stating she is usually alert and conversive but states she has not been acting herself recently, prompting [facility] staff to send her into the ED for further evaluation. Denies chest pain, sob. Denies nausea, vomiting. Denies fevers, chills. Denies contact with sick individuals, out of state travelling. Denies dysuria, hematuria. Denies constipation, diarrhea. Denies any other symptoms. Allergies: NKDA Social history: From [facility]. Former smoker (Last 30 years ago). No alcohol. No illicit drugs. Surgical history: None PMD: Dr. García 07/04/18 16:21 - Physicial Exam PE: 07/04/18 16:22 GENERAL: Ill-appearing, minimally response, responsive to repeated tactile stimuli HEAD: No signs of trauma EYES: EOMI, sclera anicteric, conjunctiva clear ENT: Auricles normal inspection, hearing grossly normal, nares patent NECK: supple LUNGS: Breath sounds equal, clear to auscultation bilaterally. No wheezes, and no crackles but tachypneic HEART: Regular rate and rhythm, normal S1 and S2, no murmurs, rubs or gallops ABDOMEN: Soft, nontender EXTREMITIES: No clubbing or cyanosis. No cords, erythema, or tenderness NEUROLOGICAL: Minimally responsive to painful stimuli SKIN: Warm, Dry, normal turgor, no rashes or lesions noted. - Critical Care Time Total Critical Care Time: 60 Critical Care Statement: The care of this patient involved high complexity decision making to prevent further life threatening deterioration of the patient 's condition and/or to evaluate & treat vital organ system(s) failure or risk of failure. - Medical Decision Making 07/04/18 13:51 13:46 called Patients person to Notify Kylah Carias no response, left voicemail asking to call back. Waiting response. 13:51 called patients next of kin Arminda Day, no response, left voicemail asking to call back. Awaiting response. 07/04/18 16:24 Vital Signs Temp Pulse Resp BP Pulse Ox 98.0 F 87 15 90/51 L 95 07/04/18 15:41 07/04/18 15:41 07/04/18 15:41 07/04/18 15:41 07/04/18 15:41 This is an 88-year-old patient who presents in respiratory failure as well as hypertension concerning for septic shock. Patient was deemed to require intubation. Case is discussed with all family members including patient's daughter was healthcare proxy. She consents for all procedures requests full care. The patient was intubated by Dr. Torres with Mac 3 blade with direct visualization. ET tube 7.0 at 22 at the lip. Chest x-ray reviewed by me pending official radiology read. Proper placement ET tube and no obvious infiltrates. Urine interestingly urinary tract infection and the blood work demonstrates numerous abnormalities including an elevated white blood cell count acute renal failure. Patient with hyperkalemia. We will need to treat hyperkalemia treat infection including with that questions Zosyn. Patient is critically ill and with guarded prognosis. I see was consulted and the patient is accepted. Case discussed with Dr. Stroud who accepts patient. Heart Score/ECG Review #1 ECG reviewed & interpreted by me at: 16:15 07/04/18 17:36 NSR 74 with 1st degree AV block, left axis deviation, low voltage QRS, TWI avF III V3-V4, QTC 432 msec, no std/joshua
[2018-07-04] MEDS ORDERED: MEROPENEM 1 GM in DEXTROSE 5%-WATER 100 ML IVPB ONE (16:33)
[2018-07-04] MEDS ORDERED: MEROPENEM 1 GM VIAL (RESTRICTED TO ID) IVPB ONE (16:38)
[2018-07-04] MEDS ORDERED: PIPERACILLIN/TAZOB 3.375 GM 3.375 GM in DEXTROSE 5%-WATER - 50 ML IVPB SCH (18:00)
[2018-07-04] MEDS ORDERED: ALBUTEROL SO4 0.083% IH SOL 2.5 MG/3 ML VIAL.NEB. NEB ONE (18:05)
[2018-07-04] MEDS ORDERED: SODIUM CHLORIDE 1,000 ML IV SCH ×2 (18:15→23:49)
[2018-07-04 19:14] LABS: CALCIUM 9.9 mg/dL (8.5-10.1)
[2018-07-04 19:22] LABS: POTASSIUM 6.4 mmol/L (3.5-5.1)
[2018-07-04] MEDS: NOREPINEPHRINE BITARTRATE 8,000 MCG in DEXTROSE 5%-WATER - 492 ML IV SCH (21:00)
[2018-07-04] MEDS ORDERED: INSULIN SLIDING SCALE (NOVOLOG) 1 VIAL SQ SCH (21:00)
[2018-07-04] MEDS ORDERED: NOREPINEPHRINE BITARTRATE 4 MG/4 ML ML IV ONE (21:07)
[2018-07-04] MEDS ORDERED: DEXTROSE 50%-WATER - 25 GM/50 ML VIAL IVPUSH ONE ×2 (21:10→23:56)
[2018-07-04] MEDS ORDERED: INSULIN REGULAR HUMAN 100 UNITS/ML *VIAL IVPUSH ONE ×2 (21:10→23:56)
[2018-07-04] MEDS ORDERED: CHLORHEXIDINE GLUCONATE 4% CLEANSER FOR DECOLONIZATION TP SCH (22:00)
[2018-07-04] MEDS ORDERED: MUPIROCIN 2% TOPICAL OINTMENT FOR DECOLONIZATION NS SCH (22:00)
[2018-07-04] MEDS: MUPIROCIN 2% TOPICAL OINTMENT FOR DECOLONIZATION NS SCH (22:42)
[2018-07-04] MEDS: CHLORHEXIDINE GLUCONATE 4% CLEANSER FOR DECOLONIZATION TP SCH (22:42)
[2018-07-04] MEDS: INSULIN SLIDING SCALE (NOVOLOG) 1 VIAL SQ SCH (22:47)
[2018-07-04 23:22] LABS: ARTERIAL BLOOD GAS PCO2 57.5 mmHg (35-45); ARTERIAL BLOOD GAS PO2 123 mmHg (80-105)
[2018-07-04 23:23] LABS: ALLENS TEST POSITIVE; ARTERIAL BLD GAS O2 SATURATION 96.3 % (95-98); ARTERIAL BLOOD GAS BASE EXCESS -10.3 meq/l (-2-2)
[2018-07-04 23:25] LABS: ARTERIAL BLOOD GAS pH 7.12 (7.35-7.45)
[2018-07-04 23:54] LABS: ALBUMIN 1.8 g/dl (3.4-5.0); BILIRUBIN,TOTAL 0.2 mg/dL (0.2-1); CALCIUM 9.1 mg/dL (8.5-10.1); CREATININE 1.8 mg/dL (0.55-1.3); POTASSIUM 5.8 mmol/L (3.5-5.1); TOT PROT 5.7 g/dl (6.4-8.2)
[2018-07-04 23:58] LABS: BASO % 0.1 % (0-2.0); HEMATOCRIT 26.5 % (32.4-45.2); HEMOGLOBIN 7.7 GM/dL (10.7-15.3); LYMPH % 3.5 % (8-40); MCH 24.2 pg (25.7-33.7); MCHC 29.1 g/dl (32.0-36.0); MEAN CELL VOLUME 83.1 fl (80-96); MEAN PLT VOLUME 7.6 fl (7.5-11.1); MONO % 7.7 % (3.8-10.2); NEUT % 88.7 % (42.8-82.8); PLATELET COUNT 464 K/MM3 (134-434); RBC 3.19 M/mm3 (3.60-5.2); RDW 17.9 % (11.6-15.6); WHITE BLOOD COUNT 23.4 K/mm3 (4.0-10.0)
[2018-07-05 01:03] LABS: ANISOCYTOSIS 2+; MACROCYTOSIS 0; OVALOCYTE 1+; PLATELET ESTIMATE NORMAL; TARGET CELLS 1+
[2018-07-05] MEDS ORDERED: SODIUM BICARBONATE 8.4% 50 MEQ/50 ML VIAL ONE (02:28)
[2018-07-05] MEDS ORDERED: VANCOMYCIN 1 GRAM (PRE-DOCKED) 1,000 MG/250 ML BAG IVPB ONE (03:00)
[2018-07-05] MEDS ORDERED: SODIUM BICARBONATE 8.4% 50 MEQ/50 ML DISP.SYRIN IVPUSH ONE ×2 (04:00→06:31)
[2018-07-05 06:13] LABS: ARTERIAL BLD GAS O2 SATURATION 96.6 % (95-98); ARTERIAL BLOOD GAS BASE EXCESS -5.5 meq/l (-2-2); ARTERIAL BLOOD GAS PO2 112 mmHg (80-105); ARTERIAL BLOOD GAS pH 7.22 (7.35-7.45)
[2018-07-05 06:23] LABS: ALLENS TEST POSITIVE
[2018-07-05] MEDS: INSULIN SLIDING SCALE (NOVOLOG) 1 VIAL SQ SCH ×3 (06:26→21:32)
[2018-07-05] MEDS ORDERED: SODIUM CHLORIDE 1,000 ML IV SCH ×3 (06:30→18:47)
[2018-07-05 06:46] LABS: BASO % 0.2 % (0-2.0); EOS % 0.1 % (0-4.5); HEMATOCRIT 27.4 % (32.4-45.2); HEMOGLOBIN 8.2 GM/dL (10.7-15.3); LYMPH % 4.5 % (8-40); MCH 24.5 pg (25.7-33.7); MCHC 30.1 g/dl (32.0-36.0); MEAN CELL VOLUME 81.5 fl (80-96); MEAN PLT VOLUME 7.7 fl (7.5-11.1); MONO % 8.4 % (3.8-10.2); NEUT % 86.8 % (42.8-82.8); PLATELET COUNT 495 K/MM3 (134-434); RBC 3.36 M/mm3 (3.60-5.2); WHITE BLOOD COUNT 22.4 K/mm3 (4.0-10.0)
[2018-07-05 07:00] LABS: INR 1.16 (0.83-1.09); PROTHROMBIN TIME (PATIENT) 13.7 SEC (9.7-13.0)
[2018-07-05 07:03] LABS: ACTIVATED PTT 17.8 SECONDS (25.2-36.5)
[2018-07-05 07:16] LABS: ALBUMIN 1.8 g/dl (3.4-5.0); BILIRUBIN,TOTAL 0.2 mg/dL (0.2-1); CALCIUM 9.1 mg/dL (8.5-10.1); CREATININE 1.8 mg/dL (0.55-1.3); MAGNESIUM 2.4 mg/dL (1.8-2.4); POTASSIUM 5.7 mmol/L (3.5-5.1); TOT PROT 5.9 g/dl (6.4-8.2)
--- NOTE | 2018-07-05 08:01 | PN ---
Physical Exam: SUBJECTIVE: Patient seen and examined at bedside. Overnight, patient received fluids and bicarb and K correction. Patient is intubated and awake however nonverbal. OBJECTIVE: Vital Signs Period Temp Pulse Resp BP Sys/Swift Pulse Ox Last 24 Hr 97.8 F-98.7 F 71-120 15-21 75-136/45-69 90-100 GENERAL: The patient is awake, alert, following commands, nonverbal. EYES: PERRL, sclera anicteric, conjunctiva clear. No ptosis. LUNGS: Breath sounds equal, clear to auscultation bilaterally, no wheezes, no crackles, no accessory muscle use. HEART: tachycardic, S1, S2 without murmur, rub or gallop. ABDOMEN: Soft, nontender, nondistended, normoactive bowel sounds, no guarding, no rebound, no hepatosplenomegaly, no masses. EXTREMITIES: 2+ pulses, warm, well-perfused, no edema. NEUROLOGICAL: Cranial nerves II through XII grossly intact SKIN: Warm, dry, normal turgor, no rashes or lesions noted Laboratory Results - last 24 hr 07/04/18 07/04/18 07/04/18 13:50 13:57 13:57 WBC 23.4 H RBC 3.37 L Hgb 8.2 L Hct 27.4 L MCV 81.2 MCH 24.3 L MCHC 29.9 L RDW 17.8 H Plt Count 537 H D MPV 7.4 L D Absolute Neuts (auto) 20.9 H Neutrophils % 89.6 H D Neutrophils % (Manual) 83.2 H Band Neutrophils % 5.9 Lymphocytes % 2.9 L D Lymphocytes % (Manual) 5.0 L Monocytes % 7.3 Monocytes % (Manual) 6 Eosinophils % 0.0 D Eosinophils % (Manual) 0.0 Basophils % 0.2 Basophils % (Manual) 0.0 Myelocytes % (Man) 0 Promyelocytes % (Man) 0 Blast Cells % (Manual) 0 Nucleated RBC % 0 Metamyelocytes 0 Hypochromia 2+ Platelet Estimate Increased Polychromasia 1+ Poikilocytosis 0 Anisocytosis 0 Microcytosis 0 Macrocytosis 0 Target Cells Ovalocytes PT with INR 14.10 H INR 1.19 H PTT (Actin FS) 26.4 Anticoagulation Therapy Puncture Site ABG pH ABG pCO2 at Pt Temp ABG pO2 at Pt Temp ABG HCO3 ABG O2 Sat (Measured) ABG O2 Content ABG Base Excess Ricki Test VBG pH POC VBG pCO2 POC VBG pO2 VBG HCO3 VBG O2 Sat (Neda) VBG Base Excess Carboxyhemoglobin Methemoglobin O2 Delivery Device Oxygen Flow Rate Vent Mode Vent Rate Mechanical Rate PEEP Pressure Support Vent Sodium Potassium Chloride Carbon Dioxide Anion Gap BUN Creatinine Est GFR (CKD-EPI)AfAm Est GFR (CKD-EPI)NonAf POC Glucometer Random Glucose Hemoglobin A1c % Lactic Acid Calcium Phosphorus Magnesium Total Bilirubin AST ALT Alkaline Phosphatase Troponin I Total Protein Albumin Urine Color Yellow Urine Appearance Clear Urine pH Urine pH (Auto) 8.5 H Ur Specific [place] Specific [place] (Auto) 1.025 Urine Protein Urine Protein (Auto) 3+ Urine Glucose (UA) Glucose (UA)(Auto) Negative Urine Ketones Urine Ketones (Auto) Trace Urine Blood Urine Blood (Auto) 2+ H Urine Nitrite Urine Nitrite (Auto) Negative Urine Bilirubin Negative Urine Urobilinogen Urine Urobilinogen (Auto) 0.2 Ur Leukocyte Esterase Leukocyte Esterase (Auto) 3+ Urine WBC (Auto) Urine RBC (Auto) Urine Casts (Auto) U Pathogenic Cast Auto U Epithel Cells (Auto) U Sm Round Cell (Auto) Urine Crystals (Auto) Urine Bacteria (Auto) Urine RBC 2+ Urine WBC 3+ Ur Epithelial Cells 0-3 xc Urine Bacteria 4+ Urine Yeast (Auto) 07/04/18 07/04/18 07/04/18 13:57 13:57 13:57 WBC RBC Hgb Hct MCV MCH MCHC RDW Plt Count MPV Absolute Neuts (auto) Neutrophils % Neutrophils % (Manual) Band Neutrophils % Lymphocytes % Lymphocytes % (Manual) Monocytes % Monocytes % (Manual) Eosinophils % Eosinophils % (Manual) Basophils % Basophils % (Manual) Myelocytes % (Man) Promyelocytes % (Man) Blast Cells % (Manual) Nucleated RBC % Metamyelocytes Hypochromia Platelet Estimate Polychromasia Poikilocytosis Anisocytosis Microcytosis Macrocytosis Target Cells Ovalocytes PT with INR INR PTT (Actin FS) Anticoagulation Therapy Puncture Site ABG pH ABG pCO2 at Pt Temp ABG pO2 at Pt Temp ABG HCO3 ABG O2 Sat (Measured) ABG O2 Content ABG Base Excess Ricki Test VBG pH 7.09 L* POC VBG pCO2 71.1 H* POC VBG pO2 165 H VBG HCO3 20.3 L VBG O2 Sat (Neda) 97.5 H VBG Base Excess -9.2 L Carboxyhemoglobin Methemoglobin O2 Delivery Device Oxygen Flow Rate Vent Mode Vent Rate Mechanical Rate PEEP Pressure Support Vent Sodium 134 L Potassium 6.7 H* Chloride 108 H Carbon Dioxide 23 Anion Gap 4 L BUN 79 H Creatinine 2.0 H Est GFR (CKD-EPI)AfAm 25.02 Est GFR (CKD-EPI)NonAf 21.59 POC Glucometer Random Glucose 193 H Hemoglobin A1c % Lactic Acid 2.6 H* Calcium 10.8 H Phosphorus Magnesium Total Bilirubin 0.2 AST 22 ALT 13 Alkaline Phosphatase 63 Troponin I 0.16 H Total Protein 6.6 Albumin 2.2 L Urine Color Urine Appearance Urine pH Urine pH (Auto) Ur Specific [place] Specific [place] (Auto) Urine Protein Urine Protein (Auto) Urine Glucose (UA) Glucose (UA)(Auto) Urine Ketones Urine Ketones (Auto) Urine Blood Urine Blood (Auto) Urine Nitrite Urine Nitrite (Auto) Urine Bilirubin Urine Urobilinogen Urine Urobilinogen (Auto) Ur Leukocyte Esterase Leukocyte Esterase (Auto) Urine WBC (Auto) Urine RBC (Auto) Urine Casts (Auto) U Pathogenic Cast Auto U Epithel Cells (Auto) U Sm Round Cell (Auto) Urine Crystals (Auto) Urine Bacteria (Auto) Urine RBC Urine WBC Ur Epithelial Cells Urine Bacteria Urine Yeast (Auto) 07/04/18 07/04/18 07/04/18 14:52 15:23 18:02 WBC RBC Hgb Hct MCV MCH MCHC RDW Plt Count MPV Absolute Neuts (auto) Neutrophils % Neutrophils % (Manual) Band Neutrophils % Lymphocytes % Lymphocytes % (Manual) Monocytes % Monocytes % (Manual) Eosinophils % Eosinophils % (Manual) Basophils % Basophils % (Manual) Myelocytes % (Man) Promyelocytes % (Man) Blast Cells % (Manual) Nucleated RBC % Metamyelocytes Hypochromia Platelet Estimate Polychromasia Poikilocytosis Anisocytosis Microcytosis Macrocytosis Target Cells Ovalocytes PT with INR INR PTT (Actin FS) Anticoagulation Therapy No Result Required. Puncture Site No Result Required. ABG pH 7.14 L* ABG pCO2 at Pt Temp 57.5 H ABG pO2 at Pt Temp 87.9 ABG HCO3 18.7 L ABG O2 Sat (Measured) 92.5 L ABG O2 Content 10.0 L ABG Base Excess -9.5 L Ricki Test No Result Required. VBG pH POC VBG pCO2 POC VBG pO2 VBG HCO3 VBG O2 Sat (Neda) VBG Base Excess Carboxyhemoglobin 0.8 Methemoglobin 1.1 O2 Delivery Device No Result Required. Oxygen Flow Rate No Result Required. Vent Mode No Result Required. Vent Rate No Result Required. Mechanical Rate No Result Required. PEEP Pressure Support Vent No Result Required. Sodium Potassium Chloride Carbon Dioxide Anion Gap BUN Creatinine Est GFR (CKD-EPI)AfAm Est GFR (CKD-EPI)NonAf POC Glucometer Random Glucose Hemoglobin A1c % Lactic Acid 3.6 H* Calcium Phosphorus Magnesium Total Bilirubin AST ALT Alkaline Phosphatase Troponin I Total Protein Albumin Urine Color Cancelled Urine Appearance Cancelled Urine pH Cancelled Urine pH (Auto) Ur Specific [place] Cancelled Specific [place] (Auto) Urine Protein Cancelled Urine Protein (Auto) Urine Glucose (UA) Cancelled Glucose (UA)(Auto) Urine Ketones Cancelled Urine Ketones (Auto) Urine Blood Cancelled Urine Blood (Auto) Urine Nitrite Cancelled Urine Nitrite (Auto) Urine Bilirubin Cancelled Urine Urobilinogen Cancelled Urine Urobilinogen (Auto) Ur Leukocyte Esterase Cancelled Leukocyte Esterase (Auto) Urine WBC (Auto) Cancelled Urine RBC (Auto) Cancelled Urine Casts (Auto) Cancelled U Pathogenic Cast Auto Cancelled U Epithel Cells (Auto) Cancelled U Sm Round Cell (Auto) Cancelled Urine Crystals (Auto) Cancelled Urine Bacteria (Auto) Cancelled Urine RBC Urine WBC Ur Epithelial Cells Urine Bacteria Urine Yeast (Auto) Cancelled 07/04/18 07/04/18 07/04/18 18:26 21:38 22:45 WBC RBC Hgb Hct MCV MCH MCHC RDW Plt Count MPV Absolute Neuts (auto) Neutrophils % Neutrophils % (Manual) Band Neutrophils % Lymphocytes % Lymphocytes % (Manual) Monocytes % Monocytes % (Manual) Eosinophils % Eosinophils % (Manual) Basophils % Basophils % (Manual) Myelocytes % (Man) Promyelocytes % (Man) Blast Cells % (Manual) Nucleated RBC % Metamyelocytes Hypochromia Platelet Estimate Polychromasia Poikilocytosis Anisocytosis Microcytosis Macrocytosis Target Cells Ovalocytes PT with INR INR PTT (Actin FS) Anticoagulation Therapy Puncture Site ABG pH ABG pCO2 at Pt Temp ABG pO2 at Pt Temp ABG HCO3 ABG O2 Sat (Measured) ABG O2 Content ABG Base Excess Ricki Test VBG pH POC VBG pCO2 POC VBG pO2 VBG HCO3 VBG O2 Sat (Neda) VBG Base Excess Carboxyhemoglobin Methemoglobin O2 Delivery Device Oxygen Flow Rate Vent Mode Vent Rate Mechanical Rate PEEP Pressure Support Vent Sodium 140 Potassium 6.4 H* Chloride 111 H Carbon Dioxide 22 Anion Gap 8 BUN 71 H Creatinine 2.0 H Est GFR (CKD-EPI)AfAm 25.02 Est GFR (CKD-EPI)NonAf 21.59 POC Glucometer 241 Random Glucose 200 H Hemoglobin A1c % 6.1 Lactic Acid Calcium 9.9 Phosphorus Magnesium Total Bilirubin AST ALT Alkaline Phosphatase Troponin I 0.15 H Total Protein Albumin Urine Color Urine Appearance Urine pH Urine pH (Auto) Ur Specific [place] Specific [place] (Auto) Urine Protein Urine Protein (Auto) Urine Glucose (UA) Glucose (UA)(Auto) Urine Ketones Urine Ketones (Auto) Urine Blood Urine Blood (Auto) Urine Nitrite Urine Nitrite (Auto) Urine Bilirubin Urine Urobilinogen Urine Urobilinogen (Auto) Ur Leukocyte Esterase Leukocyte Esterase (Auto) Urine WBC (Auto) Urine RBC (Auto) Urine Casts (Auto) U Pathogenic Cast Auto U Epithel Cells (Auto) U Sm Round Cell (Auto) Urine Crystals (Auto) Urine Bacteria (Auto) Urine RBC Urine WBC Ur Epithelial Cells Urine Bacteria Urine Yeast (Auto) 07/04/18 07/04/18 07/04/18 23:00 23:00 23:00 WBC 23.4 H RBC 3.19 L Hgb 7.7 L Hct 26.5 L MCV 83.1 MCH 24.2 L MCHC 29.1 L RDW 17.9 H Plt Count 464 H MPV 7.6 Absolute Neuts (auto) 20.7 H Neutrophils % 88.7 H Neutrophils % (Manual) 91.9 H Band Neutrophils % 0.0 Lymphocytes % 3.5 L D Lymphocytes % (Manual) 4.1 L Monocytes % 7.7 Monocytes % (Manual) 2 L Eosinophils % 0.0 Eosinophils % (Manual) 0.0 Basophils % 0.1 Basophils % (Manual) 0.0 Myelocytes % (Man) 1 D Promyelocytes % (Man) 0 Blast Cells % (Manual) 0 Nucleated RBC % 0 Metamyelocytes 1 D Hypochromia 2+ Platelet Estimate Normal Polychromasia 1+ Poikilocytosis 2+ Anisocytosis 2+ Microcytosis 2+ Macrocytosis 0 Target Cells 1+ Ovalocytes 1+ PT with INR INR PTT (Actin FS) Anticoagulation Therapy Puncture Site ABG pH ABG pCO2 at Pt Temp ABG pO2 at Pt Temp ABG HCO3 ABG O2 Sat (Measured) ABG O2 Content ABG Base Excess Ricki Test VBG pH POC VBG pCO2 POC VBG pO2 VBG HCO3 VBG O2 Sat (Neda) VBG Base Excess Carboxyhemoglobin Methemoglobin O2 Delivery Device Oxygen Flow Rate Vent Mode Vent Rate Mechanical Rate PEEP Pressure Support Vent Sodium 139 Potassium 5.8 H Chloride 114 H Carbon Dioxide 19 L Anion Gap 6 L BUN 70 H Creatinine 1.8 H Est GFR (CKD-EPI)AfAm 28.42 Est GFR (CKD-EPI)NonAf 24.52 POC Glucometer Random Glucose 236 H Hemoglobin A1c % Lactic Acid 2.9 H* Calcium 9.1 Phosphorus Magnesium Total Bilirubin 0.2 AST 24 ALT 15 Alkaline Phosphatase 59 Troponin I 0.17 H Total Protein 5.7 L Albumin 1.8 L Urine Color Urine Appearance Urine pH Urine pH (Auto) Ur Specific [place] Specific [place] (Auto) Urine Protein Urine Protein (Auto) Urine Glucose (UA) Glucose (UA)(Auto) Urine Ketones Urine Ketones (Auto) Urine Blood Urine Blood (Auto) Urine Nitrite Urine Nitrite (Auto) Urine Bilirubin Urine Urobilinogen Urine Urobilinogen (Auto) Ur Leukocyte Esterase Leukocyte Esterase (Auto) Urine WBC (Auto) Urine RBC (Auto) Urine Casts (Auto) U Pathogenic Cast Auto U Epithel Cells (Auto) U Sm Round Cell (Auto) Urine Crystals (Auto) Urine Bacteria (Auto) Urine RBC Urine WBC Ur Epithelial Cells Urine Bacteria Urine Yeast (Auto) 07/04/18 07/05/18 07/05/18 23:10 05:30 05:30 WBC 22.4 H RBC 3.36 L Hgb 8.2 L Hct 27.4 L MCV 81.5 MCH 24.5 L MCHC 30.1 L RDW 18.0 H Plt Count 495 H MPV 7.7 Absolute Neuts (auto) 19.4 H Neutrophils % 86.8 H Neutrophils % (Manual) Band Neutrophils % Lymphocytes % 4.5 L D Lymphocytes % (Manual) Monocytes % 8.4 Monocytes % (Manual) Eosinophils % 0.1 D Eosinophils % (Manual) Basophils % 0.2 Basophils % (Manual) Myelocytes % (Man) Promyelocytes % (Man) Blast Cells % (Manual) Nucleated RBC % 0 Metamyelocytes Hypochromia Platelet Estimate Polychromasia Poikilocytosis Anisocytosis Microcytosis Macrocytosis Target Cells Ovalocytes PT with INR 13.70 H INR 1.16 H PTT (Actin FS) 17.8 L Anticoagulation Therapy No Result Required. Puncture Site Right radial ABG pH 7.12 L* ABG pCO2 at Pt Temp 57.5 H ABG pO2 at Pt Temp 123 H ABG HCO3 18.1 L ABG O2 Sat (Measured) 96.3 ABG O2 Content 15.0 ABG Base Excess -10.3 L Ricki Test Positive VBG pH POC VBG pCO2 POC VBG pO2 VBG HCO3 VBG O2 Sat (Neda) VBG Base Excess Carboxyhemoglobin Methemoglobin O2 Delivery Device No Result Required. Oxygen Flow Rate Yes Vent Mode No Result Required. Vent Rate No Result Required. Mechanical Rate No Result Required. PEEP Pressure Support Vent No Result Required. Sodium Potassium Chloride Carbon Dioxide Anion Gap BUN Creatinine Est GFR (CKD-EPI)AfAm Est GFR (CKD-EPI)NonAf POC Glucometer Random Glucose Hemoglobin A1c % Lactic Acid Calcium Phosphorus Magnesium Total Bilirubin AST ALT Alkaline Phosphatase Troponin I Total Protein Albumin Urine Color Urine Appearance Urine pH Urine pH (Auto) Ur Specific [place] Specific [place] (Auto) Urine Protein Urine Protein (Auto) Urine Glucose (UA) Glucose (UA)(Auto) Urine Ketones Urine Ketones (Auto) Urine Blood Urine Blood (Auto) Urine Nitrite Urine Nitrite (Auto) Urine Bilirubin Urine Urobilinogen Urine Urobilinogen (Auto) Ur Leukocyte Esterase Leukocyte Esterase (Auto) Urine WBC (Auto) Urine RBC (Auto) Urine Casts (Auto) U Pathogenic Cast Auto U Epithel Cells (Auto) U Sm Round Cell (Auto) Urine Crystals (Auto) Urine Bacteria (Auto) Urine RBC Urine WBC Ur Epithelial Cells Urine Bacteria Urine Yeast (Auto) 07/05/18 07/05/18 07/05/18 05:30 05:30 06:00 WBC RBC Hgb Hct MCV MCH MCHC RDW Plt Count MPV Absolute Neuts (auto) Neutrophils % Neutrophils % (Manual) Band Neutrophils % Lymphocytes % Lymphocytes % (Manual) Monocytes % Monocytes % (Manual) Eosinophils % Eosinophils % (Manual) Basophils % Basophils % (Manual) Myelocytes % (Man) Promyelocytes % (Man) Blast Cells % (Manual) Nucleated RBC % Metamyelocytes Hypochromia Platelet Estimate Polychromasia Poikilocytosis Anisocytosis Microcytosis Macrocytosis Target Cells Ovalocytes PT with INR INR PTT (Actin FS) Anticoagulation Therapy Puncture Site Right radial ABG pH 7.22 L ABG pCO2 at Pt Temp 55.0 H ABG pO2 at Pt Temp 112 H ABG HCO3 21.6 L ABG O2 Sat (Measured) 96.6 ABG O2 Content 11.0 L ABG Base Excess -5.5 L Ricki Test Positive VBG pH POC VBG pCO2 POC VBG pO2 VBG HCO3 VBG O2 Sat (Neda) VBG Base Excess Carboxyhemoglobin Methemoglobin O2 Delivery Device Vent Oxygen Flow Rate 75% Vent Mode Vent Rate 15 Mechanical Rate Yes PEEP 7.0 Pressure Support Vent 360 Sodium 140 Potassium 5.7 H Chloride 111 H Carbon Dioxide 23 Anion Gap 7 L BUN 65 H Creatinine 1.8 H Est GFR (CKD-EPI)AfAm 28.42 Est GFR (CKD-EPI)NonAf 24.52 POC Glucometer Random Glucose 196 H Hemoglobin A1c % Lactic Acid 2.7 H* Calcium 9.1 Phosphorus 4.0 Magnesium 2.4 Total Bilirubin 0.2 AST 23 ALT 13 Alkaline Phosphatase 59 Troponin I 0.23 H Total Protein 5.9 L Albumin 1.8 L Urine Color Urine Appearance Urine pH Urine pH (Auto) Ur Specific [place] Specific [place] (Auto) Urine Protein Urine Protein (Auto) Urine Glucose (UA) Glucose (UA)(Auto) Urine Ketones Urine Ketones (Auto) Urine Blood Urine Blood (Auto) Urine Nitrite Urine Nitrite (Auto) Urine Bilirubin Urine Urobilinogen Urine Urobilinogen (Auto) Ur Leukocyte Esterase Leukocyte Esterase (Auto) Urine WBC (Auto) Urine RBC (Auto) Urine Casts (Auto) U Pathogenic Cast Auto U Epithel Cells (Auto) U Sm Round Cell (Auto) Urine Crystals (Auto) Urine Bacteria (Auto) Urine RBC Urine WBC Ur Epithelial Cells Urine Bacteria Urine Yeast (Auto) 07/05/18 06:17 WBC RBC Hgb Hct MCV MCH MCHC RDW Plt Count MPV Absolute Neuts (auto) Neutrophils % Neutrophils % (Manual) Band Neutrophils % Lymphocytes % Lymphocytes % (Manual) Monocytes % Monocytes % (Manual) Eosinophils % Eosinophils % (Manual) Basophils % Basophils % (Manual) Myelocytes % (Man) Promyelocytes % (Man) Blast Cells % (Manual) Nucleated RBC % Metamyelocytes Hypochromia Platelet Estimate Polychromasia Poikilocytosis Anisocytosis Microcytosis Macrocytosis Target Cells Ovalocytes PT with INR INR PTT (Actin FS) Anticoagulation Therapy Puncture Site ABG pH ABG pCO2 at Pt Temp ABG pO2 at Pt Temp ABG HCO3 ABG O2 Sat (Measured) ABG O2 Content ABG Base Excess Ricki Test VBG pH POC VBG pCO2 POC VBG pO2 VBG HCO3 VBG O2 Sat (Neda) VBG Base Excess Carboxyhemoglobin Methemoglobin O2 Delivery Device Oxygen Flow Rate Vent Mode Vent Rate Mechanical Rate PEEP Pressure Support Vent Sodium Potassium Chloride Carbon Dioxide Anion Gap BUN Creatinine Est GFR (CKD-EPI)AfAm Est GFR (CKD-EPI)NonAf POC Glucometer 173 Random Glucose Hemoglobin A1c % Lactic Acid Calcium Phosphorus Magnesium Total Bilirubin AST ALT Alkaline Phosphatase Troponin I Total Protein Albumin Urine Color Urine Appearance Urine pH Urine pH (Auto) Ur Specific [place] Specific [place] (Auto) Urine Protein Urine Protein (Auto) Urine Glucose (UA) Glucose (UA)(Auto) Urine Ketones Urine Ketones (Auto) Urine Blood Urine Blood (Auto) Urine Nitrite Urine Nitrite (Auto) Urine Bilirubin Urine Urobilinogen Urine Urobilinogen (Auto) Ur Leukocyte Esterase Leukocyte Esterase (Auto) Urine WBC (Auto) Urine RBC (Auto) Urine Casts (Auto) U Pathogenic Cast Auto U Epithel Cells (Auto) U Sm Round Cell (Auto) Urine Crystals (Auto) Urine Bacteria (Auto) Urine RBC Urine WBC Ur Epithelial Cells Urine Bacteria Urine Yeast (Auto) Active Medications Generic Name Dose Route Start Last Admin Trade Name Freq PRN Reason Stop Dose Admin Chlorhexidine Gluconate 1 applic 07/04/18 22:00 07/04/18 22:42 Hibiclens For Decolonization - TP 1 applic HS MARIAJOSE Administration Enoxaparin Sodium 40 mg 07/05/18 10:00 Lovenox - SQ DAILY MARIAJOSE Fentanyl 500 mcg/ Dextrose 100 mls @ 5 mls/hr 07/04/18 15:00 07/04/18 22:00 IVPB 25 mcg/hr TITR MARIAJOSE 5 mls/hr Titration 25 MCG/HR Norepinephrine Bitartrate 8, 500 mls @ 18.75 mls/hr 07/04/18 21:15 07/04/18 22:31 000 mcg/ Dextrose IV 15 mcg/min TITR MARIAJOSE 56.25 mls/hr Titration Protocol 5 MCG/MIN Sodium Chloride 1,000 mls @ 150 mls/hr 07/05/18 06:30 07/05/18 06:34 Normal Saline - IV 150 mls/hr ASDIR MARIAJOSE Administration Meropenem 1 gm/ Dextrose 100 mls @ 200 mls/hr 07/05/18 07:15 IVPB 07/05/18 07:44 ONCE ONE Insulin Aspart 1 vial 07/04/18 22:00 07/05/18 06:26 Novolog Vial Sliding Scale - SQ 2 unit ACHS MARIAJOSE Administration Protocol Mupirocin 1 applic 07/04/18 22:00 07/04/18 22:42 Bactroban Ointment (For Decolonization) - NS 07/09/18 21:59 1 applic BID MARIAJOSE Administration ASSESSMENT/PLAN: 88 yo F h/o dementia, HTN, DM, back pain, recurrent UTI, hydronephrosis, 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 ID -Septic shock 2/2 complicated UTI, possibly pyelonephritis -ID consulting -Previous cultures grew S. Viridans -Zosyn (meropenem dc) -Cultures pending -Trend lactate RENAL -BRITT 2/2 septic shock -Nephrology consulting -Hyperkalemia, hypercalcemia -Trend Cr and electrolytes -Fixing hyperkalemia, will recheck bmp -IV hydration at 75cc/hr -Avoid nephrotoxic agents PULM -Intubated -Mixed metabolic and respiratory acidosis -Maintain O2 sat > 90% -Possible PNA -Zosyn -ABGs -CXR shows vascular congestion, fluids at 75cc/hr -Remain on vent, tidal volume 350 -Duoneb Q6H CARDIO/VASC -History of HTN -Hypotensive 2/2 septic shock -Levophed gtt, titrate as needed -MAP >65 -Hold BP meds NEURO -Intubated and sedated -Will keep sedated for now -Propofol gtt, Fentanyl gtt -History of bladder ca, renal masses, frequent uti -Septic shock 2/2 uti, possibly pyelonephritis -Kaur -Renal US: L hydronephrosis ENDO -History of DM -Insulin ss FEN -NPO -Maintenance fluids at 75cc/hr -Correct hyperkalemia PROPHYLAXIS -Heparin gtt -Protonix Dispo: Full code per family members. ICU monitoring. Visit type - Emergency Visit Emergency Visit: Yes ED Registration Date: 07/04/18 Care time: The patient presented to the Emergency Department on the above date and was hospitalized for further evaluation of their emergent condition. - New Patient This patient is new to me today: Yes Date on this admission: 07/05/18 - Critical Care Critical Care patient: Yes Total Critical Care Time (in minutes): 40 Critical Care Statement: The care of this patient involved high complexity decision making to prevent further life threatening deterioration of the patient 's condition and/or to evaluate & treat vital organ system(s) failure or risk of failure.
[2018-07-05] MEDS ORDERED: MEROPENEM 1 GM VIAL (RESTRICTED TO ID) IVPB ONE (08:42)
[2018-07-05] MEDS ORDERED: DEXTROSE 5%-WATER 100 ML IVPB ONE (08:43)
[2018-07-05] MEDS ORDERED: MEROPENEM 1 GM in DEXTROSE 5%-WATER 100 ML IVPB ONE (08:45)
[2018-07-05] MEDS: MUPIROCIN 2% TOPICAL OINTMENT FOR DECOLONIZATION NS SCH ×2 (09:09→21:23)
[2018-07-05] MEDS ORDERED: ALBUTEROL SO4 0.083% IH SOL 2.5 MG/3 ML VIAL.NEB. NEB ONE (09:14)
[2018-07-05] MEDS ORDERED: ENOXAPARIN NA (PORCINE) 40 MG/0.4 ML DISP.SYRIN SQ SCH (10:00)
[2018-07-05] MEDS: PROPOFOL 1,000,000 MCG/100 ML VIAL IVPB SCH ×2 (10:00→22:23)
[2018-07-05 10:23] LABS: ANISOCYTOSIS 1+; MACROCYTOSIS 1+; OVALOCYTE 1+; PLATELET ESTIMATE INCREASED; TARGET CELLS 1+
[2018-07-05] MEDS ORDERED: PROPOFOL 1,000,000 MCG/100 ML VIAL ONE (10:40)
[2018-07-05] MEDS: PIPERACILLIN/TAZOB 2.25 GM 2.25 GM in DEXTROSE 5%-WATER - 50 ML IVPB SCH ×2 (11:00→17:35)
--- NOTE | 2018-07-05 11:17 | PN ---
Progress Note (short form) - Note Progress Note: ID CONSULT DICTATED SEPSIS/SEPTIC SHOCK UTI/ SEPSIS SECONDARY TO UTI RESP FAILURE TOXIC METABOLIC ENCEPHALOPATHY BLADDER NEOPLASM/ LONG AZOTEMIA LACTIC ACIDOSIS LEUKOCYTOSIS CONTINUE VENTILATORY/ HEMODYNAMIC SUPPORT EMPIRIC ZOSYN
[2018-07-05] MEDS ORDERED: INSULIN REGULAR HUMAN 100 UNITS/ML *VIAL IVPUSH ONE (11:39)
[2018-07-05] MEDS ORDERED: ALBUTEROL SO4 2.5/IPRATROPIUM 0.5 INH SOL 3 ML VIAL.NEB. NEB PRN (11:39)
[2018-07-05] MEDS ORDERED: DEXTROSE 50%-WATER 25 GM/50 ML DISP.SYRIN IVPUSH ONE (11:39)
[2018-07-05] MEDS ORDERED: PIPERACILLIN/TAZOBACTAM 2.25 GM VIAL IVPB ONE ×2 (11:52→17:39)
[2018-07-05] MEDS ORDERED: DEXTROSE 5%-WATER - 50 ML IVPB ONE ×2 (11:52→17:39)
[2018-07-05] MEDS ORDERED: DEXTROSE 50%-WATER 25 GM/50 ML DISP.SYRIN ONE (11:54)
--- NOTE | 2018-07-05 12:09 | EKG ---
Test Reason : Blood Pressure : / mmHG Vent. Rate : 074 BPM Atrial Rate : 074 BPM P-R Int : 202 ms QRS Dur : 090 ms QT Int : 390 ms P-R-T Axes : 088 -44 -36 degrees QTc Int : 432 ms NORMAL SINUS RHYTHM LEFT AXIS DEVIATION LOW VOLTAGE QRS POSSIBLE ANTEROLATERAL INFARCT (CITED ON OR BEFORE 13-OCT-2013) ABNORMAL ECG WHEN COMPARED WITH ECG OF 16-MAY-2018 18:50, QUESTIONABLE CHANGE IN INITIAL FORCES OF LATERAL LEADS ST NOW DEPRESSED IN ANTERIOR LEADS T WAVE INVERSION NOW EVIDENT IN INFERIOR LEADS T WAVE INVERSION NOW EVIDENT IN ANTERIOR LEADS Confirmed by MD Pasquale, Buck ([id number]) on 07/05/2018 12:08:57 PM Referred By: Confirmed By:Buck Giordano MD
--- NOTE | 2018-07-05 12:10 | CONS ---
DATE OF CONSULTATION: DATE OF DICTATION: 07/05/2018 INFECTIOUS DISEASE CONSULTATION The patient is an 88[facility]-old female [facility] resident who is evaluated for septic shock. History is obtained from the chart as she is presently intubated in the intensive care unit. The patient was brought to the hospital with a 2-day history of worsening shortness of breath and altered mentation. According to the note, she had been noted to be increasingly short of breath with increased lethargy and altered mentation. She was evaluated in the emergency room where she was noted to be hypotensive, tachypneic, with hypoxemia. She was also noted to have an elevated white blood cell count and lactic acidosis. Cultures were obtained, and she was empirically treated with vancomycin and Zosyn. She was intubated in the emergency room and transferred to the intensive care unit. At the present time, she is intubated in the ICU on mechanical ventilation. She is hypotensive on pressors. She is unable to give any additional history. According to the records, she had been hospitalized at [facility] in April and May of 2018 for evaluation of obstructive uropathy secondary to bladder tumor. She underwent a cystoscopy and was found to have multiple bladder masses and bladder outlet obstruction. No pathology is available. Cultures at that time were positive for Viridans streptococci. She has remained afebrile here in the hospital. PAST MEDICAL HISTORY: Positive for dementia, hypertension, diabetes mellitus, history of bladder mass, bladder outlet obstruction, hydronephrosis. ALLERGIES: No known allergies. MEDICATIONS: Metformin, aspirin, Toprol, Norvasc, albuterol, fentanyl, norepinephrine, vancomycin, meropenem. SOCIAL HISTORY: [facility] resident. Suffers from dementia. Former smoker. SYSTEM REVIEW: Neurologic: Positive for altered mentation. No loss of consciousness, seizure activity, focal weakness. Cardiac: Negative chest pain or palpitations. Respiratory: Positive respiratory failure. Gastrointestinal: Negative vomiting or diarrhea. Genitourinary: As per HPI. LABORATORY DATA: White count 22.4 with left shift, hematocrit 27.4, platelet count 495. BUN 65, creatinine 1.8. Lactic acid 2.7. CHEST X-RAY: Shows increased markings bilaterally. Official reading is pending. PHYSICAL EXAMINATION: General: She is awake, on the ventilator. Vital Signs: Temperature 98.4, blood pressure 128/64, pulse 120 regular, respirations 20 per minute. HEENT: Sclerae anicteric. Patient is orally intubated. Heart: Sounds S1, S2, tachycardic. Abdomen: Distended. Tympanitic. Patient grimaces to deep palpation. Extremities: Negative for edema. Negative for Silas sign. IMPRESSION: 1. Sepsis/septic shock. 2. Urinary tract infection/sepsis secondary to urinary tract infection. 3. Respiratory failure. 4. Toxic metabolic encephalopathy. 5. Bladder neoplasm/bladder outlet obstruction. 6. Hydronephrosis. 7. Azotemia. 8. Lactic acidosis. 9. Marked leukocytosis. RECOMMENDATIONS: Await sepsis workup. Continue ventilatory and hemodynamic support. Empiric antibiotic coverage with Zosyn adjusted for renal insufficiency. Prognosis is guarded. CRITICAL CARE TIME SPENT: 35 minutes. Thank you for the kind referral. KAROL JEFFRIES M.D. [id number]
--- NOTE | 2018-07-05 12:22 | PN ---
Teaching Attending Note Name of Resident: Megan Crawford ATTENDING PHYSICIAN STATEMENT I saw and evaluated the patient. I reviewed the resident's note and discussed the case with the resident. I agree with the resident's findings and plan as documented. SUBJECTIVE: Pt seen and examined in the ICU. Remains intubated, sedated on levophed gtt. ABG still with respiratory and metabolic acidosis. OBJECTIVE: Vital Signs Period Temp Pulse Resp BP Sys/Swift Pulse Ox Last 24 Hr 97.8 F-98.7 F 71-120 15-24 75-136/45-69 90-100 Intake & Output 07/02/18 07/03/18 07/04/18 07/05/18 23:59 23:59 23:59 23:59 Intake Total 3195 Output Total 100 175 Balance -100 3020 Weight 56.7 kg Gen: intubated, sedated Heart: tachycardic, regular Lung: scattered rhonchi Abd: soft, nontender Ext: no edema CBC, BMP 07/05/18 05:30 07/05/18 05:30 Active Medications Albuterol/Ipratropium (Duoneb -) 1 amp NEB Q6H PRN PRN Reason: SHORTNESS OF BREATH Chlorhexidine Gluconate (Hibiclens For Decolonization -) 1 applic TP HS MARIAJOSE Last Admin: 07/04/18 22:42 Dose: 1 applic Heparin Sodium (Porcine) (Heparin -) 5,000 unit SQ TID MARIAJOSE Fentanyl 500 mcg/ Dextrose 100 mls @ 5 mls/hr IVPB TITR MARIAJOSE Last Titration: 07/04/18 22:00 Dose: 25 mcg/hr, 5 mls/hr Norepinephrine Bitartrate 8, (000 mcg/ Dextrose) 500 mls @ 18.75 mls/hr IV TITR MARIAJOSE; Protocol Last Titration: 07/04/18 22:31 Dose: 15 mcg/min, 56.25 mls/hr Piperacillin Sod/Tazobactam (Sod 2.25 gm/ Dextrose) 50 mls @ 100 mls/hr IVPB Q8H-IV MARIAJOSE; Protocol Sodium Chloride (Normal Saline -) 1,000 mls @ 75 mls/hr IV ASDIR MARIAJOSE Stop: 07/05/18 19:49 Insulin Aspart (Novolog Vial Sliding Scale -) 1 vial SQ ACHS MARIAJOSE; Protocol Last Admin: 07/05/18 06:26 Dose: 2 unit Mupirocin (Bactroban Ointment (For Decolonization) -) 1 applic NS BID MARIAJOSE Stop: 07/09/18 21:59 Last Admin: 07/05/18 09:09 Dose: 1 applic ASSESSMENT AND PLAN: Acute Hypoxic and Hypercapneic Respiratory Failure UTI r/o Pneumonia Septic Shock ARDS Lactic Acidosis Acute Kidney Injury Hyperkalemia Left Hydronephrosis Bladder Cancer +Troponins likely Demand Ischemia LV Diastolic Dysfunction Pulmonary HTN HTN DM Dementia - continue antibiotics - f/u cultures - IVF - titrate levophed gtt to maintain MAP >65 - monitor urine output, creatinine - trend cardiac enzymes, lactate - low tidal volume ventilation <6cc/kg/IBW - keep Pplat <30 - adjusted vent settings - monitor ABG - not a candidate for weaning at this time due to hemodynamic instability and acidosis - DVT/GI prophylaxis - continue ICU monitoring critical care time spent in reviewing chart, evaluating patient and formulating plan 35 min
[2018-07-05] MEDS: HEPARIN NA (PORCINE) 5,000 UNITS/ML 1ML VIAL SQ SCH ×3 (14:00→21:21)
[2018-07-05 14:05] LABS: CREATININE 1.7 mg/dL (0.55-1.3); POTASSIUM 5.1 mmol/L (3.5-5.1)
[2018-07-05] MEDS: PANTOPRAZOLE SODIUM 40 MG VIAL IVPUSH SCH (14:28)
--- NOTE | 2018-07-05 14:29 | CONSULT ---
Consult Consult Specialty:: Nephrology Reason for Consultation:: BRITT - History of Present Illness Chief Complaint: shortness of breath History of Present Illness: Pt is an 88 year old female with pmhx of BRITT, dementia, HTN, DM, bladder cancer , hydronephrosis, and UTI who presented with shortness of breath. She was intubated and admitted to the ICU. I was called to evaluate her for BRITT and hyperkalemia. She was found to be hypotensive and started on pressors. She is unable to give history. She remains in the ICU. She admitted for sepsis. Per the chart she had fevers for a few days before coming to the ER. Chart, labs and meds were reviewed. 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 Cardio/Vascular: Yes: HTN Renal/: Yes: Renal Inusuff, Cancer Heme/Onc: Yes: Other (bladder cancer) Endocrine: Yes: Diabetes Mellitus - Alcohol/Substance Use Hx Alcohol Use: No - Smoking History Smoking history: Unknown if ever smoked Have you smoked in the past 12 months: No Aproximately how many cigarettes per day: 0 If you are a former smoker, when did you quit?: 30 YRS AGO Home Medications - Allergies Allergies/Adverse Reactions: Allergies Allergy/AdvReac Type Severity Reaction Status Date / Time No Known Allergies Allergy Verified 07/04/18 13:43 - Home Medications Home Medications: Ambulatory Orders Sitagliptin Phos/Metformin HCl [Janumet 50-500 mg Tablet] 1 each PO DAILY Aspirin [ASA -] 81 mg PO DAILY 1 Days tab 12/23/11 Metoprolol Succinate [Toprol XL -] 50 mg PO BID #0 tablet 12/23/11 Amlodipine Besylate [Norvasc -] 10 mg PO DAILY #30 tablet 05/30/18 Ciprofloxacin [Cipro (Restricted To Id)] 250 mg PO BID 07/04/18 Guaifenesin [Expectorant] 5 ml PO PRN PRN 07/04/18 Tuberculin Ppd 5 Tu/0.1ML [TUBERSOL ([facility] ONLY) 5mL VIAL] 5 unit ONCE 07/04 Family Disease History - Family Disease History Family History: Denies Review of Systems Unable to obtain ROS, reason: pt intubated Physical Exam Vital Signs: Vital Signs Temperature 98.4 F 07/05/18 06:00 Pulse Rate 115 H 07/05/18 08:00 Respiratory Rate 24 H 07/05/18 14:07 Blood Pressure 117/56 L 07/05/18 08:00 O2 Sat by Pulse Oximetry (%) 94 L 07/05/18 10:00 Constitutional: Yes: Mild Distress Eyes: Yes: Conjunctiva Clear Cardiovascular: Yes: S1, S2 Respiratory: Yes: Mechanically Ventilated Gastrointestinal: Yes: Soft Renal/: Yes: Kaur Present Musculoskeletal: Yes: Muscle Weakness Edema: Yes Integumentary: Yes: WNL Neurological: Yes: Lethargy Labs: CBC, BMP 07/05/18 05:30 07/05/18 12:59 Laboratory Tests 05/28/18 05/30/18 07/04/18 06:30 05:58 13:57 WBC Hgb Plt Count ABG pH ABG pCO2 at Pt Temp ABG pO2 at Pt Temp ABG HCO3 Sodium Potassium Chloride Carbon Dioxide Anion Gap BUN Creatinine 0.8 0.7 2.0 H Random Glucose 07/04/18 07/04/18 07/04/18 18:26 23:00 23:00 WBC 23.4 H Hgb 7.7 L Plt Count 464 H ABG pH ABG pCO2 at Pt Temp ABG pO2 at Pt Temp ABG HCO3 Sodium Potassium Chloride Carbon Dioxide Anion Gap BUN Creatinine 2.0 H 1.8 H Random Glucose 07/05/18 07/05/18 07/05/18 05:30 05:30 06:00 WBC 22.4 H Hgb 8.2 L Plt Count 495 H ABG pH 7.22 L ABG pCO2 at Pt Temp 55.0 H ABG pO2 at Pt Temp 112 H ABG HCO3 21.6 L Sodium 140 Potassium 5.7 H Chloride Carbon Dioxide Anion Gap BUN Creatinine 1.8 H Random Glucose 07/05/18 12:59 WBC Hgb Plt Count ABG pH ABG pCO2 at Pt Temp ABG pO2 at Pt Temp ABG HCO3 Sodium 138 Potassium 5.1 Chloride 110 H Carbon Dioxide 22 Anion Gap 6 L BUN 62 H Creatinine 1.7 H Random Glucose 234 H Imaging - Results Chest X-ray: Report Reviewed Ultrasound: Report Reviewed Problem List - Problems (1) Hyperkalemia Code(s): E87.5 - HYPERKALEMIA (2) Sepsis Code(s): A41.9 - SEPSIS, UNSPECIFIED ORGANISM (3) Severe sepsis Code(s): A41.9 - SEPSIS, UNSPECIFIED ORGANISM; R65.20 - SEVERE SEPSIS WITHOUT SEPTIC SHOCK (4) BRITT (acute kidney injury) Code(s): N17.9 - ACUTE KIDNEY FAILURE, UNSPECIFIED (5) Dementia Code(s): F03.90 - UNSPECIFIED DEMENTIA WITHOUT BEHAVIORAL DISTURBANCE Qualifiers: Dementia type: unspecified type Dementia behavioral disturbance: without behavioral disturbance Qualified Code(s): F03.90 - Unspecified dementia without behavioral disturbance Assessment/Plan Current Medications Generic Name Dose Route Start Last Admin Trade Name Freq PRN Reason Stop Dose Admin Albuterol/Ipratropium 1 amp 07/05/18 11:39 Duoneb - NEB Q6H PRN SHORTNESS OF BREATH Chlorhexidine Gluconate 1 applic 07/04/18 22:00 07/04/18 22:42 Hibiclens For Decolonization - TP 1 applic HS MARIAJOSE Administration Heparin Sodium (Porcine) 5,000 unit 07/05/18 14:00 Heparin - SQ TID MARIAJOSE Norepinephrine Bitartrate 8, 500 mls @ 18.75 mls/hr 07/04/18 21:15 07/04/18 22:31 000 mcg/ Dextrose IV 15 mcg/min TITR MARIAJOSE 56.25 mls/hr Titration Protocol 5 MCG/MIN Piperacillin Sod/Tazobactam 50 mls @ 100 mls/hr 07/05/18 11:30 Sod 2.25 gm/ Dextrose IVPB Q8H-IV MARIAJOSE Protocol Sodium Chloride 1,000 mls @ 75 mls/hr 07/05/18 11:43 Normal Saline - IV 07/05/18 19:49 ASDIR MARIAJOSE Fentanyl 500 mcg/ Dextrose 100 mls @ 2 mls/hr 07/05/18 12:31 IVPB TITR MARIAJOSE Protocol 10 MCG/HR Propofol 1,000,000 mcg in 100 mls @ 1.701 mls/hr 07/05/18 10:00 Diprivan - IVPB TITR MARIAJOSE Protocol 5 MCG/KG/MIN Insulin Aspart 1 vial 07/04/18 22:00 07/05/18 06:26 Novolog Vial Sliding Scale - SQ 2 unit ACHS MARIAJOSE Administration Protocol Mupirocin 1 applic 07/04/18 22:00 07/05/18 09:09 Bactroban Ointment (For Decolonization) - NS 07/09/18 21:59 1 applic BID MARIAJOSE Administration Pantoprazole Sodium 40 mg 07/05/18 12:30 Protonix Iv IVPUSH DAILY MARIAJOSE Impression 1. BRITT 2. hyperkalemia 3. uti 4. dementia 5. htn 6. DM 7. hypercalcemia 8. hydronephrosis left 9. bladder mass 10. sepsis 11. lactic acidosis Plan - cont pressors to a map of 65 - cont fluids - urology eval - monitor urine output - vent support - follow cultures - cont abx - monitor in ICU - discussed with ICU team
--- NOTE | 2018-07-05 14:57 | PN ---
Progress Note, Physician Chief Complaint: Sepsis BRITT History of Present Illness: Previous notes and events reviewed mechanically ventilated sedated afebrile leukocytosis Levophed drip - Current Medication List Current Medications: Active Medications Albuterol/Ipratropium (Duoneb -) 1 amp NEB Q6H PRN PRN Reason: SHORTNESS OF BREATH Chlorhexidine Gluconate (Hibiclens For Decolonization -) 1 applic TP HS MARIAJOSE Last Admin: 07/04/18 22:42 Dose: 1 applic Heparin Sodium (Porcine) (Heparin -) 5,000 unit SQ TID MARIAJOSE Norepinephrine Bitartrate 8, (000 mcg/ Dextrose) 500 mls @ 18.75 mls/hr IV TITR MARIAJOSE; Protocol Last Titration: 07/05/18 14:29 Dose: 10 mcg/min, 37.5 mls/hr Piperacillin Sod/Tazobactam (Sod 2.25 gm/ Dextrose) 50 mls @ 100 mls/hr IVPB Q8H-IV MARIAJOSE; Protocol Last Admin: 07/05/18 11:00 Dose: 100 mls/hr Sodium Chloride (Normal Saline -) 1,000 mls @ 75 mls/hr IV ASDIR MARIAJOSE Stop: 07/05/18 19:49 Last Admin: 07/05/18 14:28 Dose: 75 mls/hr Fentanyl 500 mcg/ Dextrose 100 mls @ 2 mls/hr IVPB TITR MARIAJOSE; Protocol Propofol (Diprivan -) 1,000,000 mcg in 100 mls @ 1.701 mls/hr IVPB TITR [facility]; Protocol Last Admin: 07/05/18 10:00 Dose: 10 mcg/kg/min, 3.402 mls/hr Insulin Aspart (Novolog Vial Sliding Scale -) 1 vial SQ ACHS MARIAJOSE; Protocol Last Admin: 07/05/18 06:26 Dose: 2 unit Mupirocin (Bactroban Ointment (For Decolonization) -) 1 applic NS BID [facility] Stop: 07/09/18 21:59 Last Admin: 07/05/18 09:09 Dose: 1 applic Pantoprazole Sodium (Protonix Iv) 40 mg IVPUSH DAILY [facility] Last Admin: 07/05/18 14:28 Dose: 40 mg - Objective Vital Signs: Vital Signs Temperature 98.4 F 07/05/18 06:00 Pulse Rate 120 H 07/05/18 14:29 Respiratory Rate 24 H 07/05/18 14:07 Blood Pressure 113/58 L 07/05/18 14:29 O2 Sat by Pulse Oximetry (%) 94 L 07/05/18 10:00 Constitutional: Yes: No Distress Cardiovascular: Yes: Tachycardia Respiratory: Yes: Regular, Diminished Gastrointestinal: Yes: Normal Bowel Sounds, Soft Genitourinary: Yes: Incontinence Musculoskeletal: Yes: Muscle Weakness Extremities: Yes: WNL Edema: No Neurological: Yes: Pre-Existing Deficit Labs: CBC, BMP 07/05/18 05:30 07/05/18 12:59 INR, PTT INR 1.16 (0.83-1.09) H 07/05/18 05:30 Microbiology 07/04/18 13:50 Blood - Peripheral Venous Blood Culture - Preliminary NO GROWTH OBTAINED AFTER 24 HOURS, INCUBATION TO CONTINUE FOR 4 DAYS. 07/04/18 13:57 Blood - Peripheral Venous Blood Culture - Preliminary NO GROWTH OBTAINED AFTER 24 HOURS, INCUBATION TO CONTINUE FOR 4 DAYS. 07/04/18 14:52 Urine - Urine - Catheterized Urine Culture - Preliminary Pending Organism - ....Imaging Chest X-ray: Report Reviewed Problem List - Problems (1) Hyperkalemia Assessment/Plan: -resolved -K 5.1 -monitor electrolyte function daily Code(s): E87.5 - HYPERKALEMIA (2) Severe sepsis Assessment/Plan: -ID on board -afebrile -leukocytosis-WBC 22.4 -LA 3.3 -IV Zosyn -BC neg -UC pending positive organism -CXR shows pleural effusion with compressive atelectasis, right pleural effusion with airspace opacities in RLL -IV hydration Code(s): A41.9 - SEPSIS, UNSPECIFIED ORGANISM; R65.20 - SEVERE SEPSIS WITHOUT SEPTIC SHOCK (3) Urinary tract infection Assessment/Plan: -UC prelim positive -ID on board -IV Zosyn -leukocytosis--WBC 22.4 -afebrile Code(s): N39.0 - URINARY TRACT INFECTION, SITE NOT SPECIFIED (4) Diabetes mellitus Assessment/Plan: -BGM ACHS -ISS -HgA1c 6.1% Code(s): E11.9 - TYPE 2 DIABETES MELLITUS WITHOUT COMPLICATIONS Qualifiers: Diabetes mellitus type: type 2 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
--- NOTE | 2018-07-05 16:58 | CONSULT ---
Consult - text type - Consultation Consultation Note: Podiatry Consultation: 88 year old diabetic female, accompanied by family at bedside, intubated, presented to hospital from SNF with respiratory distress. Found to have urosepsis, now intubated. Podiatric consultation requested for concern of charcot deformity. PMHx: dementia, HTN, DM, back pain, prior UTIs and hydronephrosis Meds: noted ALL: NKMA PADMAJA: Pedal pulses palpable DP/PT, TG wnl, CFT brisk to toes bilaterally. There are bilateral moderate collapsed arches with valgus heel, no open wounds, no tenderness elicited on palpation, no erythema localized, no streaking cellulitis , no signs of acute infection. Imp: 81 year old diabetic female with bilateral flat feet secondary to posterior tibial tendon dysfunction 1. No clinical signs of charcot deformity, the feet are not increasingly warm or edematous. Can order bilateral foot xrays to confirm. 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 Can evaluate patient for AFO therapy as outpatient (bracing, orthotics) 3. Discussed with family appropriate diabetic foot hygiene 4. Can f/u as outpatient for routine diabetic care with me in wound healing center. [phone]. Thank you for the courtesy of this consultation. Demarcus Green DPM
[2018-07-05] MEDS: FENTANYL INJECTION 500 MCG in DEXTROSE 5%-WATER - 90 ML IVPB SCH ×2 (17:35→21:20)
[2018-07-05] MEDS ORDERED: NOREPINEPHRINE BITARTRATE 4 MG/4 ML ML IV ONE (18:28)
[2018-07-05] MEDS ORDERED: SODIUM CHLORIDE 250 ML IV STA (18:46)
[2018-07-05] MEDS ORDERED: fentaNYL CITRATE 250 MCG/5 ML VIAL ONE (21:15)
[2018-07-05] MEDS: CHLORHEXIDINE GLUCONATE 4% CLEANSER FOR DECOLONIZATION TP SCH (21:27)
[2018-07-05] MEDS: NOREPINEPHRINE BITARTRATE 8,000 MCG in DEXTROSE 5%-WATER - 492 ML IV SCH (21:32)
[2018-07-06] MEDS ORDERED: PIPERACILLIN/TAZOBACTAM 2.25 GM VIAL IVPB ONE ×4 (00:52→16:03)
[2018-07-06] MEDS ORDERED: DEXTROSE 5%-WATER - 50 ML IVPB ONE ×4 (00:52→16:03)
[2018-07-06] MEDS: PIPERACILLIN/TAZOB 2.25 GM 2.25 GM in DEXTROSE 5%-WATER - 50 ML IVPB SCH ×3 (01:04→18:43)
[2018-07-06] MEDS ORDERED: METOPROLOL TARTRATE 5 MG/5 ML VIAL IVPUSH ONE ×2 (03:25→04:23)
[2018-07-06] MEDS ORDERED: dilTIAZem HCL 50 MG/10 ML - 10 ML VIAL IVPUSH ONE ×4 (04:24→10:30)
[2018-07-06] MEDS ORDERED: ACETAMINOPHEN 1000 MG/100 ML VIAL (NON FORMULARY) IVPB ONE (04:31)
[2018-07-06 06:02] LABS: ARTERIAL BLD GAS O2 SATURATION 93.4 % (95-98); ARTERIAL BLOOD GAS BASE EXCESS -5.7 meq/l (-2-2); ARTERIAL BLOOD GAS PCO2 35.1 mmHg (35-45); ARTERIAL BLOOD GAS PO2 75.8 mmHg (80-105); ARTERIAL BLOOD GAS pH 7.35 (7.35-7.45)
[2018-07-06 06:04] LABS: ALLENS TEST POSITIVE
[2018-07-06] MEDS: INSULIN SLIDING SCALE (NOVOLOG) 1 VIAL SQ SCH ×5 (06:04→23:17)
[2018-07-06] MEDS: HEPARIN NA (PORCINE) 5,000 UNITS/ML 1ML VIAL SQ SCH (06:09)
[2018-07-06 06:43] LABS: BASO % 0.1 % (0-2.0); EOS % 0.4 % (0-4.5); HEMATOCRIT 24.9 % (32.4-45.2); HEMOGLOBIN 7.5 GM/dL (10.7-15.3); LYMPH % 6.2 % (8-40); MCH 24.1 pg (25.7-33.7); MCHC 30.2 g/dl (32.0-36.0); MEAN CELL VOLUME 79.8 fl (80-96); MONO % 6.7 % (3.8-10.2); NEUT % 86.6 % (42.8-82.8); PLATELET COUNT 445 K/MM3 (134-434); RBC 3.12 M/mm3 (3.60-5.2); WHITE BLOOD COUNT 18.5 K/mm3 (4.0-10.0)
[2018-07-06 07:13] LABS: ALBUMIN 1.5 g/dl (3.4-5.0); BILIRUBIN,TOTAL 0.3 mg/dL (0.2-1); CALCIUM 8.5 mg/dL (8.5-10.1); CREATININE 1.5 mg/dL (0.55-1.3); MAGNESIUM 2.3 mg/dL (1.8-2.4); PHOSPHOROUS 2.7 mg/dL (2.5-4.9); POTASSIUM 5.1 mmol/L (3.5-5.1)
--- NOTE | 2018-07-06 08:00 | PN ---
Physical Exam: SUBJECTIVE: Patient seen and examined at bedside. Patient went into Afib with RVR overnight with pressures dropping. Patient received 5mg Lopressor x2 and 10mg Cardizem x1. Levophed was increased due to dropping pressures. OBJECTIVE: Vital Signs Period Temp Pulse Resp BP Sys/Swift Pulse Ox Last 24 Hr 98.4 F-99.0 F 107-154 15-25 73-130/53-79 94-97 GENERAL: The patient is sedated. EYES: pinpoint pupils, sclera anicteric, conjunctiva clear. No ptosis. LUNGS: Breath sounds equal, coarse sounds, no wheezes, no crackles, mechanically ventilated HEART: irregularly irregular, S1, S2 without murmur, rub or gallop. ABDOMEN: Soft, nontender, nondistended, decreased bowel sounds EXTREMITIES: 1+ pulses, warm, well-perfused, no edema. NEUROLOGICAL: Sedated SKIN: Warm, dry, normal turgor, no rashes or lesions noted Laboratory Results - last 24 hr 07/05/18 07/05/18 07/05/18 05:30 12:59 12:59 WBC RBC Hgb Hct MCV MCH MCHC RDW Plt Count MPV Absolute Neuts (auto) Neutrophils % Neutrophils % (Manual) 77.6 Band Neutrophils % 2.0 Lymphocytes % Lymphocytes % (Manual) 6.1 L D Monocytes % Monocytes % (Manual) 14 H D Eosinophils % Eosinophils % (Manual) 0.0 Basophils % Basophils % (Manual) 0.0 Myelocytes % (Man) 0 D Promyelocytes % (Man) 0 Blast Cells % (Manual) 0 Nucleated RBC % Metamyelocytes 0 D Hypochromia 1+ Platelet Estimate Increased Polychromasia 1+ Poikilocytosis 2+ Anisocytosis 1+ Microcytosis 1+ Macrocytosis 1+ Target Cells 1+ Ovalocytes 1+ Schistocytes 1+ Puncture Site ABG pH ABG pCO2 at Pt Temp ABG pO2 at Pt Temp ABG HCO3 ABG O2 Sat (Measured) ABG O2 Content ABG Base Excess Ricki Test Oxygen Flow Rate Vent Mode Vent Rate Mechanical Rate PEEP Pressure Support Vent Sodium 138 Potassium 5.1 Chloride 110 H Carbon Dioxide 22 Anion Gap 6 L BUN 62 H Creatinine 1.7 H Est GFR (CKD-EPI)AfAm 30.45 Est GFR (CKD-EPI)NonAf 26.28 POC Glucometer Random Glucose 234 H Lactic Acid 3.3 H* Calcium 9.0 Phosphorus Magnesium Total Bilirubin AST ALT Alkaline Phosphatase Troponin I 0.23 H Total Protein Albumin 07/05/18 07/05/18 07/05/18 16:32 21:30 23:30 WBC RBC Hgb Hct MCV MCH MCHC RDW Plt Count MPV Absolute Neuts (auto) Neutrophils % Neutrophils % (Manual) Band Neutrophils % Lymphocytes % Lymphocytes % (Manual) Monocytes % Monocytes % (Manual) Eosinophils % Eosinophils % (Manual) Basophils % Basophils % (Manual) Myelocytes % (Man) Promyelocytes % (Man) Blast Cells % (Manual) Nucleated RBC % Metamyelocytes Hypochromia Platelet Estimate Polychromasia Poikilocytosis Anisocytosis Microcytosis Macrocytosis Target Cells Ovalocytes Schistocytes Puncture Site ABG pH ABG pCO2 at Pt Temp ABG pO2 at Pt Temp ABG HCO3 ABG O2 Sat (Measured) ABG O2 Content ABG Base Excess Ricki Test Oxygen Flow Rate Vent Mode Vent Rate Mechanical Rate PEEP Pressure Support Vent Sodium Potassium Chloride Carbon Dioxide Anion Gap BUN Creatinine Est GFR (CKD-EPI)AfAm Est GFR (CKD-EPI)NonAf POC Glucometer 194 160 Random Glucose Lactic Acid 3.1 H* Calcium Phosphorus Magnesium Total Bilirubin AST ALT Alkaline Phosphatase Troponin I Total Protein Albumin 07/06/18 07/06/18 07/06/18 05:30 05:30 05:30 WBC 18.5 H RBC 3.12 L Hgb 7.5 L Hct 24.9 L MCV 79.8 L MCH 24.1 L MCHC 30.2 L RDW 18.0 H Plt Count 445 H MPV 8.0 Absolute Neuts (auto) 16.0 H Neutrophils % 86.6 H Neutrophils % (Manual) Band Neutrophils % Lymphocytes % 6.2 L D Lymphocytes % (Manual) Monocytes % 6.7 Monocytes % (Manual) Eosinophils % 0.4 D Eosinophils % (Manual) Basophils % 0.1 Basophils % (Manual) Myelocytes % (Man) Promyelocytes % (Man) Blast Cells % (Manual) Nucleated RBC % 0 Metamyelocytes Hypochromia Platelet Estimate Polychromasia Poikilocytosis Anisocytosis Microcytosis Macrocytosis Target Cells Ovalocytes Schistocytes Puncture Site ABG pH ABG pCO2 at Pt Temp ABG pO2 at Pt Temp ABG HCO3 ABG O2 Sat (Measured) ABG O2 Content ABG Base Excess Ricki Test Oxygen Flow Rate Vent Mode Vent Rate Mechanical Rate PEEP Pressure Support Vent Sodium 137 Potassium 5.1 Chloride 110 H Carbon Dioxide 21 Anion Gap 7 L BUN 58 H Creatinine 1.5 H Est GFR (CKD-EPI)AfAm 35.43 Est GFR (CKD-EPI)NonAf 30.57 POC Glucometer Random Glucose 197 H Lactic Acid 2.0 Calcium 8.5 Phosphorus 2.7 Magnesium 2.3 Total Bilirubin 0.3 AST 16 ALT 9 L Alkaline Phosphatase 62 Troponin I 0.27 H Total Protein 5.0 L Albumin 1.5 L 07/06/18 07/06/18 05:42 05:56 WBC RBC Hgb Hct MCV MCH MCHC RDW Plt Count MPV Absolute Neuts (auto) Neutrophils % Neutrophils % (Manual) Band Neutrophils % Lymphocytes % Lymphocytes % (Manual) Monocytes % Monocytes % (Manual) Eosinophils % Eosinophils % (Manual) Basophils % Basophils % (Manual) Myelocytes % (Man) Promyelocytes % (Man) Blast Cells % (Manual) Nucleated RBC % Metamyelocytes Hypochromia Platelet Estimate Polychromasia Poikilocytosis Anisocytosis Microcytosis Macrocytosis Target Cells Ovalocytes Schistocytes Puncture Site Right brachial ABG pH 7.35 ABG pCO2 at Pt Temp 35.1 ABG pO2 at Pt Temp 75.8 L ABG HCO3 18.8 L ABG O2 Sat (Measured) 93.4 L ABG O2 Content 9.5 L* ABG Base Excess -5.7 L Ricki Test Positive Oxygen Flow Rate 50% Vent Mode A/c Vent Rate 24 Mechanical Rate Yes PEEP 5.0 Pressure Support Vent 360 Sodium Potassium Chloride Carbon Dioxide Anion Gap BUN Creatinine Est GFR (CKD-EPI)AfAm Est GFR (CKD-EPI)NonAf POC Glucometer 131 Random Glucose Lactic Acid Calcium Phosphorus Magnesium Total Bilirubin AST ALT Alkaline Phosphatase Troponin I Total Protein Albumin Active Medications Generic Name Dose Route Start Last Admin Trade Name Freq PRN Reason Stop Dose Admin Albuterol/Ipratropium 1 amp 07/05/18 11:39 Duoneb - NEB Q6H PRN SHORTNESS OF BREATH Chlorhexidine Gluconate 1 applic 07/04/18 22:00 07/05/18 21:27 Hibiclens For Decolonization - TP 1 applic HS MARIAJOSE Administration Diltiazem HCl 20 mg 07/06/18 07:45 Cardizem Injection - IVPUSH 07/06/18 07:46 ONCE ONE Heparin Sodium (Porcine) 5,000 unit 07/05/18 14:00 07/06/18 06:09 Heparin - SQ 5,000 unit TID MARIAJOSE Administration Norepinephrine Bitartrate 8, 500 mls @ 18.75 mls/hr 07/04/18 21:15 07/06/18 04:35 000 mcg/ Dextrose IV 15 mcg/min TITR MARIAJOSE 56.25 mls/hr Titration Protocol 5 MCG/MIN Piperacillin Sod/Tazobactam 50 mls @ 100 mls/hr 07/05/18 11:30 07/06/18 01:04 Sod 2.25 gm/ Dextrose IVPB 100 mls/hr Q8H-IV MARIAJOSE Administration Protocol Fentanyl 500 mcg/ Dextrose 100 mls @ 2 mls/hr 07/05/18 12:31 07/06/18 05:00 IVPB 25 mcg/hr TITR MARIAJOSE 5 mls/hr Titration Protocol 10 MCG/HR Propofol 1,000,000 mcg in 100 mls @ 1.701 mls/hr 07/05/18 10:00 07/06/18 04: 00 Diprivan - IVPB 30 mcg/kg/min TITR MARIAJOSE 10.206 mls/hr Titration Protocol 5 MCG/KG/MIN Sodium Chloride 1,000 mls @ 100 mls/hr 07/05/18 18:47 07/05/18 22:22 Normal Saline - IV 100 mls/hr ASDIR MARIAJOSE Administration Insulin Aspart 1 vial 07/04/18 22:00 07/06/18 06:04 Novolog Vial Sliding Scale - SQ Not Given ACHS MARIAJOSE Protocol Mupirocin 1 applic 07/04/18 22:00 07/05/18 21:23 Bactroban Ointment (For Decolonization) - NS 07/09/18 21:59 1 applic BID MARIAJOSE Administration Pantoprazole Sodium 40 mg 07/05/18 12:30 07/05/18 14:28 Protonix Iv IVPUSH 40 mg DAILY MARIAJOSE Administration ASSESSMENT/PLAN: 88 yo F h/o dementia, HTN, DM, back pain, recurrent UTI, hydronephrosis, 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 ID -Septic shock 2/2 complicated UTI, possibly pyelonephritis -ID consulting -WBC trending down -Previous cultures grew S. Viridans -Zosyn -Urine cultures pending. Blood cultures ngtd -Lactate trending down RENAL -BRITT 2/2 septic shock, could also have component of obstruction -Nephrology consulting -Trend Cr and electrolytes -IV hydration at 75cc/hr -Avoid nephrotoxic agents -I's and O's PULM -Intubated -Mixed metabolic and respiratory acidosis -Maintain O2 sat > 90% -Possible PNA -Zosyn -CXR possible bilateral infiltrates -Remain on vent, tidal volume 350 -Duoneb Q6H CARDIO/VASC -History of HTN -Hypotensive 2/2 septic shock -New onset afib RVR overnight -Cardizem bolus prn -Cardizem drip, will add ac due to risk of embolic stroke -Consult Cardiology -Vasopressin gtt, titrate Levophed down -Echo -MAP >65 -Hold BP meds -Remove femoral line and place IJ NEURO -Sedated -Will keep sedated for now -Propofol gtt -History of bladder ca, renal masses, frequent uti -Septic shock 2/2 uti, possibly pyelonephritis -Kaur -Renal US: L hydronephrosis -Urology consulted HEME/ONC -Starting heparin gtt -Will monitor PTT, CBC ENDO -History of DM -Insulin ss FEN -NPO -Maintenance fluids at 75cc/hr PROPHYLAXIS -Heparin gtt -Protonix Dispo: Full code per family members. ICU monitoring. Visit type - Emergency Visit Emergency Visit: Yes ED Registration Date: 07/04/18 Care time: The patient presented to the Emergency Department on the above date and was hospitalized for further evaluation of their emergent condition. - New Patient This patient is new to me today: No - Critical Care Critical Care patient: Yes Total Critical Care Time (in minutes): 40 Critical Care Statement: The care of this patient involved high complexity decision making to prevent further life threatening deterioration of the patient 's condition and/or to evaluate & treat vital organ system(s) failure or risk of failure.
[2018-07-06] MEDS: NOREPINEPHRINE BITARTRATE 8,000 MCG in DEXTROSE 5%-WATER - 492 ML IV SCH ×3 (09:00→23:17)
[2018-07-06] MEDS: PROPOFOL 1,000,000 MCG/100 ML VIAL IVPB SCH ×2 (09:00→15:00)
[2018-07-06] MEDS ORDERED: AMIODARONE IN DEXTROSE,ISO-OSM 150 MG/100 ML BAG IVPB ONE (09:15)
[2018-07-06] MEDS ORDERED: AMIODARONE IN DEXTROSE,ISO-OSM 360 MG/200 ML BAG IVPB ONE (09:15)
--- NOTE | 2018-07-06 09:40 | PN ---
Progress Note, Physician Chief Complaint: EVENTS AND NOTES REVIEWED PATIENT UNRESPONSIVE TO STIMULI SEDATED AND ON VENT SUPPORT - Current Medication List Current Medications: Active Medications Albuterol/Ipratropium (Duoneb -) 1 amp NEB Q6H PRN PRN Reason: SHORTNESS OF BREATH Chlorhexidine Gluconate (Hibiclens For Decolonization -) 1 applic TP HS MARIAJOSE Last Admin: 07/05/18 21:27 Dose: 1 applic Heparin Sodium (Porcine) (Heparin -) 5,000 unit SQ TID MARIAJOSE Last Admin: 07/06/18 06:09 Dose: 5,000 unit Norepinephrine Bitartrate 8, (000 mcg/ Dextrose) 500 mls @ 18.75 mls/hr IV TITR MARIAJOSE; Protocol Last Admin: 07/06/18 09:00 Dose: 15 mcg/min, 56.25 mls/hr Piperacillin Sod/Tazobactam (Sod 2.25 gm/ Dextrose) 50 mls @ 100 mls/hr IVPB Q8H-IV MARIAJOSE; Protocol Last Admin: 07/06/18 01:04 Dose: 100 mls/hr Fentanyl 500 mcg/ Dextrose 100 mls @ 2 mls/hr IVPB TITR MARIAJOSE; Protocol Last Titration: 07/06/18 05:00 Dose: 25 mcg/hr, 5 mls/hr Propofol (Diprivan -) 1,000,000 mcg in 100 mls @ 1.701 mls/hr IVPB TITR MARIAJOSE; Protocol Last Titration: 07/06/18 09:27 Dose: 0 mcg/kg/min, 0 mls/hr Sodium Chloride (Normal Saline -) 1,000 mls @ 100 mls/hr IV ASDIR MARIAJOSE Last Admin: 07/05/18 22:22 Dose: 100 mls/hr Amiodarone HCl/Dextrose (Nexterone 360 Mg/200 Ml Bag) 360 mg in 200 mls @ 16.667 mls/hr IVPB ASDIR MARIAJOSE; Protocol Amiodarone HCl/Dextrose (Nexterone 360 Mg/200 Ml Bag) 360 mg in 200 mls @ 33.333 mls/hr IVPB ONCE ONE; Protocol Stop: 07/06/18 15:14 Insulin Aspart (Novolog Vial Sliding Scale -) 1 vial SQ ACHS MARIAJOSE; Protocol Last Admin: 07/06/18 06:04 Dose: Not Given Mupirocin (Bactroban Ointment (For Decolonization) -) 1 applic NS BID [facility] Stop: 07/09/18 21:59 Last Admin: 07/05/18 21:23 Dose: 1 applic Pantoprazole Sodium (Protonix Iv) 40 mg IVPUSH DAILY [facility] Last Admin: 07/05/18 14:28 Dose: 40 mg - Objective Vital Signs: Vital Signs Temperature 98.4 F 07/06/18 03:30 Pulse Rate 123 H 07/06/18 09:00 Respiratory Rate 24 H 07/06/18 08:28 Blood Pressure 128/69 07/06/18 09:00 O2 Sat by Pulse Oximetry (%) 94 L 07/06/18 08:28 Constitutional: Yes: Other Cardiovascular: Yes: Tachycardia Respiratory: Yes: Diminished, Mechanically Ventilated Genitourinary: Yes: Kaur Present Neurological: Yes: Other (SEDATED) Labs: CBC, BMP 07/06/18 05:30 07/06/18 05:30 INR, PTT INR 1.16 (0.83-1.09) H 07/05/18 05:30 Problem List - Problems (1) Hyperkalemia Code(s): E87.5 - HYPERKALEMIA (2) Sepsis Code(s): A41.9 - SEPSIS, UNSPECIFIED ORGANISM (3) Severe sepsis Code(s): A41.9 - SEPSIS, UNSPECIFIED ORGANISM; R65.20 - SEVERE SEPSIS WITHOUT SEPTIC SHOCK (4) Urinary tract infection Code(s): N39.0 - URINARY TRACT INFECTION, SITE NOT SPECIFIED (5) BRITT (acute kidney injury) Code(s): N17.9 - ACUTE KIDNEY FAILURE, UNSPECIFIED (6) Adnexal mass Code(s): N94.9 - UNSP COND ASSOC W FEMALE GENITAL ORGANS AND MENSTRUAL CYCLE (7) Dementia Code(s): F03.90 - UNSPECIFIED DEMENTIA WITHOUT BEHAVIORAL DISTURBANCE Qualifiers: Dementia type: unspecified type Dementia behavioral disturbance: without behavioral disturbance Qualified Code(s): F03.90 - Unspecified dementia without behavioral disturbance (8) Diabetes mellitus Code(s): E11.9 - TYPE 2 DIABETES MELLITUS WITHOUT COMPLICATIONS Qualifiers: Diabetes mellitus type: type 2 Diabetes mellitus senior care insulin use: without termite renewal inspector use (9) HTN (hypertension) Code(s): I10 - ESSENTIAL (PRIMARY) HYPERTENSION Qualifiers: Hypertension type: essential hypertension Qualified Code(s): I10 - Essential (primary) hypertension Assessment/Plan ASSESSMENT AND PLAN: Acute Hypoxic and Hypercapneic Respiratory Failure UTI r/o Pneumonia Septic Shock New Onset Atrial Fibrillation with RVR ARDS Lactic Acidosis Acute Kidney Injury Hyperkalemia Left Hydronephrosis Bladder Cancer +Troponins likely Demand Ischemia LV Diastolic Dysfunction Pulmonary HTN HTN DM Dementia PLAN: Check Cultures iv abx per ID Blood Pressure support advanced directives can not wean off vent support at this time due to sepsis with unstable hemodynamically.
[2018-07-06] MEDS: PANTOPRAZOLE SODIUM 40 MG VIAL IVPUSH SCH (10:06)
[2018-07-06] MEDS: MUPIROCIN 2% TOPICAL OINTMENT FOR DECOLONIZATION NS SCH ×2 (10:08→23:17)
[2018-07-06] MEDS ORDERED: SODIUM CHLORIDE 0.9% 500 ML INFUS.BAG IV ONE (10:31)
--- NOTE | 2018-07-06 10:40 | PN ---
Progress Note, Physician History of Present Illness: SEDATED ON VENTILATOR HYPOTENSIVE ON PRESSORS WBC SLIGHTLY IMPROVED AZOTEMIA IMPROVED CULTURES PENDING - Current Medication List Current Medications: Active Medications Albuterol/Ipratropium (Duoneb -) 1 amp NEB Q6H PRN PRN Reason: SHORTNESS OF BREATH Chlorhexidine Gluconate (Hibiclens For Decolonization -) 1 applic TP HS MARIAJOSE Last Admin: 07/05/18 21:27 Dose: 1 applic Diltiazem HCl (Cardizem Injection -) 20 mg IVPUSH ONCE PRN PRN Reason: afib RVR Heparin Sodium (Porcine) (Heparin -) 5,000 unit SQ TID MARIAJOSE Last Admin: 07/06/18 06:09 Dose: 5,000 unit Norepinephrine Bitartrate 8, (000 mcg/ Dextrose) 500 mls @ 18.75 mls/hr IV TITR MARIAJOSE; Protocol Last Admin: 07/06/18 09:00 Dose: 15 mcg/min, 56.25 mls/hr Piperacillin Sod/Tazobactam (Sod 2.25 gm/ Dextrose) 50 mls @ 100 mls/hr IVPB Q8H-IV MARIAJOSE; Protocol Last Admin: 07/06/18 10:03 Dose: 100 mls/hr Fentanyl 500 mcg/ Dextrose 100 mls @ 2 mls/hr IVPB TITR MARIAJOSE; Protocol Last Titration: 07/06/18 05:00 Dose: 25 mcg/hr, 5 mls/hr Propofol (Diprivan -) 1,000,000 mcg in 100 mls @ 1.701 mls/hr IVPB TITR MARIAJOSE; Protocol Last Titration: 07/06/18 10:09 Dose: 30 mcg/kg/min, 10.206 mls/hr Sodium Chloride (Normal Saline -) 1,000 mls @ 100 mls/hr IV ASDIR MARIAJOSE Last Admin: 07/05/18 22:22 Dose: 100 mls/hr Vasopressin 50 units/ Sodium (Chloride) 100 mls @ 4 mls/hr IVPB ASDIR MARIAJOSE; Protocol Insulin Aspart (Novolog Vial Sliding Scale -) 1 vial SQ ACHS MARIAJOSE; Protocol Last Admin: 07/06/18 06:04 Dose: Not Given Mupirocin (Bactroban Ointment (For Decolonization) -) 1 applic NS BID MARIAJOSE Stop: 07/09/18 21:59 Last Admin: 07/06/18 10:08 Dose: 1 applic Pantoprazole Sodium (Protonix Iv) 40 mg IVPUSH DAILY MARIAJOSE Last Admin: 07/06/18 10:06 Dose: 40 mg - Objective Vital Signs: Vital Signs Temperature 99.3 F 07/06/18 09:00 Pulse Rate 128 H 07/06/18 09:00 Respiratory Rate 24 H 07/06/18 09:00 Blood Pressure 128/69 07/06/18 09:00 O2 Sat by Pulse Oximetry (%) 94 L 07/06/18 08:28 Constitutional: Yes: No Distress Cardiovascular: Yes: Regular Rate and Rhythm, Tachycardia, S1, S2 Respiratory: Yes: Mechanically Ventilated Gastrointestinal: Yes: Normal Bowel Sounds, Soft. No: Tenderness Edema: No Labs: CBC, BMP 07/06/18 05:30 07/06/18 05:30 INR, PTT INR 1.16 (0.83-1.09) H 07/05/18 05:30 Assessment/Plan SEPSIS/ SEPTIC SHOCK UTI/ SEPSIS SECONDARY TO UTI RESP FAILURE ? BIBASILAR PNEUMONIA TOXIC METABOLIC ENCEPHALOPATHY BLADDER NEOPLASM/ OUTLET OBSTRUCTION HYDRONEPHROSIS AZOTEMIA- IMPROVED LACTIC ACIDOSIS- RESOLVED LEUKOCYTOSIS- IMPROVED AWAIT C/S CONTINUE EMPIRIC ZOSYN CONTINUE HEMODYNAMIC/ VENTILATORY SUPPORT CRITICAL CARE TIME 35MIN
[2018-07-06] MEDS: VASOPRESSIN 50 UNITS in SODIUM CHLORIDE 97.5 ML IVPB SCH ×2 (10:45→16:00)
--- NOTE | 2018-07-06 10:48 | EKG ---
Test Reason : Blood Pressure : / mmHG Vent. Rate : 129 BPM Atrial Rate : 150 BPM P-R Int : 000 ms QRS Dur : 088 ms QT Int : 250 ms P-R-T Axes : 000 -26 158 degrees QTc Int : 366 ms ATRIAL FIBRILLATION WITH RAPID VENTRICULAR RESPONSE WITH PREMATURE VENTRICULAR OR ABERRANTLY CONDUCTED COMPLEXES ABNORMAL ECG WHEN COMPARED WITH ECG OF 06-JUL-2018 04:29, NO SIGNIFICANT CHANGE WAS FOUND Confirmed by SHIRAZ OVALLE, GREGORIO ([id number]) on 07/06/2018 10:48:38 AM Referred By: Klaudia STRANGE Confirmed By:GREGORIO WELDON MD
[2018-07-06] MEDS ORDERED: VASOPRESSIN 20 UNITS/ML VIAL IV ONE ×2 (10:52→16:03)
[2018-07-06] MEDS ORDERED: HEPARIN NA (PORCINE) 5,000 UNITS/ML 1ML VIAL IVPUSH PRN (11:08)
--- NOTE | 2018-07-06 11:50 | PN ---
Teaching Attending Note Name of Resident: Megan Crawford ATTENDING PHYSICIAN STATEMENT I saw and evaluated the patient. I reviewed the resident's note and discussed the case with the resident. I agree with the resident's findings and plan as documented. SUBJECTIVE: Pt seen and examined in the ICU. Remains intubated, sedated. Rapid atrial fibrillation overnight and currently. Remains on levophed gtt. Vented on volume assist control with 40% FiO2. OBJECTIVE: Vital Signs Period Temp Pulse Resp BP Sys/Swift Pulse Ox Last 24 Hr 98.4 F-99.3 F 107-154 19-25 73-130/53-79 92-97 Intake & Output 07/03/18 07/04/18 07/05/18 07/06/18 23:59 23:59 23:59 23:59 Intake Total 4715 1675 Output Total 100 475 400 Balance -100 4240 1275 Weight 56.7 kg Gen: intubated, sedated Heart: tachycardic, irregular Lung: scattered rhonchi Abd: soft, nontender Ext: no edema CBC, BMP 07/06/18 05:30 07/06/18 05:30 Active Medications Albuterol/Ipratropium (Duoneb -) 1 amp NEB Q6H PRN PRN Reason: SHORTNESS OF BREATH Chlorhexidine Gluconate (Hibiclens For Decolonization -) 1 applic TP HS MARIAJOSE Last Admin: 07/05/18 21:27 Dose: 1 applic Heparin Sodium (Porcine) (Heparin -) 1,000 unit IVPUSH PRN PRN PRN Reason: Heparin Heparin Sodium (Porcine) (Heparin -) 5,000 unit IVPUSH PRN PRN PRN Reason: Heparin Norepinephrine Bitartrate 8, (000 mcg/ Dextrose) 500 mls @ 18.75 mls/hr IV TITR MARIAJOSE; Protocol Last Admin: 07/06/18 09:00 Dose: 15 mcg/min, 56.25 mls/hr Piperacillin Sod/Tazobactam (Sod 2.25 gm/ Dextrose) 50 mls @ 100 mls/hr IVPB Q8H-IV MARIAJOSE; Protocol Last Admin: 07/06/18 10:03 Dose: 100 mls/hr Fentanyl 500 mcg/ Dextrose 100 mls @ 2 mls/hr IVPB TITR MARIAJOSE; Protocol Last Titration: 07/06/18 05:00 Dose: 25 mcg/hr, 5 mls/hr Propofol (Diprivan -) 1,000,000 mcg in 100 mls @ 1.701 mls/hr IVPB TITR MARIAJOSE; Protocol Last Titration: 07/06/18 10:09 Dose: 30 mcg/kg/min, 10.206 mls/hr Sodium Chloride (Normal Saline -) 1,000 mls @ 100 mls/hr IV ASDIR MARIAJOSE Last Admin: 07/05/18 22:22 Dose: 100 mls/hr Vasopressin 50 units/ Sodium (Chloride) 100 mls @ 4 mls/hr IVPB ASDIR MARIAJOSE; Protocol Diltiazem HCl 125 mg/ Sodium (Chloride) 125 mls @ 5 mls/hr IVPB TITR MARIAJOSE; Protocol Heparin Sodium (Porcine) 25, (000 unit/ Sodium Chloride) 500 mls @ 16 mls/hr IV TITR MARIAJOSE; Protocol Insulin Aspart (Novolog Vial Sliding Scale -) 1 vial SQ ACHS MARIAJOSE; Protocol Last Admin: 07/06/18 06:04 Dose: Not Given Mupirocin (Bactroban Ointment (For Decolonization) -) 1 applic NS BID MARIAJOSE Stop: 07/09/18 21:59 Last Admin: 07/06/18 10:08 Dose: 1 applic Pantoprazole Sodium (Protonix Iv) 40 mg IVPUSH DAILY MARIAJOSE Last Admin: 07/06/18 10:06 Dose: 40 mg ASSESSMENT AND PLAN: Acute Hypoxic and Hypercapneic Respiratory Failure UTI r/o Pneumonia Septic Shock New Onset Atrial Fibrillation with RVR ARDS Lactic Acidosis Acute Kidney Injury Hyperkalemia Left Hydronephrosis Bladder Cancer +Troponins likely Demand Ischemia LV Diastolic Dysfunction Pulmonary HTN HTN DM Dementia - continue antibiotics - f/u cultures - change central line - IVF to keep CVP 8-12 - start vasopressin gtt - titrate levophed gtt to maintain MAP >65 - monitor urine output, creatinine - low tidal volume ventilation <6cc/kg/IBW - keep Pplat <30 - monitor ABG - rate control - start anticoagulation - echocardiogram - not a candidate for weaning at this time due to hemodynamic instability and acidosis - DVT/GI prophylaxis - continue ICU monitoring critical care time spent in reviewing chart, evaluating patient and formulating plan 35 min
[2018-07-06] MEDS: DILTIAZEM INJECTION 125 MG in SODIUM CHLORIDE 100 ML IVPB SCH ×2 (12:23→16:00)
--- NOTE | 2018-07-06 12:26 | PN ---
Progress Note, Physician History of Present Illness: Pt seen and examined at bedside. She remains in the ICU. She remains intubated. - Current Medication List Current Medications: Active Medications Albuterol/Ipratropium (Duoneb -) 1 amp NEB Q6H PRN PRN Reason: SHORTNESS OF BREATH Chlorhexidine Gluconate (Hibiclens For Decolonization -) 1 applic TP HS MARIAJOSE Last Admin: 07/05/18 21:27 Dose: 1 applic Heparin Sodium (Porcine) (Heparin -) 1,000 unit IVPUSH PRN PRN PRN Reason: Heparin Heparin Sodium (Porcine) (Heparin -) 5,000 unit IVPUSH PRN PRN PRN Reason: Heparin Norepinephrine Bitartrate 8, (000 mcg/ Dextrose) 500 mls @ 18.75 mls/hr IV TITR MARIAJOSE; Protocol Last Admin: 07/06/18 09:00 Dose: 15 mcg/min, 56.25 mls/hr Piperacillin Sod/Tazobactam (Sod 2.25 gm/ Dextrose) 50 mls @ 100 mls/hr IVPB Q8H-IV MARIAJOSE; Protocol Last Admin: 07/06/18 10:03 Dose: 100 mls/hr Fentanyl 500 mcg/ Dextrose 100 mls @ 2 mls/hr IVPB TITR MARIAJOSE; Protocol Last Titration: 07/06/18 05:00 Dose: 25 mcg/hr, 5 mls/hr Propofol (Diprivan -) 1,000,000 mcg in 100 mls @ 1.701 mls/hr IVPB TITR MARIAJOSE; Protocol Last Titration: 07/06/18 10:09 Dose: 30 mcg/kg/min, 10.206 mls/hr Sodium Chloride (Normal Saline -) 1,000 mls @ 100 mls/hr IV ASDIR MARIAJOSE Last Admin: 07/05/18 22:22 Dose: 100 mls/hr Vasopressin 50 units/ Sodium (Chloride) 100 mls @ 4 mls/hr IVPB ASDIR MARIAJOSE; Protocol Last Admin: 07/06/18 10:45 Dose: 2 units/hr, 4 mls/hr Diltiazem HCl 125 mg/ Sodium (Chloride) 125 mls @ 5 mls/hr IVPB TITR MARIAJOSE; Protocol Last Admin: 07/06/18 12:23 Dose: 5 mg/hr, 5 mls/hr Heparin Sodium (Porcine) 25, (000 unit/ Sodium Chloride) 500 mls @ 16 mls/hr IV TITR MARIAJOSE; Protocol Insulin Aspart (Novolog Vial Sliding Scale -) 1 vial SQ ACHS MARIAJOSE; Protocol Last Admin: 07/06/18 12:16 Dose: 4 unit Mupirocin (Bactroban Ointment (For Decolonization) -) 1 applic NS BID MARIAJOSE Stop: 07/09/18 21:59 Last Admin: 07/06/18 10:08 Dose: 1 applic Pantoprazole Sodium (Protonix Iv) 40 mg IVPUSH DAILY [facility] Last Admin: 07/06/18 10:06 Dose: 40 mg - Objective Vital Signs: Vital Signs Temperature 99.3 F 07/06/18 09:00 Pulse Rate 121 H 07/06/18 12:23 Respiratory Rate 24 H 07/06/18 11:41 Blood Pressure 144/83 07/06/18 12:23 O2 Sat by Pulse Oximetry (%) 92 L 07/06/18 09:00 Constitutional: Yes: Calm Eyes: Yes: Conjunctiva Clear HENT: Yes: Atraumatic Neck: Yes: Supple Cardiovascular: Yes: S1, S2 Respiratory: Yes: CTA Bilaterally Gastrointestinal: Yes: Soft Genitourinary: Yes: Kaur Present Musculoskeletal: Yes: Muscle Weakness Edema: Yes Neurological: Yes: Lethargy Labs: CBC, BMP 07/06/18 05:30 07/06/18 05:30 INR, PTT INR 1.16 (0.83-1.09) H 07/05/18 05:30 Problem List - Problems (1) Hyperkalemia Code(s): E87.5 - HYPERKALEMIA (2) Sepsis Code(s): A41.9 - SEPSIS, UNSPECIFIED ORGANISM (3) Severe sepsis Code(s): A41.9 - SEPSIS, UNSPECIFIED ORGANISM; R65.20 - SEVERE SEPSIS WITHOUT SEPTIC SHOCK (4) BRITT (acute kidney injury) Code(s): N17.9 - ACUTE KIDNEY FAILURE, UNSPECIFIED (5) Dementia Code(s): F03.90 - UNSPECIFIED DEMENTIA WITHOUT BEHAVIORAL DISTURBANCE Qualifiers: Dementia type: unspecified type Dementia behavioral disturbance: without behavioral disturbance Qualified Code(s): F03.90 - Unspecified dementia without behavioral disturbance Assessment/Plan Current Medications Generic Name Dose Route Start Last Admin Trade Name Freq PRN Reason Stop Dose Admin Albuterol/Ipratropium 1 amp 07/05/18 11:39 Duoneb - NEB Q6H PRN SHORTNESS OF BREATH Chlorhexidine Gluconate 1 applic 07/04/18 22:00 07/05/18 21:27 Hibiclens For Decolonization - TP 1 applic HS MARIAJOSE Administration Heparin Sodium (Porcine) 1,000 unit 07/06/18 11:08 Heparin - IVPUSH PRN PRN Heparin Heparin Sodium (Porcine) 5,000 unit 07/06/18 11:08 Heparin - IVPUSH PRN PRN Heparin Norepinephrine Bitartrate 8, 500 mls @ 18.75 mls/hr 07/04/18 21:15 07/06/18 09:00 000 mcg/ Dextrose IV 15 mcg/min TITR MARIAJOSE 56.25 mls/hr Administration Protocol 5 MCG/MIN Piperacillin Sod/Tazobactam 50 mls @ 100 mls/hr 07/05/18 11:30 07/06/18 10:03 Sod 2.25 gm/ Dextrose IVPB 100 mls/hr Q8H-IV MARIAJOSE Administration Protocol Fentanyl 500 mcg/ Dextrose 100 mls @ 2 mls/hr 07/05/18 12:31 07/06/18 05:00 IVPB 25 mcg/hr TITR MARIAJOSE 5 mls/hr Titration Protocol 10 MCG/HR Propofol 1,000,000 mcg in 100 mls @ 1.701 mls/hr 07/05/18 10:00 07/06/18 10: 09 Diprivan - IVPB 30 mcg/kg/min TITR MARIAJOSE 10.206 mls/hr Titration Protocol 5 MCG/KG/MIN Sodium Chloride 1,000 mls @ 100 mls/hr 07/05/18 18:47 07/05/18 22:22 Normal Saline - IV 100 mls/hr ASDIR MARIAJOSE Administration Vasopressin 50 units/ Sodium 100 mls @ 4 mls/hr 07/06/18 10:30 07/06/18 10:45 Chloride IVPB 2 units/hr ASDIR MARIAJOSE 4 mls/hr Administration Protocol 2 UNITS/HR Diltiazem HCl 125 mg/ Sodium 125 mls @ 5 mls/hr 07/06/18 11:15 07/06/18 12:23 Chloride IVPB 5 mg/hr TITR MARIAJOSE 5 mls/hr Administration Protocol 5 MG/HR Heparin Sodium (Porcine) 25, 500 mls @ 16 mls/hr 07/06/18 11:15 000 unit/ Sodium Chloride IV TITR MARIAJOSE Protocol 800 UNIT/HR Insulin Aspart 1 vial 07/04/18 22:00 07/06/18 12:16 Novolog Vial Sliding Scale - SQ 4 unit ACHS MARIAJOSE Administration Protocol Mupirocin 1 applic 07/04/18 22:00 07/06/18 10:08 Bactroban Ointment (For Decolonization) - NS 07/09/18 21:59 1 applic BID MARIAJOSE Administration Pantoprazole Sodium 40 mg 07/05/18 12:30 07/06/18 10:06 Protonix Iv IVPUSH 40 mg DAILY MARIAJOSE Administration Impression 1. BRITT 2. hyperkalemia 3. uti 4. dementia 5. htn 6. DM 7. hypercalcemia 8. hydronephrosis left 9. bladder mass 10. sepsis 11. lactic acidosis 12. resp failure Plan - monitor renal function - maintain map 65 - urology eval - urine output improved - vent support - follow cultures - cont abx - monitor in ICU
[2018-07-06] MEDS ORDERED: PT OWN MED DRAWER 7, Y5N ONE (13:23)
--- NOTE | 2018-07-06 13:37 | EKG ---
Test Reason : Blood Pressure : / mmHG Vent. Rate : 133 BPM Atrial Rate : 147 BPM P-R Int : 000 ms QRS Dur : 096 ms QT Int : 294 ms P-R-T Axes : 000 -28 143 degrees QTc Int : 437 ms ATRIAL FIBRILLATION WITH RAPID VENTRICULAR RESPONSE ABNORMAL ECG WHEN COMPARED WITH ECG OF 04-JUL-2018 16:11, ATRIAL FIBRILLATION HAS REPLACED SINUS RHYTHM VENT. RATE HAS INCREASED BY [address] NO LONGER DEPRESSED IN ANTERIOR LEADS T WAVE INVERSION NO LONGER EVIDENT IN INFERIOR LEADS T WAVE INVERSION NO LONGER EVIDENT IN ANTERIOR LEADS T WAVE INVERSION NOW EVIDENT IN LATERAL LEADS Confirmed by SHIRAZ OVALLE, GREGORIO ([id number]) on 07/06/2018 1:37:20 PM Referred By: Confirmed By:GREGORIO WELDON MD
[2018-07-06] MEDS: HEPARIN - 25,000 UNIT in SODIUM CHLORIDE 495 ML IV SCH (15:00)
--- NOTE | 2018-07-06 15:04 | ECHO ---
Name: ELVIN MINOR Exam:Adult Echocardiogram Study Date: 07/06/2018 11:27 AM Age: 88 yrs Reason For Study: NEW ONSET ATRIAL FIBRILLATION Height: 67 in Weight: 125 lb BSA: 1.7 m2 BP: 134/69 mmHg MMode/2D Measurements & Calculations IVSd: 0.95 cm Ao root diam: 3.5 cm LVIDd: 4.2 cm LA dimension: 3.8 cm LVIDs: 3.1 cm LVPWd: 0.87 cm EDV(Teich): 78.5 ml LVOT diam: 2.2 cm ESV(Teich): 37.8 ml Doppler Measurements & Calculations MV E max terrance: 34.1 cm/sec Ao V2 max: 226.2 cm/sec MV A max terrance: 80.5 cm/sec Ao max P.5 mmHg MV E/A: 0.42 Ao V2 mean: 147.3 cm/sec MV dec time: 0.16 sec Ao mean P.4 mmHg Ao V2 VTI: 29.9 cm ALEXIA(I,D): 1.4 cm2 AI P1/2t: 322.1 msec ALEXIA(V,D): 1.3 cm2 AI max terrance: 324.7 cm/sec LV V1 max P.4 mmHg AI max P.2 mmHg LV V1 mean P.3 mmHg AI dec slope: 295.3 cm/sec2 LV V1 max: 77.6 cm/sec LV V1 mean: 53.3 cm/sec LV V1 VTI: 11.8 cm SV(LVOT): 43.1 ml TR max terrance: 298.2 cm/sec TR max P.1 mmHg PI end-d terrance: 162.9 cm/sec Med Peak E' Terrance: 10.8 cm/sec Med E/e': 3.1 Lat Peak E' Terrance: 8.5 cm/sec Lat E/e': 4.0 Procedure A two-dimensional transthoracic echocardiogram with color flow and Doppler was performed. Left Ventricle The left ventricular size, thickness and function are normal. The left ventricular ejection fraction is normal. The left ventricular wall motion is normal. Right Ventricle The right ventricle is not well visualized. Atria Normal left and right atrial size and function. Mitral Valve There is mild mitral valve thickening. There is no mitral valve stenosis. There is trace to mild mitr al regurgitation. Tricuspid Valve The tricuspid valve is normal in structure and function. There is no tricuspid stenosis. There is mod erate tricuspid regurgitation. Right ventricular systolic pressure is elevated at 50-60mmHg. Aortic Valve The aortic valve is not well visualized. No hemodynamically significant valvular aortic stenosis. Mil d aortic regurgitation. Pulmonic Valve The pulmonic valve is not well visualized. There is no pulmonic valvular stenosis. Mild pulmonic valv ular regurgitation. Great Vessels The aortic root is normal size. Pericardium/Pleura Trivial pericardial effusion not hemodynamically significant. Interpretation Summary The left ventricular size, thickness and function are normal The left ventricular ejection fraction is normal. The left ventricular wall motion is normal. Mild aortic regurgitation. There is moderate tricuspid regurgitation. Right ventricular systolic pressure is elevated at 50-60mmHg. The aortic valve is not well visualized. There is trace to mild mitral regurgitation. Trivial pericardial effusion not hemodynamically significant MD Nick Siu 07/06/2018 03:03 PM
--- NOTE | 2018-07-06 15:08 | PROC ---
<Jalen Jerez - Last Filed: 07/06/18 15:07> Central Line Insertion Indication: CVP Monitoring Risks and Benefits Explained: Yes Consent on Chart: Yes (emergency consent) Central Line: Triple Lumen Catheter Anesthesia: 1% Lidocaine Sterile Technique: Yes Ultrasound Guided Assistance: Yes Position: Right Internal Jugular Post Insertion: Yes: Chest X-Ray Ordered Sterile Dressing Applied: Yes <Kareem Roger MD - Last Filed: 07/07/18 12:02> Procedure Note Procedure: I supervised and was present during the entire procedure. Kareem Roger MD
[2018-07-06] MEDS ORDERED: AMIODARONE IN DEXTROSE,ISO-OSM 360 MG/200 ML BAG IVPB SCH (15:14)
[2018-07-06] MEDS ORDERED: fentaNYL CITRATE 250 MCG/5 ML VIAL ONE (15:36)
[2018-07-06] MEDS: FENTANYL INJECTION 500 MCG in DEXTROSE 5%-WATER - 90 ML IVPB SCH (16:00)
--- NOTE | 2018-07-06 17:16 | PN ---
Progress Note (short form) - Note Progress Note: Patient's daughter Kylah called, she wanted to be updated about the mother's progress. Updated her about the afib, need for rate control and ac. Also let Kylah know the central line had been changed. Kylah confirmed mother is still full code. Kylah's cell phone number is [phone]. She said she works and has leg swellings so has not been able to come in. She plans to come visit over the weekend.
--- NOTE | 2018-07-06 18:02 | CON.CARD ---
Consult Consult Specialty:: Cardiology Referred by:: Hospitalist Medicine Reason for Consultation:: PAF with RVR - History of Present Illness Chief Complaint: Dyspnea History of Present Illness: Patient is an 88 year old female with underlying history of organic brain/ dementia, DM and history of UTIs and hydronephrosis who presents with hypercapneic respiratory failure. Remains intubated, sedated, developed rapid atrial fibrillation overnight and currently rate-controlled. Remains on levophed gtt. Vented on volume assist control with 40% FiO2. Rest of history per chart review. 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: Yes: Dementia Cardio/Vascular: Yes: HTN Renal/: Yes: Renal Inusuff, Cancer Endocrine: Yes: Diabetes Mellitus - Alcohol/Substance Use Hx Alcohol Use: No - Smoking History Smoking history: Unknown if ever smoked Have you smoked in the past 12 months: No Aproximately how many cigarettes per day: 0 If you are a former smoker, when did you quit?: 30 YRS AGO Home Medications - Allergies Allergies/Adverse Reactions: Allergies Allergy/AdvReac Type Severity Reaction Status Date / Time No Known Allergies Allergy Verified 07/04/18 13:43 - Home Medications Home Medications: Ambulatory Orders Sitagliptin Phos/Metformin HCl [Janumet 50-500 mg Tablet] 1 each PO DAILY Aspirin [ASA -] 81 mg PO DAILY 1 Days tab 12/23/11 Metoprolol Succinate [Toprol XL -] 50 mg PO BID #0 tablet 12/23/11 Amlodipine Besylate [Norvasc -] 10 mg PO DAILY #30 tablet 05/30/18 Ciprofloxacin [Cipro (Restricted To Id)] 250 mg PO BID 07/04/18 Guaifenesin [Expectorant] 5 ml PO PRN PRN 07/04/18 Tuberculin Ppd 5 Tu/0.1ML [TUBERSOL ([facility] ONLY) 5mL VIAL] 5 unit ONCE 07/04 Review of Systems Unable to obtain ROS, reason: Sedated and intubated Vital Signs: Vital Signs Temperature 99.3 F 07/06/18 09:00 Pulse Rate 121 H 07/06/18 12:23 Respiratory Rate 24 H 07/06/18 16:57 Blood Pressure 144/83 07/06/18 12:23 O2 Sat by Pulse Oximetry (%) 92 L 07/06/18 09:00 Constitutional: Yes: No Distress, Calm Neck: Yes: Supple Respiratory: Yes: Regular, Diminished, Intubated, Mechanically Ventilated Gastrointestinal: Yes: Soft, Hypoactive Bowel Sounds Cardiovascular: Yes: Pulse Irregular JVD: No Carotid Bruit: No Heart Sounds: Yes: S1, S2 Edema: No - Other Data Labs, Other Data: CBC, BMP 07/06/18 05:30 07/06/18 05:30 INR, PTT INR 1.16 (0.83-1.09) H 07/05/18 05:30 Troponin, BNP 07/06/18 05:30 Troponin I 0.27 H Troponin, BNP 07/06/18 05:30 Troponin I 0.27 H Afib @ 129 PVC Ejection Fraction %: LVEF > or = 40 % Imaging - Results Chest X-ray: Report Reviewed (Bilateral lower lobe infiltrates and effusions) Ultrasound: Report Reviewed (Left moderate hydro similar to previous 05/17/2018) Problem List - Problems (1) Demand ischemia Code(s): I24.8 - OTHER FORMS OF ACUTE ISCHEMIC HEART DISEASE (2) Paroxysmal atrial fibrillation with rapid ventricular response Code(s): I48.0 - PAROXYSMAL ATRIAL FIBRILLATION (3) Sepsis Code(s): A41.9 - SEPSIS, UNSPECIFIED ORGANISM Qualifiers: Sepsis type: Streptococcus group B Qualified Code(s): A40.1 - Sepsis due to streptococcus, group B (4) Urinary tract infection Code(s): N39.0 - URINARY TRACT INFECTION, SITE NOT SPECIFIED (5) BRITT (acute kidney injury) Code(s): N17.9 - ACUTE KIDNEY FAILURE, UNSPECIFIED (6) Adnexal mass Code(s): N94.9 - UNSP COND ASSOC W FEMALE GENITAL ORGANS AND MENSTRUAL CYCLE (7) Diabetes mellitus Code(s): E11.9 - TYPE 2 DIABETES MELLITUS WITHOUT COMPLICATIONS Qualifiers: Diabetes mellitus type: type 2 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 PAF with RVR 2. Acute Hypoxic and Hypercapneic Respiratory Failure 3. Septic Shock, source - streptococcus 2. Organic brain syndrome/dementia 3. HTN 4. DM 5. LV Diastolic Dysfunction 6. CAD, Demand Ischemia 7. Pulmonary HTN 8. RBITT with hyperkalemia resolving 9. Anemia 10. Left adnexal mass and bladder mass, left hydronephrosis PLAN: 1. Continue antibiotics f/u cultures, IVF to keep CVP 8-12, continue vasopressin gtt and titrate levophed gtt to maintain MAP >65 2. Vent management per ABG 3. Maintain Cardizem gtt for rate-control, resume lopressor once NGT intake established 4. Heparin gtt->NOAC once oral intake re-established 5. Thank you for consultative opportunity
[2018-07-06] MEDS ORDERED: SODIUM CHLORIDE 1,000 ML IV SCH (19:00)
--- NOTE | 2018-07-06 19:59 | CONS ---
DATE OF CONSULTATION: 07/06/2018 HISTORY OF PRESENT ILLNESS: The patient is an 88-year-old female seen in the ICU. for this patient who reportedly has bladder cancer and now admitted and intubated because of urosepsis. The patient was seen by me approximately 6 to 7 weeks ago. At that time she was admitted with a diagnosis of UTI and left hydronephrosis, and a possible bladder mass. She was scheduled for cystoscopy, possible retrograde at that time but adamantly refused despite her daughters trying to convince her. In the interim, she was discharged, now readmitted, and at the present time is intubated. Her ultrasound performed on the is similar to the ultrasound which was performed on May 17 showing left hydronephrosis. A pelvic mass which was identified on the previous ultrasound, in fact was not seen or identified under current ultrasound. Her creatinine was 1.5, BUN is 30, but a white count is over 20,000 with her urine having grown out Streptococcus viridans. IMPRESSION: In summary, this patient with left hydro being treated for urosepsis. She has refused intervention in the past and I will respect her wishes. I would point out that she does not have a definite diagnosis of bladder cancer as far as I can determine. In addition, the dilated left renal pelvis, previously identified, may represent a chronic ureteropelvic junction rather than an ongoing acute obstruction. In any event, at the present time treatment appears to be intravenous fluids and antibiotics. There is nothing more for me to add at this time other than to suggest that she has urine cytology done once a day for the next 3 days; this may in fact help determine if in fact there is any bladder cancer present. MD MORRO FRANCOIS/[id number]
[2018-07-06] MEDS: HEPARIN NA (PORCINE) 5,000 UNITS/ML 1ML VIAL IVPUSH PRN (22:06)
[2018-07-06] MEDS: CHLORHEXIDINE GLUCONATE 4% CLEANSER FOR DECOLONIZATION TP SCH (23:17)
[2018-07-06] MEDS: TRIPLE LUMEN FLUSH 4 ML ML IVPUSH PRN (23:18)
[2018-07-06] MEDS ORDERED: BENZOIN/ALOE VERA/STORAX/TOLU 58 ML BOTTLE ONE (23:22)
[2018-07-07] MEDS ORDERED: fentaNYL CITRATE 250 MCG/5 ML VIAL ONE ×2 (00:14→15:00)
[2018-07-07] MEDS ORDERED: DEXTROSE 5%-WATER - 50 ML IVPB ONE ×2 (00:33→09:08)
[2018-07-07] MEDS ORDERED: PIPERACILLIN/TAZOBACTAM 2.25 GM VIAL IVPB ONE ×2 (00:33→09:08)
[2018-07-07] MEDS: FENTANYL INJECTION 500 MCG in DEXTROSE 5%-WATER - 90 ML IVPB SCH ×2 (01:08→15:14)
[2018-07-07] MEDS: PIPERACILLIN/TAZOB 2.25 GM 2.25 GM in DEXTROSE 5%-WATER - 50 ML IVPB SCH ×2 (01:34→09:09)
[2018-07-07] MEDS: INSULIN SLIDING SCALE (NOVOLOG) 1 VIAL SQ SCH ×4 (06:00→22:10)
[2018-07-07] MEDS: HEPARIN NA (PORCINE) 5,000 UNITS/ML 1ML VIAL IVPUSH PRN ×2 (06:06→08:31)
[2018-07-07 06:55] LABS: BASO % 0.1 % (0-2.0); EOS % 0.5 % (0-4.5); HEMATOCRIT 23.2 % (32.4-45.2); LYMPH % 7.1 % (8-40); MCHC 30.3 g/dl (32.0-36.0); MEAN CELL VOLUME 79.2 fl (80-96); MONO % 8.8 % (3.8-10.2); NEUT % 83.5 % (42.8-82.8); PLATELET COUNT 368 K/MM3 (134-434); RBC 2.93 M/mm3 (3.60-5.2); RDW 17.8 % (11.6-15.6); WHITE BLOOD COUNT 15.5 K/mm3 (4.0-10.0)
[2018-07-07 07:19] LABS: CALCIUM 8.3 mg/dL (8.5-10.1); CREATININE 1.2 mg/dL (0.55-1.3); MAGNESIUM 2.1 mg/dL (1.8-2.4); PHOSPHOROUS 3.2 mg/dL (2.5-4.9); POTASSIUM 4.9 mmol/L (3.5-5.1)
--- NOTE | 2018-07-07 07:47 | PN ---
Physical Exam: SUBJECTIVE: Patient seen and examined at bedside. Patient is off sedation and awake. No acute events overnight. OBJECTIVE: Vital Signs Period Temp Pulse Resp BP Sys/Swift Pulse Ox Last 24 Hr 98.5 F-99.4 F 95-140 24-25 90-144/46-83 92-96 GENERAL: The patient is awake off of sedation, does not obey commands EYES: PERRL, extraocular movements intact, sclera anicteric, conjunctiva clear. No ptosis. NECK: R IJ placement LUNGS: Rhonchorous breath sounds, no wheezes, no crackles, mechanically ventilated. HEART: Regular rate and rhythm, S1, S2 without murmur, rub or gallop. ABDOMEN: Soft, nontender, nondistended, normoactive bowel sounds, no guarding, no rebound, no hepatosplenomegaly, no masses. EXTREMITIES: 1+ pulses, warm, well-perfused, no edema. NEUROLOGICAL: Cranial nerves II through XII grossly intact. SKIN: Warm, dry, normal turgor, no rashes or lesions noted Laboratory Results - last 24 hr 07/06/18 07/06/18 07/06/18 11:50 16:54 18:00 PTT (Actin FS) Sodium Potassium Chloride Carbon Dioxide Anion Gap BUN Creatinine Est GFR (CKD-EPI)AfAm Est GFR (CKD-EPI)NonAf POC Glucometer 243 254 Random Glucose Calcium Phosphorus Magnesium Troponin I Urine Osmolality Ur Random Creatinine 34.0 Ur Random Sodium 07/06/18 07/06/18 07/06/18 18:00 18:00 20:00 PTT (Actin FS) 26.1 Sodium Potassium Chloride Carbon Dioxide Anion Gap BUN Creatinine Est GFR (CKD-EPI)AfAm Est GFR (CKD-EPI)NonAf POC Glucometer Random Glucose Calcium Phosphorus Magnesium Troponin I Urine Osmolality 406 Ur Random Creatinine Ur Random Sodium 51 07/06/18 07/07/18 07/07/18 22:37 04:00 05:30 PTT (Actin FS) 33.1 Sodium 139 Potassium 4.9 Chloride 110 H Carbon Dioxide 21 Anion Gap 8 BUN 48 H Creatinine 1.2 Est GFR (CKD-EPI)AfAm 46.40 Est GFR (CKD-EPI)NonAf 40.04 POC Glucometer 185 Random Glucose 203 H Calcium 8.3 L Phosphorus 3.2 Magnesium 2.1 Troponin I 0.19 H Urine Osmolality Ur Random Creatinine Ur Random Sodium 07/07/18 05:54 PTT (Actin FS) Sodium Potassium Chloride Carbon Dioxide Anion Gap BUN Creatinine Est GFR (CKD-EPI)AfAm Est GFR (CKD-EPI)NonAf POC Glucometer 128 Random Glucose Calcium Phosphorus Magnesium Troponin I Urine Osmolality Ur Random Creatinine Ur Random Sodium Active Medications Generic Name Dose Route Start Last Admin Trade Name Freq PRN Reason Stop Dose Admin Albuterol/Ipratropium 1 amp 07/05/18 11:39 07/06/18 23:35 Duoneb - NEB 1 amp Q6H PRN Administration SHORTNESS OF BREATH Chlorhexidine Gluconate 1 applic 07/04/18 22:00 07/06/18 23:17 Hibiclens For Decolonization - TP 1 applic HS MARIAJOSE Administration Heparin Sodium (Porcine) 1,000 unit 07/06/18 11:08 Heparin - IVPUSH PRN PRN Heparin Heparin Sodium (Porcine) 5,000 unit 07/06/18 11:08 07/07/18 06:06 Heparin - IVPUSH 5,000 unit PRN PRN Administration Heparin IV Flush 4 ml 07/06/18 22:41 07/06/18 23:18 Triple Lumen Flush IVPUSH 4 ml PRN PRN Administration FLUSH Norepinephrine Bitartrate 8, 500 mls @ 18.75 mls/hr 07/04/18 21:15 07/07/18 01:40 000 mcg/ Dextrose IV 6 mcg/min TITR MARIAJOSE 22.5 mls/hr Titration Protocol 5 MCG/MIN Piperacillin Sod/Tazobactam 50 mls @ 100 mls/hr 07/05/18 11:30 07/07/18 01:34 Sod 2.25 gm/ Dextrose IVPB 100 mls/hr Q8H-IV MARIAJOSE Administration Protocol Fentanyl 500 mcg/ Dextrose 100 mls @ 2 mls/hr 07/05/18 12:31 07/07/18 01:08 IVPB 50 mcg/hr TITR MARIAJOSE 10 mls/hr Administration Protocol 10 MCG/HR Propofol 1,000,000 mcg in 100 mls @ 1.701 mls/hr 07/05/18 10:00 07/06/18 15: 00 Diprivan - IVPB 30 mcg/kg/min TITR MARIAJOSE 10.206 mls/hr Administration Protocol 5 MCG/KG/MIN Vasopressin 50 units/ Sodium 100 mls @ 4 mls/hr 07/06/18 10:30 07/06/18 16:00 Chloride IVPB 2 units/hr ASDIR MARIAJOSE 4 mls/hr Administration Protocol 2 UNITS/HR Diltiazem HCl 125 mg/ Sodium 125 mls @ 5 mls/hr 07/06/18 11:15 07/06/18 16:00 Chloride IVPB 5 mg/hr TITR MARIAJOSE 5 mls/hr Administration Protocol 5 MG/HR Heparin Sodium (Porcine) 25, 500 mls @ 16 mls/hr 07/06/18 11:15 07/07/18 06: 01 000 unit/ Sodium Chloride IV 1,100 unit/hr TITR MARIAJOSE 22 mls/hr Titration Protocol 800 UNIT/HR Sodium Chloride 1,000 mls @ 75 mls/hr 07/06/18 19:00 07/06/18 16:00 Normal Saline - IV 75 mls/hr ASDIR MARIAJOSE Administration Insulin Aspart 1 vial 07/04/18 22:00 07/07/18 06:00 Novolog Vial Sliding Scale - SQ Not Given ACHS MARIAJOSE Protocol Mupirocin 1 applic 07/04/18 22:00 07/06/18 23:17 Bactroban Ointment (For Decolonization) - NS 07/09/18 21:59 1 applic BID MARIAJOSE Administration Pantoprazole Sodium 40 mg 07/05/18 12:30 07/06/18 10:06 Protonix Iv IVPUSH 40 mg DAILY MARIAJOSE Administration ASSESSMENT/PLAN: 88 yo F h/o dementia, HTN, DM, back pain, recurrent UTI, hydronephrosis, 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 ID -Septic shock 2/2 complicated UTI, possibly pyelonephritis -ID consulting -WBC trending down -Previous cultures grew S. Viridans -Cultures grow alpha hemolytic strep -Ceftriaxone from Zosyn -Blood cultures ngtd -Lactate trending down RENAL -BRITT 2/2 septic shock, could also have component of obstruction -Nephrology consulting -Trend Cr and electrolytes -IV hydration at 75cc/hr, will hold with enteral feeding -Avoid nephrotoxic agents -I's and O's PULM -Intubated -Mixed metabolic and respiratory acidosis, resolved -Maintain O2 sat > 90% -CPAP trial as tolerated -Possible PNA -Zosyn switched to ceftriaxone per ID -CXR possible bilateral infiltrates -Remain on vent, tidal volume 350 -Duoneb Q6H CARDIO/VASC -History of HTN -Hypotensive 2/2 septic shock -New onset afib RVR -Cardizem bolus prn -Cardizem gtt, heparin gtt -Can switch cardizem to lopressor with NGT feeds -Cardiology consulting -Vasopressin gtt, titrate Levophed down -Echo: preserved EF -MAP >65, CVP 8-12 -Hold BP meds NEURO -Awake off of sedation, does not follow commands -Will wean off sedation as tolerated -Propofol gtt -History of renal masses, frequent uti. No documented history of bladder ca -Septic shock 2/2 uti, possibly pyelonephritis -Kaur -Renal US: L hydronephrosis -Urology consulted, urine cytology sent -Monitor for hematuria HEME/ONC -Heparin gtt -Will monitor PTT, CBC ENDO -History of DM -Insulin ss FEN -Enteral feeds -Will hold IV fluids PROPHYLAXIS -Heparin gtt -Protonix Dispo: Full code per family members. ICU monitoring. Visit type - Emergency Visit Emergency Visit: Yes ED Registration Date: 07/04/18 Care time: The patient presented to the Emergency Department on the above date and was hospitalized for further evaluation of their emergent condition. - New Patient This patient is new to me today: No - Critical Care Critical Care patient: Yes Total Critical Care Time (in minutes): 36 Critical Care Statement: The care of this patient involved high complexity decision making to prevent further life threatening deterioration of the patient 's condition and/or to evaluate & treat vital organ system(s) failure or risk of failure.
[2018-07-07] MEDS: PANTOPRAZOLE SODIUM 40 MG VIAL IVPUSH SCH (09:09)
[2018-07-07] MEDS: MUPIROCIN 2% TOPICAL OINTMENT FOR DECOLONIZATION NS SCH ×2 (09:13→22:03)
[2018-07-07] MEDS: PROPOFOL 1,000,000 MCG/100 ML VIAL IVPB SCH ×2 (09:14→23:02)
--- NOTE | 2018-07-07 10:04 | PN ---
Progress Note, Physician History of Present Illness: Remains intubated, sedated, rate-controlled atrial fibrillation. Remains on levophed gtt and vasopressin gtt. Vented on volume assist control with 40% FiO2. - Current Medication List Current Medications: Active Medications Albuterol/Ipratropium (Duoneb -) 1 amp NEB Q6H PRN PRN Reason: SHORTNESS OF BREATH Last Admin: 07/06/18 23:35 Dose: 1 amp Chlorhexidine Gluconate (Hibiclens For Decolonization -) 1 applic TP HS [facility] Last Admin: 07/06/18 23:17 Dose: 1 applic Heparin Sodium (Porcine) (Heparin -) 1,000 unit IVPUSH PRN PRN PRN Reason: Heparin Heparin Sodium (Porcine) (Heparin -) 5,000 unit IVPUSH PRN PRN PRN Reason: Heparin Last Admin: 07/07/18 08:31 Dose: 5,000 unit IV Flush (Triple Lumen Flush) 4 ml IVPUSH PRN PRN PRN Reason: FLUSH Last Admin: 07/06/18 23:18 Dose: 4 ml Norepinephrine Bitartrate 8, (000 mcg/ Dextrose) 500 mls @ 18.75 mls/hr IV TITR [facility]; Protocol Last Titration: 07/07/18 01:40 Dose: 6 mcg/min, 22.5 mls/hr Piperacillin Sod/Tazobactam (Sod 2.25 gm/ Dextrose) 50 mls @ 100 mls/hr IVPB Q8H-IV [facility]; Protocol Last Admin: 07/07/18 09:09 Dose: 100 mls/hr Fentanyl 500 mcg/ Dextrose 100 mls @ 2 mls/hr IVPB TITR [facility]; Protocol Last Admin: 07/07/18 01:08 Dose: 50 mcg/hr, 10 mls/hr Propofol (Diprivan -) 1,000,000 mcg in 100 mls @ 1.701 mls/hr IVPB TITR [facility]; Protocol Last Admin: 07/07/18 09:14 Dose: 30 mcg/kg/min, 10.206 mls/hr Vasopressin 50 units/ Sodium (Chloride) 100 mls @ 4 mls/hr IVPB ASDIR [facility]; Protocol Last Admin: 07/06/18 16:00 Dose: 2 units/hr, 4 mls/hr Diltiazem HCl 125 mg/ Sodium (Chloride) 125 mls @ 5 mls/hr IVPB TITR [facility]; Protocol Last Admin: 07/06/18 16:00 Dose: 5 mg/hr, 5 mls/hr Heparin Sodium (Porcine) 25, (000 unit/ Sodium Chloride) 500 mls @ 16 mls/hr IV TITR [facility]; Protocol Last Titration: 07/07/18 08:30 Dose: 1,250 unit/hr, 25 mls/hr Sodium Chloride (Normal Saline -) 1,000 mls @ 75 mls/hr IV ASDIR [facility] Last Admin: 07/06/18 16:00 Dose: 75 mls/hr Insulin Aspart (Novolog Vial Sliding Scale -) 1 vial SQ ACHS [facility]; Protocol Last Admin: 07/07/18 06:00 Dose: Not Given Mupirocin (Bactroban Ointment (For Decolonization) -) 1 applic NS BID [facility] Stop: 07/09/18 21:59 Last Admin: 07/07/18 09:13 Dose: 1 applic Pantoprazole Sodium (Protonix Iv) 40 mg IVPUSH DAILY [facility] Last Admin: 07/07/18 09:09 Dose: 40 mg - Objective Vital Signs: Vital Signs Temperature 99.1 F 07/07/18 06:00 Pulse Rate 107 H 07/07/18 08:40 Respiratory Rate 24 H 07/07/18 09:00 Blood Pressure 110/62 07/07/18 08:00 O2 Sat by Pulse Oximetry (%) 96 07/07/18 09:00 Cardiovascular: Yes: Pulse Irregular Respiratory: Yes: Intubated, Mechanically Ventilated Gastrointestinal: Yes: Soft, Hypoactive Bowel Sounds Edema: Yes Labs: CBC, BMP 07/07/18 05:30 07/07/18 05:30 INR, PTT INR 1.16 (0.83-1.09) H 07/05/18 05:30 - ....Imaging Chest X-ray: Report Reviewed (CHF, mild improved aeration, NGT) Problem List - Problems (1) Demand ischemia Code(s): I24.8 - OTHER FORMS OF ACUTE ISCHEMIC HEART DISEASE (2) Paroxysmal atrial fibrillation with rapid ventricular response Code(s): I48.0 - PAROXYSMAL ATRIAL FIBRILLATION (3) Sepsis Code(s): A41.9 - SEPSIS, UNSPECIFIED ORGANISM Qualifiers: Sepsis type: Streptococcus group B Qualified Code(s): A40.1 - Sepsis due to streptococcus, group B (4) Urinary tract infection Code(s): N39.0 - URINARY TRACT INFECTION, SITE NOT SPECIFIED (5) BRITT (acute kidney injury) Code(s): N17.9 - ACUTE KIDNEY FAILURE, UNSPECIFIED (6) Adnexal mass Code(s): N94.9 - UNSP COND ASSOC W FEMALE GENITAL ORGANS AND MENSTRUAL CYCLE (7) Diabetes mellitus Code(s): E11.9 - TYPE 2 DIABETES MELLITUS WITHOUT COMPLICATIONS Qualifiers: Diabetes mellitus type: type 2 Diabetes mellitus roasterman insulin use: without roasterman use (8) HTN (hypertension) Code(s): I10 - ESSENTIAL (PRIMARY) HYPERTENSION Qualifiers: Hypertension type: essential hypertension Qualified Code(s): I10 - Essential (primary) hypertension (9) Hydronephrosis Code(s): N13.30 - UNSPECIFIED HYDRONEPHROSIS (10) Hyperkalemia Code(s): E87.5 - HYPERKALEMIA Assessment/Plan 07/06/2018 Echo: Normal LV size and fxn, mod TR RVSP 50-60 mmHg, mild AR, tr- mild MR, normal biatrial sizes 1. PAF with RVR 2. Acute Hypoxic and Hypercapneic Respiratory Failure 3. Septic Shock, source - streptococcus 2. Organic brain syndrome/dementia 3. HTN 4. DM 5. LV Diastolic Dysfunction 6. CAD, Demand Ischemia 7. Pulmonary HTN 8. BRITT with hyperkalemia resolving 9. Anemia 10. Left adnexal mass and bladder mass, left hydronephrosis PLAN: 1. Continue antibiotics per cultures showing alpha hemolytic strep, off IVF, wean vasopressin gtt and levophed gtt to maintain MAP >65, monitor renal recovery 2. Vent management per ABG 3. Maintain Cardizem gtt for rate-control, resume lopressor once NGT intake established and off pressors 4. Heparin gtt->NOAC once oral intake re-established
--- NOTE | 2018-07-07 10:46 | PN ---
Progress Note, Physician History of Present Illness: MORE AWAKE AND ALERT HYPOTENSIVE ON PRESSORS AFEBRILE WBC IMPROVED BLOOD CULTURES NO GROWTH URINE C/S ALPHA STREP - Current Medication List Current Medications: Active Medications Albuterol/Ipratropium (Duoneb -) 1 amp NEB Q6H PRN PRN Reason: SHORTNESS OF BREATH Last Admin: 07/06/18 23:35 Dose: 1 amp Chlorhexidine Gluconate (Hibiclens For Decolonization -) 1 applic TP HS [facility] Last Admin: 07/06/18 23:17 Dose: 1 applic Heparin Sodium (Porcine) (Heparin -) 1,000 unit IVPUSH PRN PRN PRN Reason: Heparin Heparin Sodium (Porcine) (Heparin -) 5,000 unit IVPUSH PRN PRN PRN Reason: Heparin Last Admin: 07/07/18 08:31 Dose: 5,000 unit IV Flush (Triple Lumen Flush) 4 ml IVPUSH PRN PRN PRN Reason: FLUSH Last Admin: 07/06/18 23:18 Dose: 4 ml Norepinephrine Bitartrate 8, (000 mcg/ Dextrose) 500 mls @ 18.75 mls/hr IV TITR [facility]; Protocol Last Titration: 07/07/18 01:40 Dose: 6 mcg/min, 22.5 mls/hr Piperacillin Sod/Tazobactam (Sod 2.25 gm/ Dextrose) 50 mls @ 100 mls/hr IVPB Q8H-IV [facility]; Protocol Last Admin: 07/07/18 09:09 Dose: 100 mls/hr Fentanyl 500 mcg/ Dextrose 100 mls @ 2 mls/hr IVPB TITR [facility]; Protocol Last Admin: 07/07/18 01:08 Dose: 50 mcg/hr, 10 mls/hr Propofol (Diprivan -) 1,000,000 mcg in 100 mls @ 1.701 mls/hr IVPB TITR [facility]; Protocol Last Admin: 07/07/18 09:14 Dose: 30 mcg/kg/min, 10.206 mls/hr Vasopressin 50 units/ Sodium (Chloride) 100 mls @ 4 mls/hr IVPB ASDIR [facility]; Protocol Last Admin: 07/06/18 16:00 Dose: 2 units/hr, 4 mls/hr Diltiazem HCl 125 mg/ Sodium (Chloride) 125 mls @ 5 mls/hr IVPB TITR [facility]; Protocol Last Admin: 07/06/18 16:00 Dose: 5 mg/hr, 5 mls/hr Heparin Sodium (Porcine) 25, (000 unit/ Sodium Chloride) 500 mls @ 16 mls/hr IV TITR [facility]; Protocol Last Titration: 07/07/18 08:30 Dose: 1,250 unit/hr, 25 mls/hr Sodium Chloride (Normal Saline -) 1,000 mls @ 75 mls/hr IV ASDIR [facility] Last Admin: 07/06/18 16:00 Dose: 75 mls/hr Insulin Aspart (Novolog Vial Sliding Scale -) 1 vial SQ ACHS [facility]; Protocol Last Admin: 07/07/18 06:00 Dose: Not Given Mupirocin (Bactroban Ointment (For Decolonization) -) 1 applic NS BID [facility] Stop: 07/09/18 21:59 Last Admin: 07/07/18 09:13 Dose: 1 applic Pantoprazole Sodium (Protonix Iv) 40 mg IVPUSH DAILY [facility] Last Admin: 07/07/18 09:09 Dose: 40 mg - Objective Vital Signs: Vital Signs Temperature 99.5 F 07/07/18 10:00 Pulse Rate 113 H 07/07/18 10:00 Respiratory Rate 21 H 07/07/18 10:00 Blood Pressure 110/55 L 07/07/18 10:00 O2 Sat by Pulse Oximetry (%) 96 07/07/18 09:00 Constitutional: Yes: No Distress Eyes: Yes: Conjunctiva Clear Cardiovascular: Yes: Regular Rate and Rhythm, S1, S2 Respiratory: Yes: Mechanically Ventilated Gastrointestinal: Yes: Normal Bowel Sounds, Soft. No: Tenderness Labs: CBC, BMP 07/07/18 05:30 07/07/18 05:30 INR, PTT INR 1.16 (0.83-1.09) H 07/05/18 05:30 Assessment/Plan SEPSIS/ SEPTIC SHOCK UTI/ SEPSIS SECONDARY TO UTI RESP FAILURE ? BIBASILAR PNEUMONIA TOXIC METABOLIC ENCEPHALOPATHY BLADDER NEOPLASM/ OUTLET OBSTRUCTION HYDRONEPHROSIS AZOTEMIA- IMPROVED LACTIC ACIDOSIS- RESOLVED LEUKOCYTOSIS- IMPROVED SUBSTITUTE CEFTRIAXONE 2GM Q24H CONTINUE HEMODYNAMIC/ VENTILATORY SUPPORT
--- NOTE | 2018-07-07 11:26 | PN ---
Progress Note, Physician Chief Complaint: patient seen and examined on CPAP trial awake intubated on levophed - Current Medication List Current Medications: Active Medications Albuterol/Ipratropium (Duoneb -) 1 amp NEB Q6H PRN PRN Reason: SHORTNESS OF BREATH Last Admin: 07/06/18 23:35 Dose: 1 amp Chlorhexidine Gluconate (Hibiclens For Decolonization -) 1 applic TP HS [facility] Last Admin: 07/06/18 23:17 Dose: 1 applic Heparin Sodium (Porcine) (Heparin -) 1,000 unit IVPUSH PRN PRN PRN Reason: Heparin Heparin Sodium (Porcine) (Heparin -) 5,000 unit IVPUSH PRN PRN PRN Reason: Heparin Last Admin: 07/07/18 08:31 Dose: 5,000 unit IV Flush (Triple Lumen Flush) 4 ml IVPUSH PRN PRN PRN Reason: FLUSH Last Admin: 07/06/18 23:18 Dose: 4 ml Norepinephrine Bitartrate 8, (000 mcg/ Dextrose) 500 mls @ 18.75 mls/hr IV TITR [facility]; Protocol Last Titration: 07/07/18 01:40 Dose: 6 mcg/min, 22.5 mls/hr Fentanyl 500 mcg/ Dextrose 100 mls @ 2 mls/hr IVPB TITR [facility]; Protocol Last Admin: 07/07/18 01:08 Dose: 50 mcg/hr, 10 mls/hr Propofol (Diprivan -) 1,000,000 mcg in 100 mls @ 1.701 mls/hr IVPB TITR [facility]; Protocol Last Admin: 07/07/18 09:14 Dose: 30 mcg/kg/min, 10.206 mls/hr Vasopressin 50 units/ Sodium (Chloride) 100 mls @ 4 mls/hr IVPB ASDIR [facility]; Protocol Last Admin: 07/06/18 16:00 Dose: 2 units/hr, 4 mls/hr Diltiazem HCl 125 mg/ Sodium (Chloride) 125 mls @ 5 mls/hr IVPB TITR [facility]; Protocol Last Admin: 07/06/18 16:00 Dose: 5 mg/hr, 5 mls/hr Heparin Sodium (Porcine) 25, (000 unit/ Sodium Chloride) 500 mls @ 16 mls/hr IV TITR [facility]; Protocol Last Titration: 07/07/18 08:30 Dose: 1,250 unit/hr, 25 mls/hr Ceftriaxone Sodium 2 gm/ (Dextrose) 100 mls @ 100 mls/hr IVPB DAILY [facility]; Protocol Insulin Aspart (Novolog Vial Sliding Scale -) 1 vial SQ ACHS [facility]; Protocol Last Admin: 07/07/18 06:00 Dose: Not Given Mupirocin (Bactroban Ointment (For Decolonization) -) 1 applic NS BID [facility] Stop: 07/09/18 21:59 Last Admin: 07/07/18 09:13 Dose: 1 applic Pantoprazole Sodium (Protonix Iv) 40 mg IVPUSH DAILY [facility] Last Admin: 07/07/18 09:09 Dose: 40 mg - Objective Vital Signs: Vital Signs Temperature 99.5 F 07/07/18 10:00 Pulse Rate 113 H 07/07/18 10:00 Respiratory Rate 21 H 07/07/18 10:00 Blood Pressure 110/55 L 07/07/18 10:00 O2 Sat by Pulse Oximetry (%) 96 07/07/18 09:00 Constitutional: Yes: Calm HENT: Yes: Other (intubated) Cardiovascular: Yes: Regular Rate and Rhythm, S1, S2 Respiratory: Yes: Mechanically Ventilated Gastrointestinal: Yes: Normal Bowel Sounds, Soft Edema: No Labs: CBC, BMP 07/07/18 05:30 07/07/18 05:30 INR, PTT INR 1.16 (0.83-1.09) H 07/05/18 05:30 Problem List - Problems (1) Sepsis Assessment/Plan: sepsis from UTI and pna ( possible bilateral infiltrates) Microbiology 07/04/18 14:52 Urine - Urine - Catheterized Urine Culture - Preliminary Alpha Hemolytic Streptococcus 07/04/18 13:57 Blood - Peripheral Venous Blood Culture - Preliminary NO GROWTH OBTAINED AFTER 48 HOURS, INCUBATION TO CONTINUE FOR 3 DAYS. 07/04/18 13:50 Blood - Peripheral Venous Blood Culture - Preliminary NO GROWTH OBTAINED AFTER 48 HOURS, INCUBATION TO CONTINUE FOR 3 DAYS. wbc trending down on ceftriaxone lactic acidosis resolved Code(s): A41.9 - SEPSIS, UNSPECIFIED ORGANISM Qualifiers: Sepsis type: Streptococcus group B Qualified Code(s): A40.1 - Sepsis due to streptococcus, group B (2) BRITT (acute kidney injury) Assessment/Plan: resolved renal sono left hydronpephrosis similar to 05/17/18 -urology consulted Code(s): N17.9 - ACUTE KIDNEY FAILURE, UNSPECIFIED (3) Hyperkalemia Assessment/Plan: resolved Code(s): E87.5 - HYPERKALEMIA (4) Diabetes mellitus Assessment/Plan: [id number] bgm noted sliding scale Code(s): E11.9 - TYPE 2 DIABETES MELLITUS WITHOUT COMPLICATIONS Qualifiers: Diabetes mellitus type: type 2 Diabetes mellitus buttermaker helper insulin use: without alf use (5) Paroxysmal atrial fibrillation with rapid ventricular response Assessment/Plan: cardizem drip heparin cardiology on board Code(s): I48.0 - PAROXYSMAL ATRIAL FIBRILLATION (6) Demand ischemia Assessment/Plan: trend troponin- demand ischemia with hypotension, pna Code(s): I24.8 - OTHER FORMS OF ACUTE ISCHEMIC HEART DISEASE
--- NOTE | 2018-07-07 11:41 | PN ---
Teaching Attending Note Name of Resident: Megan Crawford ATTENDING PHYSICIAN STATEMENT I saw and evaluated the patient. I reviewed the resident's note and discussed the case with the resident. I agree with the resident's findings and plan as documented. SUBJECTIVE: Pt seen and examined in the ICU. Remains intubated, awake off sedation. On lower dose levophed support. Heart rates variable. OBJECTIVE: Vital Signs Period Temp Pulse Resp BP Sys/Swift Pulse Ox Last 24 Hr 98.5 F-99.5 F 95-121 21-30 90-144/46-83 92-96 Intake & Output 07/04/18 07/05/18 07/06/18 07/07/18 23:59 23:59 23:59 23:59 Intake Total 4715 3320 1979 Output Total 180 595 2478 350 Balance -100 4240 2170 1629 Weight 56.7 kg 56.699 kg Gen: intubated, arousable Heart: irregular Lung: scattered rhonchi Abd: soft, nontender Ext: + edema CBC, BMP 07/07/18 05:30 07/07/18 05:30 Active Medications Albuterol/Ipratropium (Duoneb -) 1 amp NEB Q6H PRN PRN Reason: SHORTNESS OF BREATH Last Admin: 07/06/18 23:35 Dose: 1 amp Chlorhexidine Gluconate (Hibiclens For Decolonization -) 1 applic TP HS [facility] Last Admin: 07/06/18 23:17 Dose: 1 applic Heparin Sodium (Porcine) (Heparin -) 1,000 unit IVPUSH PRN PRN PRN Reason: Heparin Heparin Sodium (Porcine) (Heparin -) 5,000 unit IVPUSH PRN PRN PRN Reason: Heparin Last Admin: 07/07/18 08:31 Dose: 5,000 unit IV Flush (Triple Lumen Flush) 4 ml IVPUSH PRN PRN PRN Reason: FLUSH Last Admin: 07/06/18 23:18 Dose: 4 ml Norepinephrine Bitartrate 8, (000 mcg/ Dextrose) 500 mls @ 18.75 mls/hr IV TITR [facility]; Protocol Last Titration: 07/07/18 01:40 Dose: 6 mcg/min, 22.5 mls/hr Fentanyl 500 mcg/ Dextrose 100 mls @ 2 mls/hr IVPB TITR [facility]; Protocol Last Admin: 07/07/18 01:08 Dose: 50 mcg/hr, 10 mls/hr Propofol (Diprivan -) 1,000,000 mcg in 100 mls @ 1.701 mls/hr IVPB TITR [facility]; Protocol Last Admin: 07/07/18 09:14 Dose: 30 mcg/kg/min, 10.206 mls/hr Vasopressin 50 units/ Sodium (Chloride) 100 mls @ 4 mls/hr IVPB ASDIR [facility]; Protocol Last Admin: 07/06/18 16:00 Dose: 2 units/hr, 4 mls/hr Diltiazem HCl 125 mg/ Sodium (Chloride) 125 mls @ 5 mls/hr IVPB TITR [facility]; Protocol Last Admin: 07/06/18 16:00 Dose: 5 mg/hr, 5 mls/hr Heparin Sodium (Porcine) 25, (000 unit/ Sodium Chloride) 500 mls @ 16 mls/hr IV TITR [facility]; Protocol Last Titration: 07/07/18 08:30 Dose: 1,250 unit/hr, 25 mls/hr Ceftriaxone Sodium 2 gm/ (Dextrose) 100 mls @ 100 mls/hr IVPB DAILY [facility]; Protocol Insulin Aspart (Novolog Vial Sliding Scale -) 1 vial SQ ACHS [facility]; Protocol Last Admin: 07/07/18 06:00 Dose: Not Given Mupirocin (Bactroban Ointment (For Decolonization) -) 1 applic NS BID [facility] Stop: 07/09/18 21:59 Last Admin: 07/07/18 09:13 Dose: 1 applic Pantoprazole Sodium (Protonix Iv) 40 mg IVPUSH DAILY [facility] Last Admin: 07/07/18 09:09 Dose: 40 mg ASSESSMENT AND PLAN: Acute Hypoxic and Hypercapneic Respiratory Failure UTI r/o Pneumonia Septic Shock New Onset Atrial Fibrillation with RVR ARDS Lactic Acidosis Acute Kidney Injury Hyperkalemia Left Hydronephrosis Bladder Cancer +Troponins likely Demand Ischemia LV Diastolic Dysfunction Pulmonary HTN HTN DM Dementia - continue antibiotics - f/u cultures - IVF to keep CVP 8-12 - resume vasopressin gtt - taper off levophed gtt to maintain MAP >65 for better rate control - monitor urine output, creatinine - will need diuresis once off pressors - low tidal volume ventilation <6cc/kg/IBW - keep Pplat <30 - monitor ABG - rate control - continue anticoagulation - lighten sedation in AM to assess mental status - spontaneous breathing trials as tolerated when mental status improved - DVT/GI prophylaxis - continue ICU monitoring critical care time spent in reviewing chart, evaluating patient and formulating plan 35 min
[2018-07-07] MEDS ORDERED: DEXTROSE 5%-WATER 100 ML IVPB ONE (11:48)
[2018-07-07] MEDS: CEFTRIAXONE 2 GM in DEXTROSE 5%-WATER 100 ML IVPB SCH (11:49)
[2018-07-07] MEDS: VASOPRESSIN 50 UNITS in SODIUM CHLORIDE 97.5 ML IVPB SCH (11:50)
[2018-07-07] MEDS ORDERED: SODIUM CHLORIDE 1,000 ML IV SCH (13:00)
[2018-07-07] MEDS: DILTIAZEM INJECTION 125 MG in SODIUM CHLORIDE 100 ML IVPB SCH (14:27)
[2018-07-07] MEDS ORDERED: PT OWN MED DRAWER 7, Y5N ONE (14:31)
[2018-07-07] MEDS: NOREPINEPHRINE BITARTRATE 8,000 MCG in DEXTROSE 5%-WATER - 492 ML IV SCH ×2 (15:13→22:01)
[2018-07-07] MEDS: HEPARIN - 25,000 UNIT in SODIUM CHLORIDE 495 ML IV SCH (15:13)
--- NOTE | 2018-07-07 15:14 | PN ---
Progress Note, Physician History of Present Illness: Pt seen and examined at bedside. She remains in the ICU. She remains intubated. - Current Medication List Current Medications: Active Medications Albuterol/Ipratropium (Duoneb -) 1 amp NEB Q6H PRN PRN Reason: SHORTNESS OF BREATH Last Admin: 07/06/18 23:35 Dose: 1 amp Chlorhexidine Gluconate (Hibiclens For Decolonization -) 1 applic TP HS [facility] Last Admin: 07/06/18 23:17 Dose: 1 applic Heparin Sodium (Porcine) (Heparin -) 1,000 unit IVPUSH PRN PRN PRN Reason: Heparin Heparin Sodium (Porcine) (Heparin -) 5,000 unit IVPUSH PRN PRN PRN Reason: Heparin Last Admin: 07/07/18 08:31 Dose: 5,000 unit IV Flush (Triple Lumen Flush) 4 ml IVPUSH PRN PRN PRN Reason: FLUSH Last Admin: 07/06/18 23:18 Dose: 4 ml Norepinephrine Bitartrate 8, (000 mcg/ Dextrose) 500 mls @ 18.75 mls/hr IV TITR [facility]; Protocol Last Titration: 07/07/18 01:40 Dose: 6 mcg/min, 22.5 mls/hr Fentanyl 500 mcg/ Dextrose 100 mls @ 2 mls/hr IVPB TITR [facility]; Protocol Last Admin: 07/07/18 01:08 Dose: 50 mcg/hr, 10 mls/hr Propofol (Diprivan -) 1,000,000 mcg in 100 mls @ 1.701 mls/hr IVPB TITR [facility]; Protocol Last Admin: 07/07/18 09:14 Dose: 30 mcg/kg/min, 10.206 mls/hr Vasopressin 50 units/ Sodium (Chloride) 100 mls @ 4 mls/hr IVPB ASDIR [facility]; Protocol Last Admin: 07/07/18 11:50 Dose: 2 units/hr, 4 mls/hr Diltiazem HCl 125 mg/ Sodium (Chloride) 125 mls @ 5 mls/hr IVPB TITR [facility]; Protocol Last Admin: 07/07/18 14:27 Dose: 5 mg/hr, 5 mls/hr Heparin Sodium (Porcine) 25, (000 unit/ Sodium Chloride) 500 mls @ 16 mls/hr IV TITR [facility]; Protocol Last Titration: 07/07/18 08:30 Dose: 1,250 unit/hr, 25 mls/hr Ceftriaxone Sodium 2 gm/ (Dextrose) 100 mls @ 100 mls/hr IVPB DAILY [facility]; Protocol Last Admin: 07/07/18 11:49 Dose: 100 mls/hr Sodium Chloride (Normal Saline -) 1,000 mls @ 75 mls/hr IV ASDIR [facility] Stop: 07/08/18 02:19 Last Admin: 07/07/18 14:28 Dose: Not Given Insulin Aspart (Novolog Vial Sliding Scale -) 1 vial SQ ACHS [facility]; Protocol Last Admin: 07/07/18 11:50 Dose: 2 unit Mupirocin (Bactroban Ointment (For Decolonization) -) 1 applic NS BID [facility] Stop: 07/09/18 21:59 Last Admin: 07/07/18 09:13 Dose: 1 applic Pantoprazole Sodium (Protonix Iv) 40 mg IVPUSH DAILY [facility] Last Admin: 07/07/18 09:09 Dose: 40 mg - Objective Vital Signs: Vital Signs Temperature 99.9 F H 07/07/18 14:00 Pulse Rate 101 H 07/07/18 14:27 Respiratory Rate 11 07/07/18 14:37 Blood Pressure 96/59 L 07/07/18 14:27 O2 Sat by Pulse Oximetry (%) 96 07/07/18 10:00 Constitutional: Yes: Calm Eyes: Yes: Conjunctiva Clear HENT: Yes: Atraumatic Neck: Yes: Supple Cardiovascular: Yes: S1, S2 Respiratory: Yes: Mechanically Ventilated Genitourinary: Yes: Kaur Present Musculoskeletal: Yes: Muscle Weakness Edema: Yes Neurological: Yes: Lethargy Labs: CBC, BMP 07/07/18 05:30 07/07/18 05:30 INR, PTT INR 1.16 (0.83-1.09) H 07/05/18 05:30 Problem List - Problems (1) Hyperkalemia Code(s): E87.5 - HYPERKALEMIA (2) Sepsis Code(s): A41.9 - SEPSIS, UNSPECIFIED ORGANISM Qualifiers: Sepsis type: Streptococcus group B Qualified Code(s): A40.1 - Sepsis due to streptococcus, group B (3) Severe sepsis Code(s): A41.9 - SEPSIS, UNSPECIFIED ORGANISM; R65.20 - SEVERE SEPSIS WITHOUT SEPTIC SHOCK (4) BRITT (acute kidney injury) Code(s): N17.9 - ACUTE KIDNEY FAILURE, UNSPECIFIED (5) Dementia Code(s): F03.90 - UNSPECIFIED DEMENTIA WITHOUT BEHAVIORAL DISTURBANCE Qualifiers: Dementia type: unspecified type Dementia behavioral disturbance: without behavioral disturbance Qualified Code(s): F03.90 - Unspecified dementia without behavioral disturbance Assessment/Plan Current Medications Generic Name Dose Route Start Last Admin Trade Name Freq PRN Reason Stop Dose Admin Albuterol/Ipratropium 1 amp 07/05/18 11:39 07/06/18 23:35 Duoneb - NEB 1 amp Q6H PRN Administration SHORTNESS OF BREATH Chlorhexidine Gluconate 1 applic 07/04/18 22:00 07/06/18 23:17 Hibiclens For Decolonization - TP 1 applic HS [facility] Administration Heparin Sodium (Porcine) 1,000 unit 07/06/18 11:08 Heparin - IVPUSH PRN PRN Heparin Heparin Sodium (Porcine) 5,000 unit 07/06/18 11:08 07/07/18 08:31 Heparin - IVPUSH 5,000 unit PRN PRN Administration Heparin IV Flush 4 ml 07/06/18 22:41 07/06/18 23:18 Triple Lumen Flush IVPUSH 4 ml PRN PRN Administration FLUSH Norepinephrine Bitartrate 8, 500 mls @ 18.75 mls/hr 07/04/18 21:15 07/07/18 01:40 000 mcg/ Dextrose IV 6 mcg/min TITR [facility] 22.5 mls/hr Titration Protocol 5 MCG/MIN Fentanyl 500 mcg/ Dextrose 100 mls @ 2 mls/hr 07/05/18 12:31 07/07/18 01:08 IVPB 50 mcg/hr TITR [facility] 10 mls/hr Administration Protocol 10 MCG/HR Propofol 1,000,000 mcg in 100 mls @ 1.701 mls/hr 07/05/18 10:00 07/07/18 09: 14 Diprivan - IVPB 30 mcg/kg/min TITR [facility] 10.206 mls/hr Administration Protocol 5 MCG/KG/MIN Vasopressin 50 units/ Sodium 100 mls @ 4 mls/hr 07/06/18 10:30 07/07/18 11:50 Chloride IVPB 2 units/hr ASDIR [facility] 4 mls/hr Administration Protocol 2 UNITS/HR Diltiazem HCl 125 mg/ Sodium 125 mls @ 5 mls/hr 07/06/18 11:15 07/07/18 14:27 Chloride IVPB 5 mg/hr TITR [facility] 5 mls/hr Administration Protocol 5 MG/HR Heparin Sodium (Porcine) 25, 500 mls @ 16 mls/hr 07/06/18 11:15 07/07/18 08: 30 000 unit/ Sodium Chloride IV 1,250 unit/hr TITR [facility] 25 mls/hr Titration Protocol 800 UNIT/HR Ceftriaxone Sodium 2 gm/ 100 mls @ 100 mls/hr 07/07/18 11:00 07/07/18 11:49 Dextrose IVPB 100 mls/hr DAILY [facility] Administration Protocol Sodium Chloride 1,000 mls @ 75 mls/hr 07/07/18 13:00 07/07/18 14:28 Normal Saline - IV 07/08/18 02:19 Not Given ASDIR [facility] Insulin Aspart 1 vial 07/04/18 22:00 07/07/18 11:50 Novolog Vial Sliding Scale - SQ 2 unit ACHS [facility] Administration Protocol Mupirocin 1 applic 07/04/18 22:00 07/07/18 09:13 Bactroban Ointment (For Decolonization) - NS 07/09/18 21:59 1 applic BID [facility] Administration Pantoprazole Sodium 40 mg 07/05/18 12:30 07/07/18 09:09 Protonix Iv IVPUSH 40 mg DAILY [facility] Administration Impression 1. BRITT 2. hyperkalemia 3. uti 4. dementia 5. htn 6. DM 7. hypercalcemia 8. hydronephrosis left 9. bladder mass 10. sepsis 11. lactic acidosis 12. resp failure Plan - renal function is improved - maintain map 65 - monitor urine output - vent support - follow cultures - cont abx - monitor in ICU
[2018-07-07] MEDS: CHLORHEXIDINE GLUCONATE 4% CLEANSER FOR DECOLONIZATION TP SCH (22:04)
[2018-07-07 23:14] LABS: BASO % 0.4 % (0-2.0); EOS % 0.7 % (0-4.5); HEMATOCRIT 23.9 % (32.4-45.2); LYMPH % 5.9 % (8-40); MCH 23.5 pg (25.7-33.7); MCHC 29.2 g/dl (32.0-36.0); MEAN CELL VOLUME 80.6 fl (80-96); MEAN PLT VOLUME 8.2 fl (7.5-11.1); MONO % 8.4 % (3.8-10.2); NEUT % 84.6 % (42.8-82.8); PLATELET COUNT 337 K/MM3 (134-434); RBC 2.97 M/mm3 (3.60-5.2); WHITE BLOOD COUNT 16.2 K/mm3 (4.0-10.0)
[2018-07-08] MEDS ORDERED: fentaNYL CITRATE 250 MCG/5 ML VIAL ONE ×2 (01:40→15:05)
[2018-07-08] MEDS: FENTANYL INJECTION 500 MCG in DEXTROSE 5%-WATER - 90 ML IVPB SCH ×2 (02:30→16:49)
[2018-07-08] MEDS: PROPOFOL 1,000,000 MCG/100 ML VIAL IVPB SCH ×3 (06:01→21:40)
[2018-07-08] MEDS: INSULIN SLIDING SCALE (NOVOLOG) 1 VIAL SQ SCH ×4 (06:10→21:49)
[2018-07-08 06:52] LABS: BASO % 0.1 % (0-2.0); EOS % 0.7 % (0-4.5); HEMATOCRIT 22.9 % (32.4-45.2); LYMPH % 6.4 % (8-40); MCH 24.3 pg (25.7-33.7); MCHC 30.3 g/dl (32.0-36.0); MEAN CELL VOLUME 80.3 fl (80-96); MEAN PLT VOLUME 8.2 fl (7.5-11.1); MONO % 9.3 % (3.8-10.2); NEUT % 83.5 % (42.8-82.8); PLATELET COUNT 365 K/MM3 (134-434); RBC 2.85 M/mm3 (3.60-5.2); RDW 18.2 % (11.6-15.6); WHITE BLOOD COUNT 15.9 K/mm3 (4.0-10.0)
[2018-07-08 07:12] LABS: HEMOGLOBIN 6.9 GM/dL (10.7-15.3)
--- NOTE | 2018-07-08 07:48 | PN ---
Physical Exam: SUBJECTIVE: Patient seen and examined at bedside. Urine output has decreased to 100mL. *checked new bag at 1146, filled with urine. OBJECTIVE: Vital Signs Period Temp Pulse Resp BP Sys/Swift Pulse Ox Last 24 Hr 99.1 F-99.9 F 89-113 11-30 96-120/55-74 96-97 GENERAL: The patient is sedated. EYES: PERRL, sclera anicteric, conjunctiva clear. No ptosis. NECK: R IJ line. LUNGS: Rhonchrous breath sounds bilaterally HEART: irregular, S1, S2 without murmur, rub or gallop. ABDOMEN: Soft, nontender, nondistended, normoactive bowel sounds, no guarding, no rebound, no hepatosplenomegaly, no masses. EXTREMITIES: 1+ DP pulses, warm, well-perfused, pitting edema in R>L hand NEUROLOGICAL: Sedated. DTR 2+. SKIN: Warm, dry, normal turgor, no rashes or lesions noted Laboratory Results - last 24 hr 07/07/18 07/07/18 07/07/18 05:30 05:30 11:34 WBC 15.5 H RBC 2.93 L Hgb 7.0 L Hct 23.2 L MCV 79.2 L MCH 24.0 L MCHC 30.3 L RDW 17.8 H Plt Count 368 MPV 8.0 Absolute Neuts (auto) 13.0 H Neutrophils % 83.5 H Lymphocytes % 7.1 L Monocytes % 8.8 Eosinophils % 0.5 Basophils % 0.1 Nucleated RBC % 0 PTT (Actin FS) POC Glucometer 194 Blood Type A POSITIVE Antibody Screen Negative 07/07/18 07/07/18 07/07/18 14:50 16:19 22:06 WBC RBC Hgb Hct MCV MCH MCHC RDW Plt Count MPV Absolute Neuts (auto) Neutrophils % Lymphocytes % Monocytes % Eosinophils % Basophils % Nucleated RBC % PTT (Actin FS) 74.4 H POC Glucometer 217 162 Blood Type Antibody Screen 07/07/18 07/08/18 07/08/18 23:00 05:30 05:30 WBC 16.2 H 15.9 H RBC 2.97 L 2.85 L Hgb 7.0 L 6.9 L* Hct 23.9 L 22.9 L MCV 80.6 80.3 MCH 23.5 L 24.3 L MCHC 29.2 L 30.3 L RDW 18.0 H 18.2 H Plt Count 337 365 MPV 8.2 8.2 Absolute Neuts (auto) 13.7 H 13.2 H Neutrophils % 84.6 H 83.5 H Lymphocytes % 5.9 L 6.4 L Monocytes % 8.4 9.3 Eosinophils % 0.7 0.7 Basophils % 0.4 D 0.1 Nucleated RBC % 0 0 PTT (Actin FS) 68.7 H POC Glucometer Blood Type Antibody Screen 07/08/18 06:08 WBC RBC Hgb Hct MCV MCH MCHC RDW Plt Count MPV Absolute Neuts (auto) Neutrophils % Lymphocytes % Monocytes % Eosinophils % Basophils % Nucleated RBC % PTT (Actin FS) POC Glucometer 224 Blood Type Antibody Screen Active Medications Generic Name Dose Route Start Last Admin Trade Name Freq PRN Reason Stop Dose Admin Albuterol/Ipratropium 1 amp 07/05/18 11:39 07/06/18 23:35 Duoneb - NEB 1 amp Q6H PRN Administration SHORTNESS OF BREATH Chlorhexidine Gluconate 1 applic 07/04/18 22:00 07/07/18 22:04 Hibiclens For Decolonization - TP 1 applic HS MARIAJOSE Administration Heparin Sodium (Porcine) 1,000 unit 07/06/18 11:08 Heparin - IVPUSH PRN PRN Heparin Heparin Sodium (Porcine) 5,000 unit 07/06/18 11:08 07/07/18 08:31 Heparin - IVPUSH 5,000 unit PRN PRN Administration Heparin IV Flush 4 ml 07/06/18 22:41 07/06/18 23:18 Triple Lumen Flush IVPUSH 4 ml PRN PRN Administration FLUSH Norepinephrine Bitartrate 8, 500 mls @ 18.75 mls/hr 07/04/18 21:15 07/07/18 22:01 000 mcg/ Dextrose IV Not Given TITR MARIAJOSE Protocol 5 MCG/MIN Fentanyl 500 mcg/ Dextrose 100 mls @ 2 mls/hr 07/05/18 12:31 07/08/18 02:30 IVPB 50 mcg/hr TITR MARIAJOSE 10 mls/hr Administration Protocol 10 MCG/HR Propofol 1,000,000 mcg in 100 mls @ 1.701 mls/hr 07/05/18 10:00 07/08/18 06: 01 Diprivan - IVPB 30 mcg/kg/min TITR MARIAJOSE 10.206 mls/hr Administration Protocol 5 MCG/KG/MIN Vasopressin 50 units/ Sodium 100 mls @ 4 mls/hr 07/06/18 10:30 07/07/18 11:50 Chloride IVPB 2 units/hr ASDIR MARIAJOSE 4 mls/hr Administration Protocol 2 UNITS/HR Diltiazem HCl 125 mg/ Sodium 125 mls @ 5 mls/hr 07/06/18 11:15 07/07/18 14:27 Chloride IVPB 5 mg/hr TITR MARIAJOSE 5 mls/hr Administration Protocol 5 MG/HR Heparin Sodium (Porcine) 25, 500 mls @ 16 mls/hr 07/06/18 11:15 07/07/18 15: 13 000 unit/ Sodium Chloride IV 1,250 unit/hr TITR MARIAJOSE 25 mls/hr Administration Protocol 800 UNIT/HR Ceftriaxone Sodium 2 gm/ 100 mls @ 100 mls/hr 07/07/18 11:00 07/07/18 11:49 Dextrose IVPB 100 mls/hr DAILY MARIAJOSE Administration Protocol Insulin Aspart 1 vial 07/04/18 22:00 07/08/18 06:10 Novolog Vial Sliding Scale - SQ 4 unit ACHS [facility] Administration Protocol Mupirocin 1 applic 07/04/18 22:00 07/07/18 22:03 Bactroban Ointment (For Decolonization) - NS 07/09/18 21:59 1 applic BID MARIAJOSE Administration Pantoprazole Sodium 40 mg 07/05/18 12:30 07/07/18 09:09 Protonix Iv IVPUSH 40 mg DAILY MARIAJOSE Administration ASSESSMENT/PLAN: 88 yo F h/o dementia, HTN, DM, back pain, recurrent UTI, hydronephrosis, 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 ID -Septic shock 2/2 complicated UTI, possibly pyelonephritis -ID consulting -WBC trending down -Previous cultures grew S. Viridans -Cultures grow alpha hemolytic strep -Ceftriaxone day 2 -Blood cultures ngtd -Lactate trending down RENAL -History of bladder mass -BRITT 2/2 septic shock, could also have component of obstruction -Nephrology consulting -Decreased urine output, likely obstruction v. prerenal -CTAP -Kidney function improving -Trend Cr and electrolytes -Holding IV fluids -Avoid nephrotoxic agents -I's and O's PULM -Intubated -Maintain O2 sat > 90% -CPAP trial as tolerated -Possible PNA -Ceftriaxone day 2 -Duoneb Q6H CARDIO/VASC -History of HTN -Hypotensive 2/2 septic shock -New onset afib RVR -Cardizem bolus prn -Cardizem gtt, heparin gtt -Switch Cardizem gtt to Lopressor 12.5 BID -Cardiology consulting -Vasopressin gtt, titrate Levophed down -Echo: preserved EF, RV pressures elevated -MAP >65, CVP 8-12 -Hold home BP meds -Troponin trending down NEURO -Awake off of sedation, does not follow commands -Will wean off sedation as tolerated -Propofol gtt -History of renal masses, frequent uti. No documented history of bladder ca -Septic shock 2/2 uti, possibly pyelonephritis -New -Renal US: L hydronephrosis -Urology consulted, urine cytology sent -Monitor for hematuria HEME/ONC -Hgb 6.9 this AM -Stool occult to check for GI bleed. No blood noted in urine bag -Heparin gtt, will change to oral AC -Will monitor PTT, CBC ENDO -History of DM -Insulin ss FEN -Enteral feeds -Will hold IV fluids PROPHYLAXIS -Heparin gtt -Protonix Dispo: Full code per family members. Continue ICU monitoring. Visit type - Emergency Visit Emergency Visit: Yes ED Registration Date: 07/04/18 Care time: The patient presented to the Emergency Department on the above date and was hospitalized for further evaluation of their emergent condition. - New Patient This patient is new to me today: No - Critical Care Critical Care patient: Yes Total Critical Care Time (in minutes): 40 Critical Care Statement: The care of this patient involved high complexity decision making to prevent further life threatening deterioration of the patient 's condition and/or to evaluate & treat vital organ system(s) failure or risk of failure.
[2018-07-08 08:48] LABS: ALBUMIN 1.6 g/dl (3.4-5.0); BILIRUBIN,TOTAL 0.3 mg/dL (0.2-1); CALCIUM 8.2 mg/dL (8.5-10.1); CREATININE 1.2 mg/dL (0.55-1.3); POTASSIUM 4.9 mmol/L (3.5-5.1); TOT PROT 5.1 g/dl (6.4-8.2)
--- NOTE | 2018-07-08 09:30 | PN ---
Progress Note (short form) - Note Progress Note: chart reviewed patient admitted 07/04 with hypotension /lethargy- respiratory failure/septic shock felt to be secondary to UTI remains on pressors, remains intubated on rocephin Vital Signs Period Temp Pulse Resp BP Sys/Swift Pulse Ox Last 24 Hr 99.1 F-99.9 F 89-113 11-30 96-120/55-74 96-97 sedated/intubated/on pressors cor-rrr lungs decreased bs at bases abd soft,nt ext no edema +new CBC, BMP 07/08/18 05:30 07/08/18 05:30 Microbiology 07/04/18 13:57 Blood - Peripheral Venous Blood Culture - Preliminary NO GROWTH OBTAINED AFTER 72 HOURS, INCUBATION TO CONTINUE FOR 2 DAYS. 07/04/18 13:50 Blood - Peripheral Venous Blood Culture - Preliminary NO GROWTH OBTAINED AFTER 72 HOURS, INCUBATION TO CONTINUE FOR 2 DAYS. 07/04/18 14:52 Urine - Urine - Catheterized Urine Culture - Preliminary Alpha Hemolytic Streptococcus cxray- increasing right pleural effusion Current Medications Albuterol/Ipratropium (Duoneb -) 1 amp NEB Q6H PRN PRN Reason: SHORTNESS OF BREATH Last Admin: 07/06/18 23:35 Dose: 1 amp Chlorhexidine Gluconate (Hibiclens For Decolonization -) 1 applic TP HS MARIAJOSE Last Admin: 07/07/18 22:04 Dose: 1 applic Heparin Sodium (Porcine) (Heparin -) 1,000 unit IVPUSH PRN PRN PRN Reason: Heparin Heparin Sodium (Porcine) (Heparin -) 5,000 unit IVPUSH PRN PRN PRN Reason: Heparin Last Admin: 07/07/18 08:31 Dose: 5,000 unit IV Flush (Triple Lumen Flush) 4 ml IVPUSH PRN PRN PRN Reason: FLUSH Last Admin: 07/06/18 23:18 Dose: 4 ml Norepinephrine Bitartrate 8, (000 mcg/ Dextrose) 500 mls @ 18.75 mls/hr IV TITR MARIAJOSE; Protocol Last Admin: 07/07/18 22:01 Dose: Not Given Fentanyl 500 mcg/ Dextrose 100 mls @ 2 mls/hr IVPB TITR MARIAJOSE; Protocol Last Admin: 07/08/18 02:30 Dose: 50 mcg/hr, 10 mls/hr Propofol (Diprivan -) 1,000,000 mcg in 100 mls @ 1.701 mls/hr IVPB TITR MARIAJOSE; Protocol Last Admin: 07/08/18 06:01 Dose: 30 mcg/kg/min, 10.206 mls/hr Vasopressin 50 units/ Sodium (Chloride) 100 mls @ 4 mls/hr IVPB ASDIR MARIAJOSE; Protocol Last Admin: 07/07/18 11:50 Dose: 2 units/hr, 4 mls/hr Diltiazem HCl 125 mg/ Sodium (Chloride) 125 mls @ 5 mls/hr IVPB TITR MARIAJOSE; Protocol Last Admin: 07/07/18 14:27 Dose: 5 mg/hr, 5 mls/hr Heparin Sodium (Porcine) 25, (000 unit/ Sodium Chloride) 500 mls @ 16 mls/hr IV TITR MARIAJOSE; Protocol Last Admin: 07/07/18 15:13 Dose: 1,250 unit/hr, 25 mls/hr Ceftriaxone Sodium 2 gm/ (Dextrose) 100 mls @ 100 mls/hr IVPB DAILY MARIAJOSE; Protocol Last Admin: 07/07/18 11:49 Dose: 100 mls/hr Insulin Aspart (Novolog Vial Sliding Scale -) 1 vial SQ ACHS MARIAJOSE; Protocol Last Admin: 07/08/18 06:10 Dose: 4 unit Mupirocin (Bactroban Ointment (For Decolonization) -) 1 applic NS BID [facility] Stop: 07/09/18 21:59 Last Admin: 07/07/18 22:03 Dose: 1 applic Pantoprazole Sodium (Protonix Iv) 40 mg IVPUSH DAILY [facility] Last Admin: 07/07/18 09:09 Dose: 40 mg a/p septic shock respiratory failure uti hydronephrosis dementia possible bladder cancer (unconfirmed) pleural effusion continue ceftriaxone will d/w icu service-?further imaging
[2018-07-08] MEDS ORDERED: DEXTROSE 5%-WATER 100 ML IVPB ONE (09:58)
[2018-07-08] MEDS: CEFTRIAXONE 2 GM in DEXTROSE 5%-WATER 100 ML IVPB SCH (10:31)
[2018-07-08] MEDS: PANTOPRAZOLE SODIUM 40 MG VIAL IVPUSH SCH (10:32)
[2018-07-08] MEDS: MUPIROCIN 2% TOPICAL OINTMENT FOR DECOLONIZATION NS SCH ×2 (10:34→21:20)
--- NOTE | 2018-07-08 10:50 | PN ---
Progress Note, Physician Chief Complaint: patient seen and examined intubated sedated ng tube with feeds on pressor norepi and vasopression heparin drip - Current Medication List Current Medications: Active Medications Albuterol/Ipratropium (Duoneb -) 1 amp NEB Q6H PRN PRN Reason: SHORTNESS OF BREATH Last Admin: 07/06/18 23:35 Dose: 1 amp Chlorhexidine Gluconate (Hibiclens For Decolonization -) 1 applic TP HS MARIAJOSE Last Admin: 07/07/18 22:04 Dose: 1 applic Heparin Sodium (Porcine) (Heparin -) 1,000 unit IVPUSH PRN PRN PRN Reason: Heparin Heparin Sodium (Porcine) (Heparin -) 5,000 unit IVPUSH PRN PRN PRN Reason: Heparin Last Admin: 07/07/18 08:31 Dose: 5,000 unit IV Flush (Triple Lumen Flush) 4 ml IVPUSH PRN PRN PRN Reason: FLUSH Last Admin: 07/06/18 23:18 Dose: 4 ml Norepinephrine Bitartrate 8, (000 mcg/ Dextrose) 500 mls @ 18.75 mls/hr IV TITR MARIAJOSE; Protocol Last Admin: 07/07/18 22:01 Dose: Not Given Fentanyl 500 mcg/ Dextrose 100 mls @ 2 mls/hr IVPB TITR MARIAJOSE; Protocol Last Admin: 07/08/18 02:30 Dose: 50 mcg/hr, 10 mls/hr Propofol (Diprivan -) 1,000,000 mcg in 100 mls @ 1.701 mls/hr IVPB TITR MARIAJOSE; Protocol Last Admin: 07/08/18 06:01 Dose: 30 mcg/kg/min, 10.206 mls/hr Vasopressin 50 units/ Sodium (Chloride) 100 mls @ 4 mls/hr IVPB ASDIR MARIAJOSE; Protocol Last Admin: 07/07/18 11:50 Dose: 2 units/hr, 4 mls/hr Diltiazem HCl 125 mg/ Sodium (Chloride) 125 mls @ 5 mls/hr IVPB TITR MARIAJOSE; Protocol Last Admin: 07/07/18 14:27 Dose: 5 mg/hr, 5 mls/hr Heparin Sodium (Porcine) 25, (000 unit/ Sodium Chloride) 500 mls @ 16 mls/hr IV TITR MARIAJOSE; Protocol Last Admin: 07/07/18 15:13 Dose: 1,250 unit/hr, 25 mls/hr Ceftriaxone Sodium 2 gm/ (Dextrose) 100 mls @ 100 mls/hr IVPB DAILY [facility]; Protocol Last Admin: 07/08/18 10:31 Dose: 100 mls/hr Insulin Aspart (Novolog Vial Sliding Scale -) 1 vial SQ ACHS [facility]; Protocol Last Admin: 07/08/18 06:10 Dose: 4 unit Mupirocin (Bactroban Ointment (For Decolonization) -) 1 applic NS BID MARIAJOSE Stop: 07/09/18 21:59 Last Admin: 07/08/18 10:34 Dose: 1 applic Pantoprazole Sodium (Protonix Iv) 40 mg IVPUSH DAILY [facility] Last Admin: 07/08/18 10:32 Dose: 40 mg - Objective Vital Signs: Vital Signs Temperature 99.2 F 07/08/18 08:00 Pulse Rate 101 H 07/08/18 09:51 Respiratory Rate 24 H 07/08/18 09:10 Blood Pressure 101/55 L 07/08/18 08:00 O2 Sat by Pulse Oximetry (%) 96 07/08/18 09:51 Constitutional: Yes: Calm Neck: Yes: Other (intubated ng tube) Cardiovascular: Yes: Regular Rate and Rhythm, S1, S2 Respiratory: Yes: Mechanically Ventilated Gastrointestinal: Yes: Normal Bowel Sounds, Soft Genitourinary: Yes: Kaur Present Edema: Yes Neurological: Yes: Other (sedated) Labs: CBC, BMP 07/08/18 05:30 07/08/18 05:30 INR, PTT INR 1.16 (0.83-1.09) H 07/05/18 05:30 Problem List - Problems (1) Sepsis Assessment/Plan: sepsis from UTI and pna ( possible bilateral infiltrates) Microbiology 07/04/18 14:52 Urine - Urine - Catheterized Urine Culture - Preliminary Alpha Hemolytic Streptococcus 07/04/18 13:57 Blood - Peripheral Venous Blood Culture - Preliminary NO GROWTH OBTAINED AFTER 48 HOURS, INCUBATION TO CONTINUE FOR 3 DAYS. 07/04/18 13:50 Blood - Peripheral Venous Blood Culture - Preliminary NO GROWTH OBTAINED AFTER 48 HOURS, INCUBATION TO CONTINUE FOR 3 DAYS. wbc trending down on ceftriaxone lactic acidosis resolved pressor to maintain MAP> 65 IVF for CVP 8-12 intubated sedated vent support icu monitiring\ Code(s): A41.9 - SEPSIS, UNSPECIFIED ORGANISM Qualifiers: Qualified Code(s): A40.1 - Sepsis due to streptococcus, group B (2) BRITT (acute kidney injury) Assessment/Plan: resolved renal sono left hydronpephrosis similar to 05/17/18 -urology consulted Code(s): N17.9 - ACUTE KIDNEY FAILURE, UNSPECIFIED (3) Hyperkalemia Assessment/Plan: resolved Code(s): E87.5 - HYPERKALEMIA (4) Diabetes mellitus Assessment/Plan: hgba1c bgm noted sliding scale Code(s): E11.9 - TYPE 2 DIABETES MELLITUS WITHOUT COMPLICATIONS (5) Paroxysmal atrial fibrillation with rapid ventricular response Assessment/Plan: cardizem drip heparin cardiology on board Code(s): I48.0 - PAROXYSMAL ATRIAL FIBRILLATION (6) Demand ischemia Assessment/Plan: trend troponin- demand ischemia with hypotension, pna Code(s): I24.8 - OTHER FORMS OF ACUTE ISCHEMIC HEART DISEASE
--- NOTE | 2018-07-08 11:46 | PN ---
Progress Note, Physician History of Present Illness: Remains intubated, sedated, rate-controlled atrial fibrillation with cardizem gtt->lopressor 12.5 bud. Remains on levophed gtt and vasopressin gtt, receiving pRBC. Vented on volume assist control with 40% FiO2. - Current Medication List Current Medications: Active Medications Albuterol/Ipratropium (Duoneb -) 1 amp NEB Q6H PRN PRN Reason: SHORTNESS OF BREATH Last Admin: 07/06/18 23:35 Dose: 1 amp Chlorhexidine Gluconate (Hibiclens For Decolonization -) 1 applic TP HS MARIAJOSE Last Admin: 07/07/18 22:04 Dose: 1 applic Heparin Sodium (Porcine) (Heparin -) 1,000 unit IVPUSH PRN PRN PRN Reason: Heparin Heparin Sodium (Porcine) (Heparin -) 5,000 unit IVPUSH PRN PRN PRN Reason: Heparin Last Admin: 07/07/18 08:31 Dose: 5,000 unit IV Flush (Triple Lumen Flush) 4 ml IVPUSH PRN PRN PRN Reason: FLUSH Last Admin: 07/06/18 23:18 Dose: 4 ml Norepinephrine Bitartrate 8, (000 mcg/ Dextrose) 500 mls @ 18.75 mls/hr IV TITR MARIAJOSE; Protocol Last Admin: 07/07/18 22:01 Dose: Not Given Fentanyl 500 mcg/ Dextrose 100 mls @ 2 mls/hr IVPB TITR MARIAJOSE; Protocol Last Admin: 07/08/18 02:30 Dose: 50 mcg/hr, 10 mls/hr Propofol (Diprivan -) 1,000,000 mcg in 100 mls @ 1.701 mls/hr IVPB TITR MARIAJOSE; Protocol Last Admin: 07/08/18 06:01 Dose: 30 mcg/kg/min, 10.206 mls/hr Vasopressin 50 units/ Sodium (Chloride) 100 mls @ 4 mls/hr IVPB ASDIR MARIAJOSE; Protocol Last Admin: 07/07/18 11:50 Dose: 2 units/hr, 4 mls/hr Heparin Sodium (Porcine) 25, (000 unit/ Sodium Chloride) 500 mls @ 16 mls/hr IV TITR MARIAJOSE; Protocol Last Admin: 07/07/18 15:13 Dose: 1,250 unit/hr, 25 mls/hr Ceftriaxone Sodium 2 gm/ (Dextrose) 100 mls @ 100 mls/hr IVPB DAILY [facility]; Protocol Last Admin: 07/08/18 10:31 Dose: 100 mls/hr Insulin Aspart (Novolog Vial Sliding Scale -) 1 vial SQ ACHS [facility]; Protocol Last Admin: 07/08/18 11:30 Dose: 4 unit Metoprolol Tartrate (Lopressor -) 12.5 mg PO BID [facility] Mupirocin (Bactroban Ointment (For Decolonization) -) 1 applic NS BID [facility] Stop: 07/09/18 21:59 Last Admin: 07/08/18 10:34 Dose: 1 applic Pantoprazole Sodium (Protonix Iv) 40 mg IVPUSH DAILY [facility] Last Admin: 07/08/18 10:32 Dose: 40 mg - Objective Vital Signs: Vital Signs Temperature 99.2 F 07/08/18 08:00 Pulse Rate 101 H 07/08/18 09:51 Respiratory Rate 24 H 07/08/18 09:10 Blood Pressure 101/55 L 07/08/18 08:00 O2 Sat by Pulse Oximetry (%) 96 07/08/18 09:51 Constitutional: Yes: No Distress Neck: Yes: Supple Cardiovascular: Yes: Pulse Irregular Respiratory: Yes: Intubated, Mechanically Ventilated Gastrointestinal: Yes: Soft, Hypoactive Bowel Sounds Edema: No Labs: CBC, BMP 07/08/18 05:30 07/08/18 05:30 INR, PTT INR 1.16 (0.83-1.09) H 07/05/18 05:30 - ....Imaging Chest X-ray: Report Reviewed (Bilateral pulm/pleural disease) Problem List - Problems (1) Demand ischemia Code(s): I24.8 - OTHER FORMS OF ACUTE ISCHEMIC HEART DISEASE (2) Paroxysmal atrial fibrillation with rapid ventricular response Code(s): I48.0 - PAROXYSMAL ATRIAL FIBRILLATION (3) Sepsis Code(s): A41.9 - SEPSIS, UNSPECIFIED ORGANISM Qualifiers: Sepsis type: Streptococcus group B Qualified Code(s): A40.1 - Sepsis due to streptococcus, group B (4) Urinary tract infection Code(s): N39.0 - URINARY TRACT INFECTION, SITE NOT SPECIFIED (5) BRITT (acute kidney injury) Code(s): N17.9 - ACUTE KIDNEY FAILURE, UNSPECIFIED (6) Adnexal mass Code(s): N94.9 - UNSP COND ASSOC W FEMALE GENITAL ORGANS AND MENSTRUAL CYCLE (7) Diabetes mellitus Code(s): E11.9 - TYPE 2 DIABETES MELLITUS WITHOUT COMPLICATIONS Qualifiers: Diabetes mellitus type: type 2 Diabetes mellitus 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 exterminator insulin use: without residential use (8) HTN (hypertension) Code(s): I10 - ESSENTIAL (PRIMARY) HYPERTENSION Qualifiers: Hypertension type: essential hypertension Qualified Code(s): I10 - Essential (primary) hypertension (9) Hydronephrosis Code(s): N13.30 - UNSPECIFIED HYDRONEPHROSIS (10) Hyperkalemia Code(s): E87.5 - HYPERKALEMIA Assessment/Plan 07/06/2018 Echo: Normal LV size and fxn, mod TR RVSP 50-60 mmHg, mild AR, tr- mild MR, normal biatrial sizes 07/08/2018 Abd/pelvic CT: Right nodules suspicious for metastases, mod bilateral effusions and lower lobe ATX, mod ascites, thickened, irregular bladder c/w malignancy, bilateral hydro L>R, pelvic LAD, diverticulosis w/o inflammation 1. PAF with RVR 2. Acute Hypoxic and Hypercapneic Respiratory Failure/ARDS 3. Septic Shock with lactic acidosis, source - streptococcus 4. Organic brain syndrome/dementia 5. HTN 6. DM 7. LV Diastolic Dysfunction 8. CAD, Demand Ischemia 9. Pulmonary HTN 10. BRITT with hyperkalemia resolving 11. Anemia 12. 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 Continue antibiotics per cultures showing alpha hemolytic strep, off IVF, wean vasopressin gtt and levophed gtt to maintain MAP >65, monitor renal recovery 2. Vent management per ABG, BD, GI protection 3. Agree with lopressor 12.5 bid NGT as hemodynamics tolerate for rate-control 4. Heparin gtt->NOAC once oral intake re-established 5. IV diuresis once off pressors
[2018-07-08] MEDS: METOPROLOL TARTRATE 25 MG TABLET (FP) PO SCH ×2 (12:00→21:21)
--- NOTE | 2018-07-08 12:01 | PN ---
Teaching Attending Note Name of Resident: Megan Crawford ATTENDING PHYSICIAN STATEMENT I saw and evaluated the patient. I reviewed the resident's note and discussed the case with the resident. I agree with the resident's findings and plan as documented. SUBJECTIVE: Patient seen and examined in the ICU. Remains intubated, sedated. AC mode of vent, 50% FiO2. NE @ 5 mcq and Vasopressin @ 4 units for hemodynamic support. Poor urine output overnight. OBJECTIVE: Intake & Output 07/05/18 07/06/18 07/07/18 07/08/18 23:59 23:59 23:59 23:59 Intake Total 4715 3320 3489 1472 Output Total 475 1150 550 100 Balance 4240 2170 2939 1372 Weight 125 lb 169 lb 9.6 oz Last Vital Signs Temp Pulse Resp BP Pulse Ox 99.2 F 98 H 24 H 110/47 L 98 07/08/18 08:00 07/08/18 11:30 07/08/18 10:00 07/08/18 11:30 07/08/18 10:00 Active Medications Albuterol/Ipratropium (Duoneb -) 1 amp NEB Q6H PRN PRN Reason: SHORTNESS OF BREATH Last Admin: 07/06/18 23:35 Dose: 1 amp Chlorhexidine Gluconate (Hibiclens For Decolonization -) 1 applic TP HS [facility]JOSE Last Admin: 07/07/18 22:04 Dose: 1 applic Heparin Sodium (Porcine) (Heparin -) 1,000 unit IVPUSH PRN PRN PRN Reason: Heparin Heparin Sodium (Porcine) (Heparin -) 5,000 unit IVPUSH PRN PRN PRN Reason: Heparin Last Admin: 07/07/18 08:31 Dose: 5,000 unit IV Flush (Triple Lumen Flush) 4 ml IVPUSH PRN PRN PRN Reason: FLUSH Last Admin: 07/06/18 23:18 Dose: 4 ml Norepinephrine Bitartrate 8, (000 mcg/ Dextrose) 500 mls @ 18.75 mls/hr IV TITR [facility]; Protocol Last Admin: 07/07/18 22:01 Dose: Not Given Fentanyl 500 mcg/ Dextrose 100 mls @ 2 mls/hr IVPB TITR [facility]; Protocol Last Admin: 07/08/18 02:30 Dose: 50 mcg/hr, 10 mls/hr Propofol (Diprivan -) 1,000,000 mcg in 100 mls @ 1.701 mls/hr IVPB TITR [facility]; Protocol Last Admin: 07/08/18 06:01 Dose: 30 mcg/kg/min, 10.206 mls/hr Vasopressin 50 units/ Sodium (Chloride) 100 mls @ 4 mls/hr IVPB [facility]; Protocol Last Admin: 07/07/18 11:50 Dose: 2 units/hr, 4 mls/hr Heparin Sodium (Porcine) 25, (000 unit/ Sodium Chloride) 500 mls @ 16 mls/hr IV TITR [facility]; Protocol Last Admin: 07/07/18 15:13 Dose: 1,250 unit/hr, 25 mls/hr Ceftriaxone Sodium 2 gm/ (Dextrose) 100 mls @ 100 mls/hr IVPB DAILY [facility]; Protocol Last Admin: 07/08/18 10:31 Dose: 100 mls/hr Insulin Aspart (Novolog Vial Sliding Scale -) 1 vial SQ ACHS [facility]; Protocol Last Admin: 07/08/18 11:30 Dose: 4 unit Metoprolol Tartrate (Lopressor -) 12.5 mg PO BID [facility] Last Admin: 07/08/18 12:00 Dose: 12.5 mg Mupirocin (Bactroban Ointment (For Decolonization) -) 1 applic NS BID [facility] Stop: 07/09/18 21:59 Last Admin: 07/08/18 10:34 Dose: 1 applic Pantoprazole Sodium (Protonix Iv) 40 mg IVPUSH DAILY [facility] Last Admin: 07/08/18 10:32 Dose: 40 mg Gen: intubated, arousable Heart: irregular Lung: scattered rhonchi Abd: soft, nontender Ext: + edema ASSESSMENT AND PLAN: Acute Hypoxic and Hypercapneic Respiratory Failure UTI R/O Pneumonia Septic Shock New Onset Atrial Fibrillation with RVR ARDS Lactic Acidosis Acute Kidney Injury Hyperkalemia Left Hydronephrosis Bladder Cancer +Troponins likely Demand Ischemia LV Diastolic Dysfunction Pulmonary HTN HTN DM Dementia - CT imaging - ABX per ID - IVF to keep CVP 8-12 - Wean pressors as hemodynamics tolerate - monitor urine output, creatinine - will need diuresis once off pressors - low tidal volume ventilation <6cc/kg/IBW - keep Pplat <30 - monitor ABG - rate control - continue anticoagulation - Daily sedation vacations - spontaneous breathing trials once overall clinical status improves - DVT/GI prophylaxis - continue ICU monitoring Dr Lao Critical care time spent in reviewing chart, evaluating patient and formulating plan 35 min
--- NOTE | 2018-07-08 14:29 | PN ---
Progress Note, Physician History of Present Illness: Pt seen and examined at bedside. She remains in the ICU. She remain intubated. She remains on pressors. - Current Medication List Current Medications: Active Medications Albuterol/Ipratropium (Duoneb -) 1 amp NEB Q6H PRN PRN Reason: SHORTNESS OF BREATH Last Admin: 07/06/18 23:35 Dose: 1 amp Chlorhexidine Gluconate (Hibiclens For Decolonization -) 1 applic TP HS MARIAJOSE Last Admin: 07/07/18 22:04 Dose: 1 applic Heparin Sodium (Porcine) (Heparin -) 1,000 unit IVPUSH PRN PRN PRN Reason: Heparin Heparin Sodium (Porcine) (Heparin -) 5,000 unit IVPUSH PRN PRN PRN Reason: Heparin Last Admin: 07/07/18 08:31 Dose: 5,000 unit IV Flush (Triple Lumen Flush) 4 ml IVPUSH PRN PRN PRN Reason: FLUSH Last Admin: 07/06/18 23:18 Dose: 4 ml Norepinephrine Bitartrate 8, (000 mcg/ Dextrose) 500 mls @ 18.75 mls/hr IV TITR MARIAJOSE; Protocol Last Admin: 07/07/18 22:01 Dose: Not Given Fentanyl 500 mcg/ Dextrose 100 mls @ 2 mls/hr IVPB TITR MARIAJOSE; Protocol Last Admin: 07/08/18 02:30 Dose: 50 mcg/hr, 10 mls/hr Propofol (Diprivan -) 1,000,000 mcg in 100 mls @ 1.701 mls/hr IVPB TITR MARIAJOSE; Protocol Last Admin: 07/08/18 06:01 Dose: 30 mcg/kg/min, 10.206 mls/hr Vasopressin 50 units/ Sodium (Chloride) 100 mls @ 4 mls/hr IVPB ASDIR MARIAJOSE; Protocol Last Admin: 07/07/18 11:50 Dose: 2 units/hr, 4 mls/hr Heparin Sodium (Porcine) 25, (000 unit/ Sodium Chloride) 500 mls @ 16 mls/hr IV TITR MARIAJOSE; Protocol Last Admin: 07/07/18 15:13 Dose: 1,250 unit/hr, 25 mls/hr Ceftriaxone Sodium 2 gm/ (Dextrose) 100 mls @ 100 mls/hr IVPB DAILY [facility]SE; Protocol Last Admin: 07/08/18 10:31 Dose: 100 mls/hr Insulin Aspart (Novolog Vial Sliding Scale -) 1 vial SQ ACHS [facility]; Protocol Last Admin: 07/08/18 11:30 Dose: 4 unit Metoprolol Tartrate (Lopressor -) 12.5 mg PO BID [facility] Last Admin: 07/08/18 12:00 Dose: 12.5 mg Mupirocin (Bactroban Ointment (For Decolonization) -) 1 applic NS BID [facility] Stop: 07/09/18 21:59 Last Admin: 07/08/18 10:34 Dose: 1 applic Pantoprazole Sodium (Protonix Iv) 40 mg IVPUSH DAILY [facility] Last Admin: 07/08/18 10:32 Dose: 40 mg - Objective Vital Signs: Vital Signs Temperature 99.2 F 07/08/18 08:00 Pulse Rate 98 H 07/08/18 11:30 Respiratory Rate 24 H 07/08/18 11:45 Blood Pressure 110/47 L 07/08/18 11:30 O2 Sat by Pulse Oximetry (%) 98 07/08/18 10:00 Constitutional: Yes: Calm Eyes: Yes: Conjunctiva Clear HENT: Yes: Atraumatic Neck: Yes: Supple Cardiovascular: Yes: S1, S2 Respiratory: Yes: Mechanically Ventilated Gastrointestinal: Yes: Normal Bowel Sounds, Soft Genitourinary: Yes: Kaur Present Edema: Yes Edema: LUE: Trace, RUE: Trace Neurological: Yes: Lethargy Labs: CBC, BMP 07/08/18 05:30 07/08/18 05:30 INR, PTT INR 1.16 (0.83-1.09) H 07/05/18 05:30 - ....Imaging Cat Scan: Report Reviewed Problem List - Problems (1) Hyperkalemia Code(s): E87.5 - HYPERKALEMIA (2) Sepsis Code(s): A41.9 - SEPSIS, UNSPECIFIED ORGANISM Qualifiers: Sepsis type: Streptococcus group B Qualified Code(s): A40.1 - Sepsis due to streptococcus, group B (3) Severe sepsis Code(s): A41.9 - SEPSIS, UNSPECIFIED ORGANISM; R65.20 - SEVERE SEPSIS WITHOUT SEPTIC SHOCK (4) BRITT (acute kidney injury) Code(s): N17.9 - ACUTE KIDNEY FAILURE, UNSPECIFIED (5) Dementia Code(s): F03.90 - UNSPECIFIED DEMENTIA WITHOUT BEHAVIORAL DISTURBANCE Qualifiers: Dementia type: unspecified type Dementia behavioral disturbance: without behavioral disturbance Qualified Code(s): F03.90 - Unspecified dementia without behavioral disturbance Assessment/Plan Current Medications Generic Name Dose Route Start Last Admin Trade Name Freq PRN Reason Stop Dose Admin Albuterol/Ipratropium 1 amp 07/05/18 11:39 07/06/18 23:35 Duoneb - NEB 1 amp Q6H PRN Administration SHORTNESS OF BREATH Chlorhexidine Gluconate 1 applic 07/04/18 22:00 07/07/18 22:04 Hibiclens For Decolonization - TP 1 applic HS MARIAJOSE Administration Heparin Sodium (Porcine) 1,000 unit 07/06/18 11:08 Heparin - IVPUSH PRN PRN Heparin Heparin Sodium (Porcine) 5,000 unit 07/06/18 11:08 07/07/18 08:31 Heparin - IVPUSH 5,000 unit PRN PRN Administration Heparin IV Flush 4 ml 07/06/18 22:41 07/06/18 23:18 Triple Lumen Flush IVPUSH 4 ml PRN PRN Administration FLUSH Norepinephrine Bitartrate 8, 500 mls @ 18.75 mls/hr 07/04/18 21:15 07/07/18 22:01 000 mcg/ Dextrose IV Not Given TITR MARIAJOSE Protocol 5 MCG/MIN Fentanyl 500 mcg/ Dextrose 100 mls @ 2 mls/hr 07/05/18 12:31 07/08/18 02:30 IVPB 50 mcg/hr TITR MARIAJOSE 10 mls/hr Administration Protocol 10 MCG/HR Propofol 1,000,000 mcg in 100 mls @ 1.701 mls/hr 07/05/18 10:00 07/08/18 06: 01 Diprivan - IVPB 30 mcg/kg/min TITR MARIAJOSE 10.206 mls/hr Administration Protocol 5 MCG/KG/MIN Vasopressin 50 units/ Sodium 100 mls @ 4 mls/hr 07/06/18 10:30 07/07/18 11:50 Chloride IVPB 2 units/hr ASDIR MARIAJOSE 4 mls/hr Administration Protocol 2 UNITS/HR Heparin Sodium (Porcine) 25, 500 mls @ 16 mls/hr 07/06/18 11:15 07/07/18 15: 13 000 unit/ Sodium Chloride IV 1,250 unit/hr TITR MARIAJOSE 25 mls/hr Administration Protocol 800 UNIT/HR Ceftriaxone Sodium 2 gm/ 100 mls @ 100 mls/hr 07/07/18 11:00 07/08/18 10:31 Dextrose IVPB 100 mls/hr DAILY MARIAJOSE Administration Protocol Insulin Aspart 1 vial 07/04/18 22:00 07/08/18 11:30 Novolog Vial Sliding Scale - SQ 4 unit ACHS MARIAJOSE Administration Protocol Metoprolol Tartrate 12.5 mg 07/08/18 11:45 07/08/18 12:00 Lopressor - PO 12.5 mg BID MARIAJOSE Administration Mupirocin 1 applic 07/04/18 22:00 07/08/18 10:34 Bactroban Ointment (For Decolonization) - NS 07/09/18 21:59 1 applic BID MARIAJOSE Administration Pantoprazole Sodium 40 mg 07/05/18 12:30 07/08/18 10:32 Protonix Iv IVPUSH 40 mg DAILY MARIAJOSE Administration Impression 1. BRITT 2. hyperkalemia 3. uti 4. dementia 5. htn 6. DM 7. hypercalcemia 8. hydronephrosis left 9. bladder mass 10. sepsis 11. lactic acidosis 12. resp failure Plan - cont to monitor renal function - agree with stopping fluids as she is starting to have signs of overload - pressors to a map of 65 - monitor urine output - vent support - follow cultures - cont abx - monitor in ICU
[2018-07-08 16:20] VITALS: BMI 26.4
--- NOTE | 2018-07-08 17:13 | PATH ---
Cytology Non-Gynecological Report Patient Name: ELVIN MINOR [facility]. Rec. 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 Specimen(s) Received URINE VOIDED Clinical History History of bladder cancer Final Diagnosis URINE FOR CYTOLOGY: SATISFACTORY FOR EVALUATION. ATYPICAL SQUAMOUS LESION PRESENT. SCATTERED ATYPICAL KERATINIZED SQUAMOUS CELLS PRESENT, IN A BACKGROUND OF SEVERE ACUTE INFLAMMATION. SEE COMMENT. Comment: Keratinized squamous cells with mild to moderate atypia. The differential diagnosis is broad and the possibility of squamous cell carcinoma of the bladder, urothelial carcinoma with squamous differentiation, and lesions from lower genital tract cannot be excluded. Cystoscopy, colposcopy, and biopsy may be indicated for definitive diagnosis. Suggest clinical correlation. Also see concurrent cytology report [id number]. Electronically Signed Myles Bauer M.D. Gross Description Approximately 50cc of yellow fluid received fresh. One slide and one cellblock prepared.
--- NOTE | 2018-07-08 17:14 | PATH ---
Cytology Non-Gynecological Report Patient Name: ELVIN MINOR [facility]. Rec. 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 Specimen(s) Received URINE VOIDED Clinical History History of bladder cancer Final Diagnosis URINE FOR CYTOLOGY: SATISFACTORY FOR EVALUATION. ATYPICAL SQUAMOUS LESION PRESENT. SCATTERED ATYPICAL KERATINIZED SQUAMOUS CELLS PRESENT, IN A BACKGROUND OF SEVERE ACUTE INFLAMMATION. SEE COMMENT. Comment: Keratinized squamous cells with mild to moderate atypia. The differential diagnosis is broad and the possibility of squamous cell carcinoma of the bladder, urothelial carcinoma with squamous differentiation, and lesions from lower genital tract cannot be excluded. Cystoscopy, colposcopy, and biopsy may be indicated for definitive diagnosis. Suggest clinical correlation. Also see concurrent cytology report [id number]. Electronically Signed Myles Bauer M.D. Gross Description Approximately 15cc of yellow fluid received fresh. One slide and one cell block prepared.
[2018-07-08] MEDS ORDERED: NOREPINEPHRINE BITARTRATE 4 MG/4 ML ML IV ONE (17:36)
[2018-07-08] MEDS ORDERED: VASOPRESSIN 20 UNITS/ML VIAL IV ONE (17:36)
[2018-07-08] MEDS: VASOPRESSIN 50 UNITS in SODIUM CHLORIDE 97.5 ML IVPB SCH (18:30)
[2018-07-08] MEDS: HEPARIN - 25,000 UNIT in SODIUM CHLORIDE 495 ML IV SCH (21:15)
[2018-07-08] MEDS: NOREPINEPHRINE BITARTRATE 8,000 MCG in DEXTROSE 5%-WATER - 492 ML IV SCH (21:19)
[2018-07-08] MEDS: CHLORHEXIDINE GLUCONATE 4% CLEANSER FOR DECOLONIZATION TP SCH (21:21)
[2018-07-08 21:33] LABS: HEMATOCRIT 26.1 % (32.4-45.2); HEMOGLOBIN 7.9 GM/dL (10.7-15.3); MCH 24.8 pg (25.7-33.7); MCHC 30.4 g/dl (32.0-36.0); MEAN CELL VOLUME 81.4 fl (80-96); MEAN PLT VOLUME 8.2 fl (7.5-11.1); PLATELET COUNT 332 K/MM3 (134-434); RBC 3.21 M/mm3 (3.60-5.2); WHITE BLOOD COUNT 14.1 K/mm3 (4.0-10.0)
[2018-07-09] MEDS ORDERED: fentaNYL CITRATE 250 MCG/5 ML VIAL ONE (00:11)
[2018-07-09] MEDS: FENTANYL INJECTION 500 MCG in DEXTROSE 5%-WATER - 90 ML IVPB SCH ×2 (01:00→13:24)
[2018-07-09] MEDS: PROPOFOL 1,000,000 MCG/100 ML VIAL IVPB SCH (02:41)
[2018-07-09 06:18] LABS: BASO % 0.2 % (0-2.0); EOS % 1.4 % (0-4.5); HEMATOCRIT 25.4 % (32.4-45.2); LYMPH % 6.4 % (8-40); MCH 25.4 pg (25.7-33.7); MCHC 31.5 g/dl (32.0-36.0); MEAN CELL VOLUME 80.4 fl (80-96); MEAN PLT VOLUME 8.3 fl (7.5-11.1); PLATELET COUNT 346 K/MM3 (134-434); RBC 3.16 M/mm3 (3.60-5.2); RDW 17.8 % (11.6-15.6); WHITE BLOOD COUNT 15.4 K/mm3 (4.0-10.0)
[2018-07-09 06:51] LABS: ALBUMIN 1.6 g/dl (3.4-5.0); BILIRUBIN,TOTAL 0.2 mg/dL (0.2-1); CALCIUM 8.2 mg/dL (8.5-10.1); CREATININE 1.1 mg/dL (0.55-1.3); MAGNESIUM 2.3 mg/dL (1.8-2.4); PHOSPHOROUS 3.3 mg/dL (2.5-4.9); POTASSIUM 4.5 mmol/L (3.5-5.1); TOT PROT 5.2 g/dl (6.4-8.2)
--- NOTE | 2018-07-09 06:58 | PN ---
Progress Note (short form) - Note Progress Note: Chief Complaint: Events noted, notes reviewed, remains intubated and sedated, on pressors, remains in atrial fibrillation with variable rates History of Present Illness: Seen and examined in the ICU. Events noted, notes reviewed, remains intubated and sedated, on pressors, remains in atrial fibrillation with variable rates Remains on Heparin 07/06/2018 Echo: Normal LV size and function, mod TR with RVSP 50-60 mmHg, mild AR, trace-mild MR, normal bi-atrial sizes - Current Medication List Current Medications Albuterol/Ipratropium (Duoneb -) 1 amp NEB Q6H PRN PRN Reason: SHORTNESS OF BREATH Last Admin: 07/06/18 23:35 Dose: 1 amp Chlorhexidine Gluconate (Hibiclens For Decolonization -) 1 applic TP HS MARIAJOSE Last Admin: 07/08/18 21:21 Dose: 1 applic Heparin Sodium (Porcine) (Heparin -) 1,000 unit IVPUSH PRN PRN PRN Reason: Heparin Heparin Sodium (Porcine) (Heparin -) 5,000 unit IVPUSH PRN PRN PRN Reason: Heparin Last Admin: 07/07/18 08:31 Dose: 5,000 unit IV Flush (Triple Lumen Flush) 4 ml IVPUSH PRN PRN PRN Reason: FLUSH Last Admin: 07/06/18 23:18 Dose: 4 ml Norepinephrine Bitartrate 8, (000 mcg/ Dextrose) 500 mls @ 18.75 mls/hr IV TITR MARIAJOSE; Protocol Last Admin: 07/08/18 21:19 Dose: Not Given Fentanyl 500 mcg/ Dextrose 100 mls @ 2 mls/hr IVPB TITR MARIAJOSE; Protocol Last Admin: 07/09/18 01:00 Dose: 50 mcg/hr, 10 mls/hr Propofol (Diprivan -) 1,000,000 mcg in 100 mls @ 1.701 mls/hr IVPB TITR MARIAJOSE; Protocol Last Admin: 07/09/18 02:41 Dose: 30 mcg/kg/min, 10.206 mls/hr Vasopressin 50 units/ Sodium (Chloride) 100 mls @ 4 mls/hr IVPB ASDIR MARIAJOSE; Protocol Last Admin: 07/08/18 18:30 Dose: 2 units/hr, 4 mls/hr Heparin Sodium (Porcine) 25, (000 unit/ Sodium Chloride) 500 mls @ 16 mls/hr IV TITR MARIAJOSE; Protocol Last Admin: 07/08/18 21:15 Dose: Not Given Ceftriaxone Sodium 2 gm/ (Dextrose) 100 mls @ 100 mls/hr IVPB DAILY [facility]; Protocol Last Admin: 07/08/18 10:31 Dose: 100 mls/hr Insulin Aspart (Novolog Vial Sliding Scale -) 1 vial SQ ACHS [facility]; Protocol Last Admin: 07/08/18 21:49 Dose: 4 unit Metoprolol Tartrate (Lopressor -) 12.5 mg PO BID [facility] Last Admin: 07/08/18 21:21 Dose: 12.5 mg Mupirocin (Bactroban Ointment (For Decolonization) -) 1 applic NS BID [facility] Stop: 07/09/18 21:59 Last Admin: 07/08/18 21:20 Dose: 1 applic Pantoprazole Sodium (Protonix Iv) 40 mg IVPUSH DAILY [facility] Last Admin: 07/08/18 10:32 Dose: 40 mg Review of Systems Unable to obtain - Objective Vital Signs: Last Vital Signs Temp Pulse Resp BP Pulse Ox 97.6 F 110 H 24 H 113/75 98 07/09/18 06:00 07/09/18 06:00 07/09/18 06:00 07/09/18 06:00 07/09/18 00:30 Intake & Output 07/06/18 07/07/18 07/08/18 07/09/18 23:59 23:59 23:59 23:59 Intake Total 3320 3489 3177.0 1510.4 Output Total 4372 533 5441 700 Balance 2170 2939 2177.0 810.4 Weight 125 lb 169 lb 9.6 oz 169 lb 9.6 oz Neck: Supple Negative JVD No Bruit Cardiovascular: S1 S2 Irregularly Irregular Respiratory: Scattered Rhonchi Bilaterally Gastrointestinal: Soft Benign Normal Bowel Sounds Ext: Edema Labs: CBC, BMP 07/09/18 05:30 07/09/18 05:30 Hepatic Panel Total Bilirubin 0.2 mg/dL (0.2-1) 07/09/18 05:30 AST 7 U/L (15-37) L 07/09/18 05:30 ALT 6 U/L (13-61) L 07/09/18 05:30 Alkaline Phosphatase 69 U/L (45-117) 07/09/18 05:30 Albumin 1.6 g/dl (3.4-5.0) L 07/09/18 05:30 INR, PTT INR 1.16 (0.83-1.09) H 07/05/18 05:30 Assessment/Plan ASSESSMENT: 1. Atrial fibrillation with periods of rapid ventricular response [id number] score of 6 on Heparin drip 2. Acute Hypoxic and Hypercapneic Respiratory Failure/ARDS, referable to sepsis syndrome 3. Septic Shock with lactic acidosis, source 4. 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 Diastolic LV dysfunction with class 0-I NYHA classification LV failure 6. HTN, hypotensive related to sepsis syndrome 7. DM 8. Pulmonary HTN 9. Organic brain syndrome/dementia 10. Acute renal insufficiency with hyperkalemia, resolving 11. Anemia 12. 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 Antibiotics as per primary team 2. Wean off pressors as tolerated, maintain MAP > 65 mmHg 3. Continue Lopressor to assist with rate control, hemodynamics permitting 4. Continue Heparin and eventual DOAC initiation 5. Vent management as per critical care team 6. Monitor Hg and transfuse as needed maintaining Hg equal or > 8.0 Overall poor prognosis Dalton Camacho M.D.
--- NOTE | 2018-07-09 08:23 | PN ---
Progress Note (short form) - Note Progress Note: remains on pressors, remains intubated on rocephin Vital Signs Period Temp Pulse Resp BP Sys/Swift Pulse Ox Last 24 Hr 94 F-99.4 F 74-110 24-24 103-127/47-75 96-98 cor-rrr lungs decreased bs at bases abd firm ext UE edema new with cloudy urine CBC, BMP 07/09/18 05:30 07/09/18 05:30 Microbiology 07/04/18 13:57 Blood - Peripheral Venous Blood Culture - Preliminary NO GROWTH OBTAINED AFTER 96 HOURS, INCUBATION TO CONTINUE FOR 1 DAYS. 07/04/18 13:50 Blood - Peripheral Venous Blood Culture - Preliminary NO GROWTH OBTAINED AFTER 96 HOURS, INCUBATION TO CONTINUE FOR 1 DAYS. 07/04/18 14:52 Urine - Urine - Catheterized Urine Culture - Final Aerococcus Urinae ct scan abd/pelvis-bilateral pleural effusions with compression atelectasis multiple right lung nodules moderate ascites bilateral adrenal nodules left greater then right hydronephrosis thickened bladder wall enlarged pelvic LN Current Medications Albuterol/Ipratropium (Duoneb -) 1 amp NEB Q6H PRN PRN Reason: SHORTNESS OF BREATH Last Admin: 07/06/18 23:35 Dose: 1 amp Chlorhexidine Gluconate (Hibiclens For Decolonization -) 1 applic TP HS MARIAJOSE Last Admin: 07/08/18 21:21 Dose: 1 applic Heparin Sodium (Porcine) (Heparin -) 1,000 unit IVPUSH PRN PRN PRN Reason: Heparin Heparin Sodium (Porcine) (Heparin -) 5,000 unit IVPUSH PRN PRN PRN Reason: Heparin Last Admin: 07/07/18 08:31 Dose: 5,000 unit IV Flush (Triple Lumen Flush) 4 ml IVPUSH PRN PRN PRN Reason: FLUSH Last Admin: 07/06/18 23:18 Dose: 4 ml Norepinephrine Bitartrate 8, (000 mcg/ Dextrose) 500 mls @ 18.75 mls/hr IV TITR MARIAJOSE; Protocol Last Admin: 07/08/18 21:19 Dose: Not Given Fentanyl 500 mcg/ Dextrose 100 mls @ 2 mls/hr IVPB TITR MARIAJOSE; Protocol Last Admin: 07/09/18 01:00 Dose: 50 mcg/hr, 10 mls/hr Propofol (Diprivan -) 1,000,000 mcg in 100 mls @ 1.701 mls/hr IVPB TITR MARIAJOSE; Protocol Last Admin: 07/09/18 02:41 Dose: 30 mcg/kg/min, 10.206 mls/hr Vasopressin 50 units/ Sodium (Chloride) 100 mls @ 4 mls/hr IVPB ASDIR MARIAJOSE; Protocol Last Admin: 07/08/18 18:30 Dose: 2 units/hr, 4 mls/hr Heparin Sodium (Porcine) 25, (000 unit/ Sodium Chloride) 500 mls @ 16 mls/hr IV TITR MARIAJOSE; Protocol Last Admin: 07/08/18 21:15 Dose: Not Given Ceftriaxone Sodium 2 gm/ (Dextrose) 100 mls @ 100 mls/hr IVPB DAILY [facility]; Protocol Last Admin: 07/08/18 10:31 Dose: 100 mls/hr Insulin Aspart (Novolog Vial Sliding Scale -) 1 vial SQ ACHS [facility]; Protocol Last Admin: 07/08/18 21:49 Dose: 4 unit Metoprolol Tartrate (Lopressor -) 12.5 mg PO BID MARIAJOSE Last Admin: 07/08/18 21:21 Dose: 12.5 mg Mupirocin (Bactroban Ointment (For Decolonization) -) 1 applic NS BID [facility] Stop: 07/09/18 21:59 Last Admin: 07/08/18 21:20 Dose: 1 applic Pantoprazole Sodium (Protonix Iv) 40 mg IVPUSH DAILY [facility] Last Admin: 07/08/18 10:32 Dose: 40 mg a/p septic shock respiratory failure uti hydronephrosis-chronic per urology note dementia possible bladder cancer (unconfirmed) pleural effusion continue ceftriaxone- imaging noted, ?metastatic malignancy need to address goals of care with 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
[2018-07-09] MEDS: INSULIN SLIDING SCALE (NOVOLOG) 1 VIAL SQ SCH ×4 (08:29→21:30)
--- NOTE | 2018-07-09 08:36 | PN ---
Progress Note (short form) - Note Progress Note: PULM/CCM SUBJECTIVE: Patient seen and examined in the ICU. -weaning pressors -minimizing sedation -wbc stable at 15 -fever curve down OBJECTIVE: Vital Signs Temp 97.6 F 07/09/18 06:00 Pulse 102 H 07/09/18 08:23 Resp 24 H 07/09/18 08:23 BP 113/75 07/09/18 06:00 Pulse Ox 97 07/09/18 08:23 Intake & Output 07/08/18 07/08/18 07/09/18 11:59 23:59 11:59 Intake Total 2031 1146.0 1510.4 Output Total 550 450 700 Balance 1481 696.0 810.4 Weight 76.929 kg 76.929 kg Intake: IV 963 1146.0 769.4 Cardizem Injection - 125 57 15 mg In Normal Saline - 100 ml @ 5 MG/HR 5 mls/hr IVPB TITR MRAIAJOSE Rx#: [id number] DIPRIVAN - 1,000,000 mcg 134 151.8 132.9 In 100 ml @ 5 MCG/KG/MIN 1.701 mls/hr IVPB TITR MARIAJOSE Rx#:[id number] Heparin - 25,000 Unit In 285 307 273.7 Normal Saline - 495 ml @ 800 UNIT/HR 16 mls/hr IV TITR MARIAJOSE Rx#:[id number] Levophed - 8,000 Mcg In 214 219.5 205.2 D5w - 492 ml @ 5 MCG/MIN 18.75 mls/hr IV TITR MARIAJOSE Rx#:[id number] Pitressin - 50 Units In 45 162.7 43.7 Normal Saline - 97.5 ml @ 2 UNITS/HR 4 mls/hr IVPB ASDIR MARIAJOSE Rx#: [id number] Saline Lock 114 162.7 Sublimaze Injection - 500 114 127.3 113.9 Mcg In D5w - 90 ml @ 10 MCG/HR 2 mls/hr IVPB TITR MARIAJOSE Rx#:[id number] IVPB 50 Tube Feeding 618 539 Tube Irrigant 400 202 Output: Urine 550 450 700 Kaur 550 450 700 Other: Voiding Method Indwelling Catheter Indwelling Catheter Indwelling Catheter # Unmeasured Voids Kaur 1 Bowel Movement 1 No No # Bowel Movements 1 Body Mass Index (BMI) 26.4 Weight Measurement Method [facility] Active Medications Albuterol/Ipratropium (Duoneb -) 1 amp NEB Q6H PRN PRN Reason: SHORTNESS OF BREATH Last Admin: 07/06/18 23:35 Dose: 1 amp Chlorhexidine Gluconate (Hibiclens For Decolonization -) 1 applic TP HS MARIAJOSE Last Admin: 07/08/18 21:21 Dose: 1 applic Heparin Sodium (Porcine) (Heparin -) 1,000 unit IVPUSH PRN PRN PRN Reason: Heparin Heparin Sodium (Porcine) (Heparin -) 5,000 unit IVPUSH PRN PRN PRN Reason: Heparin Last Admin: 07/07/18 08:31 Dose: 5,000 unit IV Flush (Triple Lumen Flush) 4 ml IVPUSH PRN PRN PRN Reason: FLUSH Last Admin: 07/06/18 23:18 Dose: 4 ml Norepinephrine Bitartrate 8, (000 mcg/ Dextrose) 500 mls @ 18.75 mls/hr IV TITR MARIAJOSE; Protocol Last Admin: 07/08/18 21:19 Dose: Not Given Fentanyl 500 mcg/ Dextrose 100 mls @ 2 mls/hr IVPB TITR [facility]IAJOSE; Protocol Last Admin: 07/09/18 01:00 Dose: 50 mcg/hr, 10 mls/hr Propofol (Diprivan -) 1,000,000 mcg in 100 mls @ 1.701 mls/hr IVPB TITR [facility]IAJOSE; Protocol Last Admin: 07/09/18 02:41 Dose: 30 mcg/kg/min, 10.206 mls/hr Vasopressin 50 units/ Sodium (Chloride) 100 mls @ 4 mls/hr IVPB ASDIR [facility]JO[facility]; Protocol Last Admin: 07/08/18 18:30 Dose: 2 units/hr, 4 mls/hr Heparin Sodium (Porcine) 25, (000 unit/ Sodium Chloride) 500 mls @ 16 mls/hr IV TITR MARIAJOSE; Protocol Last Admin: 07/08/18 21:15 Dose: Not Given Ceftriaxone Sodium 2 gm/ (Dextrose) 100 mls @ 100 mls/hr IVPB DAILY [facility]; Protocol Last Admin: 07/08/18 10:31 Dose: 100 mls/hr Insulin Aspart (Novolog Vial Sliding Scale -) 1 vial SQ ACHS [facility]; Protocol Last Admin: 07/09/18 08:29 Dose: 6 unit Metoprolol Tartrate (Lopressor -) 12.5 mg PO BID [facility] Last Admin: 07/08/18 21:21 Dose: 12.5 mg Mupirocin (Bactroban Ointment (For Decolonization) -) 1 applic NS BID [facility] Stop: 07/09/18 21:59 Last Admin: 07/08/18 21:20 Dose: 1 applic Pantoprazole Sodium (Protonix Iv) 40 mg IVPUSH DAILY [facility] Last Admin: 07/08/18 10:32 Dose: 40 mg Gen: intubated, arousable, withdrawals, Heart: irregular, tachy Lung: scattered rhonchi Abd: soft, nontender, +BS Ext: dependent edema throughout Neuro: withdrawals to noxious bilaterally ASSESSMENT AND PLAN: Acute Hypoxic and Hypercapneic Respiratory Failure UTI R/O Pneumonia Septic Shock New Onset Atrial Fibrillation with RVR ARDS Lactic Acidosis Acute Kidney Injury Hyperkalemia Left Hydronephrosis Bladder Cancer +Troponins likely Demand Ischemia LV Diastolic Dysfunction Pulmonary HTN HTN DM Dementia - ABX per ID - cont Rocephin - IVF to keep CVP 8-12 - Wean pressors as hemodynamics tolerate - monitor urine output, creatinine - will need diuresis once off pressors - low tidal volume ventilation <6cc/kg/IBW - keep Pplat <30 - monitor ABG - rate control - continue anticoagulation - Daily sedation vacations - spontaneous breathing trials once overall clinical status improves - DVT/GI prophylaxis - continue ICU monitoring John BROTHERS [id number]
[2018-07-09] MEDS ORDERED: DEXTROSE 5%-WATER 100 ML IVPB ONE (09:31)
[2018-07-09] MEDS: CEFTRIAXONE 2 GM in DEXTROSE 5%-WATER 100 ML IVPB SCH (09:36)
[2018-07-09] MEDS: MUPIROCIN 2% TOPICAL OINTMENT FOR DECOLONIZATION NS SCH (09:37)
[2018-07-09] MEDS: PANTOPRAZOLE SODIUM 40 MG VIAL IVPUSH SCH (09:37)
[2018-07-09] MEDS: METOPROLOL TARTRATE 25 MG TABLET (FP) PO SCH ×2 (09:37→21:11)
[2018-07-09] MEDS: LORazepam 2 MG/ML SDV VIAL IVPUSH PRN ×2 (09:38→17:32)
[2018-07-09] MEDS: VASOPRESSIN 50 UNITS in SODIUM CHLORIDE 97.5 ML IVPB SCH (11:40)
--- NOTE | 2018-07-09 12:01 | PN ---
Progress Note, Physician - Current Medication List Current Medications: Active Medications Albuterol/Ipratropium (Duoneb -) 1 amp NEB Q6H PRN PRN Reason: SHORTNESS OF BREATH Last Admin: 07/06/18 23:35 Dose: 1 amp Chlorhexidine Gluconate (Hibiclens For Decolonization -) 1 applic TP HS [facility] Last Admin: 07/08/18 21:21 Dose: 1 applic Heparin Sodium (Porcine) (Heparin -) 1,000 unit IVPUSH PRN PRN PRN Reason: Heparin Heparin Sodium (Porcine) (Heparin -) 5,000 unit IVPUSH PRN PRN PRN Reason: Heparin Last Admin: 07/07/18 08:31 Dose: 5,000 unit IV Flush (Triple Lumen Flush) 4 ml IVPUSH PRN PRN PRN Reason: FLUSH Last Admin: 07/06/18 23:18 Dose: 4 ml Norepinephrine Bitartrate 8, (000 mcg/ Dextrose) 500 mls @ 18.75 mls/hr IV TITR [facility]; Protocol Last Admin: 07/08/18 21:19 Dose: Not Given Fentanyl 500 mcg/ Dextrose 100 mls @ 2 mls/hr IVPB TITR [facility]; Protocol Last Admin: 07/09/18 01:00 Dose: 50 mcg/hr, 10 mls/hr Vasopressin 50 units/ Sodium (Chloride) 100 mls @ 4 mls/hr IVPB ASDIR [facility]; Protocol Last Admin: 07/09/18 11:40 Dose: Not Given Heparin Sodium (Porcine) 25, (000 unit/ Sodium Chloride) 500 mls @ 16 mls/hr IV TITR [facility]; Protocol Last Admin: 07/08/18 21:15 Dose: Not Given Ceftriaxone Sodium 2 gm/ (Dextrose) 100 mls @ 100 mls/hr IVPB DAILY [facility]; Protocol Last Admin: 07/09/18 09:36 Dose: 100 mls/hr Insulin Aspart (Novolog Vial Sliding Scale -) 1 vial SQ ACHS [facility]; Protocol Last Admin: 07/09/18 11:39 Dose: 4 unit Lorazepam (Ativan Injection -) 1 mg IVPUSH Q4H PRN PRN Reason: AGITATION Last Admin: 07/09/18 09:38 Dose: 1 mg Metoprolol Tartrate (Lopressor -) 12.5 mg PO BID [facility] Last Admin: 07/09/18 09:37 Dose: 12.5 mg Mupirocin (Bactroban Ointment (For Decolonization) -) 1 applic NS BID [facility] Stop: 07/09/18 21:59 Last Admin: 07/09/18 09:37 Dose: 1 applic Pantoprazole Sodium (Protonix Iv) 40 mg IVPUSH DAILY [facility] Last Admin: 07/09/18 09:37 Dose: 40 mg - Objective Vital Signs: Vital Signs Temperature 98 F 07/09/18 10:00 Pulse Rate 94 H 07/09/18 11:40 Respiratory Rate 32 H 07/09/18 11:20 Blood Pressure 121/64 07/09/18 11:40 O2 Sat by Pulse Oximetry (%) 99 07/09/18 10:00 Labs: CBC, BMP 07/09/18 05:30 07/09/18 05:30 INR, PTT INR 1.16 (0.83-1.09) H 07/05/18 05:30 Assessment/Plan - Problems (1) Sepsis Assessment/Plan: sepsis from UTI and pna ( possible bilateral infiltrates) Microbiology 07/04/18 14:52 Urine - Urine - Catheterized Urine Culture - Preliminary Alpha Hemolytic Streptococcus 07/04/18 13:57 Blood - Peripheral Venous Blood Culture - Preliminary NO GROWTH OBTAINED AFTER 48 HOURS, INCUBATION TO CONTINUE FOR 3 DAYS. 07/04/18 13:50 Blood - Peripheral Venous Blood Culture - Preliminary NO GROWTH OBTAINED AFTER 48 HOURS, INCUBATION TO CONTINUE FOR 3 DAYS. wbc trending down on ceftriaxone lactic acidosis resolved pressor to maintain MAP> 65 IVF for CVP 8-12 intubated sedated vent support icu monitiring\ Code(s): A41.9 - SEPSIS, UNSPECIFIED ORGANISM Qualifiers: Qualified Code(s): A40.1 - Sepsis due to streptococcus, group B (2) BRITT (acute kidney injury) Assessment/Plan: resolved renal sono left hydronpephrosis similar to 05/17/18 -urology consulted Code(s): N17.9 - ACUTE KIDNEY FAILURE, UNSPECIFIED (3) Hyperkalemia Assessment/Plan: resolved Code(s): E87.5 - HYPERKALEMIA (4) Diabetes mellitus Assessment/Plan: hgba1c bgm noted sliding scale Code(s): E11.9 - TYPE 2 DIABETES MELLITUS WITHOUT COMPLICATIONS (5) Paroxysmal atrial fibrillation with rapid ventricular response Assessment/Plan: LOPRESSOR heparin cardiology on board Code(s): I48.0 - PAROXYSMAL ATRIAL FIBRILLATION (6) Demand ischemia Assessment/Plan: trend troponin- demand ischemia with hypotension, pna Code(s): I24.8 - OTHER FORMS OF ACUTE ISCHEMIC HEART DISEASE
[2018-07-09] MEDS ORDERED: FUROSEMIDE 40 MG/4 ML INJECTABLE VIAL IVPUSH ONE ×2 (13:03→19:38)
[2018-07-09] MEDS: HEPARIN - 25,000 UNIT in SODIUM CHLORIDE 495 ML IV SCH ×2 (14:36→18:13)
--- NOTE | 2018-07-09 15:37 | PN ---
Progress Note (short form) - Note Progress Note: covering dr hickey 1. s/ p BRITT - resolving 2. s/p hyperkalemia 3. uti 4. dementia 5. htn - s/p hypotension on pressors, pressors now off 6. DM 7. hypercalcemia 8. hydronephrosis left 9. bladder mass 10. sepsis 11. lactic acidosis 12. resp failure Current Medications Albuterol/Ipratropium (Duoneb -) 1 amp NEB Q6H PRN PRN Reason: SHORTNESS OF BREATH Last Admin: 07/06/18 23:35 Dose: 1 amp Chlorhexidine Gluconate (Hibiclens For Decolonization -) 1 applic TP HS [facility] Last Admin: 07/08/18 21:21 Dose: 1 applic Fentanyl (Sublimaze Injection -) 50 mcg IVPUSH Q2H PRN PRN Reason: MODERATE PAIN Stop: 07/10/18 13:14 Last Admin: 07/09/18 14:29 Dose: 50 mcg Heparin Sodium (Porcine) (Heparin -) 1,000 unit IVPUSH PRN PRN PRN Reason: Heparin Heparin Sodium (Porcine) (Heparin -) 5,000 unit IVPUSH PRN PRN PRN Reason: Heparin Last Admin: 07/07/18 08:31 Dose: 5,000 unit IV Flush (Triple Lumen Flush) 4 ml IVPUSH PRN PRN PRN Reason: FLUSH Last Admin: 07/06/18 23:18 Dose: 4 ml Norepinephrine Bitartrate 8, (000 mcg/ Dextrose) 500 mls @ 18.75 mls/hr IV TITR [facility]; Protocol Last Admin: 07/08/18 21:19 Dose: Not Given Vasopressin 50 units/ Sodium (Chloride) 100 mls @ 4 mls/hr IVPB ASDIR [facility]; Protocol Last Admin: 07/09/18 11:40 Dose: Not Given Heparin Sodium (Porcine) 25, (000 unit/ Sodium Chloride) 500 mls @ 16 mls/hr IV TITR [facility]; Protocol Last Admin: 07/09/18 14:36 Dose: Not Given Ceftriaxone Sodium 2 gm/ (Dextrose) 100 mls @ 100 mls/hr IVPB DAILY [facility]; Protocol Last Admin: 07/09/18 09:36 Dose: 100 mls/hr Insulin Aspart (Novolog Vial Sliding Scale -) 1 vial SQ ACHS [facility]; Protocol Last Admin: 05/18/19 11:39 Dose: 4 unit Lorazepam (Ativan Injection -) 1 mg IVPUSH Q4H PRN PRN Reason: AGITATION Last Admin: 07/09/18 09:38 Dose: 1 mg Metoprolol Tartrate (Lopressor -) 12.5 mg PO BID [facility] Last Admin: 07/09/18 09:37 Dose: 12.5 mg Mupirocin (Bactroban Ointment (For Decolonization) -) 1 applic NS BID [facility] Stop: 07/09/18 21:59 Last Admin: 07/09/18 09:37 Dose: 1 applic Pantoprazole Sodium (Protonix Iv) 40 mg IVPUSH DAILY [facility] Last Admin: 07/09/18 09:37 Dose: 40 mg Last Vital Signs Temp Pulse Resp BP Pulse Ox 98 F 107 H 27 H 102/58 L 99 07/09/18 14:00 07/09/18 14:00 07/09/18 14:00 07/09/18 14:00 07/09/18 10:00 on vent, sedated Heent no edema, ettube in place neck no jvd lungs clear vented Heart sof s1s2 Abd soft nontender ext trace edema, dependent CBC, BMP 07/09/18 05:30 07/09/18 05:30 IMP Leukocytosis met acidosis Prerenal azotemia hemodynamically better Plan- monitor urine output and labs
[2018-07-09] MEDS: TRIPLE LUMEN FLUSH 4 ML ML IVPUSH PRN ×2 (17:59→21:12)
[2018-07-09] MEDS: CHLORHEXIDINE GLUCONATE 4% CLEANSER FOR DECOLONIZATION TP SCH (21:11)
[2018-07-09] MEDS: NOREPINEPHRINE BITARTRATE 8,000 MCG in DEXTROSE 5%-WATER - 492 ML IV SCH (22:46)
[2018-07-10 04:06] LABS: SERUM IRON SATURATION 17 % (15-55); TOTAL IRON BINDING CAPACITY 157 ug/dL (250-450); UIBC 131 ug/dL (118-369)
[2018-07-10 05:53] LABS: HEMATOCRIT 25.5 % (32.4-45.2); HEMOGLOBIN 7.9 GM/dL (10.7-15.3); MCHC 31.1 g/dl (32.0-36.0); MEAN CELL VOLUME 80.4 fl (80-96); MEAN PLT VOLUME 8.6 fl (7.5-11.1); PLATELET COUNT 322 K/MM3 (134-434); RBC 3.17 M/mm3 (3.60-5.2); RDW 17.5 % (11.6-15.6); WHITE BLOOD COUNT 20.3 K/mm3 (4.0-10.0)
[2018-07-10] MEDS: INSULIN SLIDING SCALE (NOVOLOG) 1 VIAL SQ SCH ×2 (06:22→11:22)
[2018-07-10 06:29] LABS: ALBUMIN 1.5 g/dl (3.4-5.0); BILIRUBIN,TOTAL 0.3 mg/dL (0.2-1); CALCIUM 8.7 mg/dL (8.5-10.1); CREATININE 1.4 mg/dL (0.55-1.3); POTASSIUM 4.8 mmol/L (3.5-5.1); TOT PROT 5.1 g/dl (6.4-8.2)
--- NOTE | 2018-07-10 07:03 | PN ---
Progress Note (short form) - Note Progress Note: Chief Complaint: Events noted, notes reviewed, remains intubated off of sedation , off of pressors, remains in atrial fibrillation with controlled rates History of Present Illness: Seen and examined in the ICU. Events noted, notes reviewed, remains intubated and sedated, off of pressors, remains in atrial fibrillation with controlled rates Remains on Heparin drip Diminished urine output, given IV Lasix, chest x-ray from yesterday noted 07/06/2018 Echo: Normal LV size and function, mod TR with RVSP 50-60 mmHg, mild AR, trace-mild MR, normal bi-atrial sizes - Current Medication List Current Medications Albuterol/Ipratropium (Duoneb -) 1 amp NEB Q6H PRN PRN Reason: SHORTNESS OF BREATH Last Admin: 07/06/18 23:35 Dose: 1 amp Chlorhexidine Gluconate (Hibiclens For Decolonization -) 1 applic TP HS [facility] Last Admin: 07/09/18 21:11 Dose: 1 applic Fentanyl (Sublimaze Injection -) 50 mcg IVPUSH Q2H PRN PRN Reason: MODERATE PAIN Stop: 07/10/18 13:14 Last Admin: 07/09/18 22:46 Dose: 50 mcg Heparin Sodium (Porcine) (Heparin -) 1,000 unit IVPUSH PRN PRN PRN Reason: Heparin Heparin Sodium (Porcine) (Heparin -) 5,000 unit IVPUSH PRN PRN PRN Reason: Heparin Last Admin: 07/07/18 08:31 Dose: 5,000 unit IV Flush (Triple Lumen Flush) 4 ml IVPUSH PRN PRN PRN Reason: FLUSH Last Admin: 07/09/18 21:12 Dose: 4 ml Norepinephrine Bitartrate 8, (000 mcg/ Dextrose) 500 mls @ 18.75 mls/hr IV TITR [facility]; Protocol Last Admin: 07/09/18 22:46 Dose: Not Given Vasopressin 50 units/ Sodium (Chloride) 100 mls @ 4 mls/hr IVPB ASDIR [facility]; Protocol Last Titration: 07/09/18 17:57 Dose: 0 units/hr, 0 mls/hr Heparin Sodium (Porcine) 25, (000 unit/ Sodium Chloride) 500 mls @ 16 mls/hr IV TITR [facility]; Protocol Last Admin: 07/09/18 18:13 Dose: 1,250 unit/hr, 25 mls/hr Ceftriaxone Sodium 2 gm/ (Dextrose) 100 mls @ 100 mls/hr IVPB DAILY [facility]; Protocol Last Admin: 07/09/18 09:36 Dose: 100 mls/hr Insulin Aspart (Novolog Vial Sliding Scale -) 1 vial SQ ACHS [facility]; Protocol Last Admin: 07/10/18 06:22 Dose: 4 unit Lorazepam (Ativan Injection -) 1 mg IVPUSH Q4H PRN PRN Reason: AGITATION Last Admin: 07/09/18 17:32 Dose: 1 mg Metoprolol Tartrate (Lopressor -) 12.5 mg PO BID [facility] Last Admin: 07/09/18 21:11 Dose: 12.5 mg Pantoprazole Sodium (Protonix Iv) 40 mg IVPUSH DAILY [facility] Last Admin: 07/09/18 09:37 Dose: 40 mg Review of Systems Unable to obtain - Objective Vital Signs: Last Vital Signs Temp Pulse Resp BP Pulse Ox 97.5 F L 95 H 27 H 104/61 92 L 07/10/18 06:00 07/10/18 06:00 07/10/18 06:00 07/10/18 06:00 07/09/18 22:00 Intake & Output 07/07/18 07/08/18 07/09/18 07/10/18 23:59 23:59 23:59 23:59 Intake Total 3489 3177.0 2810.4 1104 Output Total 550 1000 1450 30 Balance 2939 2177.0 1360.4 1074 Weight 169 lb 9.6 oz 169 lb 9.6 oz 181 lb 12.8 oz Neck: Supple Negative JVD No Bruit Cardiovascular: S1 S2 Irregularly Irregular Respiratory: Scattered Rhonchi Bilaterally Gastrointestinal: Soft Benign Normal Bowel Sounds Ext: Edema Labs: CBC, BMP 07/10/18 05:30 07/10/18 05:30 Hepatic Panel Total Bilirubin 0.3 mg/dL (0.2-1) 07/10/18 05:30 AST 11 U/L (15-37) L 07/10/18 05:30 ALT 7 U/L (13-61) L 07/10/18 05:30 Alkaline Phosphatase 64 U/L (45-117) 07/10/18 05:30 Albumin 1.5 g/dl (3.4-5.0) L 07/10/18 05:30 INR, PTT INR 1.16 (0.83-1.09) H 07/05/18 05:30 Assessment/Plan ASSESSMENT: 1. Atrial fibrillation with periods of rapid ventricular response [id number] score of 6 on Heparin drip 2. Acute Hypoxic and Hypercapneic Respiratory Failure/ARDS, referable to sepsis syndrome 3. Septic Shock with lactic acidosis, source, resolved hypotension off of pressors 4. 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 Diastolic LV dysfunction with class 0-I NYHA classification LV failure, persistent failure on chest x-ray 6. HTN, hypotensive related to sepsis syndrome, resolved as noted above 7. DM 8. Pulmonary HTN 9. Organic brain syndrome/dementia 10. Acute renal insufficiency, resolving 11. Anemia 12. 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 Antibiotics as per primary team 2. Continue Lopressor to assist with rate control, hemodynamics permitting 3. Continue Heparin and eventual DOAC initiation 4. Lasix prn, ideally may benefit from Florence-Sarina catheter insertion to assess intra-cardiac pressures and guide management 5. Vent management as per critical care team 6. Monitor Hg and transfuse as needed maintaining Hg equal or > 8.0 Overall poor prognosis Dalton Camacho M.D.
[2018-07-10] MEDS: LORazepam 2 MG/ML SDV VIAL IVPUSH PRN (07:58)
[2018-07-10] MEDS ORDERED: DEXTROSE 5%-WATER 100 ML IVPB ONE (09:07)
[2018-07-10] MEDS: PANTOPRAZOLE SODIUM 40 MG VIAL IVPUSH SCH (09:09)
[2018-07-10] MEDS: METOPROLOL TARTRATE 25 MG TABLET (FP) PO SCH (09:09)
[2018-07-10] MEDS: CEFTRIAXONE 2 GM in DEXTROSE 5%-WATER 100 ML IVPB SCH (09:09)
--- NOTE | 2018-07-10 09:24 | PN ---
Progress Note (short form) - Note Progress Note: PULM/CCM SUBJECTIVE: Patient seen and examined in the ICU. -off pressors, some UOP with IV lasix, Cr up however -wbc up but afebrile -plan for family meeting today OBJECTIVE: Vital Signs Temp 97.5 F L 07/10/18 07:00 Pulse 98 H 07/10/18 08:37 Resp 31 H 07/10/18 08:37 BP 112/54 L 07/10/18 08:00 Pulse Ox 95 07/10/18 08:37 Intake & Output 07/09/18 07/09/18 07/10/18 11:59 23:59 11:59 Intake Total 1510.4 1300 1104 Output Total 700 750 30 Balance 810.4 550 1074 Weight 76.929 kg 82.463 kg Intake: IV 769.4 459 300 DIPRIVAN - 1,000,000 mcg 132.9 52 In 100 ml @ 5 MCG/KG/MIN 1.701 mls/hr IVPB TITR [facility] Rx#:[id number] Heparin - 25,000 Unit In 273.7 273 300 Normal Saline - 495 ml @ 800 UNIT/HR 16 mls/hr IV TITR [facility] Rx#:[id number] Levophed - 8,000 Mcg In 205.2 84 D5w - 492 ml @ 5 MCG/MIN 18.75 mls/hr IV TITR [facility] Rx#:[id number] Pitressin - 50 Units In 43.7 10 Normal Saline - 97.5 ml @ 2 UNITS/HR 4 mls/hr IVPB ASDIR [facility] Rx#: [id number] Sublimaze Injection - 500 113.9 40 Mcg In D5w - 90 ml @ 10 MCG/HR 2 mls/hr IVPB TITR [facility] Rx#:[id number] IVPB 100 Tube Feeding 539 539 564 Tube Irrigant 202 202 240 Output: Urine 700 750 30 Kaur 700 750 30 Other: Voiding Method Indwelling Catheter Indwelling Catheter # Unmeasured Voids Kaur 1 Bowel Movement No No Yes # Bowel Movements 1 Weight Measurement Method Built in Bedscale Built in Bedscale Current Medications Albuterol/Ipratropium (Duoneb -) 1 amp NEB Q6H PRN PRN Reason: SHORTNESS OF BREATH Last Admin: 07/06/18 23:35 Dose: 1 amp Chlorhexidine Gluconate (Hibiclens For Decolonization -) 1 applic TP HS [facility] Last Admin: 07/09/18 21:11 Dose: 1 applic Fentanyl (Sublimaze Injection -) 50 mcg IVPUSH Q2H PRN PRN Reason: MODERATE PAIN Stop: 07/10/18 13:14 Last Admin: 07/09/18 22:46 Dose: 50 mcg Heparin Sodium (Porcine) (Heparin -) 1,000 unit IVPUSH PRN PRN PRN Reason: Heparin Heparin Sodium (Porcine) (Heparin -) 5,000 unit IVPUSH PRN PRN PRN Reason: Heparin Last Admin: 07/07/18 08:31 Dose: 5,000 unit IV Flush (Triple Lumen Flush) 4 ml IVPUSH PRN PRN PRN Reason: FLUSH Last Admin: 07/09/18 21:12 Dose: 4 ml Norepinephrine Bitartrate 8, (000 mcg/ Dextrose) 500 mls @ 18.75 mls/hr IV TITR [facility]; Protocol Last Admin: 07/09/18 22:46 Dose: Not Given Vasopressin 50 units/ Sodium (Chloride) 100 mls @ 4 mls/hr IVPB ASDIR [facility]; Protocol Last Titration: 07/09/18 17:57 Dose: 0 units/hr, 0 mls/hr Heparin Sodium (Porcine) 25, (000 unit/ Sodium Chloride) 500 mls @ 16 mls/hr IV TITR [facility]; Protocol Last Admin: 07/09/18 18:13 Dose: 1,250 unit/hr, 25 mls/hr Ceftriaxone Sodium 2 gm/ (Dextrose) 100 mls @ 100 mls/hr IVPB DAILY [facility]; Protocol Last Admin: 07/10/18 09:09 Dose: 100 mls/hr Insulin Aspart (Novolog Vial Sliding Scale -) 1 vial SQ ACHS [facility]; Protocol Last Admin: 07/10/18 06:22 Dose: 4 unit Lorazepam (Ativan Injection -) 1 mg IVPUSH Q4H PRN PRN Reason: AGITATION Last Admin: 07/10/18 07:58 Dose: 1 mg Metoprolol Tartrate (Lopressor -) 12.5 mg PO BID [facility] Last Admin: 07/10/18 09:09 Dose: 12.5 mg Pantoprazole Sodium (Protonix Iv) 40 mg IVPUSH DAILY [facility] Last Admin: 07/10/18 09:09 Dose: 40 mg Gen: intubated, arousable, withdrawals, denies pain Heart: irregular, tachy Lung: scattered rhonchi, minimal secretions Abd: soft, nontender, +BS Ext: dependent pitting edema throughout Neuro: withdrawals to noxious bilaterally, opens eyes to loud voice, non focal ASSESSMENT AND PLAN: Acute Hypoxic and Hypercapneic Respiratory Failure UTI R/O Pneumonia Septic Shock New Onset Atrial Fibrillation with RVR ARDS Lactic Acidosis Acute Kidney Injury Hyperkalemia Left Hydronephrosis Bladder Cancer +Troponins likely Demand Ischemia LV Diastolic Dysfunction Pulmonary HTN HTN DM Dementia - ABX per ID - lasix trial as pt overloaded - monitor urine output, creatinine, can cont to try IV lasix but feel unlikely to be successful - low tidal volume ventilation <6cc/kg/IBW - keep Pplat <30 - rate control - continue anticoagulation - Daily sedation vacations - spontaneous breathing trials once overall clinical status improves , rapid shallow breathing on PS currently - DVT/GI prophylaxis - continue ICU monitoring [facility] [id number] CCT Addendum: Today I had the opportunity to speak with the two oldest daughters who are the primary surrogates of Ms Day regarding her deteriorating health despite critical care support. THey felt based on best interest standards and in line with previously stated wishes she should no longer be medically or mechanically supported. They asked that she be removed from life sustaining measures and that our focus should solely be on her comfort. A morphine gtt is being started and pt will be removed from the vent once she is adequately palliated. All questions were answered. Pts attending Dr Wilkinson to be notified. Pt is now DNR/ DNI.
--- NOTE | 2018-07-10 10:05 | PN ---
Progress Note, Physician - Current Medication List Current Medications: Active Medications Albuterol/Ipratropium (Duoneb -) 1 amp NEB Q6H PRN PRN Reason: SHORTNESS OF BREATH Last Admin: 07/06/18 23:35 Dose: 1 amp Chlorhexidine Gluconate (Hibiclens For Decolonization -) 1 applic TP HS [facility] Last Admin: 07/09/18 21:11 Dose: 1 applic Fentanyl (Sublimaze Injection -) 50 mcg IVPUSH Q2H PRN PRN Reason: MODERATE PAIN Stop: 07/10/18 13:14 Last Admin: 07/09/18 22:46 Dose: 50 mcg Heparin Sodium (Porcine) (Heparin -) 1,000 unit IVPUSH PRN PRN PRN Reason: Heparin Heparin Sodium (Porcine) (Heparin -) 5,000 unit IVPUSH PRN PRN PRN Reason: Heparin Last Admin: 07/07/18 08:31 Dose: 5,000 unit IV Flush (Triple Lumen Flush) 4 ml IVPUSH PRN PRN PRN Reason: FLUSH Last Admin: 07/09/18 21:12 Dose: 4 ml Norepinephrine Bitartrate 8, (000 mcg/ Dextrose) 500 mls @ 18.75 mls/hr IV TITR [facility]; Protocol Last Admin: 07/09/18 22:46 Dose: Not Given Vasopressin 50 units/ Sodium (Chloride) 100 mls @ 4 mls/hr IVPB ASDIR [facility]; Protocol Last Titration: 07/09/18 17:57 Dose: 0 units/hr, 0 mls/hr Heparin Sodium (Porcine) 25, (000 unit/ Sodium Chloride) 500 mls @ 16 mls/hr IV TITR [facility]; Protocol Last Admin: 07/09/18 18:13 Dose: 1,250 unit/hr, 25 mls/hr Ceftriaxone Sodium 2 gm/ (Dextrose) 100 mls @ 100 mls/hr IVPB DAILY [facility]; Protocol Last Admin: 07/10/18 09:09 Dose: 100 mls/hr Insulin Aspart (Novolog Vial Sliding Scale -) 1 vial SQ ACHS [facility]; Protocol Last Admin: 07/10/18 06:22 Dose: 4 unit Lorazepam (Ativan Injection -) 1 mg IVPUSH Q4H PRN PRN Reason: AGITATION Last Admin: 07/10/18 07:58 Dose: 1 mg Metoprolol Tartrate (Lopressor -) 12.5 mg PO BID [facility] Last Admin: 07/10/18 09:09 Dose: 12.5 mg Pantoprazole Sodium (Protonix Iv) 40 mg IVPUSH DAILY [facility] Last Admin: 07/10/18 09:09 Dose: 40 mg - Objective Vital Signs: Vital Signs Temperature 98.8 F 07/10/18 09:00 Pulse Rate 89 07/10/18 09:00 Respiratory Rate 31 H 07/10/18 09:00 Blood Pressure 104/61 07/10/18 09:00 O2 Sat by Pulse Oximetry (%) 99 07/10/18 09:00 Cardiovascular: Yes: S1, S2 Respiratory: Yes: Mechanically Ventilated Gastrointestinal: Yes: Normal Bowel Sounds, Soft, Other (ngty) Labs: CBC, BMP 07/10/18 05:30 07/10/18 05:30 INR, PTT INR 1.16 (0.83-1.09) H 07/05/18 05:30 Assessment/Plan - Problems (1) Sepsis Assessment/Plan: sepsis from UTI and pna ( possible bilateral infiltrates) Microbiology 07/04/18 14:52 Urine - Urine - Catheterized Urine Culture - Preliminary Alpha Hemolytic Streptococcus 07/04/18 13:57 Blood - Peripheral Venous Blood Culture - Preliminary NO GROWTH OBTAINED AFTER 48 HOURS, INCUBATION TO CONTINUE FOR 3 DAYS. 07/04/18 13:50 Blood - Peripheral Venous Blood Culture - Preliminary NO GROWTH OBTAINED AFTER 48 HOURS, INCUBATION TO CONTINUE FOR 3 DAYS. abx per id lactic acidosis resolved pressor to maintain MAP> 65 IVF for CVP 8-12 intubated sedated vent support icu monitiring Code(s): A41.9 - SEPSIS, UNSPECIFIED ORGANISM Qualifiers: Qualified Code(s): A40.1 - Sepsis due to streptococcus, group B (2) BRITT (acute kidney injury) Assessment/Plan: resolved renal sono left hydronpephrosis similar to 05/17/18 -urology consulted Code(s): N17.9 - ACUTE KIDNEY FAILURE, UNSPECIFIED (3) Respiratory failure Assessment/Plan: vent support (4) Diabetes mellitus Assessment/Plan: hgba1c bgm noted sliding scale Code(s): E11.9 - TYPE 2 DIABETES MELLITUS WITHOUT COMPLICATIONS (5) Paroxysmal atrial fibrillation with rapid ventricular response Assessment/Plan: LOPRESSOR heparin cardiology on board Code(s): I48.0 - PAROXYSMAL ATRIAL FIBRILLATION (6) Demand ischemia Assessment/Plan: trend troponin- demand ischemia with hypotension, pna Code(s): I24.8 - OTHER FORMS OF ACUTE ISCHEMIC HEART DISEASE poor overall prognosis--family to decide on further treatment plan and withdrawing further treatment
[2018-07-10] MEDS: VASOPRESSIN 50 UNITS in SODIUM CHLORIDE 97.5 ML IVPB SCH (11:22)
[2018-07-10 12:15] VITALS: BP 101/52; PULSE 97; TEMP 98.5
[2018-07-10] MEDS ORDERED: morphine SULFATE 4 MG/ML VIAL IVPUSH ONE ×2 (13:25→13:54)
[2018-07-10] MEDS ORDERED: morphine SULFATE 4 MG/ML VIAL ONE (13:29)
[2018-07-10] MEDS ORDERED: MORPHINE 100 MG in SODIUM CHLORIDE 98 ML IVPB SCH (13:30)
[2018-07-10] MEDS: HYDROmorphone HCl 2 MG/ML VIAL IVPUSH ONE ×2 (14:11→14:42)
--- NOTE | 2018-07-10 14:21 | PN ---
Progress Note (short form) - Note Progress Note: covering dr hickey 1. s/ p BRITT - resolving 2. s/p hyperkalemia 3. uti 4. dementia 5. htn - s/p hypotension on pressors, pressors now off 6. DM 7. hypercalcemia 8. hydronephrosis left 9. bladder mass 10. sepsis 11. lactic acidosis 12. resp failure Current Medications Morphine Sulfate 100 mg/ (Sodium Chloride) 100 mls @ 4 mls/hr IVPB TITR [facility]; Protocol Last Admin: 07/10/18 13:45 Dose: 4 mg/hr, 4 mls/hr Lorazepam (Ativan Injection -) 1 mg IVPUSH Q4H PRN PRN Reason: AGITATION Last Admin: 07/10/18 07:58 Dose: 1 mg Last Vital Signs Temp Pulse Resp BP Pulse Ox 98.5 F 97 H 28 H 101/52 L 99 07/10/18 12:00 07/10/18 12:00 07/10/18 12:00 07/10/18 12:00 07/10/18 10:00 today being extubated palliatively overall prognosis is poor Heent no edema, Neck no jvd lungs diminished Heart sof s1s2 Abd soft nontender ext trace edema, dependent CBC, BMP 07/10/18 05:30 07/10/18 05:30 CBC, BMP 07/09/18 05:30 07/09/18 05:30 IMP Leukocytosis more pronounced met acidosis Prerenal azotemia hemodynamically better Plan-will standby for any palliative issues related to fluid status
--- NOTE | 2018-07-10 16:23 | PN ---
Progress Note (short form) - Note Progress Note: Pt palliatively extubated this afternoon after discussion with family/HCP/ surrogates. Pt was started on morphine gtt for dyspnea. At 1618 called to bedside for asystole. On exam pt was unconscious, unresponsive, apneic, without corneal or brainstem reflexes, and without palpable pulse. Pt pronounced at 1620. Family to be notified. Attending Dr Klein to be notified. ODN to be contacted.
== END 2018-07-10 17:30 | disposition expired | DRG 870 ==
LOC: JER 13:14 → JERBED 16:42 → JICU 20:42
PROVIDERS: ADMIT Student in an Organized Health Care Education/Training Program; ATTEND Student in an Organized Health Care Education/Training Program
PROC: 0CHY7BZ Insertion of Airway into Mouth and Throat, Via Natural or Artificial Opening (ICD-10-PCS; principal; 2018-07-04)
PROC: 5A1955Z Respiratory Ventilation, Greater than 96 Consecutive Hours (ICD-10-PCS; 2018-07-04)
PROC: 05HM33Z Insertion of Infusion Device into Right Internal Jugular Vein, Percutaneous Approach (ICD-10-PCS; 2018-07-06)
DX: A41.9 Sepsis, unspecified organism (principal); R65.21 Severe sepsis with septic shock; J96.01 Acute respiratory failure with hypoxia; J96.02 Acute respiratory failure with hypercapnia; G93.41 Metabolic encephalopathy; N39.0 Urinary tract infection, site not specified; N17.9 Acute kidney failure, unspecified; E87.4 Mixed disorder of acid-base balance; I24.8 Other forms of acute ischemic heart disease; N13.30 Unspecified hydronephrosis; E87.2 Acidosis; J90 Pleural effusion, not elsewhere classified; I95.9 Hypotension, unspecified; F03.90 Unspecified dementia, unspecified severity, without behavioral disturbance, psychotic disturbance, mood disturbance, and anxiety; E87.5 Hyperkalemia; I46.9 Cardiac arrest, cause unspecified; C67.9 Malignant neoplasm of bladder, unspecified; M54.9 Dorsalgia, unspecified; I10 Essential (primary) hypertension; E11.9 Type 2 diabetes mellitus without complications; D72.829 Elevated white blood cell count, unspecified; I27.20 Pulmonary hypertension, unspecified; R00.0 Tachycardia, unspecified; N94.9 Unspecified condition associated with female genital organs and menstrual cycle; I48.0 Paroxysmal atrial fibrillation; D64.9 Anemia, unspecified; E83.52 Hypercalcemia
CPT/HCPCS: 36415; 36430; 36600; 71045-TC-FY; 74176-TC; 76775-TC; 80048; 80053; 81003; 81015; 82272; 82375; 82550; 82565; 82728; 82803; 82962; 83036; 83050; 83540; 83550; 83605; 83735; 83935; 84100; 84300; 84484; 85025; 85027; 85610; 85730; 86850; 86900; 86901; 86922; 87040; 87086; 88108; 88305-TC; 93005; 93010; 93306-TC; 94002; 94640; 99285-25; J0131; J1644; J7030; P9038; P9058